=== PATIENT | male | born 1940 | race Caucasian/White ===

== ENCOUNTER 2020-04-28 10:07 | Outpatient (CLI) | payer MEDICARE, SELFPAY ==
[2020-04-28 10:49] LABS: Hematocrit 31.4 % (42.0-52.0); Hemoglobin 9.9 g/dL (14.0-18.0); Mean Corpuscular HGB Conc 31.5 g/dl (32-36); Mean Corpuscular Hemoglobin 27.3 pg (26-34); Mean Corpuscular Volume 86.7 fl (80-100); Mean Platelet Volume 11.3 fl (7.4-10.4); Platelet Count Result 168 k/mm3 (150-375); Red Blood Count 3.62 M/mm3 (4.6-6.20); Red Cell Distribution Width 16.2 % (11.5-14.5); White Blood Count 6.7 K/mm3 (4.5-10.0)
[2020-04-28 10:54] LABS: Creatinine Urine 97.1 mg/dL; Total Protein Urine Random 99 mg/dL
[2020-04-28 11:01] LABS: Albumin Level 4.4 g/dL (3.5-5.1); Blood Urea Nitrogen 49 mg/dL (9-20); Calcium 9.3 mg/dL (8.4-10.2); Carbon Dioxide 24 mmol/L (22-30); Chloride 107 mmol/L (98-107); Cholesterol 145 mg/dL (0-200); Estimated Glomerular Filt Rate 34; Glucose 122 mg/dL (75-110); HDL Direct 43 mg/dL; Phosphorus 4.1 mg/dL (2.5-4.5); Potassium 4.6 mmol/L (3.4-5.0); Sodium 138 mmol/L (137-145); Triglycerides 94 mg/dL (<150)
[2020-04-28 11:12] LABS: LDL Cholesterol Direct 76 mg/dL; Parathyroid Intact 69.6 pg/mL (7.5-53.5)
[2020-04-28 11:19] LABS: Alanine Aminotransferase < 4 U/L (4-50)
[2020-04-28 11:44] LABS: Vitamin D 25 Hydroxy 58.4 ng/mL
== END 2020-04-28 10:08 | disposition home or self-care (01) ==
LOC: ANHLAB 10:13
PROVIDERS: PCP Family Medicine; Visit Provider Internal Medicine Nephrology
DX: N18.3 Chronic kidney disease, stage 3 (moderate) (principal); E78.49 Other hyperlipidemia
CPT/HCPCS: 36415; 80061; 80069; 82306; 82570; 83970; 84156; 84460; 85027

== ENCOUNTER 2020-08-06 15:30 | Outpatient (CLI) | payer MEDICARE, SELFPAY ==
[2020-08-06 16:08] LABS: Basophils Percent Auto 0.5 % (0.2-1.2); Eosinophils Absolute Auto 0.1 K/mm3 (0-0.3); Eosinophils Percent Auto 2.1 % (0-4.4); Hematocrit 30.6 % (42.0-52.0); Hemoglobin 9.5 g/dL (14.0-18.0); Immature Granulocyte Absolute 0.02 K/mm3 (0.00-0.031); Immature Granulocyte Percent A 0.3 % (0-0.5); Lymphocytes Absolute Auto 0.78 K/mm3 (0.9-3.2); Lymphocytes Percent Auto 12.4 % (18.3-44.2); Mean Corpuscular Hemoglobin 28.3 pg (26-34); Mean Corpuscular Volume 91.1 fl (80-100); Mean Platelet Volume 11.4 fl (7.4-10.4); Monocytes Absolute Auto 0.6 K/mm3 (0.1-0.6); Monocytes Percent Auto 9.5 % (2.6-8.5); Neutrophils Absolute Auto 4.7 K/mm3 (1.3-6.7); Neutrophils Percent Auto 75.2 % (45.5-73.1); Platelet Count Result 174 k/mm3 (150-375); Red Blood Count 3.36 M/mm3 (4.6-6.20); Red Cell Distribution Width 14.4 % (11.5-14.5); White Blood Count 6.3 K/mm3 (4.5-10.0)
[2020-08-06 16:44] LABS: Albumin Level 4.1 g/dL (3.5-5.1); Alkaline Phosphatase 64 U/L (38-126); Anion Gap 11 mmol/L (8-16); Aspartate Amino Transferase 13 U/L (17-59); Bilirubin,Total 0.4 mg/dL (0.2-1.3); Blood Urea Nitrogen 40 mg/dL (9-20); Calcium 9.5 mg/dL (8.4-10.2); Carbon Dioxide 27 mmol/L (22-30); Chloride 104 mmol/L (98-107); Cholesterol 135 mg/dL (0-200); Estimated Glomerular Filt Rate 32; Glucose 125 mg/dL (75-110); HDL Direct 45 mg/dL; Potassium 4.4 mmol/L (3.4-5.0); Sodium 142 mmol/L (137-145); Triglycerides 139 mg/dL (<150)
[2020-08-06 16:55] LABS: LDL Cholesterol Direct 70 mg/dL
[2020-08-06 16:55] LABS: Creatinine Urine 161.4 mg/dL
[2020-08-06 17:13] LABS: Thyroid Stimulating Hormone 0.654 uIU/mL (0.465-4.680)
[2020-08-06 17:31] LABS: MALB Creatinine Ratio 621.7 mg/g (0-30); Microalbumin Urine Random 1003.4 mg/L (0-16.7)
[2020-08-06 17:32] LABS: Alanine Aminotransferase < 6 U/L (4-50)
[2020-08-06 17:43] LABS: Thyroid Stimulating Hormone Reflex 0.674 uIU/mL (0.465-4.68)
== END 2020-08-06 15:31 | disposition home or self-care (01) ==
LOC: ANHLAB 15:34
PROVIDERS: PCP Family Medicine; Visit Provider Family Medicine
DX: I10 Essential (primary) hypertension (principal); E11.9 Type 2 diabetes mellitus without complications; N40.1 Benign prostatic hyperplasia with lower urinary tract symptoms; R33.8 Other retention of urine; Z12.5 Encounter for screening for malignant neoplasm of prostate; E78.5 Hyperlipidemia, unspecified; E53.8 Deficiency of other specified B group vitamins
CPT/HCPCS: 36415; 80053; 80061; 82043; 82607; 83036; 84153; 84443; 85025; G0103

== ENCOUNTER 2020-11-02 14:01 | Outpatient (CLI) | payer MEDICARE, SELFPAY ==
[2020-11-02 14:48] LABS: Creatinine Urine 134.7 mg/dL; Total Protein Urine Random 122 mg/dL; Ur Ttl Prot Creatinine Ratio 0.91 mg/mg (0-0.20)
[2020-11-02 14:53] LABS: Anion Gap 8 mmol/L (8-16); Blood Urea Nitrogen 43 mg/dL (9-20); Calcium 8.9 mg/dL (8.4-10.2); Carbon Dioxide 26 mmol/L (22-30); Chloride 105 mmol/L (98-107); Estimated Glomerular Filt Rate 34; Glucose 119 mg/dL (75-110); Phosphorus 3.7 mg/dL (2.5-4.5); Potassium 4.5 mmol/L (3.4-5.0); Sodium 139 mmol/L (137-145)
== END 2020-11-02 14:02 | disposition home or self-care (01) ==
PROVIDERS: PCP Family Medicine; Referring Provider Family Medicine; Visit Provider Internal Medicine Nephrology
DX: N18.30 Chronic kidney disease, stage 3 unspecified (principal)
CPT/HCPCS: 36415; 80069; 82570; 84156

== ENCOUNTER 2021-05-17 14:00 | Outpatient (CLI) | payer MEDICARE, SELFPAY ==
[2021-05-17 14:35] LABS: Hemoglobin 9.3 g/dL (14.0-18.0); Mean Corpuscular Hemoglobin 27.7 pg (26-34); Mean Corpuscular Volume 89.3 fl (80-100); Platelet Count Result 163 k/mm3 (150-375); Red Blood Count 3.36 M/mm3 (4.6-6.20); Red Cell Distribution Width 14.7 % (11.5-14.5); White Blood Count 6.1 K/mm3 (4.5-10.0)
[2021-05-17 15:39] LABS: Albumin Level 4.3 g/dL (3.5-5.1); Anion Gap 11 mmol/L (8-16); Blood Urea Nitrogen 46 mg/dL (9-20); Calcium 9.5 mg/dL (8.4-10.2); Carbon Dioxide 24 mmol/L (22-30); Chloride 108 mmol/L (98-107); Estimated Glomerular Filt Rate 29; Glucose 113 mg/dL (65-110); Phosphorus 4.1 mg/dL (2.5-4.5); Potassium 4.7 mmol/L (3.4-5.0); Sodium 143 mmol/L (137-145)
[2021-05-17 16:18] LABS: Creatinine Urine 171.9 mg/dL; Total Protein Urine Random 72 mg/dL; Ur Ttl Prot Creatinine Ratio 0.42 mg/mg (0-0.20)
[2021-05-17 16:32] LABS: Parathyroid Intact 81.6 pg/mL (7.5-53.5)
== END 2021-05-17 14:01 | disposition home or self-care (01) ==
PROVIDERS: PCP Family Medicine; Referring Provider Family Medicine; Visit Provider Internal Medicine Nephrology
DX: N18.32 Chronic kidney disease, stage 3b (principal)
CPT/HCPCS: 36415; 80069; 82570; 83970; 84156; 85027

== ENCOUNTER 2021-08-11 10:37 | Outpatient (CLI) | payer MEDICARE, SELFPAY ==
[2021-08-11 11:11] LABS: Basophils Percent Auto 0.5 % (0.2-1.2); Eosinophils Absolute Auto 0.2 K/mm3 (0-0.3); Hematocrit 28.4 % (42.0-52.0); Hemoglobin 8.8 g/dL (14.0-18.0); Immature Granulocyte Absolute 0.01 K/mm3 (0.00-0.031); Immature Granulocyte Percent A 0.2 % (0-0.5); Lymphocytes Absolute Auto 0.74 K/mm3 (0.9-3.2); Mean Corpuscular Hemoglobin 27.9 pg (26-34); Mean Corpuscular Volume 90.2 fl (80-100); Mean Platelet Volume 11.2 fl (7.4-10.4); Monocytes Absolute Auto 0.7 K/mm3 (0.1-0.6); Monocytes Percent Auto 11.6 % (2.6-8.5); Neutrophils Absolute Auto 4.1 K/mm3 (1.3-6.7); Neutrophils Percent Auto 71.7 % (45.5-73.1); Platelet Count Result 148 k/mm3 (150-375); Red Blood Count 3.15 M/mm3 (4.6-6.20); Red Cell Distribution Width 15.2 % (11.5-14.5); White Blood Count 5.7 K/mm3 (4.5-10.0)
[2021-08-11 11:33] LABS: Albumin Level 4.4 g/dL (3.5-5.1); Alkaline Phosphatase 63 U/L (38-126); Anion Gap 11 mmol/L (8-16); Aspartate Amino Transferase 12 U/L (17-59); Bilirubin,Total 0.5 mg/dL (0.2-1.3); Blood Urea Nitrogen 42 mg/dL (9-20); Carbon Dioxide 24 mmol/L (22-30); Chloride 106 mmol/L (98-107); Cholesterol 122 mg/dL (0-200); Estimated Glomerular Filt Rate 30; Glucose 100 mg/dL (65-110); HDL Direct 44 mg/dL; Potassium 4.5 mmol/L (3.4-5.0); Sodium 141 mmol/L (137-145); Triglycerides 74 mg/dL (<150)
[2021-08-11 11:44] LABS: LDL Cholesterol Direct 63 mg/dL
[2021-08-11 12:03] LABS: Prostate Specific Antigen 1.1 ng/mL (< OR = 4.0)
[2021-08-11 12:24] LABS: Creatinine Urine 112.9 mg/dL
[2021-08-11 12:27] LABS: Vitamin B12 > 1000.0 pg/mL (239-931)
[2021-08-11 12:52] LABS: MALB Creatinine Ratio 306.1 mg/g (0-30); Microalbumin Urine Random 345.6 mg/L (0-16.7)
[2021-08-11 13:10] LABS: Alanine Aminotransferase < 6 U/L (4-50)
[2021-08-11 14:49] LABS: Hemoglobin A1C 6.1 % (<5.7)
== END 2021-08-11 10:38 | disposition home or self-care (01) ==
LOC: ANHLAB 10:40
PROVIDERS: PCP Family Medicine; Visit Provider Family Medicine
DX: E78.5 Hyperlipidemia, unspecified (principal); I10 Essential (primary) hypertension; E11.9 Type 2 diabetes mellitus without complications; E55.9 Vitamin D deficiency, unspecified; Z12.5 Encounter for screening for malignant neoplasm of prostate; E53.8 Deficiency of other specified B group vitamins
CPT/HCPCS: 36415; 80053; 80061; 82043; 82306; 82607; 83036; 84153; 84443; 85025; G0103

== ENCOUNTER 2021-11-03 13:42 | Outpatient (CLI) | payer MEDICARE, SELFPAY ==
[2021-11-03 14:51] LABS: Albumin Level 4.4 g/dL (3.5-5.1); Anion Gap 13 mmol/L (8-16); Blood Urea Nitrogen 47 mg/dL (9-20); Calcium 9.7 mg/dL (8.4-10.2); Carbon Dioxide 24 mmol/L (22-30); Chloride 108 mmol/L (98-107); Estimated Glomerular Filt Rate 29; Glucose 137 mg/dL (65-110); Potassium 4.3 mmol/L (3.4-5.0); Sodium 145 mmol/L (137-145)
[2021-11-03 15:13] LABS: Creatinine Urine 122.8 mg/dL; Total Protein Urine Random 89 mg/dL; Ur Ttl Prot Creatinine Ratio 0.72 mg/mg (0-0.20)
== END 2021-11-03 13:43 | disposition home or self-care (01) ==
LOC: ANHLAB 13:45
PROVIDERS: PCP Family Medicine; Visit Provider Internal Medicine Nephrology
DX: N18.32 Chronic kidney disease, stage 3b (principal)
CPT/HCPCS: 36415; 80069; 82570; 84156

== ENCOUNTER 2022-04-25 12:22 | Outpatient (CLI) | payer MEDICARE, SELFPAY ==
[2022-04-25 14:12] LABS: Hematocrit 27.6 % (42.0-52.0); Hemoglobin 8.3 g/dL (14.0-18.0); Mean Corpuscular HGB Conc 30.1 g/dl (32-36); Mean Corpuscular Hemoglobin 25.4 pg (26-34); Mean Corpuscular Volume 84.4 fl (80-100); Platelet Count Result 164 k/mm3 (150-375); Red Blood Count 3.27 M/mm3 (4.6-6.20); Red Cell Distribution Width 17.8 % (11.5-14.5); White Blood Count 5.6 K/mm3 (4.5-10.0)
[2022-04-25 14:19] LABS: Albumin Level 4.2 g/dL (3.5-5.1); Anion Gap 7 mmol/L (8-16); Blood Urea Nitrogen 48 mg/dL (9-20); Calcium 9.1 mg/dL (8.4-10.2); Carbon Dioxide 26 mmol/L (22-30); Chloride 107 mmol/L (98-107); Estimated Glomerular Filt Rate 29; Glucose 123 mg/dL (65-110); Phosphorus 3.8 mg/dL (2.5-4.5); Potassium 4.3 mmol/L (3.4-5.0); Sodium 140 mmol/L (137-145)
[2022-04-25 14:25] LABS: Creatinine Urine 98.6 mg/dL; Total Protein Urine Random 89 mg/dL
[2022-04-25 14:30] LABS: Parathyroid Intact 53.9 pg/mL (7.5-53.5)
== END 2022-04-25 12:23 | disposition home or self-care (01) ==
PROVIDERS: PCP Family Medicine; Visit Provider Internal Medicine Nephrology
DX: N18.4 Chronic kidney disease, stage 4 (severe) (principal)
CPT/HCPCS: 36415; 80069; 82570; 83970; 84156; 85027

== ENCOUNTER 2022-05-05 11:58 | Outpatient (CLI) | payer MEDICARE, SELFPAY ==
[2022-05-05 12:56] LABS: Appearance Urine Cloudy (Clear); Bilirubin Urine Negative (Negative); Blood Urine Trace-lysed (Negative); Color Urine Yellow (Yellow); Glucose Urine UA Negative (Negative); Ketones Urine Negative (Negative); Leukocyte Esterase Ur 2+ LEU/UL (NEGATIVE); Nitrate Urine Negative (Negative); Protein Urine 3+ mg/dL (Negative); Specific Grav Ur 1.025 (1.001-1.035); Urobilinogen Urine 0.2 mg/dL (<2.0)
[2022-05-05 13:14] LABS: Bacteria Urine Trace /hpf; RBC Urine 21-50 /hpf (0-2); WBC Clumps Urine Present /HPF; WBC Urine >75 /hpf (0-3)
[2022-05-05 13:29] LABS: Add Urine Microscopic? YES
== END 2022-05-05 11:59 | disposition home or self-care (01) ==
LOC: ANHLAB 11:59
PROVIDERS: PCP Family Medicine; Visit Provider Internal Medicine Nephrology
DX: N39.0 Urinary tract infection, site not specified (principal)
CPT/HCPCS: 81001; 87077; 87086; 87186

== ENCOUNTER 2022-09-08 11:15 | Outpatient (CLI) | payer MEDICARE, SELFPAY ==
[2022-09-08 19:26] LABS: Basophils Percent Auto 0.6 % (0.2-1.2); Eosinophils Absolute Auto 0.3 K/mm3 (0-0.3); Eosinophils Percent Auto 4.6 % (0-4.4); Hematocrit 31.1 % (42.0-52.0); Hemoglobin 9.6 g/dL (14.0-18.0); Immature Granulocyte Absolute 0.02 K/mm3 (0.00-0.031); Immature Granulocyte Percent A 0.3 % (0-0.5); Lymphocytes Absolute Auto 0.79 K/mm3 (0.9-3.2); Lymphocytes Percent Auto 12.2 % (18.3-44.2); Mean Corpuscular HGB Conc 30.9 g/dl (32-36); Mean Corpuscular Hemoglobin 26.7 pg (26-34); Mean Corpuscular Volume 86.6 fl (80-100); Mean Platelet Volume 12.2 fl (7.4-10.4); Monocytes Absolute Auto 0.7 K/mm3 (0.1-0.6); Monocytes Percent Auto 10.3 % (2.6-8.5); Neutrophils Absolute Auto 4.7 K/mm3 (1.3-6.7); Platelet Count Result 163 k/mm3 (150-375); Red Blood Count 3.59 M/mm3 (4.6-6.20); Red Cell Distribution Width 16.4 % (11.5-14.5); White Blood Count 6.5 K/mm3 (4.5-10.0)
[2022-09-08 19:32] LABS: Creatinine Urine 103.6 mg/dL; Total Protein Urine Random 116 mg/dL; Ur Ttl Prot Creatinine Ratio 1.12 mg/mg (0-0.20)
[2022-09-08 19:42] LABS: Alanine Aminotransferase 8 U/L (6-50); Albumin Level 4.3 g/dL (3.5-5.1); Alkaline Phosphatase 84 U/L (38-126); Anion Gap 12 mmol/L (8-16); Aspartate Amino Transferase 14 U/L (17-59); Bilirubin,Total 0.6 mg/dL (0.2-1.3); Blood Urea Nitrogen 47 mg/dL (9-20); Calcium 8.9 mg/dL (8.4-10.2); Carbon Dioxide 22 mmol/L (22-30); Chloride 104 mmol/L (98-107); Cholesterol 147 mg/dL (0-200); Estimated Glomerular Filt Rate 26; Glucose 101 mg/dL (65-110); HDL Direct 46 mg/dL; Potassium 4.3 mmol/L (3.4-5.0); Sodium 138 mmol/L (137-145); Triglycerides 91 mg/dL (<150)
[2022-09-08 19:53] LABS: LDL Cholesterol Direct 71 mg/dL
[2022-09-08 19:53] LABS: Albumin Level 4.3 g/dL (3.5-5.1); Anion Gap 16 mmol/L (8-16); Blood Urea Nitrogen 47 mg/dL (9-20); Carbon Dioxide 21 mmol/L (22-30); Chloride 102 mmol/L (98-107); Estimated Glomerular Filt Rate 26; Glucose 104 mg/dL (65-110); Phosphorus 3.6 mg/dL (2.5-4.5); Potassium 4.1 mmol/L (3.4-5.0); Sodium 139 mmol/L (137-145)
[2022-09-08 19:57] LABS: Hemoglobin A1C 6.3 % (<5.7)
[2022-09-08 20:01] LABS: Parathyroid Intact 55.2 pg/mL (7.5-53.5)
[2022-09-08 20:05] LABS: Vitamin D 25 Hydroxy 70.5 ng/mL
[2022-09-08 20:13] LABS: Prostate Specific Antigen 1.2 ng/mL (< OR = 4.0)
[2022-09-08 20:19] LABS: Thyroid Stimulating Hormone Reflex 0.566 uIU/mL (0.465-4.68)
[2022-09-08 20:33] LABS: Hepatitis C Virus Antibody Negative (Negative)
[2022-09-08 20:34] LABS: Vitamin B12 > 1000.0 pg/mL (239-931)
[2022-09-08 21:06] LABS: MALB Creatinine Ratio 684.6 mg/g (0-30); Microalbumin Urine Random 698.3 mg/L (0-16.7)
== END 2022-09-08 11:16 | disposition home or self-care (01) ==
LOC: ANHGOSHLAB 11:19
PROVIDERS: PCP Family Medicine; Visit Provider Internal Medicine Nephrology
DX: E11.9 Type 2 diabetes mellitus without complications (principal); Z12.5 Encounter for screening for malignant neoplasm of prostate; G20 Parkinson's disease; E53.8 Deficiency of other specified B group vitamins; E55.9 Vitamin D deficiency, unspecified; E78.5 Hyperlipidemia, unspecified; I12.9 Hypertensive chronic kidney disease with stage 1 through stage 4 chronic kidney disease, or unspecified chronic kidney disease; N18.4 Chronic kidney disease, stage 4 (severe)
CPT/HCPCS: 36415; 80053; 80061; 80069; 82043; 82306; 82570; 82607; 83036; 83970; 84153; 84156; 84443; 85025; 86803; G0103

== ENCOUNTER 2023-01-20 14:30 | Outpatient (RCR) | payer MEDICARE, SELFPAY ==
--- NOTE | 2022-11-21 14:33 | PTOPEVAL1 ---
Assessment and note entered by Sagar Magaña, PT, DPT Evaluation Information Assessment Status Evaluation Diagnosis Parkinson's Disease, repeated falls Onset 3 years Subjective Information Pt reports he lives with his lives with his in a fully accessible home. He reports his last fall was 8 months ago. He states he would like to improve his balance. He states he has been walking with a walker since his last fall. Reported Pain Level Pain Score 0: Self Report Assessment PT Clinical Summary Chris presents to therapy today for his initial evaluation with a diagnosis of Parkinson's and repeated falls. Today he demonstrates a decreased gait speed with a shorten step and shuffling pattern. He demonstrates good LE strength, grossly 4/5 throughout. He has fair balance, scoring a 17 /28 on the Tinetti placing him at an increased risk for falls. He also requires increased time to complete the TUG and 5xSTS, and has a decreased distance on the 2 min walk test, all placing him at an increase risk for falls. Skilled physical therapy services are indicated to address the deficits noted above, to improve balance and mobility, to minimize fall risk, and to promote safety with functional mobility. Plan of Care Interventions Manual Therapy,Neuro Re-education,Patient/ Caregiver Educati PT Services Indicated Yes Treatment Frequency and 2x/wk for 4 wks Duration These treatments will address the objective and functional deficits as defined above. The patient will be advanced safely and appropriately in order for the patient to progress towards his/her prior level of function. Additional exercises will be introduced and as well as a comprehensive home exercise program upon discharge, if needed, ?to ensure carryover of functional gains achieved in the clinic. This treatment plan has been reviewed and agreement upon by the patient.
--- NOTE | 2022-12-09 13:28 | PCPTNOTE ---
Patient called & cancelled scheduled appointment this date due to being sick.
--- NOTE | 2022-12-21 14:53 | PTOPPROG ---
Assessment and note entered by Sagar Magaña, PT, DPT Evaluation Information Assessment Status Progress Diagnosis Parkinson's Disease, repeated falls Onset 3 years Subjective Information Pt states he has improved a little bit with therapy, he states his balance, mobility, and bed mobility has improved since starting therapy. Pt reports good compliance with his HEP, performing them 1-2 times a day. Assessment PT Clinical Summary Chris presents to therapy today for his progress report following 5 visits of skilled therapy to treat the deficits associated with PD and his increased frequency of falls. He reports no falls in the last month. He made mild improvements in his 2 min walk test and TUG score but did not improve his Tinetti nor his 5xSTS time. Reinforcement on the importance of increasing daily mobility was given. Continuation of skilled therapy services are indicated to address deficits noted above, to improve safety and functional mobility. Plan of Care Interventions Manual Therapy,Neuro Re-education,Patient/ Caregiver Educati PT Services Indicated Yes Treatment Frequency and 2x/wk for 4 wks Duration These treatments will address the objective and functional deficits as defined above. The patient will be advanced safely and appropriately in order for the patient to progress towards his/her prior level of function. Additional exercises will be introduced and as well as a comprehensive home exercise program upon discharge, if needed, ?to ensure carryover of functional gains achieved in the clinic. This treatment plan has been reviewed and agreement upon by the patient.
--- NOTE | 2023-01-20 15:21 | PTOPDC ---
Assessment and note entered by Sagar Magaña, PT, DPT Evaluation Information Assessment Status Discharge Diagnosis Parkinson's Disease, repeated falls Onset 3 years Subjective Information Pt states he feels more confident when walking around his home. He declines any recent falls. Pt report performing his HEP about 2 times a week outside of therapy. Reported Pain Level Pain Score 0: Self Report Assessment PT Clinical Summary Chris presents to therapy today for his progress report following 14 visits of skilled physical therapy to treat his BLE weakness, decreased balance, and generalized weakness. Today he demonstrates a worsening score/time during the 2min walk test and Tinetti balance assessment. He demonstrates minor improvement in his 5xSTS from his later re-evaluation but this is still the same as his initial evaluation. However, his TUG time has consistently decreased from 38s, to 33s, to 32s. He will be discharged at this time d/t poor therapy progress and poor compliance with his home program. Plan of Care Interventions Manual Therapy,Neuro Re-education,Patient/ Caregiver Educati PT Services Indicated No Treatment Frequency and to be discharged Duration
== END 2023-01-20 15:30 | disposition home or self-care (01) ==
LOC: ANHGOSHPT 14:30
PROVIDERS: PCP Family Medicine; Visit Provider Family Medicine
DX: G20 Parkinson's disease (principal); R29.6 Repeated falls
CPT/HCPCS: 97110; 97112; 97161; 97530

== ENCOUNTER 2023-01-25 14:41 | Outpatient (CLI) | payer MEDICARE, SELFPAY ==
[2023-01-25 18:44] LABS: Hematocrit 28.2 % (42.0-52.0); Hemoglobin 8.5 g/dL (14.0-18.0); Mean Corpuscular HGB Conc 30.1 g/dl (32-36); Mean Corpuscular Hemoglobin 27.3 pg (26-34); Mean Corpuscular Volume 90.7 fl (80-100); Mean Platelet Volume 12.1 fl (7.4-10.4); Platelet Count Result 178 k/mm3 (150-375); Red Blood Count 3.11 M/mm3 (4.6-6.20); Red Cell Distribution Width 15.6 % (11.5-14.5); White Blood Count 8.2 K/mm3 (4.5-10.0)
[2023-01-25 19:27] LABS: Creatinine Urine 169.5 mg/dL; Total Protein Urine Random 157 mg/dL; Ur Ttl Prot Creatinine Ratio 0.93 mg/mg (0-0.20)
[2023-01-25 20:03] LABS: Albumin Level 4.1 g/dL (3.5-5.1); Anion Gap 8 mmol/L (8-16); Blood Urea Nitrogen 43 mg/dL (9-20); Carbon Dioxide 28 mmol/L (22-30); Chloride 108 mmol/L (98-107); Estimated Glomerular Filt Rate 30; Glucose 128 mg/dL (65-110); Phosphorus 3.9 mg/dL (2.5-4.5); Potassium 4.1 mmol/L (3.4-5.0); Sodium 144 mmol/L (137-145)
[2023-01-25 20:15] LABS: Parathyroid Intact 89.1 pg/mL (7.5-53.5)
== END 2023-01-25 14:42 | disposition home or self-care (01) ==
LOC: ANHGOSHLAB 14:42
PROVIDERS: PCP Family Medicine; Visit Provider Internal Medicine Nephrology
DX: N18.4 Chronic kidney disease, stage 4 (severe) (principal)
CPT/HCPCS: 36415; 80069; 82570; 83970; 84156; 85027

== ENCOUNTER 2023-02-24 12:20 | Emergency (ER) | payer MEDICARE, SELFPAY ==
--- NOTE | ~2023-02-24 | XR_ITS ---
Right Knee Technique: AP, lateral, and sunrise views were obtained. Clinical History: Pain Findings: No fracture or dislocation is seen. Osseous alignment is anatomic. There is mild to moderat e tricompartmental degenerative spurring. Chondrocalcinosis of the menisci noted. Possible small join t effusion is seen. Impression: [id number] tricompartmental osteoarthritis. Suspected small joint effusion. Reviewed, dictated and finalized at location M. Impression: [id number] tricompartmental osteoarthritis. Suspected small joint effusion.
[2023-02-24 12:35] VITALS: BP 159/55; PULSE 59; RESP 18; TEMP 36.4; O2SAT 99
[2023-02-24 13:57] LABS: Glucose Point of Care 122 mg/dl (65-105)
--- NOTE | 2023-02-24 14:45 | PC.NURSE ---
Family verbalized frustration at this time about now being seen by EDP at this time. This nurse explained triage at this time. This nurse explained that pt can get xray results from medical records for another PCP. Per son request pt PIV removed and states that they will take pt home.
--- NOTE | 2023-02-24 14:48 | PC.NURSE ---
Pt assisted by tech and family member to POV at this time.
== END 2023-02-24 14:48 | disposition left against medical advice (07) ==
PROVIDERS: Emergency Provider Emergency Medicine; PCP Family Medicine
DX: M25.561 Pain in right knee (principal)
CPT/HCPCS: 73564; 82948; 99199

== ENCOUNTER 2023-03-07 14:20 | Outpatient (CLI) | payer MEDICARE, SELFPAY ==
[2023-03-07 19:25] LABS: Basophils Absolute Auto 0.1 K/mm3 (0.0-0.1); Basophils Percent Auto 0.4 % (0.2-1.2); Eosinophils Absolute Auto 0.1 K/mm3 (0-0.3); Eosinophils Percent Auto 0.8 % (0-4.4); Hemoglobin 9.8 g/dL (14.0-18.0); Immature Granulocyte Absolute 0.05 K/mm3 (0.00-0.031); Immature Granulocyte Percent A 0.4 % (0-0.5); Lymphocytes Absolute Auto 0.62 K/mm3 (0.9-3.2); Lymphocytes Percent Auto 5.4 % (18.3-44.2); Mean Corpuscular HGB Conc 30.6 g/dl (32-36); Mean Corpuscular Hemoglobin 26.6 pg (26-34); Mean Corpuscular Volume 86.7 fl (80-100); Mean Platelet Volume 12.8 fl (7.4-10.4); Monocytes Absolute Auto 0.9 K/mm3 (0.1-0.6); Neutrophils Absolute Auto 9.8 K/mm3 (1.3-6.7); Platelet Count Result 183 k/mm3 (150-375); Red Blood Count 3.69 M/mm3 (4.6-6.20); Red Cell Distribution Width 15.4 % (11.5-14.5); White Blood Count 11.6 K/mm3 (4.5-10.0)
[2023-03-07 20:03] LABS: Alanine Aminotransferase 17 U/L (6-50); Albumin Level 4.2 g/dL (3.5-5.1); Alkaline Phosphatase 86 U/L (38-126); Anion Gap 11 mmol/L (8-16); Aspartate Amino Transferase 29 U/L (17-59); Bilirubin,Total 0.9 mg/dL (0.2-1.3); Blood Urea Nitrogen 40 mg/dL (9-20); Calcium 8.9 mg/dL (8.4-10.2); Carbon Dioxide 26 mmol/L (22-30); Chloride 100 mmol/L (98-107); Estimated Glomerular Filt Rate 27; Glucose 151 mg/dL (65-110); Potassium 3.5 mmol/L (3.4-5.0); Sodium 137 mmol/L (137-145)
== END 2023-03-07 14:21 | disposition home or self-care (01) ==
LOC: ANHGOSHLAB 14:22
PROVIDERS: PCP Family Medicine; Visit Provider Nurse Practitioner Family
DX: D64.9 Anemia, unspecified (principal); I10 Essential (primary) hypertension; E11.9 Type 2 diabetes mellitus without complications
CPT/HCPCS: 36415; 80053; 82728; 83036; 85025

== ENCOUNTER 2023-03-10 16:16 | Inpatient (IN) | payer MEDICARE, SELFPAY ==
[2023-03-10] VITALS (24 sets, daily range): BP systolic 122–172; BP diastolic 62–98; PULSE 61–99; RESP 17–24; TEMP 36.3–36.4; O2SAT 94–99
--- NOTE | ~2023-03-10 | XR_ITS ---
EXAMINATION: XR chest 1V portable DATE: 03/10/2023 17:00 INDICATION: Weakness. TECHNIQUE: A single frontal view of the chest was obtained on 2 radiographs. COMPARISON: Chest single view 09/11/2019 FINDINGS: There is no pneumonia, pleural effusion, or pneumothorax. Cardiomegaly is noted. IMPRESSION: 1. Cardiomegaly. Reviewed, dictated and finalized at location E. IMPRESSION: 1. Cardiomegaly.
--- NOTE | 2023-03-10 16:26 | ECG_ITS ---
Measurements Intervals [place] Rate: 70 P: SD: 0 QRS: 33 QRSD: 122 T: -6 QT: 374 QTc: 405 Interpretive Statements ATRIAL FIBRILLATION INTRAVENTRICULAR CONDUCTION DELAY ST-T WAVE ABNORMALITY IN LATERAL LEADS- CONSIDER ISCHEMIA BASELINE ARTIFACT- I, II, III, AVR, AVL, AVF ABNORMAL ECG COMPARED TO ECG 09/12/2019 18:30:51 ATRIAL FIBRILLATION NOW PRESENT ST-T WAVE ABNORMALITY NOW PRESENT Electronically Signed On 03-10-2023 20:16:24 CDT by Jose Ivey D.O.
[2023-03-10 16:53] LABS: Basophils Percent Auto 0.2 % (0.2-1.2); Hematocrit 28.4 % (42.0-52.0); Immature Granulocyte Percent A 0.6 % (0-0.5); Lymphocytes Absolute Auto 0.27 K/mm3 (0.9-3.2); Lymphocytes Percent Auto 1.6 % (18.3-44.2); Mean Corpuscular HGB Conc 31.7 g/dl (32-36); Mean Corpuscular Hemoglobin 27.3 pg (26-34); Mean Corpuscular Volume 86.1 fl (80-100); Mean Platelet Volume 12.4 fl (7.4-10.4); Monocytes Absolute Auto 1.2 K/mm3 (0.1-0.6); Monocytes Percent Auto 6.9 % (2.6-8.5); Neutrophils Absolute Auto 15.1 K/mm3 (1.3-6.7); Neutrophils Percent Auto 90.7 % (45.5-73.1); Platelet Count Result 141 k/mm3 (150-375); Red Cell Distribution Width 16.1 % (11.5-14.5); White Blood Count 16.6 K/mm3 (4.5-10.0)
[2023-03-10 17:03] LABS: Alanine Aminotransferase 13 U/L (6-50); Albumin Level 3.9 g/dL (3.5-5.1); Alkaline Phosphatase 86 U/L (38-126); Anion Gap 10 mmol/L (8-16); Aspartate Amino Transferase 12 U/L (17-59); Bilirubin,Total 1.1 mg/dL (0.2-1.3); Blood Urea Nitrogen 43 mg/dL (9-20); Calcium 8.3 mg/dL (8.4-10.2); Carbon Dioxide 26 mmol/L (22-30); Chloride 97 mmol/L (98-107); Estimated Glomerular Filt Rate 27; Glucose 163 mg/dL (65-110); Magnesium 1.3 mg/dL (1.6-2.3); Potassium 3.5 mmol/L (3.4-5.0); Sodium 133 mmol/L (137-145)
[2023-03-10 17:27] LABS: Influenza A QL RT-PCR Negative (Negative); Influenza B QL RT-PCR Negative (Negative); RSV RNA, RT-PCR Negative (Negative); SARS-CoV-2 RNA PCR Negative (Negative)
[2023-03-10] MEDS: MAGNESIUM SULF 2 GM/WATER 50ML 2 GM/50 ML BAG IVPB (17:41)
[2023-03-10 17:53] LABS: Thyroid Stimulating Hormone Reflex 0.061 uIU/mL (0.465-4.68)
[2023-03-10 18:28] LABS: Free T4 Free Thyroxine Reflex 2.03 ng/dL (0.78-2.19)
[2023-03-10] MEDS: SODIUM CHLORIDE 0.9% IV 1,000 ML 500 ML IV CONT (18:44)
[2023-03-10 18:48] LABS: Appearance Urine Clear (Clear); Bacteria Urine None Seen /hpf; Bilirubin Urine Negative (Negative); Blood Urine 2+ (Negative); Color Urine Dark Yellow (Yellow); Glucose Urine UA Negative (Negative); Ketones Urine Trace mg/dL (Negative); Leukocyte Esterase Ur 2+ LEU/UL (Negative); Need Manual Microscopic Reviewed; Nitrate Urine Negative (Negative); Protein Urine 3+ mg/dL (Negative); RBC Urine 0-2 /hpf (0-2); Squamous Epithelial Cell Urine None seen /hpf (Few); WBC Urine 21-50 /hpf
[2023-03-10 18:51] LABS: Add Urine Microscopic? YES
--- NOTE | 2023-03-10 19:07 | ED.GENADULT ---
HPI - General Adult General Chief complaint: Weakness Stated complaint: weakness Time Seen by Provider: 03/10/23 16:23 History of Present Illness HPI narrative: 82-year-old male with history of Parkinson's disease presented to the emergency department for evaluation of generalized weakness that is worsened over the course of the last week. Patient states he has had decreased appetite but denies any nausea vomiting. Patient denies any abdominal pain. Patient denies any significant pain with urination. Patient denies any change in bowel habits. Family states that the patient has had strawberries and jelly over the last 2 days and has only had a small amount of water to drink Related Data Home Medications Medication Instructions Recorded Confirmed acetaminophen 325 mg tablet (Mapap 650 mg PO TID PRN pain 11/14/19 03/07/23 (acetaminophen)) aspirin 81 mg tablet,delayed 81 mg PO DAILY 03/08/21 03/07/23 release finasteride 5 mg tablet 5 mg PO DAILY 03/08/21 03/07/23 melatonin 5 mg tablet 5 mg PO HS 08/09/21 02/02/23 cholecalciferol (vitamin D3) 25 25 mcg PO DAILY 09/06/22 03/07/23 mcg (1,000 unit) capsule lactobacillus combination no.4 3 3,000 mmu cells PO DAILY 09/06/22 02/02/23 billion cell capsule (Probiotic) loperamide 2 mg tablet 1 mg PO .QOD PRN 09/06/22 02/02/23 vitamin B complex (B 1 tablet PO DAILY 09/06/22 02/02/23 Complex-Vitamin B12 tablet) Allergies Allergy/AdvReac Type Severity Reaction Status Date / Time No Known Allergies Allergy Verified 03/07/23 13:16 Review of Systems Review of Systems: All systems reviewed & are unremarkable except as noted in HPI and below PMFSH Past Medical History Medical History Anemia Bilateral cataracts BPH (benign prostatic hyperplasia) Chronic indwelling Todd catheter CKD (chronic kidney disease) stage 3, GFR 30-59 ml/min Dementia Diabetes mellitus On oral medications. Hemoglobin A1c 6.06 September 2019 Generalized weakness Hematuria History of deep venous thrombosis (DVT) of distal vein of right lower extremity History of TIAs Hypertension Osteoarthritis Parkinson disease Right ankle sprain (~11/14/19) Syncope due to orthostatic hypotension TIA (transient ischemic attack) Urinary retention due to benign prostatic hyperplasia Surgical History Surgical History History of bilateral cataract extraction 2009 History of colonoscopy with polypectomy February [address] Cox. Three polyps the mid ascending colon, 4 polyps in the rectum Internal hemorrhoids, diverticulosis History of left knee replacement September [address] Ashutosh Peters History of tonsillectomy Family History Family History Father Cerebrovascular accident Sibling Cerebrovascular accident Mother Heart attack Social History Social History Social History: The patient lives at home with his . Patient is a former smoker quit smoking in 1986. Primary care physician: Dr. Ajit Tirado Smoking packs per day: 1.5 Smoking cigarettes per day: 30.0 Years smoked: 20 Smoking pack-years: 30.00 Smoking status: Former smoker Tobacco type: cigarettes Second hand tobacco smoke exposure: No Smoking end date: 10/30/86 Alcohol intake: former Substance use: never Substance use type: does not use Lack of Transportation: No Lack of Food: Never True Current Housing: I Have Housing Concerned About Future Housing: No Difficulty Paying Gas/Electric Bills: No Difficulty Paying for Meds: No Currently Unemployed: No Education: Bachelor's Degree Living arrangements: with family Additional living arrangements comments: Occupation/Education: retired Gender identity (if verbalized by the patient): Male Sexual Orien
--- NOTE | 2023-03-10 19:30 | PM.IMHP ---
H&P: HPI History of Present Illness Date/Time: 03/10/23 19:30 Chief Complaint: weakness Narrative: this is an 82 year old male patient who has a history of Parkinson's disease. The patient has been becoming more weak over the last week. Patient denies any urinary symptoms. The patient has been having more difficulty ambulating. The patient does see Dr. Garcia and also sees a another neurology elsewhere. The patient has been having a poor oral intake and appears to be dehydrated. His white count is 16.6. His H&H is 9.0 And 28.4. patient's sodium is 133. His creatinine is 2.3 which is his baseline. GFR is 27 which again is his baseline. His blood sugars 163. his magnesium was 1.3. His urine is positive for UTI. His influenza A/B RSV and COVID are All negative. The patient was given magnesium, IV fluids and Rocephin in the emergency room. The patient is being admitted to observation status on the date of service 03/10/2023. Review of Systems Review of Systems: All systems reviewed & are unremarkable except as noted in HPI and below Constitutional: Constitutional: Reports as per HPI and Reports no additional constitutional complaints Eyes: Eyes: Reports as per HPI and Reports no additional eye complaints ENT: Reports system reviewed and no additional complaints, except as documented and Reports Normal hearing present Cardiovascular: Cardiovascular: Reports no additional cardiovascular complaints Respiratory: Respiratory: Reports no additional respiratory complaints and Reports no additional respiratory complaints Gastrointestinal: Gastrointestinal: Reports as per HPI and Reports no additional gastrointestinal complaints Musculoskeletal: Musculoskeletal: Reports no additional musculoskeletal complaints Integumentary/Breasts: Skin/Breast: Reports system reviewed and no additional complaints, except as docu and Reports as per HPI Neurologic: Reports system reviewed and no additional complaints, except as documented, Reports as per HPI and Reports Normal hearing present Psychiatric: Psychiatric: Reports no additional psychiatric complaints and Reports as per HPI Endocrine: Endocrine: Reports no additional endocrine complaints Hematologic/Lymphatic: Hematologic/Lymphatic: Reports no additional hematologic/lymphatic complaints Allergic/Immunologic: Allergic/Immunologic: Reports no additional allergic/immunologic complaints [facility] Past Medical History Medical History Anemia Bilateral cataracts BPH (benign prostatic hyperplasia) Chronic indwelling Todd catheter CKD (chronic kidney disease) stage 3, GFR 30-59 ml/min Dementia Diabetes mellitus On oral medications. Hemoglobin A1c 6.06 September 2019 Generalized weakness Hematuria History of deep venous thrombosis (DVT) of distal vein of right lower extremity History of TIAs Hypertension Osteoarthritis Parkinson disease Right ankle sprain (~09/12/19) Syncope due to orthostatic hypotension TIA (transient ischemic attack) Urinary retention due to benign prostatic hyperplasia Surgical History Surgical History (Updated 03/10/23 @ 19:35 by Jocelyn Finch NP) History of bilateral cataract extraction 2009 History of colonoscopy with polypectomy February [address] Cox. Three polyps the mid ascending colon, 4 polyps in the rectum Internal hemorrhoids, diverticulosis History of left knee replacement September [address] Ashutosh Peters History of tonsillectomy S/P IVC filter Family History Family History Father Cerebrovascular accident Sibling Cerebrovascular accident Mother Heart attack Social History Social History (Updated 03/10/23 @ 23:31 by Jocelyn Finch NP) Social History: The patient lives with his Grecia. they have one son Kashmir. 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
--- NOTE | 2023-03-10 20:40 | PC.NURSE ---
This patient, Chris Carrera, was admitted to [facility] Room 307-01. Patient/family oriented to hospital policies and general routines including ID bracelet, bed and alarms, visiting hours, pain management, procedures, bathroom and other care routines, personal items, smoking policy, room service/diet, and visiting hours. Information on how to activate the Rapid Response Team has been discussed. Patient/Family are encouraged to report perceived risks to care and to ask questions if they do not understand what they are told or what they should do.
[2023-03-11] VITALS (9 sets, daily range): BP systolic 107–138; BP diastolic 48–53; PULSE 51–81; RESP 14–20; TEMP 36.1–37.3; O2SAT 97–100
[2023-03-11] MEDS: TAMSULOSIN HCL 0.4 MG CAPSULE PO ×2 (00:30→20:29)
[2023-03-11] MEDS: MELATONIN 5 MG TABLET PO ×2 (00:30→20:29)
[2023-03-11] MEDS: CARBIDOPA/LEVODOPA 25/100 MG CR TABLET 2 TABLET BY MOUTH ×2 (00:31→21:16)
[2023-03-11] MEDS: CARBIDOPA/LEVODOPA 25/100 MG TABLET 3 TABLET BY MOUTH ×3 (06:30→18:31)
[2023-03-11 07:26] LABS: Basophils Percent Auto 0.2 % (0.2-1.2); Eosinophils Absolute Auto 0.1 K/mm3 (0-0.3); Eosinophils Percent Auto 0.3 % (0-4.4); Hematocrit 27.2 % (42.0-52.0); Hemoglobin 8.5 g/dL (14.0-18.0); Immature Granulocyte Absolute 0.26 K/mm3 (0.00-0.031); Immature Granulocyte Percent A 1.3 % (0-0.5); Lymphocytes Absolute Auto 0.34 K/mm3 (0.9-3.2); Lymphocytes Percent Auto 1.7 % (18.3-44.2); Mean Corpuscular HGB Conc 31.3 g/dl (32-36); Mean Corpuscular Hemoglobin 27.2 pg (26-34); Mean Corpuscular Volume 86.9 fl (80-100); Mean Platelet Volume 12.7 fl (7.4-10.4); Monocytes Absolute Auto 1.4 K/mm3 (0.1-0.6); Monocytes Percent Auto 7.1 % (2.6-8.5); Neutrophils Absolute Auto 18.2 K/mm3 (1.3-6.7); Neutrophils Percent Auto 89.4 % (45.5-73.1); Platelet Count Result 141 k/mm3 (150-375); Red Blood Count 3.13 M/mm3 (4.6-6.20); Red Cell Distribution Width 16.4 % (11.5-14.5); White Blood Count 20.3 K/mm3 (4.5-10.0)
[2023-03-11 07:28] LABS: Alanine Aminotransferase 9 U/L (6-50); Albumin Level 3.4 g/dL (3.5-5.1); Alkaline Phosphatase 79 U/L (38-126); Anion Gap 6 mmol/L (8-16); Aspartate Amino Transferase 11 U/L (17-59); Blood Urea Nitrogen 42 mg/dL (9-20); Calcium 8.1 mg/dL (8.4-10.2); Carbon Dioxide 28 mmol/L (22-30); Chloride 101 mmol/L (98-107); Estimated Glomerular Filt Rate 29; Glucose 158 mg/dL (65-110); Magnesium 1.7 mg/dL (1.6-2.3); Potassium 3.4 mmol/L (3.4-5.0); Sodium 135 mmol/L (137-145)
[2023-03-11 07:58] LABS: Glucose Point of Care 162 mg/dl (65-105)
[2023-03-11] MEDS: DONEPEZIL HCL 5 MG TABLET PO (08:57)
[2023-03-11] MEDS: CLOPIDOGREL BISULFATE 75 MG TABLET PO (08:57)
[2023-03-11] MEDS: ENOXAPARIN 30 MG/0.3 ML SYRINGE SUB-Q (08:57)
[2023-03-11] MEDS: amLODIPine BESYLATE 5 MG TABLET PO (08:57)
[2023-03-11] MEDS: FINASTERIDE 5 MG TABLET PO (08:57)
[2023-03-11] MEDS: CHOLECALCIFEROL 1,000 UNITS TABLET 1000 UNITS PO (08:58)
[2023-03-11] MEDS: PANTOPRAZOLE 40 MG TABLET PO (08:58)
[2023-03-11] MEDS: ASPIRIN 81 MG ENTERIC TABLET PO (08:58)
[2023-03-11] MEDS: ACIDOPHILUS/BULGARICUS CHEWABLE TABLET 1 TABLET BY MOUTH (08:58)
[2023-03-11] MEDS: VITAMIN B COMPLEX CAPSULE 1 CAP PO (08:58)
--- NOTE | 2023-03-11 09:34 | PM.IMPN ---
Progress Note: A&P Assessment and Plan (1) UTI (urinary tract infection): Code(s): N39.0 - Urinary tract infection, site not specified Status: Acute (2) Low magnesium level: Code(s): R79.0 - Abnormal level of blood mineral Status: Acute (3) Parkinson disease: Code(s): G20 - Parkinson's disease Status: Chronic Plan # urinary tract infection? -urine cultures pending. UA 2+ leuk esterase, 21-50 WBC, no bacteria seen however -antibiotic: Rocephin -leukocytosis from 16.6 to 20.3 # hypomagnesemia -magnesium 1.4, replete as needed # Parkinson's disorder -consult neurologist -PT OT consult for weakness -continue carbidopa levodopa, Dr. Garcia consulted # chronic conditions -Parkinson's dementia: Aricept -permanent atrial fibrillation: No anticoagulation, dual anti-platelet therapy, rate stable 68 -anemia of CKD: Hemoglobin 9.0 -CKD stage IV: Creatinine baseline 2.3-2.2 -BPH: Proscar, Flomax -type 2 diabetes: Hemoglobin A1c 6.0, Accu-Cheks a.c. HS, hypoglycemia protocol, sliding scale insulin -essential hypertension: Continue lisinopril and amlodipine, holding hydrochlorothiazide -dual anti-platelet therapy -vitamin-D to supplement Diet: Heart healthy DVT prophylaxis: Lovenox GI prophylaxis: Protonix Code status: Full code Disposition: Likely home in 2-3 days Subjective Date/time seen: 03/11/23 09:34 Interval history: Patient seen and examined, her heart rate stable at 68. Family is bedside. Patient apparently is very slow to move in the morning usually more active after 11:00 a.m.. He denies fever, chills, nausea vomiting, diarrhea. He is currently being treated for UTI WBC count up to 20,000 and urine WBC elevated 21-50 as well as positive leuk esterase, continue Rocephin. Hemoglobin A1c 6.0, creatinine baseline 2.2. Unclear his weakness is Parkinson's related, neurology consulted. Review of Systems Review of Systems: 10 point ROS complete, negative other than what is specified in HPI. Exam Narrative: - GENERAL: Pleasant frail elderly male No acute distress. - EYES: EOMI. Anicteric. - HENT: Moist mucous membranes. - LUNGS: Clear to auscultation bilaterally, no wheezing, rhonchi, or rales. - CARDIOVASCULAR: Regular rate and rhythm. No murmur. No JVD. - ABDOMEN: Soft, non-tender and non-distended. - EXTREMITIES: No edema. Peripheral pulses 2+. Non-tender. - NEUROLOGIC: No focal neurological deficits. CN II-XII grossly intact. - PSYCHIATRIC: Awake, Alert. Flat affect, normal mood - SKIN: No rashes or lesions. Warm. - LYMPH: No cervical lymphadenopathy. Objective Data Vital Signs Vital Signs: Vital Signs - 24 hr 03/10/23 16:20 03/10/23 16:28 03/10/23 16:30 Temperature 36.4 C Pulse Rate 74 61 65 Respiratory Rate 17 Blood Pressure 154/76 H Pulse Oximetry 99 Oxygen Delivery Room Air 03/10/23 16:31 03/10/23 16:45 03/10/23 17:00 Temperature Pulse Rate 74 62 64 Respiratory Rate Blood Pressure 171/98 H Pulse Oximetry Oxygen Delivery 03/10/23 17:01 03/10/23 17:15 03/10/23 17:30 Temperature Pulse Rate 76 72 99 Respiratory Rate Blood Pressure 172/64 H Pulse Oximetry Oxygen Delivery 03/10/23 17:33 03/10/23 17:45 03/10/23 18:00 Temperature Pulse Rate 77 77 69 Respiratory Rate Blood Pressure 155/83 H Pulse Oximetry Oxygen Delivery 03/10/23 18:01 03/10/23 18:15 03/10/23 18:30 Temperature Pulse Rate 66 78 62 Respiratory Rate Blood Pressure 148/78 H Pulse Oximetry Oxygen Delivery 03/10/23 18:31 03/10/23 18:45 03/10/23 19:00 Temperature Pulse Rate 74 73 77 Respiratory Rate Blood Pressure 160/70 H Pulse Oximetry Oxygen Delivery 03/10/23 19:02 03/10/23 19:15 03/10/23 19:30 Temperature Pulse Rate 66 69 81 Respiratory Rate Blood Pressure 144/77 H Pulse Oximetry Oxygen Delivery 03/10/23 19:31 03/10/23 20:01 02/27
[2023-03-11] MEDS: lisinopriL 10 MG TABLET PO (12:20)
[2023-03-11 12:26] LABS: Glucose Point of Care 196 mg/dl (65-105)
[2023-03-11 17:31] LABS: Glucose Point of Care 194 mg/dl (65-105)
[2023-03-11 20:49] LABS: Glucose Point of Care 197 mg/dl (65-105)
[2023-03-12] VITALS (9 sets, daily range): BP systolic 141–168; BP diastolic 63–67; PULSE 53–84; RESP 14–16; TEMP 36.3–36.5; O2SAT 97–99; BMI 29.4
[2023-03-12] MEDS: CARBIDOPA/LEVODOPA 25/100 MG TABLET 3 TABLET BY MOUTH ×3 (06:21→18:06)
[2023-03-12 06:30] LABS: Glucose Point of Care 127 mg/dl (65-105)
[2023-03-12 06:55] LABS: Basophils Percent Auto 0.2 % (0.2-1.2); Eosinophils Absolute Auto 0.1 K/mm3 (0-0.3); Eosinophils Percent Auto 0.7 % (0-4.4); Hematocrit 29.4 % (42.0-52.0); Immature Granulocyte Absolute 0.08 K/mm3 (0.00-0.031); Immature Granulocyte Percent A 0.5 % (0-0.5); Lymphocytes Absolute Auto 0.56 K/mm3 (0.9-3.2); Lymphocytes Percent Auto 3.4 % (18.3-44.2); Mean Corpuscular HGB Conc 30.6 g/dl (32-36); Mean Corpuscular Hemoglobin 26.4 pg (26-34); Mean Corpuscular Volume 86.2 fl (80-100); Monocytes Absolute Auto 0.9 K/mm3 (0.1-0.6); Monocytes Percent Auto 5.4 % (2.6-8.5); Neutrophils Percent Auto 89.8 % (45.5-73.1); Platelet Count Result 164 k/mm3 (150-375); Red Blood Count 3.41 M/mm3 (4.6-6.20); Red Cell Distribution Width 16.4 % (11.5-14.5); White Blood Count 16.6 K/mm3 (4.5-10.0)
[2023-03-12 07:08] LABS: Anion Gap 9 mmol/L (8-16); Blood Urea Nitrogen 53 mg/dL (9-20); Calcium 8.3 mg/dL (8.4-10.2); Carbon Dioxide 27 mmol/L (22-30); Chloride 97 mmol/L (98-107); Estimated Glomerular Filt Rate 27; Glucose 132 mg/dL (65-110); Potassium 3.4 mmol/L (3.4-5.0); Sodium 133 mmol/L (137-145)
[2023-03-12 07:46] LABS: Burr Cells 1+ (NORMAL); Platelet Estimate Adequate (Adequate); Poikilocytosis 1+ (NORMAL); Schistocytes None Seen (NORMAL)
[2023-03-12 08:20] LABS: Glucose Point of Care 135 mg/dl (65-105)
[2023-03-12] MEDS: VITAMIN B COMPLEX CAPSULE 1 CAP PO (09:23)
[2023-03-12] MEDS: ACIDOPHILUS/BULGARICUS CHEWABLE TABLET 1 TABLET BY MOUTH (09:23)
[2023-03-12] MEDS: ENOXAPARIN 30 MG/0.3 ML SYRINGE SUB-Q (09:23)
[2023-03-12] MEDS: FINASTERIDE 5 MG TABLET PO (09:23)
[2023-03-12] MEDS: CHOLECALCIFEROL 1,000 UNITS TABLET 1000 UNITS PO (09:23)
[2023-03-12] MEDS: DONEPEZIL HCL 5 MG TABLET PO (09:23)
[2023-03-12] MEDS: CLOPIDOGREL BISULFATE 75 MG TABLET PO (09:23)
[2023-03-12] MEDS: ASPIRIN 81 MG ENTERIC TABLET PO (09:23)
[2023-03-12] MEDS: PANTOPRAZOLE 40 MG TABLET PO (09:24)
[2023-03-12] MEDS: lisinopriL 10 MG TABLET PO (09:30)
[2023-03-12] MEDS: amLODIPine BESYLATE 5 MG TABLET PO (09:30)
--- NOTE | 2023-03-12 10:27 | WPDNEURCNPN ---
Assessment and Plan Assessment and plan (1) Generalized weakness: Code(s): R53.1 - Weakness Status: Acute (2) UTI (urinary tract infection): Code(s): N39.0 - Urinary tract infection, site not specified Status: Acute (3) Low magnesium level: Code(s): R79.0 - Abnormal level of blood mineral Status: Acute (4) Parkinson disease: Code(s): G20 - Parkinson's disease Status: Chronic (5) Dementia: Qualifiers: Dementia type: Parkinson's disease Code(s): F03.90 - Unspecified dementia, unspecified severity, without behavioral disturbance, psychotic disturbance, mood disturbance, and anxiety Status: Acute Plan Chris Carrera is a 82 year old male with a history of atrial fibrillation, dementia, DM, TIA, Parkinson's disease presenting due to concerns for worsening generalized weakness. Suspect likely secondary to UTI. Would not expect Parkinson's to cause acute deterioration in strength without any other inciting factor. Discussed with patient and his family. Patient has follow-up with me in about a month. Consult date: 03/12/23 Reason for consult: Generalized weakness HPI: Chris Carrera is a 82 year old male with a history of atrial fibrillation, dementia, DM, TIA, Parkinson's disease presenting due to concerns for worsening generalized weakness. Patient follows with Dr. Lomas for his Parkinson's as well as Dr. Washington at [facility]. He takes Sinemet 3 tablets of 25-100mg TID and 50-200mg ER at bedtime. He is also on Donepazil 5mg qhs. Patient presented after becoming more weak over the past week as well as having more difficulty with walking. He has also had poor oral intake and appeared dehydrated when he presented to [place]. His labs were significant for hypomagnesium (1.3) and UA was concerning for UTIA. He wad started on IV fluids and Rocephin and subsequently admitted. He has also been given magnesium. Urine culture grew pseudomonas. Patient has a history of atrial fibrillation but does not take any anticoagulation. He also has a prior history of DVTs. Patient had been doing physical therapy a few months ago but then stopped due to lack of motivation. is interested in him getting back in with PT. Review of Systems Constitutional: Constitutional: Reports weakness Eyes: Eyes: Reports no additional eye complaints ENT: Reports system reviewed and no additional complaints, except as documented Cardiovascular: Cardiovascular: Reports no additional cardiovascular complaints Respiratory: Respiratory: Reports no additional respiratory complaints Gastrointestinal: Gastrointestinal: Reports no additional gastrointestinal complaints Genitourinary: Genitourinary: Reports no additional male genitourinary complaints Musculoskeletal: Musculoskeletal: Reports arthralgias Integumentary/Breasts: Skin/Breast: Reports system reviewed and no additional complaints, except as docu Neurologic: Reports as per HPI Psychiatric: Psychiatric: Reports as per HPI [facility] Past Medical History Medical History Anemia Bilateral cataracts BPH (benign prostatic hyperplasia) Chronic indwelling Todd catheter CKD (chronic kidney disease) stage 3, GFR 30-59 ml/min Dementia Diabetes mellitus On oral medications. Hemoglobin A1c 6.06 September 2019 Generalized weakness Hematuria History of deep venous thrombosis (DVT) of distal vein of right lower extremity History of TIAs Hypertension Osteoarthritis Parkinson disease Right ankle sprain (~09/12/19) Syncope due to orthostatic hypotension TIA (transient ischemic attack) Urinary retention due to benign prostatic hyperplasia Surgical History Surgical History History of bilateral cataract extraction 2009 History of colonoscopy with polypectomy February [address] Cox. Three polyps the mid ascending colon, 4 poly
--- NOTE | 2023-03-12 11:42 | PM.IMPN ---
Progress Note: A&P Assessment and Plan (1) UTI (urinary tract infection): Code(s): N39.0 - Urinary tract infection, site not specified Status: Acute (2) Low magnesium level: Code(s): R79.0 - Abnormal level of blood mineral Status: Acute (3) Parkinson disease: Code(s): G20 - Parkinson's disease Status: Chronic Plan # Pseudomonas urinary tract infection - urine culture positive for Pseudomonas -antibiotic: changing from Rocephin to ceftazidime for Pseudomonas coverage -leukocytosis from 16.6 to 20.3 to 16.6 # hypomagnesemia -magnesium 1.7, repleted as needed # Parkinson's disorder -consult neurologist: recs for no changes to home meds, will need outpatient f/u in 1 month -PT OT consult for weakness -continue carbidopa levodopa # chronic conditions -Parkinson's dementia: Aricept -permanent atrial fibrillation:? No anticoagulation, dual anti-platelet therapy, rate stable 68 -anemia of CKD: Hemoglobin 9.0 -CKD stage IV:? Creatinine baseline 2.3, may continue home bicarb -BPH:? Proscar, Flomax -type 2 diabetes: Hemoglobin A1c 6.0, Accu-Cheks a.c. HS, hypoglycemia protocol, sliding scale insulin -essential hypertension: Continue lisinopril and amlodipine, holding hydrochlorothiazide -dual anti-platelet therapy -vitamin-D to supplement - allergies: May continue home Flonase Diet:? Heart healthy DVT prophylaxis:? Lovenox GI prophylaxis: Protonix Code status:? Full code Disposition:? Likely home in 2-3 more days Subjective Date/time seen: 03/12/23 11:42 Interval history: Patient seen examined. He feels clinically better today. Urine cultures positive for Pseudomonas, will change Rocephin to ceftazidime. Neurology believes weakness secondary to UTI as opposed to Parkinson's, outpatient follow-up with Neurology in 1 month recommended. no changes made to Parkinson's regimen. patient work with PT OT. family requesting to resume patient's home Flonase and bicarb supplement, will continue. Family opted bedside. Patient denies fever, chills, nausea vomiting and diarrhea. Review of Systems Review of Systems: 10 point ROS complete, negative other than what is specified in HPI. Exam Narrative: - GENERAL:? Pleasant frail elderly male in no acute distress. - EYES: EOMI. Anicteric. - HENT: Moist mucous membranes. Edentulous - LUNGS: Clear to auscultation bilaterally, no wheezing - CARDIOVASCULAR: Regular rate and rhythm. No murmur. - ABDOMEN: Soft, non-tender and non-distended. - EXTREMITIES: No edema. Peripheral pulses 2+. - NEUROLOGIC: No focal neurological deficits. CN II-XII grossly intact. - PSYCHIATRIC: Awake, Alert.? Flat affect, normal mood - SKIN: No rashes or lesions. Warm. - LYMPH: No cervical lymphadenopathy. Objective Data Vital Signs Vital Signs: Vital Signs - 24 hr 03/11/23 12:00 03/11/23 14:00 03/11/23 16:00 Temperature 36.1 C L Pulse Rate 65 64 51 L Respiratory Rate 16 Blood Pressure 130/48 L Pulse Oximetry 98 Oxygen Delivery 03/11/23 21:35 03/11/23 20:00 03/11/23 20:00 Temperature 37.3 C Pulse Rate 81 61 Respiratory Rate 14 Blood Pressure 107/50 L Pulse Oximetry 100 Oxygen Delivery Room Air 03/12/23 00:00 03/12/23 04:00 03/12/23 06:00 Temperature 36.3 C L Pulse Rate 53 L 54 L 58 L Respiratory Rate 14 Blood Pressure 168/63 H Pulse Oximetry 97 Oxygen Delivery 03/12/23 08:02 Temperature Pulse Rate 60 Respiratory Rate Blood Pressure Pulse Oximetry Oxygen Delivery Intake/Output Intake/Output: Intake & Output 03/09/23 03/10/23 03/11/23 03/12/23 23:59 23:59 23:59 23:59 Intake Total 1100 1340 340 Output Total 400 200 Balance 1100 940 140 Meds/Results Medications: Active Medications Generic Name Dose Route Start Last Admin Trade Name Freq PRN Reason Stop Dose Admin Acetaminophen 650 mg 03/10/23 23:16 Acetaminophen 325 Mg Tablet PO Q6H PRN Thang
[2023-03-12 11:56] LABS: Glucose Point of Care 212 mg/dl (65-105)
[2023-03-12] MEDS: SODIUM BICARBONATE TAB 650 MG TABLET PO ×2 (13:26→18:06)
[2023-03-12] MEDS: FLUTICASONE PROPIONATE 0.05% NA SPR 16 GM BTL (*BKC) 2 SPRAY NASAL (13:26)
[2023-03-12] MEDS: INSULIN ASPART (*BKC) 100 UNITS/ML SUB-Q (13:26)
[2023-03-12] MEDS: cefTAZidime 1 GM/NS 50 ML 1 GM/50 ML BAG IVPB (13:27)
[2023-03-12 17:13] LABS: Glucose Point of Care 144 mg/dl (65-105)
[2023-03-12 20:14] LABS: Glucose Point of Care 170 mg/dl (65-105)
[2023-03-12] MEDS: TAMSULOSIN HCL 0.4 MG CAPSULE PO (20:42)
[2023-03-12] MEDS: MELATONIN 5 MG TABLET PO (20:42)
[2023-03-12] MEDS: CARBIDOPA/LEVODOPA 25/100 MG CR TABLET 2 TABLET BY MOUTH (20:42)
[2023-03-13] VITALS: PULSE 83
--- NOTE | 2023-03-13 02:12 | PC.NURSE ---
At 0000 pt woke up more confused than his baseline. Pt pulled on tele leads along with hospital gown. Pt states he was at home and asked who were the medical staff. Pt states he is confused. Pt was re-oriented by RN and settled pt in bed with bed alarms on. Continued close monitoring.
[2023-03-13 04:00] VITALS: PULSE 72
[2023-03-13] MEDS: CARBIDOPA/LEVODOPA 25/100 MG TABLET 3 TABLET BY MOUTH ×3 (05:50→17:06)
[2023-03-13 05:54] VITALS: BP 155/44; PULSE 62; RESP 16; TEMP 36.6; O2SAT 97
[2023-03-13 06:42] LABS: Anion Gap 9 mmol/L (8-16); Blood Urea Nitrogen 51 mg/dL (9-20); Calcium 8.1 mg/dL (8.4-10.2); Carbon Dioxide 29 mmol/L (22-30); Chloride 95 mmol/L (98-107); Estimated CRCL calculation 21 ml/min; Estimated Glomerular Filt Rate 26; Glucose 147 mg/dL (65-110); Magnesium 1.7 mg/dL (1.6-2.3); Potassium 3.1 mmol/L (3.4-5.0); Sodium 133 mmol/L (137-145)
[2023-03-13 06:43] LABS: Basophils Percent Auto 0.2 % (0.2-1.2); Eosinophils Absolute Auto 0.2 K/mm3 (0-0.3); Eosinophils Percent Auto 1.5 % (0-4.4); Hematocrit 28.1 % (42.0-52.0); Hemoglobin 8.6 g/dL (14.0-18.0); Immature Granulocyte Absolute 0.06 K/mm3 (0.00-0.031); Immature Granulocyte Percent A 0.5 % (0-0.5); Lymphocytes Absolute Auto 0.49 K/mm3 (0.9-3.2); Lymphocytes Percent Auto 3.8 % (18.3-44.2); Mean Corpuscular HGB Conc 30.6 g/dl (32-36); Mean Corpuscular Hemoglobin 26.1 pg (26-34); Mean Corpuscular Volume 85.4 fl (80-100); Mean Platelet Volume 12.9 fl (7.4-10.4); Monocytes Absolute Auto 0.8 K/mm3 (0.1-0.6); Monocytes Percent Auto 6.1 % (2.6-8.5); Neutrophils Absolute Auto 11.4 K/mm3 (1.3-6.7); Neutrophils Percent Auto 87.9 % (45.5-73.1); Platelet Count Result 170 k/mm3 (150-375); Red Blood Count 3.29 M/mm3 (4.6-6.20); Red Cell Distribution Width 15.9 % (11.5-14.5); White Blood Count 12.9 K/mm3 (4.5-10.0)
[2023-03-13] MEDS: SODIUM BICARBONATE TAB 650 MG TABLET PO ×2 (09:48→17:06)
[2023-03-13] MEDS: POTASSIUM CHLORIDE 20 MEQ PACKET (FOR LIQUID) 40 MEQ PO (09:48)
[2023-03-13] MEDS: ACIDOPHILUS/BULGARICUS CHEWABLE TABLET 1 TABLET BY MOUTH (09:49)
[2023-03-13] MEDS: VITAMIN B COMPLEX CAPSULE 1 CAP PO (09:49)
[2023-03-13] MEDS: ENOXAPARIN 30 MG/0.3 ML SYRINGE SUB-Q (09:49)
[2023-03-13] MEDS: ASPIRIN 81 MG ENTERIC TABLET PO (09:49)
[2023-03-13] MEDS: FLUTICASONE PROPIONATE 0.05% NA SPR 16 GM BTL (*BKC) 2 SPRAY NASAL (09:49)
[2023-03-13] MEDS: CLOPIDOGREL BISULFATE 75 MG TABLET PO (09:49)
[2023-03-13] MEDS: PANTOPRAZOLE 40 MG TABLET PO (09:49)
[2023-03-13] MEDS: FINASTERIDE 5 MG TABLET PO (09:50)
[2023-03-13] MEDS: amLODIPine BESYLATE 5 MG TABLET PO (09:50)
[2023-03-13] MEDS: lisinopriL 10 MG TABLET PO (09:50)
[2023-03-13] MEDS: DONEPEZIL HCL 5 MG TABLET PO (09:50)
[2023-03-13] MEDS: CHOLECALCIFEROL 1,000 UNITS TABLET 1000 UNITS PO (09:50)
--- NOTE | 2023-03-13 10:31 | PM.IMPN ---
Progress Note: A&P Assessment and Plan (1) Pseudomonas urinary tract infection: Code(s): N39.0 - Urinary tract infection, site not specified; B96.5 - Pseudomonas (aeruginosa) (mallei) (pseudomallei) as the cause of diseases classified elsewhere Status: Acute (2) Hypokalemia: Code(s): E87.6 - Hypokalemia Status: Acute Plan #? Pseudomonas urinary tract infection - urine culture positive for Pseudomonas -antibiotic:??ceftazidime for Pseudomonas coverage, likely transition to p.o. antibiotic and discharge tomorrow -leukocytosis down to 12,900 # electrolyte imbalance -magnesium 1.7, repleted as needed -hypokalemia potassium 3.1 giving 40 mEq x2 # Parkinson's disorder -consult neurologist: recs for no changes to home meds, will need outpatient f/u in 1 month -PT OT consult for weakness, patient likely benefit from home health -continue carbidopa levodopa # chronic conditions -Parkinson's dementia: Aricept, sundowning -permanent atrial fibrillation:? No anticoagulation, dual anti-platelet therapy, rate stable 68 -anemia of CKD: Hemoglobin 9.0 -CKD stage IV:? Creatinine baseline 2.4,? may continue home bicarb -BPH:? Proscar, Flomax -type 2 diabetes: Hemoglobin A1c 6.0, Accu-Cheks a.c. HS, hypoglycemia protocol, sliding scale insulin -essential hypertension: Continue lisinopril and amlodipine, holding hydrochlorothiazide -dual anti-platelet therapy -vitamin-D to supplement - allergies:? May continue home Flonase Diet:? Heart healthy DVT prophylaxis:??Lovenox GI prophylaxis:?Protonix Code status:??Full code Disposition:? Home with home health tomorrow (with concern of sundowning he will do better at home as opposed to long-term facility) Subjective Date/time seen: 03/13/23 10:31 Interval history: Patient seen examined. He is doing well, may had some sundowning last night. Patient's leukocytosis down to 12,900, anticipate discharge tomorrow with p.o. antibiotics. Potassium at 3.1 giving 40 mEq x2 to replete potassium. Patient to continue work with PT and OT, he will do better with home health considering his Parkinson's dementia. Family updated at bedside. Review of Systems Review of Systems: 10 point ROS complete, negative other than what is specified in HPI. Exam Narrative: - GENERAL:? Pleasant frail elderly male in no acute distress. - EYES: EOMI. Anicteric. - HENT: Moist mucous membranes.? Edentulous - LUNGS: Clear to auscultation bilaterally, no wheezing - CARDIOVASCULAR: Regular rate and rhythm. No murmur. - ABDOMEN: Soft, non-tender and non-distended. - EXTREMITIES: No edema. Peripheral pulses 2+. - NEUROLOGIC: No focal neurological deficits. CN II-XII grossly intact. - PSYCHIATRIC: Awake, Alert.? Flat affect, normal mood - SKIN: No rashes or lesions. Warm. - LYMPH: No cervical lymphadenopathy. Objective Data Vital Signs Vital Signs: Vital Signs - 24 hr 03/12/23 13:38 03/12/23 13:58 03/12/23 12:00 Temperature 36.4 C Pulse Rate 84 72 Respiratory Rate 16 Blood Pressure 141/67 H Pulse Oximetry 98 Oxygen Delivery Room Air 03/12/23 16:00 03/12/23 21:15 03/12/23 20:00 Temperature 36.5 C Pulse Rate 71 66 71 Respiratory Rate 16 Blood Pressure 154/63 H Pulse Oximetry 99 Oxygen Delivery 03/12/23 20:00 03/13/23 00:00 03/13/23 04:00 Temperature Pulse Rate 83 72 Respiratory Rate Blood Pressure Pulse Oximetry Oxygen Delivery Room Air 03/13/23 05:54 Temperature 36.6 C Pulse Rate 62 Respiratory Rate 16 Blood Pressure 155/44 H Pulse Oximetry 97 Oxygen Delivery Intake/Output Intake/Output: Intake & Output 03/10/23 03/11/23 03/12/23 03/13/23 23:59 23:59 23:59 23:59 Intake Total 1100 1340 870 630 Output Total 400 200 Balance 1100 940 975 630 Meds/Results Medications: Active Medications Generic Name Dose Route Start Last Admin Trade Name Freq PRN Reason Stop Dose Admin Acetaminophen 650 mg
[2023-03-13 11:08] VITALS: BMI 29.4
[2023-03-13] MEDS: cefTAZidime 1 GM/NS 50 ML 1 GM/50 ML BAG IVPB (12:19)
[2023-03-13 15:06] VITALS: BP 143/56; PULSE 56; RESP 18; TEMP 36.5; O2SAT 100
[2023-03-13] MEDS: CARBIDOPA/LEVODOPA 25/100 MG CR TABLET 2 TABLET BY MOUTH (20:50)
[2023-03-13] MEDS: TAMSULOSIN HCL 0.4 MG CAPSULE PO (20:51)
[2023-03-13] MEDS: MELATONIN 5 MG TABLET PO (20:51)
[2023-03-13 21:29] VITALS: BP 157/65; PULSE 63; RESP 16; TEMP 36.3; O2SAT 100
[2023-03-14] MEDS: CARBIDOPA/LEVODOPA 25/100 MG TABLET 3 TABLET BY MOUTH ×3 (05:50→17:38)
[2023-03-14 05:57] VITALS: BP 150/95; PULSE 96; RESP 18; TEMP 36.6; O2SAT 98
[2023-03-14 06:20] LABS: Hematocrit 28.5 % (42.0-52.0); Hemoglobin 8.9 g/dL (14.0-18.0); Mean Corpuscular HGB Conc 31.2 g/dl (32-36); Mean Corpuscular Hemoglobin 26.8 pg (26-34); Mean Corpuscular Volume 85.8 fl (80-100); Platelet Count Result 175 k/mm3 (150-375); Red Blood Count 3.32 M/mm3 (4.6-6.20); White Blood Count 9.3 K/mm3 (4.5-10.0)
[2023-03-14 06:39] LABS: Anion Gap 10 mmol/L (8-16); Blood Urea Nitrogen 54 mg/dL (9-20); Calcium 8.4 mg/dL (8.4-10.2); Carbon Dioxide 28 mmol/L (22-30); Chloride 97 mmol/L (98-107); Estimated CRCL calculation 23 ml/min; Estimated Glomerular Filt Rate 29; Glucose 165 mg/dL (65-110); Magnesium 1.6 mg/dL (1.6-2.3); Potassium 3.7 mmol/L (3.4-5.0); Sodium 135 mmol/L (137-145)
[2023-03-14] MEDS: SODIUM BICARBONATE TAB 650 MG TABLET PO ×2 (08:34→17:38)
[2023-03-14] MEDS: amLODIPine BESYLATE 5 MG TABLET PO (08:35)
[2023-03-14] MEDS: ACIDOPHILUS/BULGARICUS CHEWABLE TABLET 1 TABLET BY MOUTH (08:35)
[2023-03-14] MEDS: PANTOPRAZOLE 40 MG TABLET PO (08:36)
[2023-03-14] MEDS: DONEPEZIL HCL 5 MG TABLET PO (08:36)
[2023-03-14] MEDS: CHOLECALCIFEROL 1,000 UNITS TABLET 1000 UNITS PO (08:36)
[2023-03-14] MEDS: ASPIRIN 81 MG ENTERIC TABLET PO (08:36)
[2023-03-14] MEDS: ENOXAPARIN 30 MG/0.3 ML SYRINGE SUB-Q (08:37)
[2023-03-14] MEDS: CLOPIDOGREL BISULFATE 75 MG TABLET PO (08:37)
[2023-03-14] MEDS: FINASTERIDE 5 MG TABLET PO (08:37)
[2023-03-14] MEDS: lisinopriL 10 MG TABLET PO (08:38)
[2023-03-14] MEDS: VITAMIN B COMPLEX CAPSULE 1 CAP PO (08:38)
[2023-03-14] MEDS: FLUTICASONE PROPIONATE 0.05% NA SPR 16 GM BTL (*BKC) 2 SPRAY NASAL (08:39)
--- NOTE | 2023-03-14 13:32 | PM.IMPN ---
Progress Note: A&P Assessment and Plan (1) Pseudomonas urinary tract infection: Code(s): N39.0 - Urinary tract infection, site not specified; B96.5 - Pseudomonas (aeruginosa) (mallei) (pseudomallei) as the cause of diseases classified elsewhere Status: Acute (2) Parkinson disease: Code(s): G20 - Parkinson's disease Status: Chronic Plan ?82 year? old male patient who has a history of Parkinson's disease presented with weakness, dehydration, found to have pseudomonas UTI, along with electrolyte derangement.? . #? Pseudomonas urinary tract infection - urine culture positive for Pseudomonas -antibiotic:??received ceftazidime for Pseudomonas coverage, Will switch to PO ciprofloxacin Leucocytosis has resolved # electrolyte imbalance -magnesium 1.6, repleted today -hypokalemia better # Parkinson's disorder -consulted neurologist: recs for no changes to home meds, will need outpatient f/u in 1 month -PT OT consult for weakness, patient likely benefit from home health -continue carbidopa levodopa dementia: Aricept, + #permanent atrial fibrillation:? No anticoagulation, dual anti-platelet therapy, rate stable 68 #anemia of CKD: Stable #CKD stage IV:? Creatinine baseline 2.2,? may continue home bicarb #BPH:? Proscar, Flomax #type 2 diabetes: Hemoglobin A1c 6.0, Accu-Cheks a.c. HS, hypoglycemia protocol, sliding scale insulin #essential hypertension: Continue lisinopril and amlodipine, holding hydrochlorothiazide #DVT prophylaxis:??Lovenox #Code status:??Full code #Disposition:? await placement to [facility] Time Spent With Patient Time with patient: 15 - 25 minutes Subjective Date/time seen: 03/14/23 13:32 Interval history: no acute events overnight Review of Systems Review of Systems: All systems reviewed & are unremarkable except as noted in HPI and below Exam Narrative: - GENERAL:? Pleasant frail elderly male in no acute distress. - EYES: EOMI. Anicteric. - HENT: Moist mucous membranes.? Edentulous - LUNGS: Clear to auscultation bilaterally, no wheezing - CARDIOVASCULAR: Regular rate and rhythm. No murmur. - ABDOMEN: Soft, non-tender and non-distended. - EXTREMITIES: No edema. Peripheral pulses 2+. - NEUROLOGIC: No focal neurological deficits. CN II-XII grossly intact. - PSYCHIATRIC: Awake, Alert.? Flat affect, normal mood - SKIN: No rashes or lesions. Warm. - LYMPH: No cervical lymphadenopathy. Objective Data Vital Signs Vital Signs: Vital Signs - 24 hr 03/13/23 15:06 03/13/23 21:29 03/13/23 20:00 Temperature 97.7 F 97.4 F L Pulse Rate 56 L 63 Respiratory Rate 18 16 Blood Pressure 143/56 H 157/65 H Pulse Oximetry 100 100 Oxygen Delivery Room Air 03/14/23 05:57 Temperature 97.8 F Pulse Rate 96 Respiratory Rate 18 Blood Pressure 150/95 H Pulse Oximetry 98 Oxygen Delivery Intake/Output Intake/Output: Intake & Output 03/11/23 03/12/23 03/13/23 03/14/23 23:59 23:59 23:59 23:59 Intake Total 1818 700 7303 290 Output Total 400 200 Balance 407 498 6688 290 Meds/Results Medications: Active Medications Generic Name Dose Route Start Last Admin Trade Name Matteoq PRN Reason Stop Dose Admin Acetaminophen 650 mg 03/10/23 23:16 Acetaminophen 325 Mg Tablet PO Q6H PRN Pain Rated 1-3 Amlodipine Besylate 5 mg 03/11/23 09:00 03/14/23 08:35 Amlodipine Besylate 5 Mg Tablet PO 5 mg DAILY KEITH Administration Aspirin 81 mg 03/11/23 09:00 03/14/23 08:36 Aspirin 81 Mg Enteric Tablet PO 81 mg DAILY KEITH Administration Carbidopa/Levodopa 3 tablet 03/11/23 07:00 03/14/23 12:05 Carbidopa/Levodopa 25/100 Mg Tablet BY MOUTH 3 tablet 0700,1300,1800 KEITH Administration Carbidopa/Levodopa 2 tablet 03/10/23 23:30 03/13/23 20:50 Carbidopa/Levodopa 25/100 Mg Cr Tablet BY MOUTH 2 tablet HS KEITH Administration Ciprofloxacin 500 mg 03/14/23 12:40 Ciprofloxacin 500 M
[2023-03-14 14:00] VITALS: BP 140/61; PULSE 71; RESP 20; TEMP 35.8; O2SAT 100
[2023-03-14] MEDS: CIPROFLOXACIN 500 MG TAB PO ×2 (15:59→20:09)
[2023-03-14] MEDS: ACETAMINOPHEN 325 MG TABLET 650 MG PO (18:13)
[2023-03-14] MEDS: MAGNESIUM OXIDE 400 MG TABLET PO (18:13)
[2023-03-14 20:00] VITALS: O2SAT 97
[2023-03-14] MEDS: CARBIDOPA/LEVODOPA 25/100 MG CR TABLET 2 TABLET BY MOUTH (20:09)
[2023-03-14] MEDS: MELATONIN 5 MG TABLET PO (20:09)
[2023-03-14] MEDS: TAMSULOSIN HCL 0.4 MG CAPSULE PO (20:09)
[2023-03-14 21:34] VITALS: BP 129/61; PULSE 97; RESP 16; TEMP 36.2; O2SAT 97
[2023-03-15 05:59] VITALS: BP 155/53; PULSE 67; RESP 14; TEMP 36.3; O2SAT 99
[2023-03-15] MEDS: CARBIDOPA/LEVODOPA 25/100 MG TABLET 3 TABLET BY MOUTH ×3 (06:13→17:17)
[2023-03-15 06:46] LABS: Anion Gap 5 mmol/L (8-16); Blood Urea Nitrogen 55 mg/dL (9-20); Carbon Dioxide 30 mmol/L (22-30); Chloride 98 mmol/L (98-107); Estimated CRCL calculation 22 ml/min; Estimated Glomerular Filt Rate 27; Glucose 138 mg/dL (65-110); Sodium 133 mmol/L (137-145)
[2023-03-15 08:30] VITALS: O2SAT 95
[2023-03-15] MEDS: VITAMIN B COMPLEX CAPSULE 1 CAP PO (08:55)
[2023-03-15] MEDS: CIPROFLOXACIN 500 MG TAB PO ×2 (08:55→21:02)
[2023-03-15] MEDS: ENOXAPARIN 30 MG/0.3 ML SYRINGE SUB-Q (08:55)
[2023-03-15] MEDS: FLUTICASONE PROPIONATE 0.05% NA SPR 16 GM BTL (*BKC) 2 SPRAY NASAL (08:55)
[2023-03-15] MEDS: CLOPIDOGREL BISULFATE 75 MG TABLET PO (08:56)
[2023-03-15] MEDS: FINASTERIDE 5 MG TABLET PO (08:56)
[2023-03-15] MEDS: SODIUM BICARBONATE TAB 650 MG TABLET PO ×2 (08:56→17:17)
[2023-03-15] MEDS: lisinopriL 10 MG TABLET PO (08:56)
[2023-03-15] MEDS: CHOLECALCIFEROL 1,000 UNITS TABLET 1000 UNITS PO (08:56)
[2023-03-15] MEDS: amLODIPine BESYLATE 5 MG TABLET PO (08:56)
[2023-03-15] MEDS: DONEPEZIL HCL 5 MG TABLET PO (08:56)
[2023-03-15] MEDS: ASPIRIN 81 MG ENTERIC TABLET PO (08:56)
[2023-03-15] MEDS: PANTOPRAZOLE 40 MG TABLET PO (08:56)
[2023-03-15] MEDS: ACIDOPHILUS/BULGARICUS CHEWABLE TABLET 1 TABLET BY MOUTH (08:57)
--- NOTE | 2023-03-15 10:37 | WPDNEUROPN ---
Subjective Date/time seen: 03/15/23 10:37 Interval history: 82 years old right-handed male comes to the hospital with complaints of generalized weakness in addition to the history of underlying diabetes mellitus, Parkinson disease, atrial fibrillation, and ongoing dementia. Recent course has been complicated by the UTI making him more weak for which he needs the physical therapy occupation therapy on a longer time basis on a daily basis. On examination today he is awake alert followed the instructions very well his speech was not dysphasic not dysarthric and not dysphonic. He was aware of right and left. And followed the instructions very well extraocular movements were full with no evidence of restriction of the vertical gaze and also with no evidence of spontaneous or nystagmus of gaze limitation. Motor examination revealed him to have no drift of the upper extremities against gravity with eyes closed but he had difficulties in walking for more than 5 steps for which obviously he needs the physical therapy. At present his WBC is 9.3 hemoglobin only 8 problem going MCV 85.8 platelet count of 175, INR is 1.4, potassium is 4.0 BUN obviously 55 with creatinine of 2.30 glucose is 138 and sodium is borderline at 133 at present serology is negative for influenza a B RSV and covid, x-ray chest shows only cardiomegaly knee x-rays only mild to moderate tricompartmental osteoarthritis. Discussed with the family. Will benefit from the rehab Objective Data Vital Signs Vital Signs: Vital Signs - 24 hr 03/14/23 14:00 03/14/23 20:00 03/14/23 21:34 Temperature 35.8 C L 36.2 C L Pulse Rate 71 97 Respiratory Rate 20 16 Blood Pressure 140/61 129/61 Pulse Oximetry 100 97 97 Oxygen Delivery Room Air 03/15/23 05:59 03/15/23 08:30 Temperature 36.3 C L Pulse Rate 67 Respiratory Rate 14 Blood Pressure 155/53 H Pulse Oximetry 99 95 Oxygen Delivery Room Air Intake/Output Intake/Output: Intake & Output 03/12/23 03/13/23 03/14/23 03/15/23 23:59 23:59 23:59 23:59 Intake Total 870 1440 610 410 Output Total 200 Balance 670 1440 610 410 Meds/Results Medications: Active Medications Generic Name Dose Route Start Last Admin Trade Name Freq PRN Reason Stop Dose Admin Acetaminophen 650 mg 03/10/23 23:16 03/14/23 18:13 Acetaminophen 325 Mg Tablet PO 650 mg Q6H PRN Administration Pain Rated 1-3 Amlodipine Besylate 5 mg 03/11/23 09:00 03/15/23 08:56 Amlodipine Besylate 5 Mg Tablet PO 5 mg DAILY KEITH Administration Aspirin 81 mg 03/11/23 09:00 03/15/23 08:56 Aspirin 81 Mg Enteric Tablet PO 81 mg DAILY KEITH Administration Carbidopa/Levodopa 3 tablet 03/11/23 07:00 03/15/23 06:13 Carbidopa/Levodopa 25/100 Mg Tablet BY MOUTH 3 tablet 0700,1300,1800 KEITH Administration Carbidopa/Levodopa 2 tablet 03/10/23 23:30 03/14/23 20:09 Carbidopa/Levodopa 25/100 Mg Cr Tablet BY MOUTH 2 tablet HS KEITH Administration Ciprofloxacin 500 mg 03/14/23 12:40 03/15/23 08:55 Ciprofloxacin 500 Mg Tab PO 500 mg Q12HR KEITH Administration Clopidogrel Bisulfate 75 mg 03/11/23 09:00 03/15/23 08:56 Clopidogrel Bisulfate 75 Mg Tablet PO 75 mg DAILY KEITH Administration Dextrose 12.5 gm 03/10/23 23:28 Dextrose 50% 25 Gm/50 Ml Syringe IV PUSH PRN PRN Hypoglycemia Protocol Donepezil HCl 5 mg 03/11/23 09:00 03/15/23 08:56 Donepezil Hcl 5 Mg Tablet PO 5 mg DAILY KEITH Administration Enoxaparin Sodium 30 mg 03/11/23 09:00 03/15/23 08:55 Enoxaparin 30 Mg/0.3 Ml Syringe SUB-Q 30 mg DAILY KEITH Administration Finasteride 5 mg 03/11/23 09:00 03/15/23 08:56 Finasteride 5 Mg Tablet PO 5 mg DAILY KEITH Administration Fluticasone Propionate 2 spray 03/12/23 11:40 03/15/23 08:55 Fluticasone Propionate 0.05% Na Spr 16 Gm Btl (*Bkc) NASAL 2 spray QAM KEITH Administration Glucagon 1 mg 03/10/23 23:28 Glucagon For Inj 1 Mg Vial
[2023-03-15 14:00] VITALS: BP 95/56; PULSE 63; RESP 16; TEMP 36.6; O2SAT 99
[2023-03-15 15:53] LABS: Basophils Percent Auto 0.5 % (0.2-1.2); Eosinophils Absolute Auto 0.2 K/mm3 (0-0.3); Eosinophils Percent Auto 2.7 % (0-4.4); Hematocrit 28.7 % (42.0-52.0); Hemoglobin 8.8 g/dL (14.0-18.0); Immature Granulocyte Absolute 0.03 K/mm3 (0.00-0.031); Immature Granulocyte Percent A 0.3 % (0-0.5); Lymphocytes Absolute Auto 0.53 K/mm3 (0.9-3.2); Mean Corpuscular HGB Conc 30.7 g/dl (32-36); Mean Corpuscular Hemoglobin 26.8 pg (26-34); Mean Corpuscular Volume 87.5 fl (80-100); Mean Platelet Volume 12.2 fl (7.4-10.4); Monocytes Absolute Auto 0.9 K/mm3 (0.1-0.6); Monocytes Percent Auto 9.7 % (2.6-8.5); Neutrophils Absolute Auto 7.1 K/mm3 (1.3-6.7); Neutrophils Percent Auto 80.8 % (45.5-73.1); Platelet Count Result 184 k/mm3 (150-375); Red Blood Count 3.28 M/mm3 (4.6-6.20); Red Cell Distribution Width 16.4 % (11.5-14.5); White Blood Count 8.8 K/mm3 (4.5-10.0)
--- NOTE | 2023-03-15 15:56 | PM.IMPN ---
Progress Note: A&P Assessment and Plan (1) Pseudomonas urinary tract infection: Code(s): N39.0 - Urinary tract infection, site not specified; B96.5 - Pseudomonas (aeruginosa) (mallei) (pseudomallei) as the cause of diseases classified elsewhere Status: Acute (2) Parkinson disease: Code(s): G20 - Parkinson's disease Status: Chronic Plan 82 year? old male patient who has a history of Parkinson's disease presented with weakness, dehydration, found to have pseudomonas UTI, along with electrolyte derangement.? #? Pseudomonas urinary tract infection - urine culture positive for Pseudomonas -antibiotic:??received ceftazidime for Pseudomonas coverage, Will switch to PO ciprofloxacin, last day abx 03/16 Leucocytosis has resolved # electrolyte imbalance -magnesium 1.6, repleted today -hypokalemia better # Parkinson's disorder -consulted neurologist: recs for no changes to home meds, will need outpatient f/u in 1 month -PT OT consult for weakness, patient likely benefit from home health -continue carbidopa levodopa dementia: Aricept, + #permanent atrial fibrillation:? No anticoagulation, dual anti-platelet therapy, rate stable 68 #anemia of CKD: Stable #CKD stage IV:? Creatinine baseline 2.2,?may continue home bicarb #BPH:? Proscar, Flomax #type 2 diabetes: Hemoglobin A1c 6.0, Accu-Cheks a.c. HS, hypoglycemia protocol, sliding scale insulin #essential hypertension: Continue lisinopril and amlodipine, holding hydrochlorothiazide #DVT prophylaxis:??Lovenox #Code status:??Full code #Disposition:? denied rehab stay, appealing SNF, will likely end up going home with [facility] at d/c Subjective Date/time seen: 03/15/23 15:56 Interval history: No overnight events noted. No chest pain or shortness of breath. No nausea, vomiting or diarrhea. No fevers or chills. Review of Systems Review of Systems: 12 point review of systems was assessed and was negative except as noted in the HPI Exam Narrative: General: No acute distress, alert and oriented per baseline HEENT: Atraumatic, normocephalic, mucous membranes moist CV: Regular rate and rhythm, S1, S2 Lungs: Clear to auscultation bilaterally, no rales or crackles noted, no wheezes, good air entry Abdomen: Soft, nontender, nondistended Extremities: Normal to inspection Skin: No rashes noted, no lesions or wounds seen Psych: Euthymic, normal affect Objective Data Vital Signs Vital Signs: Vital Signs - 24 hr 03/14/23 20:00 03/14/23 21:34 03/15/23 05:59 Temperature 97.1 F L 97.3 F L Pulse Rate 97 67 Respiratory Rate 16 14 Blood Pressure 129/61 155/53 H Pulse Oximetry 97 97 99 Oxygen Delivery Room Air 03/15/23 08:30 03/15/23 14:00 Temperature 97.8 F Pulse Rate 63 Respiratory Rate 16 Blood Pressure 95/56 L Pulse Oximetry 95 99 Oxygen Delivery Room Air Intake/Output Intake/Output: Intake & Output 03/12/23 03/13/23 03/14/23 03/15/23 23:59 23:59 23:59 23:59 Intake Total 870 1440 610 470 Output Total 200 Balance 670 1440 610 470 Meds/Results Medications: Active Medications Generic Name Dose Route Start Last Admin Trade Name Edie PRN Reason Stop Dose Admin Acetaminophen 650 mg 03/10/23 23:16 03/14/23 18:13 Acetaminophen 325 Mg Tablet PO 650 mg Q6H PRN Administration Pain Rated 1-3 Amlodipine Besylate 5 mg 03/11/23 09:00 03/15/23 08:56 Amlodipine Besylate 5 Mg Tablet PO 5 mg DAILY KEITH Administration Aspirin 81 mg 03/11/23 09:00 03/15/23 08:56 Aspirin 81 Mg Enteric Tablet PO 81 mg DAILY KEITH Administration Carbidopa/Levodopa 3 tablet 03/11/23 07:00 03/15/23 12:41 Carbidopa/Levodopa 25/100 Mg Tablet BY MOUTH 3 tablet 0700,1300,1800 KEITH Administration Carbidopa/Levodopa 2 tablet 03/10/23 23:30 03/14/23 20:09 Carbidopa/Levodopa 25/100 Mg Cr Tablet BY MOUTH 2 tablet HS KEITH Administration Ciprofloxacin 500 mg 03/14
[2023-03-15] MEDS: SIMETHICONE 125 MG CHEW TAB PO ×2 (17:17→21:02)
[2023-03-15 20:00] VITALS: PULSE 105; RESP 18; O2SAT 100
[2023-03-15 20:57] VITALS: BP 144/62; PULSE 105; RESP 18; TEMP 36.5; O2SAT 100
[2023-03-15] MEDS: CARBIDOPA/LEVODOPA 25/100 MG CR TABLET 2 TABLET BY MOUTH (21:02)
[2023-03-15] MEDS: MELATONIN 5 MG TABLET PO (21:02)
[2023-03-15] MEDS: TAMSULOSIN HCL 0.4 MG CAPSULE PO (21:02)
[2023-03-16 05:00] VITALS: BP 140/70; PULSE 94; RESP 18; TEMP 36.5; O2SAT 100
[2023-03-16] MEDS: CIPROFLOXACIN 500 MG TAB PO (09:15)
[2023-03-16] MEDS: DONEPEZIL HCL 5 MG TABLET PO (09:15)
[2023-03-16] MEDS: ACIDOPHILUS/BULGARICUS CHEWABLE TABLET 1 TABLET BY MOUTH (09:15)
[2023-03-16] MEDS: VITAMIN B COMPLEX CAPSULE 1 CAP PO (09:15)
[2023-03-16] MEDS: amLODIPine BESYLATE 5 MG TABLET PO (09:15)
[2023-03-16] MEDS: FINASTERIDE 5 MG TABLET PO (09:15)
[2023-03-16] MEDS: CLOPIDOGREL BISULFATE 75 MG TABLET PO (09:15)
[2023-03-16] MEDS: PANTOPRAZOLE 40 MG TABLET PO (09:15)
[2023-03-16] MEDS: ASPIRIN 81 MG ENTERIC TABLET PO (09:15)
[2023-03-16] MEDS: CHOLECALCIFEROL 1,000 UNITS TABLET 1000 UNITS PO (09:15)
[2023-03-16] MEDS: lisinopriL 10 MG TABLET PO (09:15)
[2023-03-16] MEDS: SIMETHICONE 125 MG CHEW TAB PO ×2 (09:15→13:29)
[2023-03-16] MEDS: SODIUM BICARBONATE TAB 650 MG TABLET PO (09:16)
[2023-03-16] MEDS: CARBIDOPA/LEVODOPA 25/100 MG TABLET 3 TABLET BY MOUTH ×2 (09:16→13:30)
[2023-03-16] MEDS: FLUTICASONE PROPIONATE 0.05% NA SPR 16 GM BTL (*BKC) 2 SPRAY NASAL (09:16)
[2023-03-16] MEDS: ENOXAPARIN 30 MG/0.3 ML SYRINGE SUB-Q (09:18)
--- NOTE | 2023-03-16 10:53 | PM.IMPN ---
Progress Note: A&P Assessment and Plan (1) Pseudomonas urinary tract infection: Code(s): N39.0 - Urinary tract infection, site not specified; B96.5 - Pseudomonas (aeruginosa) (mallei) (pseudomallei) as the cause of diseases classified elsewhere Status: Acute (2) Parkinson disease: Code(s): G20 - Parkinson's disease Status: Chronic Plan 82 year? old male patient who has a history of Parkinson's disease presented with weakness, dehydration, found to have pseudomonas UTI, along with electrolyte derangement.? Pseudomonas urinary tract infection -urine culture positive for Pseudomonas -antibiotic:??received ceftazidime for Pseudomonas coverage, Will switch to PO ciprofloxacin, last day abx 03/16 Leucocytosis has resolved electrolyte imbalance -magnesium 1.6, repleted today -hypokalemia better Parkinson's disorder -consulted neurologist: recs for no changes to home meds, will need outpatient f/u in 1 month -PT OT consult for weakness, patient likely benefit from home health -continue carbidopa levodopa dementia: Aricept, + #permanent atrial fibrillation:? No anticoagulation, dual anti-platelet therapy, rate stable 68 #anemia of CKD: Stable #CKD stage IV:? Creatinine baseline 2.2,?may continue home bicarb #BPH:? Proscar, Flomax #type 2 diabetes: Hemoglobin A1c 6.0, Accu-Cheks a.c. HS, hypoglycemia protocol, sliding scale insulin #essential hypertension: Continue lisinopril and amlodipine, holding hydrochlorothiazide #DVT prophylaxis:??Lovenox #Code status:??Full code #Disposition:? denied rehab stay, appealing SNF, will likely end up going home with [facility] at d/c Subjective Date/time seen: 03/16/23 10:53 Interval history: No overnight events noted. No chest pain or shortness of breath. No nausea, vomiting or diarrhea. No fevers or chills. Review of Systems Review of Systems: 12 point review of systems was assessed and was negative except as noted in the HPI Exam Narrative: General: No acute distress, alert and oriented per baseline HEENT: Atraumatic, normocephalic, mucous membranes moist CV: Regular rate and rhythm, S1, S2 Lungs: Clear to auscultation bilaterally, no rales or crackles noted, no wheezes, good air entry Abdomen: Soft, nontender, nondistended Extremities: Normal to inspection Skin: No rashes noted, no lesions or wounds seen Psych: Euthymic, normal affect Objective Data Vital Signs Vital Signs: Vital Signs - 24 hr 03/15/23 14:00 03/15/23 20:57 03/15/23 20:00 Temperature 97.8 F 97.7 F Pulse Rate 63 105 H 105 H Respiratory Rate 16 18 18 Blood Pressure 95/56 L 144/62 H Pulse Oximetry 99 100 100 Oxygen Delivery Room Air 03/16/23 05:00 03/16/23 08:00 Temperature 97.7 F Pulse Rate 94 Respiratory Rate 18 Blood Pressure 140/70 Pulse Oximetry 100 Oxygen Delivery Room Air Intake/Output Intake/Output: Intake & Output 03/13/23 03/14/23 03/15/23 03/16/23 23:59 23:59 23:59 23:59 Intake Total 1776 278 2839 100 Balance 3635 266 8019 100 Meds/Results Medications: Active Medications Generic Name Dose Route Start Last Admin Trade Name Edie PRN Reason Stop Dose Admin Acetaminophen 650 mg 03/10/23 23:16 03/14/23 18:13 Acetaminophen 325 Mg Tablet PO 650 mg Q6H PRN Administration Pain Rated 1-3 Amlodipine Besylate 5 mg 03/11/23 09:00 03/16/23 09:15 Amlodipine Besylate 5 Mg Tablet PO 5 mg DAILY KEITH Administration Aspirin 81 mg 03/11/23 09:00 03/16/23 09:15 Aspirin 81 Mg Enteric Tablet PO 81 mg DAILY KEITH Administration Carbidopa/Levodopa 3 tablet 03/11/23 07:00 03/16/23 09:16 Carbidopa/Levodopa 25/100 Mg Tablet BY MOUTH 3 tablet 0700,1300,1800 KEITH Administration Carbidopa/Levodopa 2 tablet 03/10/23 23:30 03/15/23 21:02 Carbidopa/Levodopa 25/100 Mg Cr Tablet BY MOUTH 2 tablet HS KEITH Administration Ciprofloxacin 500 mg 03/14/23 12:40 03/16/23
[2023-03-16 14:00] VITALS: BP 129/49; PULSE 74; RESP 20; TEMP 36.6; O2SAT 100
--- NOTE | 2023-03-16 14:53 | PC.NURSE ---
Call made to neurologist regarding patient discharge to home today. Message left.
--- NOTE | 2023-03-18 18:01 | PM.DS ---
DS: Admitting Diagnosis Discharge Date 03/16/23 Admitting Diagnosis weakness DS: Discharge Diagnosis Discharge Diagnosis (1) Pseudomonas urinary tract infection: Code(s): N39.0 - Urinary tract infection, site not specified; B96.5 - Pseudomonas (aeruginosa) (mallei) (pseudomallei) as the cause of diseases classified elsewhere Status: Acute (2) Parkinson disease: Code(s): G20 - Parkinson's disease Status: Chronic Plan #? Pseudomonas urinary tract infection - urine culture positive for Pseudomonas -antibiotic:??received ceftazidime for Pseudomonas coverage, Will switch to PO ciprofloxacin, last day abx 03/16 Leucocytosis has resolved # electrolyte imbalance -magnesium 1.6, repleted today -hypokalemia better # Parkinson's disorder -consulted neurologist: recs for no changes to home meds, will need outpatient f/u in 1 month -PT OT consult for weakness, patient likely benefit from home health -continue carbidopa levodopa dementia: Aricept, + #permanent atrial fibrillation:? No anticoagulation, dual anti-platelet therapy, rate stable 68 #anemia of CKD: Stable #CKD stage IV:? Creatinine baseline 2.2,?may continue home bicarb #BPH:? Proscar, Flomax #type 2 diabetes: Hemoglobin A1c 6.0, Accu-Cheks a.c. HS, hypoglycemia protocol, sliding scale insulin #essential hypertension: Continue lisinopril and amlodipine, holding hydrochlorothiazide #DVT prophylaxis:??Lovenox #Code status:??Full code #Disposition:? denied rehab stay, appealing SNF, will likely end up going home with [facility] at d/c DS: Summary Hospital Course Hospital Course: 82 year?old male patient who has a history of Parkinson's disease presented with weakness, dehydration, found to have pseudomonas UTI, along with electrolyte derangement, treated with cipro. Patient found to have afib, rate controlled, on dual anti-platelet therapy. Parkinson's disease got worse while he was here, he required PT/OT and quickly improved back to near baseline. See above and med rec for details. Time Spent with Patient Time attestation: Total time spent providing and/or coordinating discharge services: Exam Narrative: General:? No acute distress, alert and oriented per baseline HEENT:? Atraumatic, normocephalic, mucous membranes moist CV:? Regular rate and rhythm, S1, S2 Lungs:? Clear to auscultation bilaterally, no rales or crackles noted, no wheezes, good air entry Abdomen:? Soft, nontender, nondistended Extremities:? Normal to inspection Skin:? No rashes noted, no lesions or wounds seen Psych:? Euthymic, normal affect Discharge Plan Discharge Attending physician on discharge: Ernestine Rosales Consulting providers: Criselda Garcia; Jocelyn Finch; Jose Ivey; Shahana Fernando; Pineda Lomas; Mirza Lund V.; Catalina Simms Discharging Clinician: Ernestine Rosales Patient Disposition: Home Health Service Activity: as tolerated Diet: as tolerated Discharge Instructions: Per Care Coordination: [facility] will contact you prior to their first visit. [facility] will follow for RN and PT/OT eval and treat. [facility] can be contacted at [phone]. Patient Instructions: Antibiotic Form, Metoprolol (By mouth), Lisinopril (By mouth), Simethicone (By mouth), Pain Management in Older Adults (DC) Stand Alone Forms: General Discharge Information Follow-up/Referrals: Vesna Tirado MD [Primary Care Provider] - Criselda Garcia MD [Physician] - Discharge Medications: New simethicone [Gas-X Extra Strength] 125 mg Capsule 125 mg PO QID 30 Days Qty: 120 0RF lisinopril 10 mg Tablet 10 mg PO DAILY 30 Days Qty: 30 0RF Continued acetaminophen [Mapap (acetaminophen)] 325 mg tablet 650 mg PO PRN PRN (Reason: pain) esomeprazole magnesium [Nexium] 40 mg capsule,delayed release(DR/EC) 40 mg PO DAILY Qty: 1 0RF aspirin 81 mg tablet,delayed release (DR/
== END 2023-03-16 16:04 | disposition home health service (06) | DRG 690 ==
LOC: ANHED 19:04 → ANH3MEDSUR 20:04
PROVIDERS: Internal Medicine; Nurse Practitioner; Student in an Organized Health Care Education/Training Program; Admitting Provider Family Medicine; Emergency Provider Emergency Medicine; PCP Family Medicine; Visit Provider Student in an Organized Health Care Education/Training Program
DX: N39.0 Urinary tract infection, site not specified (principal); I48.21 Permanent atrial fibrillation; N18.4 Chronic kidney disease, stage 4 (severe); B96.5 Pseudomonas (aeruginosa) (mallei) (pseudomallei) as the cause of diseases classified elsewhere; G20 Parkinson's disease; F02.80 Dementia in other diseases classified elsewhere, unspecified severity, without behavioral disturbance, psychotic disturbance, mood disturbance, and anxiety; D63.1 Anemia in chronic kidney disease; E11.22 Type 2 diabetes mellitus with diabetic chronic kidney disease; I12.9 Hypertensive chronic kidney disease with stage 1 through stage 4 chronic kidney disease, or unspecified chronic kidney disease; Z20.822 Contact with and (suspected) exposure to COVID-19; E87.6 Hypokalemia; E86.0 Dehydration; M19.90 Unspecified osteoarthritis, unspecified site; E83.42 Hypomagnesemia; N40.1 Benign prostatic hyperplasia with lower urinary tract symptoms; R33.8 Other retention of urine; Z96.652 Presence of left artificial knee joint; Z79.82 Long term (current) use of aspirin; Z86.718 Personal history of other venous thrombosis and embolism; Z86.73 Personal history of transient ischemic attack (TIA), and cerebral infarction without residual deficits; Z98.42 Cataract extraction status, left eye; Z98.41 Cataract extraction status, right eye; Z87.891 Personal history of nicotine dependence
CPT/HCPCS: 36415; 71045; 80048; 80053; 81001; 82948; 83036; 83605; 83735; 84439; 84443; 84480; 85025; 85027; 87040; 87077; 87086; 87186; 87637; 93005; 96365; 96367; 96372; 97110; 97116; 97161; 97165; 97530; 97535; 99285; A9270; G0378; J0696; J0713; J1650; J1815; J3475; J7030

== ENCOUNTER 2023-03-22 11:22 | Outpatient (NON) | payer MEDICARE, SELFPAY | END 2023-03-22 11:23 | disposition home or self-care (01) | LOC: ANHGOSHLAB 11:23 | PROVIDERS: PCP Family Medicine; Visit Provider Family Medicine | DX: N39.0 Urinary tract infection, site not specified (principal); B96.5 Pseudomonas (aeruginosa) (mallei) (pseudomallei) as the cause of diseases classified elsewhere | CPT/HCPCS: 87086; 87147; 87181; 87186 ==

== ENCOUNTER 2023-05-03 14:29 | Outpatient (CLI) | payer MEDICARE, SELFPAY ==
[2023-05-03 20:20] LABS: Add Urine Microscopic? YES; Appearance Urine Turbid (Clear); Bacteria Urine 4+ /hpf; Bilirubin Urine Negative (Negative); Blood Urine 3+ (Negative); Color Urine Yellow (Yellow); Glucose Urine UA Negative (Negative); Ketones Urine Trace mg/dL (Negative); Leukocyte Esterase Ur 3+ LEU/UL (NEGATIVE); Need Manual Microscopic Reviewed; Nitrate Urine Positive (Negative); Protein Urine 3+ mg/dL (Negative); RBC Urine 51-100 /hpf (0-2); Specific Grav Ur 1.019 (1.001-1.035); Squamous Epithelial Cell Urine Occasional /hpf (Few); WBC Urine >100 /hpf (0-3); pH Urine 5.5 (5.0-9.0)
== END 2023-05-03 14:30 | disposition home or self-care (01) ==
LOC: ANHLAB 14:31
PROVIDERS: PCP Family Medicine; Visit Provider Student in an Organized Health Care Education/Training Program
DX: N39.0 Urinary tract infection, site not specified (principal); B96.5 Pseudomonas (aeruginosa) (mallei) (pseudomallei) as the cause of diseases classified elsewhere
CPT/HCPCS: 81001; 87077; 87086; 87186

== ENCOUNTER 2023-05-24 09:58 | Outpatient (CLI) | payer MEDICARE, SELFPAY ==
[2023-05-24 19:49] LABS: Creatinine Urine 175.8 mg/dL; Total Protein Urine Random 188 mg/dL; Ur Ttl Prot Creatinine Ratio 1.07 mg/mg (0-0.20)
== END 2023-05-24 09:59 | disposition home or self-care (01) ==
LOC: ANHGOSHLAB 10:00
PROVIDERS: PCP Family Medicine; Visit Provider Internal Medicine Nephrology
DX: N39.0 Urinary tract infection, site not specified (principal); N18.4 Chronic kidney disease, stage 4 (severe)
CPT/HCPCS: 82570; 84156; 87086; 87088

== ENCOUNTER 2023-06-03 12:36 | Outpatient (CLI) | payer MEDICARE, SELFPAY ==
[2023-06-03 13:02] LABS: Hematocrit 26.3 % (42.0-52.0); Hemoglobin 7.8 g/dL (14.0-18.0); Mean Corpuscular HGB Conc 29.7 g/dl (32-36); Mean Corpuscular Hemoglobin 25.6 pg (26-34); Mean Corpuscular Volume 86.2 fl (80-100); Mean Platelet Volume 11.4 fl (7.4-10.4); Platelet Count Result 207 k/mm3 (150-375); Red Blood Count 3.05 M/mm3 (4.6-6.20); White Blood Count 6.3 K/mm3 (4.5-10.0)
[2023-06-03 13:17] LABS: Albumin Level 3.8 g/dL (3.5-5.1); Anion Gap 6 mmol/L (8-16); Blood Urea Nitrogen 31 mg/dL (9-20); Carbon Dioxide 27 mmol/L (22-30); Chloride 102 mmol/L (98-107); Estimated Glomerular Filt Rate 30; Glucose 166 mg/dL (65-110); Phosphorus 4.5 mg/dL (2.5-4.5); Potassium 4.2 mmol/L (3.4-5.0); Sodium 135 mmol/L (137-145)
[2023-06-03 13:28] LABS: Parathyroid Intact 94.4 pg/mL (7.5-53.5)
== END 2023-06-03 12:37 | disposition home or self-care (01) ==
PROVIDERS: PCP Family Medicine; Visit Provider Internal Medicine Nephrology
DX: N18.4 Chronic kidney disease, stage 4 (severe) (principal)
CPT/HCPCS: 36415; 80069; 82306; 83970; 85027

== ENCOUNTER 2023-06-15 14:38 | Inpatient (IN) | payer MEDICARE, SELFPAY ==
[2023-06-15] VITALS (16 sets, daily range): BP systolic 100–154; BP diastolic 57–84; PULSE 54–80; RESP 15–30; TEMP 36.2–37.4; O2SAT 92–99; BMI 27.4
--- NOTE | ~2023-06-15 | CT_ITS ---
EXAMINATION: CT brain wo con DATE: 06/15/2023 16:13 INDICATION: confusion, speech difficulty . TECHNIQUE: Computed tomography (CT) of the head was performed without intravenous contrast. The mA wa s adjusted according to patient size. Iterative reconstruction technique was employed. The dose-lengt h product was 605.33 mGy-cm. COMPARISON: 09/11/2019. FINDINGS: No acute intracranial hemorrhage or extra-axial fluid collection. No hydrocephalus, mass, or herniation. No acute ischemic infarct. Unremarkable dural venous sinus attenuation. No acute osseous abnormality. The aerated spaces are clear. Moderate atrophy and chronic white matter change. Atherosclerotic intracranial calcification. Old janee ateral basal ganglia lacunar infarcts. Bilateral lens replacements. IMPRESSION: No acute intracranial process. Reviewed, dictated and finalized at location K.
--- NOTE | ~2023-06-15 | XR_ITS ---
EXAMINATION: XR chest 1V portable DATE: 06/15/2023 15:57 INDICATION: Wheezing TECHNIQUE: frontal view of the chest was obtained. COMPARISON: Chest radiograph dated 03/10/2023 FINDINGS: Cardiomegaly with pulmonary vascular congestion. And mild bronchial wall thickening versus peribronch ial cuffing in the bilateral perihilar and infrahilar regions. No pneumothorax. There are bridging os teophytes at multiple levels in the spine, consistent with diffuse idiopathic skeletal hyperostosis ( DISH). IMPRESSION: 1. Cardiomegaly with pulmonary vascular congestion and tiny right pleural effusion. 2. Mild bronchial wall thickening versus peribronchial cuffing the bilateral perihilar/infrahilar reg ions which could represent mild pulmonary edema, bronchitis or reactive airway disease/asthma. Reviewed, dictated and finalized at location A. IMPRESSION: 1. Cardiomegaly with pulmonary vascular congestion and tiny right pleural effus ion. 2. Mild bronchial wall thickening versus peribronchial cuffing the bilateral pe rihilar/infrahilar regions which could represent mild pulmonary edema, bronchit is or reactive airway disease/asthma.
--- NOTE | ~2023-06-15 | CT_ITS ---
EXAMINATION: CT abdomen pelvis wo con DATE: 06/15/2023 16:18 INDICATION: Hematuria and back pain TECHNIQUE: Computed tomography (CT) of the abdomen and pelvis was performed without intravenous contr ast. Automated exposure control and iterative reconstruction technique were employed. The dose-length product was 1012.10 mGy-cm. COMPARISON: 09/03/2019 FINDINGS: Small bilateral posterior layering pleural effusions, right greater than left. There is adjacent depe ndent compressive atelectasis in bilateral lower lobes. Cardiomegaly. Atherosclerotic coronary artery calcific location. Aortic valve calcific location. No pericardial effusion. A few scattered hepatic and splenic calcifications consistent with old granulomatous disease. Gallbladder, pancreas and bilat eral adrenal glands are normal. A prior 2 mm likely renal stone at the lower pole of the right kidney is no longer visualized. Several unchanged small calcifications at the bilateral renal paola which ap pears associated with renal vessels on the prior contrast enhanced study favoring atherosclerotic ellen cifications over nonobstructing nephrolithiasis. There is additional calcified atherosclerosis of the aorta and many of the other arteries. Infrarenal IVC filter. There is marked diverticulosis with lalita cending and sigmoid colon predominance. There is some wall thickening and stranding about the proxima l sigmoid colon suspicious for diverticulitis. Small bowel and appendix are normal. Prostatomegaly. T here is diffuse mild wall thickening of the partially decompressed bladder with a few bladder diverti cula along the wall thickening is likely related to chronic outlet obstruction. No abscess or free in traperitoneal gas or fluid. No pathologically enlarged abdominal or pelvic lymphadenopathy. Severe sotero mbar spondylosis. There are bridging osteophytes at multiple levels in the spine, consistent with dif fuse idiopathic skeletal hyperostosis (DISH). IMPRESSION: 1. Prominent diverticulosis with wall thickening and mild inflammatory stranding at the proximal sigm oid colon consistent with radiographically uncomplicated diverticulitis. 2. Bladder wall thickening and a few bladder diverticula likely related to chronic outlet obstruction from the enlarged prostate. Differential for the wall thickening would include cystitis either acute or chronic and would correlate with urinalysis. 3. Cardiomegaly. 4. Small bilateral pleural effusions, right greater than left. Reviewed, dictated and finalized at location A. IMPRESSION: 1. Prominent diverticulosis with wall thickening and mild inflammatory strandin g at the proximal sigmoid colon consistent with radiographically uncomplicated diverticulitis. 2. Bladder wall thickening and a few bladder diverticula likely related to chronic care nurse sobia outlet obstruction from the enlarged prostate. Differential for the wall th ickening would include cystitis either acute or chronic and would correlate wit h urinalysis. 3. Cardiomegaly. 4. Small bilateral pleural effusions, right greater than left.
[2023-06-15 14:45] LABS: Glucose Point of Care 142 mg/dl (65-105)
--- NOTE | 2023-06-15 14:46 | ECG_ITS ---
Measurements Intervals [place] Rate: 58 P: VA: 0 QRS: 40 QRSD: 101 T: 35 QT: 405 QTc: 401 Interpretive Statements ATRIAL FIBRILLATION WITH SLOW VENTRICULAR RESPONSE LEFT VENTRICULAR HYPERTROPHY NONSPECIFIC ST & T-WAVE ABNORMALITY ABNORMAL RHYTHM ECG COMPARED TO ECG 03/10/2023 16:30:59 NO SIGNIFICANT CHANGES Electronically Signed On 06-16-2023 7:37:14 CDT by Tomás Pham M.D.
[2023-06-15 15:08] LABS: Basophils Percent Auto 0.5 % (0.2-1.2); Eosinophils Percent Auto 0.5 % (0-4.4); Immature Granulocyte Absolute 0.03 K/mm3 (0.00-0.031); Immature Granulocyte Percent A 0.5 % (0-0.5); Lymphocytes Absolute Auto 0.31 K/mm3 (0.9-3.2); Lymphocytes Percent Auto 5.5 % (18.3-44.2); Mean Corpuscular HGB Conc 29.1 g/dl (32-36); Mean Corpuscular Hemoglobin 24.2 pg (26-34); Mean Platelet Volume 11.3 fl (7.4-10.4); Monocytes Absolute Auto 0.6 K/mm3 (0.1-0.6); Monocytes Percent Auto 10.6 % (2.6-8.5); Neutrophils Absolute Auto 4.6 K/mm3 (1.3-6.7); Neutrophils Percent Auto 82.4 % (45.5-73.1); Platelet Count Result 190 k/mm3 (150-375); Red Blood Count 2.77 M/mm3 (4.6-6.20); Red Cell Distribution Width 16.3 % (11.5-14.5); White Blood Count 5.6 K/mm3 (4.5-10.0)
[2023-06-15 15:16] LABS: Alanine Aminotransferase 10 U/L (6-50); Albumin Level 3.6 g/dL (3.5-5.1); Alkaline Phosphatase 64 U/L (38-126); Anion Gap 6 mmol/L (8-16); Aspartate Amino Transferase 21 U/L (17-59); Bilirubin,Total 0.5 mg/dL (0.2-1.3); Blood Urea Nitrogen 44 mg/dL (9-20); Calcium 8.7 mg/dL (8.4-10.2); Carbon Dioxide 27 mmol/L (22-30); Chloride 104 mmol/L (98-107); Estimated CRCL calculation 27 ml/min; Estimated Glomerular Filt Rate 36; Glucose 141 mg/dL (65-110); Potassium 4.6 mmol/L (3.4-5.0); Sodium 137 mmol/L (137-145)
[2023-06-15 15:21] LABS: Hemoglobin 6.7 g/dL (14.0-18.0)
[2023-06-15 15:22] LABS: Hypochromasia 1+ (NORMAL); Ovalocytes 1+ (NORMAL); Platelet Estimate Adequate (Adequate); Schistocytes None Seen (NORMAL)
--- NOTE | 2023-06-15 15:59 | ED.WEAKNESS ---
HPI - Weakness General Chief complaint: Weakness Stated complaint: WEAKNESS Time Seen by Provider: 06/15/23 15:19 Source: patient, family, RN notes reviewed and old records reviewed Mode of arrival: EMS Limitations: dementia History of Present Illness HPI Narrative: THis is an 83 year old male with history of Afib, parkinsons disease, chronic renal disease who presents from home for evaluation of weakness. They reports patient had right knee steroid injection due to chronic knee pain on Monday. Patient seemed to do well on Monday and Monday. He states starting yesterday he started becoming weak and having difficulty walking. His states patient had a bad night last night. She reports visual hallucinations. This morning he son reports they could not get patient to get out of bed. He was unable stand and they reports his speech seemed garbled. She reports patient has had cough today, and his son has had a recent cold so patient may have similar illness. Patient is able to state his name and that he is in hospital. He denies any complaints. They have not noticed any bleeding. Nursing reports blood after they straight cath patient and some blood in his depends. Related Data Home Medications Medication Instructions Recorded Confirmed acetaminophen 325 mg tablet (Mapap 650 mg PO PRN PRN pain 11/14/19 06/15/23 (acetaminophen)) aspirin 81 mg tablet,delayed 81 mg PO DAILY 03/08/21 06/15/23 release finasteride 5 mg tablet 5 mg PO DAILY 03/08/21 06/15/23 melatonin 5 mg tablet 5 mg PO HS 08/09/21 06/15/23 cholecalciferol (vitamin D3) 25 25 mcg PO DAILY 09/06/22 06/15/23 mcg (1,000 unit) capsule lactobacillus combination no.4 3 3,000 mmu cells PO DAILY 09/06/22 06/15/23 billion cell capsule (Probiotic) vitamin B complex (B 1 tablet PO DAILY 09/06/22 06/15/23 Complex-Vitamin B12 tablet) tamsulosin 0.4 mg capsule 0.4 mg PO HS 03/10/23 06/15/23 sodium bicarbonate 650 mg tablet 650 mg PO BIDWMEAL 03/12/23 06/15/23 apixaban 5 mg tablet (Eliquis) 5 mg PO BID 06/07/23 06/15/23 carbidopa 25 mg-levodopa 100 mg 3 tablet PO TID 06/15/23 06/15/23 tablet carbidopa ER 50 mg-levodopa 200 mg 1 tablet PO QHS 06/15/23 06/15/23 tablet,extended release Allergies Allergy/AdvReac Type Severity Reaction Status Date / Time No Known Allergies Allergy Verified 06/15/23 14:48 Review of Systems Review of Systems: ROS unobtainable: Yes unobtainable due to mental status PMFSH Past Medical History Medical History (Updated 06/15/23 @ 22:14 by Denisse Rodriguez PA-C) Anemia Benign prostatic hyperplasia Chronic kidney disease, stage 3 Dementia History of deep venous thrombosis (DVT) of distal vein of right lower extremity History of TIAs Hypertension Osteoarthritis Parkinson disease Paroxysmal atrial fibrillation Syncope due to orthostatic hypotension Transient ischemic attack Type 2 diabetes mellitus Urinary retention due to benign prostatic hyperplasia Surgical History Surgical History (Updated 06/15/23 @ 18:46 by Denisse Rodriguez PA-C) History of bilateral cataract extraction (2009) History of colonoscopy with polypectomy February [address] Cox. Three polyps the mid ascending colon, 4 polyps in the rectum Internal hemorrhoids, diverticulosis History of inferior vena caval filter placement History of left knee replacement (09/2013) History of tonsillectomy Family History Family History Father Cerebrovascular accident Sibling Cerebrovascular accident Mother Heart attack Social History Social History (Updated 06/15/23 @ 18:47 by Denisse Rodriguez PA-C) Social History: Surrogate medical decision maker: Grecia Carrera, spouse. Code status: Full code. Smoking packs per day: 1.5 Smoking cigarettes per day: 30.0 Years smoked: 20 Smoking pack-years: 30.00 Smoking status: Former smoker Second hand tobacco smoke exposure: No Additional
[2023-06-15 16:07] LABS: Magnesium 1.6 mg/dL (1.6-2.3)
[2023-06-15 16:08] LABS: Appearance Urine Cloudy (Clear); Bacteria Urine None Seen /hpf; Bilirubin Urine Negative (Negative); Blood Urine Negative (Negative); Color Urine Yellow (Yellow); Glucose Urine UA Negative (Negative); Ketones Urine Trace mg/dL (Negative); Leukocyte Esterase Ur 2+ LEU/UL (Negative); Need Manual Microscopic Reviewed; Nitrate Urine Positive (Negative); Protein Urine 3+ mg/dL (Negative); Squamous Epithelial Cell Urine None seen /hpf (Few); Urobilinogen Urine 0.2 mg/dL (<2.0); WBC Urine >100 /hpf; pH Urine 5.5 (5.0-9.0)
[2023-06-15 16:09] LABS: Add Urine Microscopic? YES
[2023-06-15 16:17] LABS: INR 1.3; Prothrombin Time 16.3 Seconds (11.1-14.7)
[2023-06-15 16:18] LABS: Partial Thromboplastin Time 36.6 SECONDS (22.3-36.8)
[2023-06-15 16:46] LABS: NT Pro B Type Natriuretic Pept > 30000 pg/mL (19.9-100)
[2023-06-15 16:51] LABS: Influenza A QL RT-PCR Negative (Negative); Influenza B QL RT-PCR Negative (Negative); RSV RNA, RT-PCR Negative (Negative); SARS-CoV-2 RNA PCR Positive (Negative)
[2023-06-15] MEDS: PIPERACILLN/TAZ 3.375GM/NS50ML 3.375 GM/50 ML BAG IVPB (17:07)
[2023-06-15 17:20] LABS: Iron 23 ug/dL (49-181)
[2023-06-15] MEDS: SODIUM CHLORIDE 0.9% IV 250 ML 30 ML IV CONT (17:25)
[2023-06-15 17:30] LABS: Percent Iron Saturation 7 % (20-50)
[2023-06-15] MEDS: TUBING, BLOOD PLUM PUMP TUBING 1 EACH XX (17:33)
[2023-06-15 17:44] LABS: Folic Acid 7.8 ng/mL (2.76->20); Vitamin B12 > 1000.0 pg/mL (239-931)
--- NOTE | 2023-06-15 18:39 | PM.IMHP ---
H&P: HPI History of Present Illness Date/Time: 06/15/23 18:15 Chief Complaint: Weakness and confusion. Narrative: This is an 83-year-old male with history of stroke, Parkinson, hypertension, paroxysmal atrial fibrillation on chronic anticoagulation, anemia, type 2 diabetes mellitus, chronic kidney disease, benign prostatic hyperplasia, and DVT who presented to the emergency department via EMS from home for evaluation of weakness. He is confused and unable to provide an accurate history and thus a majority the following is obtained via a review of his EMR as well as discussions with his . He has chronic knee pain and had a steroid injection done on Monday in seemed to be fine at that time. The following day he started to feel weak and he has gotten progressively more weak and is now to the point where he is having difficulties walking. notes that he has been confused as well which typically only occurs when he is ill. His appetite has been poor but he has not had nausea, vomiting, or diarrhea. There son had a recent cold and they are wondering if the patient may have picked up a virus from him. He has not complained of headache, body aches, sore throat, or cough however. In fact he has not had any complaints and he denies that he is in pain at the time my evaluation. On arrival to the ED he was afebrile with stable vital signs. Labs were significant for a WBC count of 5.6, hemoglobin 6.7, hematocrit 23%, BUN 44, creatinine 1.80, troponin 2.160, proBNP greater than 30,000. Urine was nitrate and leukocyte esterase positive with greater than 100 WBC though no bacteria were seen on microscopy. He tested positive for SARS-CoV-[address] did not show any acute intracranial process. Chest x-ray showed cardiomegaly with pulmonary vascular congestion tiny right pleural effusion as well as mild bronchial wall thickening which could represent edema, bronchitis, or reactive airway disease. CT of the abdomen and pelvis showed Findings and treatment plan were discussed with the patient. Questions were solicited and answered to satisfaction. consistent with radiographically uncomplicated diverticulitis and bladder wall thickening. He was started on Zosyn in the emergency department, blood transfusions have been ordered, and he is being admitted in this setting for further treatment. Review of Systems Review of Systems: Unable to be obtained accurately given the patient's confusion. His provides the following. He has not complained of headache, sinus congestion, sore throat, or body aches. He has not had a cough. Appetite has been poor. No vomiting or diarrhea. He has not complained of dysuria. He has not complained of abdominal pain or discomfort. He is typically quite sharp but he can get confused with infection. [facility] Past Medical History Medical History (Updated 06/15/23 @ 22:14 by Denisse Rodriguez PA-C) Anemia Benign prostatic hyperplasia Chronic kidney disease, stage 3 Dementia History of deep venous thrombosis (DVT) of distal vein of right lower extremity History of TIAs Hypertension Osteoarthritis Parkinson disease Paroxysmal atrial fibrillation Syncope due to orthostatic hypotension Transient ischemic attack Type 2 diabetes mellitus Urinary retention due to benign prostatic hyperplasia Surgical History Surgical History (Updated 06/15/23 @ 18:46 by Denisse Rodriguez PA-C) History of bilateral cataract extraction (2009) History of colonoscopy with polypectomy February [address] Cox. Three polyps the mid ascending colon, 4 polyps in the rectum Internal hemorrhoids, diverticulosis History of inferior vena caval filter placement History of left knee replacement (09/2013) History of tonsillectomy Family History Family History Father Cerebrovascular accident Sibling Cerebrovascular accident Mother Heart attack Social History Social History (Updated 0
--- NOTE | 2023-06-15 21:31 | ADMGEN ---
This patient, Chris Carrera, was admitted to IMU Room 207-01. Patient/family oriented to hospital policies and general routines including ID bracelet, bed and alarms, visiting hours, pain management, procedures, bathroom and other care routines, personal items, smoking policy, room service/diet, and visiting hours. Information on how to activate the Rapid Response Team has been discussed. Patient/Family are encouraged to report perceived risks to care and to ask questions if they do not understand what they are told or what they should do.
[2023-06-15 22:58] LABS: Hemoglobin A1C 5.8 % (<5.7)
[2023-06-15 23:06] LABS: Ammonia < 9 umol/L (9-30)
[2023-06-15] MEDS: PIPERACILLIN/TAZ 2.25G/NS 50ML 2.25 GM/50 ML BAG IVPB (23:39)
[2023-06-16] VITALS (12 sets, daily range): BP systolic 130–180; BP diastolic 62–85; PULSE 46–78; RESP 16–22; TEMP 36.1–37.1; O2SAT 98–100; BMI 27.4
[2023-06-16 00:15] LABS: Vitamin B12 > 1000.0 pg/mL (239-931)
[2023-06-16 05:56] LABS: Basophils Percent Auto 0.3 % (0.2-1.2); Eosinophils Percent Auto 0.2 % (0-4.4); Hemoglobin 9.1 g/dL (14.0-18.0); Immature Granulocyte Absolute 0.02 K/mm3 (0.00-0.031); Immature Granulocyte Percent A 0.3 % (0-0.5); Lymphocytes Absolute Auto 0.64 K/mm3 (0.9-3.2); Lymphocytes Percent Auto 10.3 % (18.3-44.2); Mean Corpuscular HGB Conc 30.3 g/dl (32-36); Mean Corpuscular Hemoglobin 25.6 pg (26-34); Mean Corpuscular Volume 84.3 fl (80-100); Mean Platelet Volume 11.5 fl (7.4-10.4); Monocytes Absolute Auto 0.8 K/mm3 (0.1-0.6); Monocytes Percent Auto 13.4 % (2.6-8.5); Neutrophils Absolute Auto 4.7 K/mm3 (1.3-6.7); Neutrophils Percent Auto 75.5 % (45.5-73.1); Platelet Count Result 194 k/mm3 (150-375); Red Blood Count 3.56 M/mm3 (4.6-6.20); Red Cell Distribution Width 15.9 % (11.5-14.5); White Blood Count 6.2 K/mm3 (4.5-10.0)
[2023-06-16 06:06] LABS: Alanine Aminotransferase 7 U/L (6-50); Albumin Level 2.9 g/dL (3.5-5.1); Alkaline Phosphatase 52 U/L (38-126); Anion Gap 4 mmol/L (8-16); Aspartate Amino Transferase 19 U/L (17-59); Bilirubin,Total 0.5 mg/dL (0.2-1.3); Blood Urea Nitrogen 43 mg/dL (9-20); Calcium 8.3 mg/dL (8.4-10.2); Carbon Dioxide 26 mmol/L (22-30); Chloride 104 mmol/L (98-107); Estimated CRCL calculation 24 ml/min; Estimated Glomerular Filt Rate 30; Glucose 122 mg/dL (65-110); Potassium 4.5 mmol/L (3.4-5.0); Sodium 134 mmol/L (137-145)
[2023-06-16 06:10] LABS: Magnesium 1.7 mg/dL (1.6-2.3)
[2023-06-16 06:39] LABS: Amphetamine Screen Urine Negative (Negative); Barbiturate Screen Urine Negative (Negative); Benzodiazepines Screen Urine Negative (Negative); Cannabinoid Screen Urine Negative (Negative); Cocaine Screen Urine Negative (Negative); Methadone Screen Urine Negative (Negative); Opiate Screen Urine Negative (Negative); Phencyclidine Screen Urine Negative (Negative)
[2023-06-16 06:43] LABS: Thyroid Stimulating Hormone Reflex 0.496 uIU/mL (0.465-4.68)
[2023-06-16] MEDS: PIPERACILLIN/TAZ 2.25G/NS 50ML 2.25 GM/50 ML BAG IVPB ×4 (07:00→23:04)
[2023-06-16] MEDS: hydrALAZINE HCL 20 MG/ML VIAL IV PUSH (09:41)
--- NOTE | 2023-06-16 12:11 | PM.IMPN ---
Progress Note: A&P Assessment and Plan (1) Encephalopathy: Code(s): G93.40 - Encephalopathy, unspecified Status: Acute Assessment and Plan: Likely from COVID. Brain CT did not show any acute findings. He has chronic and stable kidney disease and no acute electrolyte abnormalities. (2) COVID-19: Code(s): U07.1 - COVID-19 Status: Acute Assessment and Plan: The patient tested positive for COVID but he is asymptomatic thus no indication for remdesivir dexamethasone at this time. Continue isolation and supportive care. (3) Non-ST elevation DC (NSTEMI): Code(s): I21.4 - Non-ST elevation (NSTEMI) myocardial infarction Status: Acute Assessment and Plan: Initial troponin was 2.160. ProBNP is also markedly elevated. Likely type 2 DC related to COVID and worsening anemia. Echocardiogram ordered. Cardiology consulted. Continue beta-citlaly. Aspirin and apixaban on hold given anemia. (4) Acute on chronic anemia: Code(s): D64.9 - Anemia, unspecified Status: Acute Assessment and Plan: He has chronic anemia with a baseline hemoglobin which typically ranges between 8 and 9. Hemoglobin today is 6.7 he will be transfused. Check stool for occult blood. Continue to monitor closely. (5) Diverticulitis: Code(s): K57.92 - Diverticulitis of intestine, part unspecified, without perforation or abscess without bleeding Status: Acute Assessment and Plan: CT scan shows radiographically uncomplicated diverticulitis. Abdominal exam was benign at the time my evaluation. Continue Zosyn. Start on clear liquid diet (6) Pyuria: Code(s): R82.81 - Pyuria Status: Acute Assessment and Plan: Urine is abnormal though no bacteria were seen on microscopy. Urine cultures pending. (7) Paroxysmal atrial fibrillation: Code(s): I48.0 - Paroxysmal atrial fibrillation Status: Acute Assessment and Plan: Currently in atrial fibrillation, rate controlled on metoprolol. Apixaban on hold given profound anemia. (8) Chronic kidney disease, stage 3: Code(s): N18.30 - Chronic kidney disease, stage 3 unspecified Status: Acute Assessment and Plan: Creatinine is stable on review of previous labs and will be monitored. (9) Type 2 diabetes mellitus: Code(s): E11.9 - Type 2 diabetes mellitus without complications Status: Acute Assessment and Plan: Initiate sliding scale insulin, Accu-Cheks, and hypoglycemic protocol. Check hemoglobin A1c. (10) Parkinson disease: Code(s): G20 - Parkinson's disease Status: Chronic Assessment and Plan: Continue carbidopa-levodopa. Will need swallow study once his mentation improves. Initiate fall precautions. Subjective Date/time seen: 06/16/23 12:11 Interval history: No overnight issues. Patient confused Review of Systems Review of Systems: ROS unobtainable: Yes unobtainable due to mental status Exam Narrative: General: Moderately ill-appearing male HEENT: PERRL, EOMI. Sclera anicteric. Tacky mucous membranes. Neck: Supple. No JVD. Respiratory: Respirations are nonlabored and lungs are clear to auscultation. Cardiovascular: Irregularly irregular rate and rhythm. Soft murmur at the upper sternal border. Gastrointestinal: Abdomen is soft, nontender, and nondistended with positive bowel sounds. No guarding or rebound tenderness. Skin: Warm and dry. Generalized pallor Extremities: No cyanosis or clubbing. 1+ laureen ankle edema bilaterally. Radial and pedal pulses intact. Neurological: Alert to name only. Psychiatric: Confused. Objective Data Vital Signs Vital Signs: Vital Signs - 24 hr 06/15/23 14:39 06/15/23 17:26 06/15/23 15:57 Temperature 98.3 F 98.8 F Pulse Rate 63 80 67 Respiratory Rate 25 H 27 H 29 H Blood Pressure 142/71 H 100/57 L 154/63 H Pulse Oximetry 97 95 98 Oxygen Delivery Room Air 08
--- NOTE | 2023-06-16 12:27 | PM.CNCAR ---
Assessment and Plan Assessment and plan (1) A-fib: Qualifiers: Atrial fibrillation type: unspecified Qualified Code(s): I48.91 - Unspecified atrial fibrillation Code(s): I48.91 - Unspecified atrial fibrillation Status: Acute (2) Non-ST elevation [place] (NSTEMI): Code(s): I21.4 - Non-ST elevation (NSTEMI) myocardial infarction Status: Acute Plan This is an 83-year-old man with chronic atrial fibrillation no history of coronary artery disease who appears to have a type 2 myocardial infarction resulting from significant anemia. He was recently as an outpatient started on systemic anticoagulation with with apixaban. The drug has been appropriately stopped at this point. I his rate is well controlled with metoprolol and I would consider him not to be a candidate for anticoagulation going forward at least for the foreseeable future given this significant anemia. Regarding the type 2 infarction at this point I would simply continue with metoprolol since he is asymptomatic. I do not anticipate conducting an ischemia workup in this setting. Will follow with you while he is in the hospital. Tomás Pham MD [facility] History of Present Illness History of Present Illness Consult date/time: 06/16/23 12:27 Reason For Visit: Covid +, Anemia, NSTEMI Narrative: This is an 83-year-old man who has a history of atrial fibrillation and follows with my partner, Dr. Villagomez as of recent office consultation. He was admitted to this hospital yesterday with symptoms of severe generalized weakness for which she was brought to the emergency room. He does not have any other cardiac symptomatology such as chest pain shortness of breath orthopnea PND or edema. He is known to have atrial fibrillation of unknown chronicity was 1st identified in February of this year when he was hospitalized here at [facility]. Following that hospitalization he was referred to see my partner in consultation. During the initial hospitalization he was started on anti-platelet therapy for this. Subsequently he was transition to systemic anticoagulation. He on evaluation of this severe weakness in the emergency room was found to be significantly anemic when a hemoglobin of 6 g which is down from his baseline and of course systemic anticoagulation has been discontinued he was given a red cell transfusion and admitted to the hospital. His evaluation also showed him to be positive for coronavirus infection. Upon entering the room to see him he does not have any complaints at this time. He does not recall having any symptoms of chest pain pressure or heaviness. Troponin level on admission was 3.2 and has declined to 2.6. Electrocardiogram shows his chronic atrial fib with nonspecific ST and T-wave abnormalities and is unchanged from electrocardiogram in February. Review of Systems Constitutional: Constitutional: Reports fatigue and Reports lethargy Eyes: Eyes: Reports no additional eye complaints ENT: Reports system reviewed and no additional complaints, except as documented Cardiovascular: Cardiovascular: Reports no additional cardiovascular complaints Respiratory: Respiratory: Reports cough Gastrointestinal: Gastrointestinal: Reports no additional gastrointestinal complaints Musculoskeletal: Musculoskeletal: Reports no additional musculoskeletal complaints Integumentary/Breasts: Skin/Breast: Reports system reviewed and no additional complaints, except as docu Neurologic: Reports system reviewed and no additional complaints, except as documented Endocrine: Endocrine: Reports no additional endocrine complaints Hematologic/Lymphatic: Hematologic/Lymphatic: Reports no additional hematologic/lymphatic complaints Allergic/Immunologic: Allergic/Immunologic: Reports no additional allergic/immunologic complaints [facility] Past Medical History Medical History (Updated 06/15/23 @ 22:14 by Denisse Rodriguez PA-C) Anemia Benign prostatic hyperplasia Chronic
[2023-06-16 12:53] LABS: Glucose Point of Care 145 mg/dl (65-105)
[2023-06-16 17:17] LABS: Glucose Point of Care 149 mg/dl (65-105)
[2023-06-16 20:42] LABS: Glucose Point of Care 137 mg/dl (65-105)
--- NOTE | 2023-06-16 22:22 | ECHO_ITS ---
Patient Info Name: Chris Carrera Age: 83 years : 1940 Gender: Male Ht: 68 in Wt: 180 lbs BSA: 2.00 m2 HR: 66 bpm BP: 136 / 62 mmHg Heart Rhythm: Atrial Fibrillation Technical Quality: Fair Exam Date: 06/16/2023 11:06 AM Exam Location: [facility] Card Pulmonary Patient Status: Inpatient Admit Date: 06/15/2023 Staff Ordering Physician: Denisse Rodriguez PA-C Mail Messenger Contractor: Luba Doan RDCS Attending Provider: Tu Ray MD Referring Physician: Jennifer TOWNSEND; Exam Type: CA echo doppler color flow Study Info Indications - nstemi, afib Complete two-dimensional, color flow and Doppler transthoracic echocardiogram is performed. Summary 1. Complete two-dimensional, color flow and Doppler transthoracic echocardiogram is performed. 2. Concentric left ventricular hypertrophy with good systolic function. 3. Abnormal septal motion consistent with bundle branch block. 4. Severe atrial dilation. 5. Atrial fibrillation. 6. Mild mitral regurgitation. Left Ventricle Left ventricular chamber dimension is normal. Left ventricular systolic function is normal, estimated at 50-55%. There is moderate concentric increased left ventricular wall thickness. Left ventricular septal wall motion is abnormal with septal motion related to bundle branch block. The left ventricular diastolic function is indeterminate. Right Ventricle Right ventricular chamber dimension is normal. Left Atria Left atrial chamber dimension is severely enlarged. Right Atria Right atrial chamber dimension is moderately enlarged. Aortic Valve The aortic valve is trileaflet. There is mild aortic valve sclerosis. Pulmonic Valve The pulmonic valve is not well visualized. Mitral Valve The mitral valve has normal leaflets. There is mild mitral valve regurgitation. Tricuspid Valve The tricuspid valve leaflets are normal. There is mild tricuspid valve regurgitation. Pericardium/Pleural The pericardium appears normal. Aorta The aortic root size at the sinus of Valsalva is normal. Left Ventricular Outflow Tract Name Value Normal LVOT 2D LVOT Diameter 2.1 cm LVOT Doppler LVOT Peak Gradient 5 mmHg LVOT Mean Gradient 3 mmHg LVOT VTI 24 cm LVOT VTI/AV VTI Ratio 0.6 LVOT Stroke Volume 81 ml LVOT CO 3.6 l/min LVOT CI 1.8 l/min/m2 Pulmonic Valve Name Value Normal RVOT Doppler RVOT Peak Gradient 4 mmHg PV Doppler PV Peak Gradient 5 mmHg Mitral Valve Name Value Normal
[2023-06-17] VITALS (14 sets, daily range): BP systolic 144–189; BP diastolic 51–93; PULSE 51–72; RESP 18–22; TEMP 36–36.6; O2SAT 97–100
[2023-06-17] MEDS: PIPERACILLIN/TAZ 2.25G/NS 50ML 2.25 GM/50 ML BAG IVPB ×3 (05:36→20:14)
[2023-06-17] MEDS: hydrALAZINE HCL 20 MG/ML VIAL IV PUSH (11:22)
[2023-06-17 11:26] LABS: Glucose Point of Care 118 mg/dl (65-105)
[2023-06-17 11:32] LABS: Glucose Point of Care 169 mg/dl (65-105)
--- NOTE | 2023-06-17 12:30 | PM.IMPN ---
Progress Note: A&P Assessment and Plan (1) Encephalopathy: Code(s): G93.40 - Encephalopathy, unspecified Status: Acute Assessment and Plan: Likely from COVID. Brain CT did not show any acute findings. He has chronic and stable kidney disease and no acute electrolyte abnormalities. (2) COVID-19: Code(s): U07.1 - COVID-19 Status: Acute Assessment and Plan: The patient tested positive for COVID but he is asymptomatic thus no indication for remdesivir dexamethasone at this time. Continue isolation and supportive care. (3) Non-ST elevation [place] (NSTEMI): Code(s): I21.4 - Non-ST elevation (NSTEMI) myocardial infarction Status: Acute Assessment and Plan: Likely type 2 MS related to COVID and worsening anemia. Echocardiogram ordered. Cardiology consulted. Appreciate their input. No plans for any intervention at this time. Continue beta-citlaly. Aspirin and apixaban on hold given anemia. (4) Acute on chronic anemia: Code(s): D64.9 - Anemia, unspecified Status: Acute Assessment and Plan: He has chronic anemia with a baseline hemoglobin which typically ranges between 8 and 9. Hemoglobin improved from 6.7-9 after transfusion. Continue to monitor closely. (5) Diverticulitis: Code(s): K57.92 - Diverticulitis of intestine, part unspecified, without perforation or abscess without bleeding Status: Acute Assessment and Plan: CT scan shows radiographically uncomplicated diverticulitis. Abdominal exam was benign at the time my evaluation. Continue Zosyn. Start on clear liquid diet. Advance diet as tolerated (6) Pyuria: Code(s): R82.81 - Pyuria Status: Acute Assessment and Plan: Urine is abnormal though no bacteria were seen on microscopy. Urine cultures pending. (7) Paroxysmal atrial fibrillation: Code(s): I48.0 - Paroxysmal atrial fibrillation Status: Acute Assessment and Plan: Currently in atrial fibrillation, rate controlled on metoprolol. Apixaban on hold given profound anemia. (8) Chronic kidney disease, stage 3: Code(s): N18.30 - Chronic kidney disease, stage 3 unspecified Status: Acute Assessment and Plan: Creatinine is stable on review of previous labs and will be monitored. (9) Type 2 diabetes mellitus: Code(s): E11.9 - Type 2 diabetes mellitus without complications Status: Acute Assessment and Plan: Initiate sliding scale insulin, Accu-Cheks, and hypoglycemic protocol. Check hemoglobin A1c. (10) Parkinson disease: Code(s): G20 - Parkinson's disease Status: Chronic Assessment and Plan: Continue carbidopa-levodopa. Will need swallow study once his mentation improves. Initiate fall precautions. (11) Hypertension: Qualifiers: Hypertension type: essential hypertension Qualified Code(s): I10 - Essential (primary) hypertension Code(s): I10 - Essential (primary) hypertension Status: Chronic Assessment and Plan: Blood pressure elevated. IV hydralazine p.r.n. Subjective Date/time seen: 06/17/23 12:30 Interval history: Appears stable. Patient states he has lot of cough Review of Systems Review of Systems: ROS unobtainable: Yes unobtainable due to mental status Exam Narrative: General: Moderately ill-appearing male HEENT: PERRL, EOMI. Sclera anicteric. Tacky mucous membranes. Neck: Supple. No JVD. Respiratory: Respirations are nonlabored and lungs are clear to auscultation. Cardiovascular: Irregularly irregular rate and rhythm. Soft murmur at the upper sternal border. Gastrointestinal: Abdomen is soft, nontender, and nondistended with positive bowel sounds. No guarding or rebound tenderness. Skin: Warm and dry. Generalized pallor Extremities: No cyanosis or clubbing. 1+ laureen ankle edema bilaterally. Radial and pedal pulses intact. Neurological: Alert to name only.
[2023-06-17 16:49] LABS: Glucose Point of Care 120 mg/dl (65-105)
[2023-06-17 21:07] LABS: Glucose Point of Care 157 mg/dl (65-105)
[2023-06-18] VITALS (17 sets, daily range): BP systolic 122–176; BP diastolic 59–76; PULSE 43–92; RESP 18–22; TEMP 36.1–36.6; O2SAT 97–100
[2023-06-18] MEDS: PIPERACILLIN/TAZ 2.25G/NS 50ML 2.25 GM/50 ML BAG IVPB ×2 (01:07→05:58)
[2023-06-18] MEDS: hydrALAZINE HCL 20 MG/ML VIAL IV PUSH ×2 (01:18→08:43)
[2023-06-18 08:24] LABS: Glucose Point of Care 117 mg/dl (65-105)
[2023-06-18 10:20] LABS: Anion Gap 6 mmol/L (8-16); Blood Urea Nitrogen 36 mg/dL (9-20); Calcium 8.5 mg/dL (8.4-10.2); Carbon Dioxide 25 mmol/L (22-30); Chloride 102 mmol/L (98-107); Estimated CRCL calculation 24 ml/min; Estimated Glomerular Filt Rate 30; Glucose 177 mg/dL (65-110); Potassium 4.1 mmol/L (3.4-5.0); Sodium 133 mmol/L (137-145)
--- NOTE | 2023-06-18 10:40 | PM.IMPN ---
Progress Note: A&P Assessment and Plan (1) Encephalopathy: Code(s): G93.40 - Encephalopathy, unspecified Status: Acute Assessment and Plan: Improving. likely from COVID. Brain CT did not show any acute findings. He has chronic and stable kidney disease and no acute electrolyte abnormalities. (2) Hypertension: Qualifiers: Hypertension type: essential hypertension Qualified Code(s): I10 - Essential (primary) hypertension Code(s): I10 - Essential (primary) hypertension Status: Chronic Assessment and Plan: Blood pressure elevated. Will put him on scheduled hydralazine and discontinue IV p.r.n. hydralazine (3) COVID-19: Code(s): U07.1 - COVID-19 Status: Acute Assessment and Plan: The patient tested positive for COVID but he is asymptomatic thus no indication for remdesivir dexamethasone at this time. Continue isolation and supportive care. (4) Non-ST elevation [place] (NSTEMI): Code(s): I21.4 - Non-ST elevation (NSTEMI) myocardial infarction Status: Acute Assessment and Plan: Likely type 2 [place] related to COVID and worsening anemia. Echocardiogram ordered. Cardiology consulted. Appreciate their input. No plans for any intervention at this time. Continue beta-citlaly. Aspirin and apixaban on hold given anemia. (5) Acute on chronic anemia: Code(s): D64.9 - Anemia, unspecified Status: Acute Assessment and Plan: He has chronic anemia with a baseline hemoglobin which typically ranges between 8 and 9. Hemoglobin improved from 6.7-9 after transfusion. Continue to monitor closely. (6) Diverticulitis: Code(s): K57.92 - Diverticulitis of intestine, part unspecified, without perforation or abscess without bleeding Status: Acute Assessment and Plan: CT scan shows radiographically uncomplicated diverticulitis. Abdominal exam was benign at the time my evaluation. Stop IV Zosyn. Start on p.o. Augmentin. Tolerating heart healthy diet (7) Pyuria: Code(s): R82.81 - Pyuria Status: Acute Assessment and Plan: Urine is abnormal though no bacteria were seen on microscopy. Urine cultures pending. (8) Paroxysmal atrial fibrillation: Code(s): I48.0 - Paroxysmal atrial fibrillation Status: Acute Assessment and Plan: Currently in atrial fibrillation, rate controlled on metoprolol. Apixaban on hold given profound anemia. (9) Chronic kidney disease, stage 3: Code(s): N18.30 - Chronic kidney disease, stage 3 unspecified Status: Acute Assessment and Plan: Creatinine is stable on review of previous labs and will be monitored. (10) Type 2 diabetes mellitus: Code(s): E11.9 - Type 2 diabetes mellitus without complications Status: Acute Assessment and Plan: Initiate sliding scale insulin, Accu-Cheks, and hypoglycemic protocol. Check hemoglobin A1c. (11) Parkinson disease: Code(s): G20 - Parkinson's disease Status: Chronic Assessment and Plan: Continue carbidopa-levodopa. Will need swallow study once his mentation improves. Initiate fall precautions. Subjective Date/time seen: 06/18/23 10:40 Interval history: Appears stable No new events per nursing staff Review of Systems Review of Systems: ROS unobtainable: Yes unobtainable due to mental status Exam Narrative: General: Moderately ill-appearing male HEENT: PERRL, EOMI. Sclera anicteric. Tacky mucous membranes. Neck: Supple. No JVD. Respiratory: Respirations are nonlabored and lungs are clear to auscultation. Cardiovascular: Irregularly irregular rate and rhythm. Soft murmur at the upper sternal border. Gastrointestinal: Abdomen is soft, nontender, and nondistended with positive bowel sounds. No guarding or rebound tenderness. Skin: Warm and dry. Generalized pallor Extremities: No cyanosis or clubbing. 1+ laureen ankle edema bilaterally. Radial
[2023-06-18 11:49] LABS: Glucose Point of Care 190 mg/dl (65-105)
[2023-06-18] MEDS: AMOXICILLIN/CLAVULANATE K 875-125 MG TAB 1 TABLET PO ×2 (12:12→20:35)
[2023-06-18] MEDS: CARBIDOPA/LEVODOPA 25/100 MG TABLET 3 TABLET PO ×2 (12:12→17:46)
[2023-06-18] MEDS: hydrALAZINE HCL 50 MG TABLET PO ×3 (12:12→20:34)
[2023-06-18] MEDS: SIMETHICONE 125 MG CHEW TAB PO ×3 (12:12→20:35)
[2023-06-18 16:57] LABS: Glucose Point of Care 167 mg/dl (65-105)
[2023-06-18 20:23] LABS: Glucose Point of Care 185 mg/dl (65-105)
[2023-06-18] MEDS: CARBIDOPA/LEVODOPA 25/100 MG CR TABLET 2 TABLET PO (20:34)
[2023-06-18] MEDS: MELATONIN 5 MG TABLET PO (20:34)
[2023-06-18] MEDS: DONEPEZIL HCL 10 MG TABLET PO (20:34)
[2023-06-18] MEDS: TAMSULOSIN HCL 0.4 MG CAPSULE PO (20:34)
[2023-06-18] MEDS: APIXABAN 5 MG TABLET PO (20:34)
[2023-06-19] VITALS (12 sets, daily range): BP systolic 118–168; BP diastolic 56–84; PULSE 47–76; RESP 14–20; TEMP 35.9–36.6; O2SAT 97–100
[2023-06-19 07:11] LABS: Hematocrit 31.1 % (42.0-52.0); Hemoglobin 9.5 g/dL (14.0-18.0); Mean Corpuscular HGB Conc 30.5 g/dl (32-36); Mean Corpuscular Hemoglobin 25.8 pg (26-34); Mean Corpuscular Volume 84.5 fl (80-100); Mean Platelet Volume 11.2 fl (7.4-10.4); Platelet Count Result 162 k/mm3 (150-375); Red Blood Count 3.68 M/mm3 (4.6-6.20); Red Cell Distribution Width 16.8 % (11.5-14.5); White Blood Count 4.9 K/mm3 (4.5-10.0)
[2023-06-19 07:22] LABS: Anion Gap 4 mmol/L (8-16); Blood Urea Nitrogen 36 mg/dL (9-20); Calcium 7.9 mg/dL (8.4-10.2); Carbon Dioxide 24 mmol/L (22-30); Chloride 104 mmol/L (98-107); Estimated CRCL calculation 26 ml/min; Estimated Glomerular Filt Rate 34; Glucose 114 mg/dL (65-110); Potassium 4.1 mmol/L (3.4-5.0); Sodium 132 mmol/L (137-145)
[2023-06-19] MEDS: CARBIDOPA/LEVODOPA 25/100 MG TABLET 3 TABLET PO ×3 (09:05→17:16)
[2023-06-19] MEDS: CHOLECALCIFEROL 1,000 UNITS TABLET 1000 UNITS PO (09:05)
[2023-06-19] MEDS: lisinopriL 10 MG TABLET PO (09:06)
[2023-06-19] MEDS: APIXABAN 5 MG TABLET PO ×2 (09:06→21:50)
[2023-06-19] MEDS: SIMETHICONE 125 MG CHEW TAB PO ×4 (09:06→21:06)
[2023-06-19] MEDS: ASPIRIN 81 MG ENTERIC TABLET PO (09:06)
[2023-06-19] MEDS: AMOXICILLIN/CLAVULANATE K 875-125 MG TAB 1 TABLET PO (09:06)
[2023-06-19] MEDS: hydrALAZINE HCL 50 MG TABLET PO ×4 (09:06→21:06)
[2023-06-19] MEDS: VITAMIN B COMPLEX CAPSULE 1 CAP PO (09:06)
[2023-06-19] MEDS: FINASTERIDE 5 MG TABLET PO (09:06)
[2023-06-19] MEDS: PANTOPRAZOLE 40 MG TABLET PO (09:06)
--- NOTE | 2023-06-19 11:19 | PM.DS ---
DS: Admitting Diagnosis Discharge Date 06/19/2023 Admitting Diagnosis Altered mental status COVID positive DS: Discharge Diagnosis Discharge Diagnosis (1) COVID-19: Code(s): U07.1 - COVID-19 Status: Acute (2) Encephalopathy: Code(s): G93.40 - Encephalopathy, unspecified Status: Acute (3) Paroxysmal atrial fibrillation: Code(s): I48.0 - Paroxysmal atrial fibrillation Status: Acute (4) Type 2 diabetes mellitus: Code(s): E11.9 - Type 2 diabetes mellitus without complications Status: Acute DS: Summary Hospital Course Hospital Course: This is an 83-year-old male with history of stroke, Parkinson, hypertension, paroxysmal atrial fibrillation on chronic anticoagulation, anemia, type 2 diabetes mellitus, chronic kidney disease, benign prostatic hyperplasia, and DVT who presented to the emergency department via EMS from home for evaluation of weakness. On arrival to the ED he was afebrile with stable vital signs. Labs were significant for a WBC count of 5.6, hemoglobin 6.7, hematocrit 23%, BUN 44, creatinine 1.80, troponin 2.160, proBNP greater than 30,000. Urine was nitrate and leukocyte esterase positive with greater than 100 WBC though no bacteria were seen on microscopy. He tested positive for SARS-CoV-[address] did not show any acute intracranial process. Chest x-ray showed cardiomegaly with pulmonary vascular congestion tiny right pleural effusion as well as mild bronchial wall thickening which could represent edema, bronchitis, or reactive airway disease. CT of the abdomen and pelvis showed radiographically uncomplicated diverticulitis and bladder wall thickening. He was started on Zosyn in the emergency department, blood transfusions have been ordered. Hemoglobin has remained stable. Chronic kidney disease is back to baseline. Because of him not requiring any oxygen he was not started on any treatment for his COVID. His antibiotic was changed from IV Zosyn to oral Augmentin and his finished a 5 day course. Patient was started on a diet and he tolerated it very well. At this time is stable clinically and [facility] Time Spent with Patient Time attestation: Total time spent providing and/or coordinating discharge services: DS: Data Data Completed and Pending Labs on day of discharge: Labs from last 24 hours 06/19/23 06/18/23 06/18/23 07:06 20:16 16:48 WBC 4.9 RBC 3.68 L Hgb 9.5 L Hct 31.1 L MCV 84.5 MCH 25.8 L MCHC 30.5 L RDW 16.8 H Plt Count 162 MPV 11.2 H Sodium 132 L Potassium 4.1 Chloride 104 Carbon Dioxide 24 Anion Gap 4 L BUN 36 H Creatinine 1.90 H Estim Creat Clear Calc 26 Estimated GFR 34 L Glucose 114 H POC Capillary Glucose 185 H 167 H Calcium 7.9 L 06/18/23 11:38 WBC RBC Hgb Hct MCV MCH MCHC RDW Plt Count MPV Sodium Potassium Chloride Carbon Dioxide Anion Gap BUN Creatinine Estim Creat Clear Calc Estimated GFR Glucose POC Capillary Glucose 190 H Calcium Discharge Plan Discharge Consulting providers: [facility] Discharging Clinician: Tu Ray Anticipated Discharge Date/Time: 06/19/23 11:15 Patient Disposition: SNF Activity: no preference Diet: heart healthy Stand Alone Forms: General Discharge Information Follow-up/Referrals: Vesna Tirado MD [Primary Care Provider] - Discharge Medications: New hydralazine 50 mg Tablet 50 mg PO QID Qty: 60 0RF Continued acetaminophen [Mapap (acetaminophen)] 325 mg tablet 650 mg PO PRN PRN (Reason: pain) donepezil [Aricept] 10 mg tablet 10 mg PO QHS Qty: 30 5RF esomeprazole magnesium [Nexium] 40 mg capsule,delayed release(DR/EC) 40 mg PO DAILY Qty: 1 0RF lisinopril 10 mg tablet 10 mg PO DAILY Qty: 90 1RF finasteride 5 mg tablet 5 mg PO DAILY Probiotic 3 billion cell capsul
--- NOTE | 2023-06-19 11:52 | PCNFU ---
Nutrition Follow-Up Complete: Inadequate oral intake related to food choices, clear liquid status as evidenced by family report, diet order Goal:Diet advancement per MD Adequate PO intake once diet is advanced Pt is meeting goal. Continue with same goal Pt current nutrition is Heart healthy, Ensure compact BID. Nutrition recommendation: continue with current plan of care. Last recorded weight is 85 kg. Bowel Motility: +BM 06/18 Labs Reviewed: Hgb:9.5, HCT:31.1, NA:132, BUN:36, Cr:1.9, Glu:114 Meds Noted: eliquis, novolog, zofran, protonix Skin: no skin issues noted Additional Notes: pt diet advanced to heart healthy, ensure compact BID in place. Intake 50% average for meals. Continue to encourage po intake. Monitor plan of care, intakes, weights, labs Follow up in 5 days
--- NOTE | 2023-06-19 16:12 | PC.NURSE ---
This patient, Chris Carrera, was transferred to [[id number]] on 06/19/23 at 1612. Personal belongings sent with patient. Report given to [ MARGARET Thomson @1600]. Appropriate documentation sent with patient.
[2023-06-19 17:13] LABS: Glucose Point of Care 151 mg/dl (65-105)
[2023-06-19] MEDS: levoFLOXacin 500 MG TABLET PO (21:05)
[2023-06-19] MEDS: CARBIDOPA/LEVODOPA 25/100 MG CR TABLET 2 TABLET PO (21:06)
[2023-06-19] MEDS: MELATONIN 5 MG TABLET PO (21:06)
[2023-06-19] MEDS: TAMSULOSIN HCL 0.4 MG CAPSULE PO (21:50)
[2023-06-19] MEDS: DONEPEZIL HCL 10 MG TABLET PO (21:50)
[2023-06-20 06:00] VITALS: BP 152/62; PULSE 53; RESP 16; TEMP 36.4; O2SAT 100
[2023-06-20 08:00] VITALS: PULSE 53; RESP 16; O2SAT 100
[2023-06-20] MEDS: VITAMIN B COMPLEX CAPSULE 1 CAP PO (11:19)
[2023-06-20] MEDS: CARBIDOPA/LEVODOPA 25/100 MG TABLET 3 TABLET PO ×3 (11:19→16:07)
[2023-06-20] MEDS: hydrALAZINE HCL 50 MG TABLET PO ×4 (11:19→21:26)
[2023-06-20] MEDS: PANTOPRAZOLE 40 MG TABLET PO (11:19)
[2023-06-20] MEDS: SIMETHICONE 125 MG CHEW TAB PO ×4 (11:20→21:26)
[2023-06-20] MEDS: lisinopriL 10 MG TABLET PO (11:20)
[2023-06-20] MEDS: ASPIRIN 81 MG ENTERIC TABLET PO (11:20)
[2023-06-20] MEDS: CHOLECALCIFEROL 1,000 UNITS TABLET 1000 UNITS PO (11:20)
[2023-06-20] MEDS: FINASTERIDE 5 MG TABLET PO (11:20)
[2023-06-20] MEDS: APIXABAN 5 MG TABLET PO ×2 (11:20→21:26)
--- NOTE | 2023-06-20 11:24 | PM.IMPN ---
Progress Note: A&P Assessment and Plan (1) Encephalopathy: Code(s): G93.40 - Encephalopathy, unspecified Status: Acute Assessment and Plan: Improving. likely from COVID. Brain CT did not show any acute findings. He has chronic and stable kidney disease and no acute electrolyte abnormalities. (2) Hypertension: Qualifiers: Hypertension type: essential hypertension Qualified Code(s): I10 - Essential (primary) hypertension Code(s): I10 - Essential (primary) hypertension Status: Chronic Assessment and Plan: on scheduled hydralazine (3) COVID-19: Code(s): U07.1 - COVID-19 Status: Acute Assessment and Plan: The patient tested positive for COVID but he is asymptomatic thus no indication for remdesivir dexamethasone at this time. Continue isolation and supportive care. (4) Non-ST elevation [place] (NSTEMI): Code(s): I21.4 - Non-ST elevation (NSTEMI) myocardial infarction Status: Acute Assessment and Plan: Likely type 2 [place] related to COVID and worsening anemia. Echocardiogram ordered. Cardiology consulted. Appreciate their input. No plans for any intervention at this time. Continue beta-citlaly. Aspirin and apixaban on hold given anemia. (5) Acute on chronic anemia: Code(s): D64.9 - Anemia, unspecified Status: Acute Assessment and Plan: He has chronic anemia with a baseline hemoglobin which typically ranges between 8 and 9. Hemoglobin improved from 6.7-9 after transfusion. Continue to monitor closely. (6) Diverticulitis: Code(s): K57.92 - Diverticulitis of intestine, part unspecified, without perforation or abscess without bleeding Status: Acute Assessment and Plan: CT scan shows radiographically uncomplicated diverticulitis. Abdominal exam was benign at the time my evaluation. Stop IV Zosyn. Start on p.o. Levaquin. Tolerating heart healthy diet (7) Pyuria: Code(s): R82.81 - Pyuria Status: Acute Assessment and Plan: Urine culture growing Pseudomonas. Received IV Zosyn initially. Will put on p.o. Levaquin (8) Paroxysmal atrial fibrillation: Code(s): I48.0 - Paroxysmal atrial fibrillation Status: Acute Assessment and Plan: Currently in atrial fibrillation, rate controlled on metoprolol. Apixaban on hold given profound anemia. (9) Chronic kidney disease, stage 3: Code(s): N18.30 - Chronic kidney disease, stage 3 unspecified Status: Acute Assessment and Plan: Creatinine is stable on review of previous labs and will be monitored. (10) Type 2 diabetes mellitus: Code(s): E11.9 - Type 2 diabetes mellitus without complications Status: Acute Assessment and Plan: Initiate sliding scale insulin, Accu-Cheks, and hypoglycemic protocol. Check hemoglobin A1c. (11) Parkinson disease: Code(s): G20 - Parkinson's disease Status: Chronic Assessment and Plan: Continue carbidopa-levodopa. Plan Pending placement Subjective Date/time seen: 06/20/23 11:24 Interval history: No new changes overnight Review of Systems Review of Systems: ROS unobtainable: Yes unobtainable due to mental status Exam Narrative: General: Moderately ill-appearing male HEENT: PERRL, EOMI. Sclera anicteric. Tacky mucous membranes. Neck: Supple. No JVD. Respiratory: Respirations are nonlabored and lungs are clear to auscultation. Cardiovascular: Irregularly irregular rate and rhythm. Soft murmur at the upper sternal border. Gastrointestinal: Abdomen is soft, nontender, and nondistended with positive bowel sounds. No guarding or rebound tenderness. Skin: Warm and dry. Generalized pallor Extremities: No cyanosis or clubbing. 1+ laureen ankle edema bilaterally. Radial and pedal pulses intact. Neurological: Alert to name only. Psychiatric: Confused. Objective Data Vital Signs Vital Signs: Vital Sig
[2023-06-20] MEDS: levoFLOXacin 500 MG TABLET PO (12:34)
[2023-06-20 14:20] LABS: Glucose Point of Care 116 mg/dl (65-105)
[2023-06-20 14:41] VITALS: BP 134/59; PULSE 50; RESP 18; TEMP 36.4; O2SAT 97
[2023-06-20] MEDS: DONEPEZIL HCL 10 MG TABLET PO (21:26)
[2023-06-20] MEDS: TAMSULOSIN HCL 0.4 MG CAPSULE PO (21:26)
[2023-06-20] MEDS: MELATONIN 5 MG TABLET PO (21:26)
[2023-06-20] MEDS: CARBIDOPA/LEVODOPA 25/100 MG CR TABLET 2 TABLET PO (21:26)
[2023-06-20 22:00] VITALS: BP 159/60; PULSE 78; RESP 14; TEMP 36.4; O2SAT 98
[2023-06-21 06:00] VITALS: BP 164/60; PULSE 63; RESP 16; TEMP 36.1; O2SAT 99
[2023-06-21] MEDS: FINASTERIDE 5 MG TABLET PO (09:58)
[2023-06-21] MEDS: CHOLECALCIFEROL 1,000 UNITS TABLET 1000 UNITS PO (09:58)
[2023-06-21] MEDS: PANTOPRAZOLE 40 MG TABLET PO (09:59)
[2023-06-21] MEDS: ASPIRIN 81 MG ENTERIC TABLET PO (09:59)
[2023-06-21] MEDS: CARBIDOPA/LEVODOPA 25/100 MG TABLET 3 TABLET PO ×2 (09:59→12:37)
[2023-06-21] MEDS: VITAMIN B COMPLEX CAPSULE 1 CAP PO (09:59)
[2023-06-21] MEDS: lisinopriL 10 MG TABLET PO (09:59)
[2023-06-21] MEDS: SIMETHICONE 125 MG CHEW TAB PO ×2 (09:59→12:36)
[2023-06-21] MEDS: hydrALAZINE HCL 50 MG TABLET PO ×2 (09:59→12:37)
[2023-06-21] MEDS: APIXABAN 5 MG TABLET PO (09:59)
--- NOTE | 2023-06-21 10:29 | PM.DS ---
DS: Admitting Diagnosis Discharge Date 06/21/23 Admitting Diagnosis Altered mental status COVID positive DS: Discharge Diagnosis Discharge Diagnosis (1) Encephalopathy: Code(s): G93.40 - Encephalopathy, unspecified Status: Acute Assessment and Plan: Improving. likely from COVID. Brain CT did not show any acute findings. He has chronic and stable kidney disease and no acute electrolyte abnormalities. (2) Hypertension: Qualifiers: Hypertension type: essential hypertension Qualified Code(s): I10 - Essential (primary) hypertension Code(s): I10 - Essential (primary) hypertension Status: Chronic Assessment and Plan: on scheduled hydralazine (3) COVID-19: Code(s): U07.1 - COVID-19 Status: Acute Assessment and Plan: The patient tested positive for COVID but he is asymptomatic thus no indication for remdesivir dexamethasone at this time. Continue isolation and supportive care. (4) Non-ST elevation RI (NSTEMI): Code(s): I21.4 - Non-ST elevation (NSTEMI) myocardial infarction Status: Acute Assessment and Plan: Likely type 2 RI related to COVID and worsening anemia. Echocardiogram ordered. Cardiology consulted. Appreciate their input. No plans for any intervention at this time. Continue beta-citlaly. Aspirin and apixaban on hold given anemia. (5) Acute on chronic anemia: Code(s): D64.9 - Anemia, unspecified Status: Acute Assessment and Plan: He has chronic anemia with a baseline hemoglobin which typically ranges between 8 and 9. Hemoglobin improved from 6.7-9 after transfusion. Continue to monitor closely. (6) Diverticulitis: Code(s): K57.92 - Diverticulitis of intestine, part unspecified, without perforation or abscess without bleeding Status: Acute Assessment and Plan: CT scan shows radiographically uncomplicated diverticulitis. Abdominal exam was benign at the time my evaluation. Stop IV Zosyn. Start on p.o. Levaquin. Tolerating heart healthy diet (7) Pyuria: Code(s): R82.81 - Pyuria Status: Acute Assessment and Plan: Urine culture growing Pseudomonas. Received IV Zosyn initially. Will put on p.o. Levaquin (8) Paroxysmal atrial fibrillation: Code(s): I48.0 - Paroxysmal atrial fibrillation Status: Acute Assessment and Plan: Currently in atrial fibrillation, rate controlled on metoprolol. Apixaban on hold given profound anemia. (9) Chronic kidney disease, stage 3: Code(s): N18.30 - Chronic kidney disease, stage 3 unspecified Status: Acute Assessment and Plan: Creatinine is stable on review of previous labs and will be monitored. (10) Type 2 diabetes mellitus: Code(s): E11.9 - Type 2 diabetes mellitus without complications Status: Acute Assessment and Plan: Initiate sliding scale insulin, Accu-Cheks, and hypoglycemic protocol. Check hemoglobin A1c. (11) Parkinson disease: Code(s): G20 - Parkinson's disease Status: Chronic Assessment and Plan: Continue carbidopa-levodopa. Plan Pending placement DS: Summary Hospital Course Hospital Course: 83-year-old male with history of stroke, Parkinson, hypertension, paroxysmal atrial fibrillation on chronic anticoagulation, anemia, type 2 diabetes mellitus, chronic kidney disease, benign prostatic hyperplasia, and DVT who presented to the emergency department via EMS from home for evaluation of weakness. On arrival to the ED he was afebrile with stable vital signs. Labs were significant for a WBC count of 5.6, hemoglobin 6.7, hematocrit 23%, BUN 44, creatinine 1.80, troponin 2.160, proBNP greater than 30,000. Urine was nitrate and leukocyte esterase positive with greater than 100 WBC though no bacteria were seen on microscopy. He tested positive for SARS-CoV-[address] did not show any acute intracranial process. Chest x-ra
[2023-06-21] MEDS: levoFLOXacin 500 MG TABLET PO (12:39)
--- NOTE | 2023-06-21 12:45 | PC.NURSE ---
Addendum entered by Rosalina Lundy RN 06/21/23 17:12: Pt transferred via EMS to [facility]. notified. Original Note: Pt is covid+. Pt denies any pain at this time and expresses no needs. Pt A&O2 at beginning of shift. Pt becoming more alert throughout the day. Pt discharging today to [facility]. Pt up in chair for lunch. Pt has male purewick and is tolerating well. Report will be called and pt will be placed on transport list.
[2023-06-21 14:00] VITALS: BP 105/46; PULSE 65; RESP 14; TEMP 36.7; O2SAT 97
[2023-06-21 14:11] VITALS: O2SAT 97
== END 2023-06-21 16:55 | DRG 177 ==
LOC: ANHED 18:54 → ANHIMU 20:22 → ANH3MEDSUR 06-19 16:16
PROVIDERS: Emergency Medicine; Hospitalist; Internal Medicine; Physician Assistant; Admitting Provider Internal Medicine; Emergency Provider General Practice; PCP Family Medicine; Visit Provider Student in an Organized Health Care Education/Training Program
DX: U07.1 COVID-19 (principal); I21.A1 Myocardial infarction type 2; K57.92 Diverticulitis of intestine, part unspecified, without perforation or abscess without bleeding; N39.0 Urinary tract infection, site not specified; B96.5 Pseudomonas (aeruginosa) (mallei) (pseudomallei) as the cause of diseases classified elsewhere; D63.1 Anemia in chronic kidney disease; E11.22 Type 2 diabetes mellitus with diabetic chronic kidney disease; F03.90 Unspecified dementia, unspecified severity, without behavioral disturbance, psychotic disturbance, mood disturbance, and anxiety; G20 Parkinson's disease; G89.29 Other chronic pain; I48.0 Paroxysmal atrial fibrillation; I12.9 Hypertensive chronic kidney disease with stage 1 through stage 4 chronic kidney disease, or unspecified chronic kidney disease; M19.90 Unspecified osteoarthritis, unspecified site; M25.561 Pain in right knee; N18.30 Chronic kidney disease, stage 3 unspecified; N40.0 Benign prostatic hyperplasia without lower urinary tract symptoms; Z86.73 Personal history of transient ischemic attack (TIA), and cerebral infarction without residual deficits; Z79.01 Long term (current) use of anticoagulants; Z98.42 Cataract extraction status, left eye; Z86.718 Personal history of other venous thrombosis and embolism; Z98.41 Cataract extraction status, right eye; Z96.652 Presence of left artificial knee joint; Z95.828 Presence of other vascular implants and grafts; Z87.891 Personal history of nicotine dependence; Z79.82 Long term (current) use of aspirin; Z79.84 Long term (current) use of oral hypoglycemic drugs
CPT/HCPCS: 36415; 36430; 70450; 71045; 74176; 80048; 80053; 80307; 81001; 82140; 82607; 82746; 82948; 83036; 83540; 83550; 83735; 83880; 84443; 84484; 85025; 85027; 85610; 85730; 86850; 86900; 86901; 86923; 87077; 87086; 87186; 87637; 93005; 93306; 96365; 97110; 97116; 97161; 97165; 97530; 97535; 99291; A9270; J0360; J2543; J7050; P9016

== ENCOUNTER 2023-07-12 15:46 | Outpatient (CLI) | payer MEDICARE, SELFPAY ==
[2023-07-12 18:49] LABS: Basophils Percent Auto 0.7 % (0.2-1.2); Eosinophils Absolute Auto 0.2 K/mm3 (0-0.3); Eosinophils Percent Auto 2.9 % (0-4.4); Hemoglobin 7.8 g/dL (14.0-18.0); Immature Granulocyte Absolute 0.01 K/mm3 (0.00-0.031); Immature Granulocyte Percent A 0.2 % (0-0.5); Lymphocytes Absolute Auto 0.53 K/mm3 (0.9-3.2); Lymphocytes Percent Auto 8.9 % (18.3-44.2); Mean Corpuscular HGB Conc 31.2 g/dl (32-36); Mean Corpuscular Volume 86.5 fl (80-100); Mean Platelet Volume 11.2 fl (7.4-10.4); Monocytes Absolute Auto 0.7 K/mm3 (0.1-0.6); Monocytes Percent Auto 11.9 % (2.6-8.5); Neutrophils Absolute Auto 4.5 K/mm3 (1.3-6.7); Neutrophils Percent Auto 75.4 % (45.5-73.1); Platelet Count Result 204 k/mm3 (150-375); Red Blood Count 2.89 M/mm3 (4.6-6.20); Red Cell Distribution Width 21.2 % (11.5-14.5)
[2023-07-12 19:16] LABS: Alanine Aminotransferase 8 U/L (6-50); Albumin Level 3.2 g/dL (3.5-5.1); Alkaline Phosphatase 60 U/L (38-126); Anion Gap 7 mmol/L (8-16); Aspartate Amino Transferase 21 U/L (17-59); Bilirubin,Total 0.5 mg/dL (0.2-1.3); Blood Urea Nitrogen 49 mg/dL (9-20); Calcium 8.5 mg/dL (8.4-10.2); Carbon Dioxide 29 mmol/L (22-30); Chloride 103 mmol/L (98-107); Estimated Glomerular Filt Rate 39; Glucose 168 mg/dL (65-110); Potassium 4.2 mmol/L (3.4-5.0); Sodium 139 mmol/L (137-145)
== END 2023-07-12 15:47 | disposition home or self-care (01) ==
LOC: ANHGOSHLAB 15:48
PROVIDERS: PCP Family Medicine; Visit Provider Family Medicine
DX: D64.9 Anemia, unspecified (principal); E11.9 Type 2 diabetes mellitus without complications
CPT/HCPCS: 36415; 80053; 85025

== ENCOUNTER 2023-07-31 15:39 | Outpatient (CLI) | payer MEDICARE, SELFPAY ==
[2023-07-31 16:01] LABS: Basophils Absolute Auto 0.1 K/mm3 (0.0-0.1); Basophils Percent Auto 0.6 % (0.2-1.2); Eosinophils Absolute Auto 0.3 K/mm3 (0-0.3); Eosinophils Percent Auto 3.8 % (0-4.4); Hematocrit 26.8 % (42.0-52.0); Hemoglobin 8.2 g/dL (14.0-18.0); Immature Granulocyte Absolute 0.02 K/mm3 (0.00-0.031); Immature Granulocyte Percent A 0.3 % (0-0.5); Lymphocytes Absolute Auto 0.75 K/mm3 (0.9-3.2); Lymphocytes Percent Auto 9.6 % (18.3-44.2); Mean Corpuscular HGB Conc 30.6 g/dl (32-36); Mean Corpuscular Hemoglobin 25.6 pg (26-34); Mean Corpuscular Volume 83.8 fl (80-100); Mean Platelet Volume 10.7 fl (7.4-10.4); Monocytes Absolute Auto 0.7 K/mm3 (0.1-0.6); Monocytes Percent Auto 8.7 % (2.6-8.5); Neutrophils Absolute Auto 6.1 K/mm3 (1.3-6.7); Platelet Count Result 251 k/mm3 (150-375); Red Cell Distribution Width 21.3 % (11.5-14.5); White Blood Count 7.9 K/mm3 (4.5-10.0)
[2023-07-31 16:07] LABS: Anisocytosis 1+ (NORMAL); Hypochromasia 1+ (NORMAL); Microcytosis 1+ (NORMAL); Platelet Estimate Adequate (Adequate); Schistocytes None Seen (NORMAL)
[2023-07-31 16:08] LABS: Ovalocytes 1+ (NORMAL); Poikilocytosis 1+ (NORMAL)
[2023-07-31 16:40] LABS: Iron 35 ug/dL (49-181)
[2023-07-31 16:45] LABS: Alanine Aminotransferase 10 U/L (6-50); Albumin Level 3.5 g/dL (3.5-5.1); Alkaline Phosphatase 56 U/L (38-126); Anion Gap 8 mmol/L (8-16); Aspartate Amino Transferase 16 U/L (17-59); Bilirubin,Total 0.6 mg/dL (0.2-1.3); Blood Urea Nitrogen 35 mg/dL (9-20); Calcium 8.8 mg/dL (8.4-10.2); Carbon Dioxide 27 mmol/L (22-30); Chloride 104 mmol/L (98-107); Estimated Glomerular Filt Rate 30; Glucose 104 mg/dL (65-110); Potassium 4.2 mmol/L (3.4-5.0); Sodium 139 mmol/L (137-145)
[2023-07-31 16:54] LABS: Percent Iron Saturation 16 % (20-50)
[2023-07-31 17:15] LABS: Thyroid Stimulating Hormone 0.788 uIU/mL (0.465-4.680)
[2023-07-31 17:53] LABS: Vitamin B12 > 1000.0 pg/mL (239-931)
[2023-08-02 16:30] LABS: Alpha 1 Globulin 0.5 g/dL (0.2-0.3); Beta 1 Globulin 0.5 g/dL (0.4-0.6); Gamma Globulin 1.4 g/dL (0.8-1.7); Protein, Total 6.7 g/dL (6.1-8.1)
[2023-08-03 06:34] LABS: Methylmalonic Acid 342 nmol/L (87-318)
[2023-08-04 14:34] LABS: Erythropoietin (EPO) 19.9 mIU/mL (2.6-18.5)
[2023-08-08 18:43] LABS: Soluble Transferrin Receptor 1.67 mg/L (0.76-1.76)
== END 2023-07-31 15:40 | disposition home or self-care (01) ==
LOC: ANHLAB 15:42
PROVIDERS: PCP Family Medicine; Visit Provider Internal Medicine Hematology & Oncology
DX: D64.9 Anemia, unspecified (principal)
CPT/HCPCS: 36415; 80053; 82607; 82668; 82728; 82746; 83540; 83550; 83921; 84155; 84165; 84238; 84443; 85025

== ENCOUNTER 2023-08-10 14:31 | Outpatient (NON) | payer MEDICARE, SELFPAY ==
[2023-08-10 15:36] LABS: Add Urine Microscopic? YES; Appearance Urine Turbid (Clear); Bacteria Urine Rare /hpf; Bilirubin Urine Negative (Negative); Blood Urine Negative (Negative); Color Urine Yellow (Yellow); Glucose Urine UA Negative (Negative); Ketones Urine Negative (Negative); Leukocyte Esterase Ur 3+ LEU/UL (Negative); Need Manual Microscopic Reviewed; Nitrate Urine Negative (Negative); Protein Urine 1+ mg/dL (Negative); Specific Grav Ur 1.013 (1.001-1.035); Squamous Epithelial Cell Urine None seen /hpf (Few); Urobilinogen Urine 0.2 mg/dL (<2.0); WBC Urine >100 /hpf; pH Urine 7.5 (5.0-9.0)
== END 2023-08-10 14:32 | disposition home or self-care (01) ==
PROVIDERS: PCP Family Medicine; Visit Provider Family Medicine
DX: G93.40 Encephalopathy, unspecified (principal); I12.9 Hypertensive chronic kidney disease with stage 1 through stage 4 chronic kidney disease, or unspecified chronic kidney disease; N18.9 Chronic kidney disease, unspecified; U07.1 COVID-19
CPT/HCPCS: 81001; 87077; 87086; 87186

== ENCOUNTER 2023-09-25 12:31 | Outpatient (CLI) | payer MEDICARE, SELFPAY ==
[2023-09-25 17:32] LABS: Cholesterol 152 mg/dL (0-200); HDL Direct 52 mg/dL; Triglycerides 72 mg/dL (<150)
[2023-09-25 17:43] LABS: LDL Cholesterol Direct 73 mg/dL
[2023-09-25 20:41] LABS: Hemoglobin A1C 5.2 % (<5.7)
== END 2023-09-25 12:32 | disposition home or self-care (01) ==
LOC: ANHLAB 12:33
PROVIDERS: PCP Family Medicine; Visit Provider Family Medicine
DX: E11.9 Type 2 diabetes mellitus without complications (principal); E78.5 Hyperlipidemia, unspecified
CPT/HCPCS: 36415; 80061; 83036

== ENCOUNTER 2023-10-27 13:49 | Outpatient (CLI) | payer MEDICARE, SELFPAY ==
[2023-10-27 18:48] LABS: Hematocrit 31.2 % (42.0-52.0); Hemoglobin 9.4 g/dL (14.0-18.0); Mean Corpuscular HGB Conc 30.1 g/dl (32-36); Mean Corpuscular Hemoglobin 28.9 pg (26-34); Mean Platelet Volume 11.5 fl (7.4-10.4); Platelet Count Result 150 k/mm3 (150-375); Red Blood Count 3.25 M/mm3 (4.6-6.20); Red Cell Distribution Width 16.9 % (11.5-14.5); White Blood Count 5.4 K/mm3 (4.5-10.0)
[2023-10-27 18:56] LABS: Creatinine Urine 66.1 mg/dL; Total Protein Urine Random 78 mg/dL; Ur Ttl Prot Creatinine Ratio 1.18 mg/mg (0-0.20)
[2023-10-27 18:58] LABS: Anion Gap 10 mmol/L (8-16); Blood Urea Nitrogen 58 mg/dL (9-20); Calcium 9.3 mg/dL (8.4-10.2); Carbon Dioxide 27 mmol/L (22-30); Chloride 103 mmol/L (98-107); Estimated Glomerular Filt Rate 25; Glucose 137 mg/dL (65-110); Phosphorus 4.5 mg/dL (2.5-4.5); Potassium 4.4 mmol/L (3.4-5.0); Sodium 140 mmol/L (137-145)
[2023-10-27 19:05] LABS: Parathyroid Intact 67.9 pg/mL (7.5-53.5)
== END 2023-10-27 13:50 | disposition home or self-care (01) ==
LOC: ANHGOSHLAB 13:51
PROVIDERS: PCP Family Medicine; Visit Provider Internal Medicine Nephrology
DX: N39.0 Urinary tract infection, site not specified (principal); D64.9 Anemia, unspecified; N18.4 Chronic kidney disease, stage 4 (severe)
CPT/HCPCS: 36415; 80069; 82570; 83970; 84156; 85027; 87077; 87086; 87186

== ENCOUNTER 2023-12-04 15:10 | Observation (INO) | payer MEDICARE, SELFPAY ==
--- NOTE | ~2023-12-04 | XR_ITS ---
EXAMINATION: XR chest 1V portable DATE: 12/04/2023 15:51 INDICATION: Atrial fibrillation. Myocardial infarction. TECHNIQUE: frontal view of the chest was obtained. COMPARISON: Chest radiograph dated 06/15/2023 FINDINGS: Again seen is cardiomegaly with pulmonary vascular congestion. There is a mild bilateral perihilar an d basilar predominant increased interstitial pattern consistent with mild pulmonary edema. Blunting a t the right costophrenic angle and left cardiophrenic angle consistent with small bilateral pleural e ffusions. No pneumothorax. IMPRESSION: 1. Likely congestive heart failure with cardiomegaly, pulmonary vascular congestion and mild pulmonar y edema. 2. Small bilateral pleural effusions. Reviewed, dictated and finalized at location A. ERICANIZATION TEACHER IMPRESSION: 1. Likely congestive heart failure with cardiomegaly, pulmonary vascular conges tion and mild pulmonary edema. 2. Small bilateral pleural effusions.
[2023-12-04 15:12] VITALS: BP 126/49; PULSE 42; RESP 18; TEMP 36.4; O2SAT 99
--- NOTE | 2023-12-04 15:23 | ECG_ITS ---
Measurements Intervals [place] Rate: 52 P: OR: 0 QRS: 105 QRSD: 116 T: 42 QT: 444 QTc: 417 Interpretive Statements ATRIAL FIBRILLATION WITH SLOW VENTRICULAR RESPONSE MARKED RIGHT AXIS DEVIATION [QRS AXIS > 100] NONSPECIFIC ST AND T ABNORMALITY ABNORMAL ECG COMPARED TO ECG 06/15/2023 14:54:15 NO SIGNIFICANT DIFFERENCE Electronically Signed On 12-04-2023 17:05:49 PROCESS IMPROVEMENT ENGINEER by Tomás Pham M.D.
[2023-12-04 15:41] LABS: Basophils Absolute Auto 0.1 K/mm3 (0.0-0.1); Basophils Percent Auto 0.9 % (0.2-1.2); Eosinophils Absolute Auto 0.7 K/mm3 (0-0.3); Eosinophils Percent Auto 9.7 % (0-4.4); Hematocrit 27.6 % (42.0-52.0); Hemoglobin 8.3 g/dL (14.0-18.0); Immature Granulocyte Absolute 0.02 K/mm3 (0.00-0.031); Immature Granulocyte Percent A 0.3 % (0-0.5); Lymphocytes Absolute Auto 0.56 K/mm3 (0.9-3.2); Lymphocytes Percent Auto 8.4 % (18.3-44.2); Mean Corpuscular HGB Conc 30.1 g/dl (32-36); Mean Corpuscular Hemoglobin 28.9 pg (26-34); Mean Corpuscular Volume 96.2 fl (80-100); Mean Platelet Volume 11.7 fl (7.4-10.4); Monocytes Absolute Auto 0.8 K/mm3 (0.1-0.6); Monocytes Percent Auto 11.3 % (2.6-8.5); Neutrophils Absolute Auto 4.7 K/mm3 (1.3-6.7); Neutrophils Percent Auto 69.4 % (45.5-73.1); Platelet Count Result 159 k/mm3 (150-375); Red Blood Count 2.87 M/mm3 (4.6-6.20); Red Cell Distribution Width 17.8 % (11.5-14.5); White Blood Count 6.7 K/mm3 (4.5-10.0)
[2023-12-04 15:56] LABS: Albumin Level 3.6 g/dL (3.5-5.1); Alkaline Phosphatase 54 U/L (38-126); Anion Gap 8 mmol/L (8-16); Aspartate Amino Transferase 16 U/L (17-59); Bilirubin,Total 0.7 mg/dL (0.2-1.3); Blood Urea Nitrogen 67 mg/dL (9-20); Calcium 8.5 mg/dL (8.4-10.2); Carbon Dioxide 22 mmol/L (22-30); Chloride 108 mmol/L (98-107); Estimated Glomerular Filt Rate 24; Glucose 128 mg/dL (65-110); Potassium 4.6 mmol/L (3.4-5.0); Sodium 138 mmol/L (137-145)
[2023-12-04 16:09] LABS: Alanine Aminotransferase 6 U/L (6-50)
--- NOTE | 2023-12-04 17:44 | ED.ARRPALP ---
HPI - Arrhythmia/Palpitations General Chief Complaint: Arrhythmia/Palpitations <Dorothea Sunshine PA-C - Last Filed: 12/05/23 01:04> Stated Complaint: irregular HR <Dorothea Sunshine PA-C - Last Filed: 12/05/23 01:04> Time Seen by Provider: 12/04/23 17:00 <Dorothea Sunshine PA-C - Last Filed: 12/05/23 01:04> History of Present Illness HPI narrative: 83-year-old male with history of Parkinson's disease, hypertension, diabetes, CKD stage 3, anemia, atrial fibrillation reports for evaluation for bradycardia with his and son at bedside. Patient goes to an infusion center every 2 weeks for Procrit injections. States today they were checking his vitals and noted that his heart was ?all over the place?, advised the patient come to the ER. The patient is currently A&O x2 which is his baseline per family. He denies dizziness or lightheadedness, chest pain or shortness of breath, fever, cough or congestion. His family states that he has been acting normal, no recent falls or syncope. He does have lower extremity edema which is unchanged from his baseline. They have noted some increased wheezing. No history of COPD but does have history of CHF and takes 20 mg of Lasix daily. His thermometer maker is Dr. Chang. Family states that patient's heart rate usually runs 40s-50. Denies syncope or falls. Pt is being treated with low dose keflex for chronic UTI. Multiple cultures growing pseudomonas. He endorses new dysuria recently. <Dorothea Sunshine PA-C - Last Filed: 12/05/23 01:04> Related Data Home Medications: Home Medications Medication Instructions Recorded Confirmed acetaminophen 325 mg tablet (Mapap 650 mg PO PRN PRN Pain (Scale 11/14/19 12/04/23 (acetaminophen)) Score 1-3) finasteride 5 mg tablet 5 mg PO DAILY 03/08/21 12/04/23 sodium bicarbonate 650 mg tablet 650 mg PO BIDWMEAL 03/12/23 12/04/23 carbidopa ER 50 mg-levodopa 200 mg 1 tablet PO QHS 06/15/23 12/04/23 tablet,extended release donepezil 10 mg tablet (Aricept) 5 mg PO QHS 07/12/23 12/04/23 vitamin B complex (B 1 tablet PO DAILY 07/12/23 12/04/23 Complex-Vitamin B12 tablet) aspirin 81 mg tablet,delayed 81 mg PO DAILY 09/13/23 12/04/23 release (Adult Low Dose Aspirin) carbidopa 25 mg-levodopa 100 mg 3 tablet PO TID 09/13/23 12/04/23 tablet cephalexin 250 mg capsule 250 mg PO DAILY 09/13/23 12/04/23 cholecalciferol (vitamin D3) 25 25 mcg PO DAILY 09/13/23 12/04/23 mcg (1,000 unit) capsule ferrous sulfate 324 mg (65 mg 324 mg PO BID 09/13/23 12/04/23 iron) tablet,delayed release fluticasone propionate 50 1 spray intranasal BID PRN Allergy 09/13/23 12/04/23 mcg/actuation nasal Symptoms spray,suspension (Flonase Allergy Relief) lactobacillus combination no.9 4 4,000 mmu cells PO DAILY 09/13/23 12/04/23 billion cell capsule (Adult 50 Plus Probiotic) melatonin 5 mg capsule 5 mg PO QHS 09/13/23 12/04/23 apixaban 2.5 mg tablet (Eliquis) 2.5 mg PO BID 12/04/23 12/04/23 <Dorothea Sunshine PA-C - Last Filed: 12/05/23 01:04> Allergies/Adverse Reactions: Allergies Allergy/AdvReac Type Severity Reaction Status Date / Time No Known Allergies Allergy Verified 11/21/23 09:51 <Dorothea Sunshine PA-C - Last Filed: 12/05/23 01:04> Review of Systems Review of Systems: CONSTITUTIONAL: Denies fever, chills, or sweats. EYES: Denies visual changes, redness, or discharge. ENT: Denies rhinorrhea, congestion, sore throat, or otalgia. CARDIOVASCULAR: See HPI RESPIRATORY: Denies cough or dyspnea. GASTROINTESTINAL: Denies abdominal pain, nausea, vomiting, or diarrhea. GENITOURINARY: Denies dysuria or hematuria. SKIN: Denies rash or itching. MUSCULOSKELETAL: Denies back pain, joint pain, or myalgia. NEUROLOGIC: Denies headache, numbness, or weakness. PSYCHIATRIC: Denies anxiety or depression. <Dorothea Sunshine PA-C - Last Filed: 12/05/23 01:04> [facility] Past Medical History Medical History: Medical History (
[2023-12-04 18:22] LABS: Magnesium 2.5 mg/dL (1.6-2.3)
[2023-12-04] MEDS: FUROSEMIDE INJ 40 MG/4 ML VIAL 20 MG IV PUSH (18:26)
[2023-12-04 18:51] LABS: Thyroid Stimulating Hormone Reflex 0.699 uIU/mL (0.465-4.68)
[2023-12-04 19:08] LABS: Appearance Urine Cloudy (Clear); Bacteria Urine Rare /hpf; Bilirubin Urine Negative (Negative); Blood Urine Negative (Negative); Color Urine Yellow (Yellow); Glucose Urine UA Negative (Negative); Ketones Urine Negative (Negative); Leukocyte Esterase Ur 3+ LEU/UL (Negative); Nitrate Urine Positive (Negative); Protein Urine 1+ mg/dL (Negative); RBC Urine 0-2 /hpf (0-2); Specific Grav Ur 1.014 (1.001-1.035); Squamous Epithelial Cell Urine None seen /hpf (Few); Urobilinogen Urine 0.2 mg/dL (<2.0); WBC Urine >100 /hpf
[2023-12-04 19:11] LABS: Add Urine Microscopic? YES
[2023-12-04 19:48] VITALS: BP 150/56; PULSE 48; RESP 20; O2SAT 98
[2023-12-04] MEDS: cefTAZidime 1 GM/NS 50 ML 1 GM/50 ML BAG IVPB (21:10)
[2023-12-04 22:10] VITALS: BP 152/73; PULSE 57; RESP 15; O2SAT 97
[2023-12-04 22:29] VITALS: BP 134/59; PULSE 50; RESP 24; TEMP 36.2; O2SAT 98; BMI 30.8
--- NOTE | 2023-12-04 22:42 | ADMGEN ---
This patient, Chris Carrera, was admitted to Medical Room 251-01. Patient/family oriented to hospital policies and general routines including ID bracelet, bed and alarms, visiting hours, pain management, procedures, bathroom and other care routines, personal items, smoking policy, room service/diet, and visiting hours. Information on how to activate the Rapid Response Team has been discussed. Patient/Family are encouraged to report perceived risks to care and to ask questions if they do not understand what they are told or what they should do.
[2023-12-05] VITALS: PULSE 44
--- NOTE | 2023-12-05 00:20 | PM.IMHP ---
H&P: HPI History of Present Illness Date/Time: 12/05/23 00:51 Chief Complaint: Bradycardia, dysuria Narrative: 83-year-old male with a past medical history of orthostatic hypotension, chronic kidney disease stage IV, Parkinson's, dementia, BPH, and multiple urine cultures demonstrating Pseudomonas aeruginosa resistant to oral antibiotics who presented to the ER from the infusion center after his Procrit injection for bradycardia. The patient does have history of atrial fibrillation with episodes of slowed ventricular response. In the ER the patient's heart rate would occasionally dropped down into the upper 30s but for the most part was between the 50s and 80s which is the patient's baseline. He denies any near syncopal episodes or syncope. He did report ER provider that he has been having some dysuria. He has not been having any fevers or chills. [facility] Past Medical History Medical History (Updated 12/05/23 @ 00:37 by Ana Chambers DO) Anemia Benign prostatic hyperplasia COVID-19 (~05/2023) Dementia Diastolic dysfunction Diverticulitis (~05/2023) Heart attack History of deep venous thrombosis (DVT) of distal vein of right lower extremity History of TIAs Hypertension Osteoarthritis Parkinson disease Paroxysmal atrial fibrillation (~05/2023) Pseudomonas urinary tract infection (~02/2023) Secondary hyperparathyroidism, not elsewhere classified Syncope due to orthostatic hypotension Transient ischemic attack Type 2 diabetes mellitus 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 Cox. Three polyps the mid ascending colon, 4 polyps in the rectum Internal hemorrhoids, diverticulosis History of inferior vena caval filter placement History of left knee replacement (09/2013) History of tonsillectomy Family History Family History Father Cerebrovascular accident Sibling Cerebrovascular accident Mother Heart attack Social History Social History Social History: Surrogate medical decision maker: Grecia Carrera, spouse. Code status: Full code. Smoking packs per day: 1.5 Smoking cigarettes per day: 30.0 Years smoked: 20 Smoking pack-years: 30.00 Smoking status: Former smoker Second hand tobacco smoke exposure: No Smoking end date: 08/18/87 Additional smoking assessment comments: Quit 1986. Alcohol intake: never Substance use: never Substance use type: does not use Do You Feel Safe in your Home?: No Lack of Transportation: No Lack of Food: Never True Current Housing: I Have Housing Concerned About Future Housing: No Difficulty Paying Gas/Electric Bills: No Difficulty Paying for Meds: No Currently Unemployed: No Education: Bachelor's Degree Difficulty w/ Childcare or Family Care: Decline to Answer Living arrangements: with family Additional living arrangements comments: Lives with spouse, Grecia, in [place]. They have 1 son. 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 Spiritual care concerns: No Agree to blood products: Yes Meds Home Medications and Allergies Home Medications Medication Instructions Recorded Confirmed Type acetaminophen 325 mg tablet (Mapap 650 mg PO PRN PRN Pain (Scale 11/14/19 12/04/23 History (acetaminophen)) Score 1-3) finasteride 5 mg tablet 5 mg PO DAILY 03/08/21 12/04/23 History sodium bicarbonate 650 mg tablet 650 mg PO BIDWMEAL 03/12/23 12/04/23 History carbidopa ER 50 mg-levodopa 200 mg 1 tablet PO QHS 06/15/23 12/04/23 History tablet,extended release donepezil 10 mg tablet (Aricept) 5 mg PO QHS 07/12/23 12/04/23 History vitamin B complex (B 1 tablet PO DA
[2023-12-05 03:56] LABS: Anion Gap 7 mmol/L (8-16); Blood Urea Nitrogen 65 mg/dL (9-20); Calcium 8.7 mg/dL (8.4-10.2); Carbon Dioxide 25 mmol/L (22-30); Chloride 109 mmol/L (98-107); Estimated CRCL calculation 21 ml/min; Estimated Glomerular Filt Rate 22; Glucose 99 mg/dL (65-110); Hematocrit 26.4 % (42.0-52.0); Hemoglobin 7.8 g/dL (14.0-18.0); Mean Corpuscular HGB Conc 29.5 g/dl (32-36); Mean Corpuscular Hemoglobin 28.4 pg (26-34); Mean Platelet Volume 11.3 fl (7.4-10.4); Platelet Count Result 134 k/mm3 (150-375); Potassium 4.7 mmol/L (3.4-5.0); Red Blood Count 2.75 M/mm3 (4.6-6.20); Red Cell Distribution Width 17.4 % (11.5-14.5); Sodium 141 mmol/L (137-145)
[2023-12-05 04:00] VITALS: PULSE 48
[2023-12-05 05:17] VITALS: BP 132/67; PULSE 63; RESP 18; TEMP 36.8; O2SAT 99
--- NOTE | 2023-12-05 05:32 | PM.SD2 ---
Same Day Admit/Disch: HPI History of Present Illness Chief complaint: UTI,Bradycardia Narrative: Chris Carrera is a 83 year old male with a past medical history of chronic bacteriuria on suppressive therapy with Keflex, dementia, Parkinson's disease, essential hypertension, and chronic atrial fibrillation with slow ventricular response who presented to the ER after he had noted bradycardia during his Procrit infusion. However the patient is asymptomatic during the bradycardia. He has had a history of this bradycardia for many years. His heart rate is usually in the 40s to 50s. In the ER he would briefly dropped down to the 30s with ranged between 33 and 38. The patient's case was discussed with the suction plate carrier cleaner who felt the patient could be discharged home with close follow-up since patient was asymptomatic. The family wanted to proceed with this. However the ER provider did not feel comfortable sending the patient home since the patient had reported some dysuria. The however at the time my evaluation the patient denies any dysuria. He has not been having any fevers or chills. His white count is normal. His creatinine is near his baseline with only a slight increase in his BUN. His x-ray did show some possible CHF for pulmonary vascular congestion with mild pulmonary edema. However the patient is not having significant tachycardia or tachypnea. She he denies any shortness of breath. The family is eager to take the patient home because he does not do well when he was admitted to the hospital. He tends to decline in his Parkinson's symptoms seem to get worseI agree that the patient urinary symptoms are probably at his baseline in this is his usual bacteriuria/chronic urinary tract infection. I doubt that there is an acute component. But family is reliable and knows to watch for fevers increased confusion syncope, lightheadedness or other concerning symptoms. At this time the patient's condition is stable and at his baseline. Will discontinue the ceftazidime that was prescribed in the ER. Patient will need follow-up with Urology and Cardiology within the next 7-10 days. Repeat urine cultures are pending. Patient will be discharged on his home Keflex. At the time of my evaluation the patient was alert orient to person, affected was in the hospital, month, but confused as to the year but was able to correct himself, he could not name the president. 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yroidism, not elsewhere classified Syncope due to orthostatic hypotension Transient ischemic attack Type 2 diabetes mellitus 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 Cox. Three polyps the mid ascending colon, 4 polyps in the rectum Internal hemorrhoids, diverticulosis History of inferior vena caval filter placement History of left knee replacement (09/2013) History of tonsillectomy Family History Family History Father Cerebrovascular accident Sibling Cerebrovascular accident Mother Heart attack Social History Social History (Updated 12/05/23 @ 05:40 by Ana Chambers DO) Social History: Surrogate medical decision maker: Grecia Carrera, spouse. Code status: Full code. Smoking packs per day: 1.5
[2023-12-05 08:00] VITALS: PULSE 48; PULSE 63; RESP 18; O2SAT 99
[2023-12-05] MEDS: FINASTERIDE 5 MG TABLET PO (08:00)
[2023-12-05] MEDS: CEPHALEXIN 250 MG CAPSULE PO (08:00)
[2023-12-05] MEDS: VITAMIN B COMPLEX CAPSULE 1 CAP PO (08:00)
[2023-12-05] MEDS: APIXABAN 2.5 MG TABLET PO (08:01)
[2023-12-05] MEDS: ASPIRIN 81 MG ENTERIC TABLET PO (08:01)
[2023-12-05] MEDS: CARBIDOPA/LEVODOPA 25/100 MG TABLET 3 TABLET PO (08:01)
[2023-12-05] MEDS: ACIDOPHILUS/BULGARICUS CHEWABLE TABLET 2 TABLET BY MOUTH (08:01)
[2023-12-05] MEDS: CHOLECALCIFEROL 1,000 UNITS TABLET 1000 UNITS PO (08:01)
[2023-12-05] MEDS: amLODIPine BESYLATE 5 MG TABLET PO (08:02)
[2023-12-05] MEDS: SODIUM BICARBONATE TAB 650 MG TABLET PO (08:02)
[2023-12-05] MEDS: hydrALAZINE HCL 50 MG TABLET PO (08:09)
[2023-12-05] MEDS: lisinopriL 20 MG TABLET PO (08:10)
[2023-12-05] MEDS: FERROUS SULFATE 325 MG TABLET DR BY MOUTH (09:05)
== END 2023-12-05 09:15 | disposition home or self-care (01) ==
LOC: ANHED 20:48 → ANH2MED 22:12
PROVIDERS: Emergency Medicine; Admitting Provider Internal Medicine; Emergency Provider Physician Assistant; PCP Family Medicine; Visit Provider Internal Medicine
DX: R00.1 Bradycardia, unspecified (principal); N39.0 Urinary tract infection, site not specified; B96.5 Pseudomonas (aeruginosa) (mallei) (pseudomallei) as the cause of diseases classified elsewhere; G20.A1 Parkinson's disease without dyskinesia, without mention of fluctuations; F02.80 Dementia in other diseases classified elsewhere, unspecified severity, without behavioral disturbance, psychotic disturbance, mood disturbance, and anxiety; E11.9 Type 2 diabetes mellitus without complications; I13.0 Hypertensive heart and chronic kidney disease with heart failure and stage 1 through stage 4 chronic kidney disease, or unspecified chronic kidney disease; N18.30 Chronic kidney disease, stage 3 unspecified; D63.1 Anemia in chronic kidney disease; I48.91 Unspecified atrial fibrillation; I25.2 Old myocardial infarction; N40.1 Benign prostatic hyperplasia with lower urinary tract symptoms; R33.8 Other retention of urine; J90 Pleural effusion, not elsewhere classified; M19.90 Unspecified osteoarthritis, unspecified site; N25.81 Secondary hyperparathyroidism of renal origin; Z86.16 Personal history of COVID-19; Z87.891 Personal history of nicotine dependence; Z86.718 Personal history of other venous thrombosis and embolism; Z86.73 Personal history of transient ischemic attack (TIA), and cerebral infarction without residual deficits; Z79.82 Long term (current) use of aspirin; Z79.01 Long term (current) use of anticoagulants; Z79.899 Other long term (current) drug therapy
CPT/HCPCS: 36415; 71045; 80048; 80053; 81001; 83735; 84443; 85025; 85027; 87086; 93005; 96365; 96375; 99285; A9270; G0378; J0713; J1940

== ENCOUNTER 2024-02-26 13:45 | Outpatient (CLI) | payer MEDICARE, SELFPAY ==
[2024-02-26 15:45] LABS: Parathyroid Intact 107.8 pg/mL (7.5-53.5)
[2024-02-26 16:02] LABS: Anion Gap 13 mmol/L (4-12); Blood Urea Nitrogen 58 mg/dL (9-20); Calcium 9.1 mg/dL (8.4-10.2); Carbon Dioxide 23 mmol/L (22-30); Chloride 106 mmol/L (98-107); Estimated Glomerular Filt Rate 23; Glucose 170 mg/dL (65-110); Phosphorus 5.2 mg/dL (2.5-4.5); Potassium 4.8 mmol/L (3.4-5.0); Sodium 142 mmol/L (137-145)
[2024-02-26 16:35] LABS: Albumin Level 4.2 g/dL (3.5-5.1)
== END 2024-02-26 13:46 | disposition home or self-care (01) ==
LOC: ANHLAB 13:47
PROVIDERS: Internal Medicine Nephrology; PCP Family Medicine; Visit Provider Internal Medicine Hematology & Oncology
DX: G20.A1 Parkinson's disease without dyskinesia, without mention of fluctuations (principal); N18.30 Chronic kidney disease, stage 3 unspecified; E21.1 Secondary hyperparathyroidism, not elsewhere classified
CPT/HCPCS: 36415; 80069; 83970

== ENCOUNTER 2024-02-27 08:55 | Outpatient (NON) | payer MEDICARE, SELFPAY ==
[2024-02-27 09:21] LABS: Creatinine Urine 91.1 mg/dL; Total Protein Urine Random 62 mg/dL; Ur Ttl Prot Creatinine Ratio 0.68 mg/mg (0-0.20)
== END 2024-02-27 08:56 | disposition home or self-care (01) ==
LOC: ANHLAB 08:56
PROVIDERS: PCP Family Medicine; Visit Provider Internal Medicine Nephrology
DX: N18.30 Chronic kidney disease, stage 3 unspecified (principal); E21.1 Secondary hyperparathyroidism, not elsewhere classified
CPT/HCPCS: 82570; 84156

== ENCOUNTER 2024-03-26 12:52 | Outpatient (CLI) | payer MEDICARE, SELFPAY ==
[2024-03-26 16:48] LABS: Vitamin D 25 Hydroxy 63.5 ng/mL
[2024-03-26 17:22] LABS: Iron 48 ug/dL (49-181)
[2024-03-26 17:28] LABS: Albumin Level 4.1 g/dL (3.5-5.1); Alkaline Phosphatase 68 U/L (38-126); Anion Gap 11 mmol/L (4-12); Aspartate Amino Transferase 14 U/L (17-59); Bilirubin,Total 0.8 mg/dL (0.2-1.3); Blood Urea Nitrogen 70 mg/dL (9-20); Calcium 8.8 mg/dL (8.4-10.2); Carbon Dioxide 22 mmol/L (22-30); Chloride 108 mmol/L (98-107); Cholesterol 121 mg/dL (0-200); Estimated Glomerular Filt Rate 20; Glucose 98 mg/dL (65-110); HDL Direct 47 mg/dL; Potassium 4.8 mmol/L (3.4-5.0); Sodium 141 mmol/L (137-145); Triglycerides 84 mg/dL (<150)
[2024-03-26 17:35] LABS: Percent Iron Saturation 15 % (20-50)
[2024-03-26 17:39] LABS: LDL Cholesterol Direct 58 mg/dL
[2024-03-26 17:47] LABS: Hemoglobin A1C 5.2 % (<5.7)
[2024-03-26 18:20] LABS: Vitamin B12 > 1000.0 pg/mL (239-931)
[2024-03-26 19:15] LABS: Alanine Aminotransferase < 6 U/L (6-50)
== END 2024-03-26 12:53 | disposition home or self-care (01) ==
LOC: ANHLAB 12:54
PROVIDERS: Nurse Practitioner; PCP Family Medicine; Visit Provider Internal Medicine Hematology & Oncology
DX: E78.5 Hyperlipidemia, unspecified (principal); N18.4 Chronic kidney disease, stage 4 (severe); E11.9 Type 2 diabetes mellitus without complications; E53.8 Deficiency of other specified B group vitamins; D64.9 Anemia, unspecified; E55.9 Vitamin D deficiency, unspecified
CPT/HCPCS: 36415; 80053; 80061; 82306; 82607; 83036; 83540; 83550

== ENCOUNTER 2024-04-23 15:19 | Emergency (ER) | payer MEDICARE, SELFPAY ==
[2024-04-23] VITALS (24 sets, daily range): BP systolic 120–154; BP diastolic 49–73; PULSE 46–69; RESP 15–28; TEMP 36.5–36.8; O2SAT 93–98
--- NOTE | ~2024-04-23 | CT_ITS ---
CT brain wo con Ordering provider: Elizabeth Singh MD History: 84 years Male with . mental status . Comparison: June 15, 2023 Technique: CT of the head without contrast. Radiation reduction technique utilized. The dose-length product was 605.33 mGy-cm. FINDINGS: BRAIN PARENCHYMA AND CSF SPACES: Mild leukoaraiosis and diffuse cortical atrophy. Mild atheromatous d isease. No midline shift, mass effect or hemorrhage. The brain parenchyma and CSF spaces are otherwi se normal. VISUALIZED PARANASAL SINUSES: Well aerated. MASTOIDS: Well aerated. BONES: The bones appear intact. SOFT TISSUES: Visualized nasopharynx is normal. Superficial soft tissues are normal. IMPRESSION: No acute intracranial findings. Reviewed, dictated and finalized at location A.
--- NOTE | 2024-04-23 15:56 | ECG_ITS ---
Test Date: 2024-04-23 16:09:52 Measurements Intervals [place] Rate: 44 P: 0 DE: 0 QRS: 75 QRSD: 113 T: 13 QT: 453 QTc: 391 Interpretive Statements ATRIAL FIBRILLATION WITH SLOW VENTRICULAR RESPONSE MODERATE INTRAVENTRICULAR CONDUCTION DELAY [105+ ms QRS DURATION, 80+ ms Q/S IN V1/V2, NO Q AND 60+ ms R IN I/aVL/V5/V6] No previous ECG available for comparison Electronically Signed On 04-24-2024 11:46:59 CDT by Paola Reyes M.D.
[2024-04-23 16:16] LABS: Basophils Percent Auto 0.7 % (0.2-1.2); Eosinophils Absolute Auto 0.7 K/mm3 (0-0.3); Hematocrit 24.2 % (42.0-52.0); Immature Granulocyte Absolute 0.03 K/mm3 (0.00-0.031); Immature Granulocyte Percent A 0.6 % (0-0.5); Lymphocytes Absolute Auto 0.37 K/mm3 (0.9-3.2); Lymphocytes Percent Auto 6.9 % (18.3-44.2); Mean Corpuscular HGB Conc 28.9 g/dl (32-36); Mean Corpuscular Hemoglobin 28.2 pg (26-34); Mean Corpuscular Volume 97.6 fl (80-100); Mean Platelet Volume 11.5 fl (7.4-10.4); Monocytes Absolute Auto 0.5 K/mm3 (0.1-0.6); Monocytes Percent Auto 9.1 % (2.6-8.5); Neutrophils Absolute Auto 3.8 K/mm3 (1.3-6.7); Neutrophils Percent Auto 69.7 % (45.5-73.1); Platelet Count Result 126 k/mm3 (150-375); Red Blood Count 2.48 M/mm3 (4.6-6.20); Red Cell Distribution Width 17.9 % (11.5-14.5); White Blood Count 5.4 K/mm3 (4.5-10.0)
[2024-04-23 16:26] LABS: Alkaline Phosphatase 62 U/L (38-126); Anion Gap 10 mmol/L (4-12); Aspartate Amino Transferase 13 U/L (17-59); Bilirubin,Total 0.7 mg/dL (0.2-1.3); Blood Urea Nitrogen 77 mg/dL (9-20); Calcium 8.6 mg/dL (8.4-10.2); Carbon Dioxide 25 mmol/L (22-30); Chloride 108 mmol/L (98-107); Estimated CRCL calculation 16 ml/min; Estimated Glomerular Filt Rate 19; Glucose 154 mg/dL (65-110); INR 1.5; Potassium 4.7 mmol/L (3.4-5.0); Prothrombin Time 18.9 Seconds (11.1-14.7); Sodium 143 mmol/L (137-145)
[2024-04-23 16:27] LABS: Partial Thromboplastin Time 36.1 Seconds (22.3-36.8)
[2024-04-23 16:30] LABS: Anisocytosis 1+; Hypochromasia 1+; Ovalocytes 1+; Platelet Estimate Slightly Decreased (Adequate); Schistocytes None Seen
[2024-04-23 16:38] LABS: Appearance Urine Turbid (Clear); Bacteria Urine 1+ /hpf; Bilirubin Urine Negative (Negative); Blood Urine 3+ (Negative); Glucose Urine UA Negative (Negative); Ketones Urine Negative (Negative); Leukocyte Esterase Ur 3+ LEU/UL (Negative); Need Manual Microscopic Reviewed; Nitrate Urine Negative (Negative); Protein Urine 2+ mg/dL (Negative); RBC Urine >100 /hpf (0-2); Specific Grav Ur 1.014 (1.001-1.035); Squamous Epithelial Cell Urine None Seen /hpf (Few); Urobilinogen Urine 0.2 mg/dL (<2.0); WBC Urine >100 /hpf (0-3)
[2024-04-23 16:43] LABS: Color Urine Dark Yellow (Yellow)
[2024-04-23 16:44] LABS: Add Urine Microscopic? YES
--- NOTE | 2024-04-23 16:51 | ED.AMS ---
HPI - Altered Mental Status General Chief Complaint: Altered Mental Status Stated Complaint: AMS Time Seen by Provider: 04/23/24 16:04 History of Present Illness HPI narrative: Patient is an 84 year old male with history of Parkinson's, afib, chronic anemia, HTN, chronic UTI, CKD here with an episode of unresponsiveness. Patient's helps with history. She notes that he was up moving around house today with help of his walker. He then sat down to go through some magazines and seemed to fall asleep instantaneously. She notes she could not arouse him so she called EMS. She believes he was breathing throughout this episode. She called EMS, when they arrived he reportedly was back awake and vomited profusely. She notes he seems more like his normal self now. He does remember passing out. He denied chest pain or shortness of breath. Currently complaining of feeling diffusely tired, otherwise no complaints. Related Data Allergies Allergy/AdvReac Type Severity Reaction Status Date / Time No Known Allergies Allergy Verified 04/23/24 18:39 Review of Systems Review of Systems: ROS unobtainable: Yes unobtainable due to medical condition Exam Narrative: GENERAL: Cachectic, chronically ill-appearing HEAD: Normocephalic, atraumatic. EYES: PERRLA and EOMI. ENT: Nares clear. Mucous membranes moist. NECK: Supple. CHEST: Clear to auscultation. No respiratory distress. On 2 L nasal cannula HEART: Bradycardic Normal peripheral pulses. ABDOMEN: Soft, nontender, nondistended. EXTREMITIES: Normal range of motion. No edema. SKIN: Warm, dry, no rash. NEURO: No focal deficits. Alert and oriented x2. Course Course Emergency Course: No prior visits in our system however after discussion with he has been here many times in the past and had labs drawn in our system yesterday. It appears he was registered incorrectly. most recent PCP note from 03/13/2024 reviewed. He has a history of hypertension, AFib, anemia for which she follows with Dr. Magana. Family also notes history of chronic UTI, on keflex daily. Note from Dr. Tillman reviewed from last month. Lab work yesterday reviewed. CBC showed WBC of 6.2, hgb 7.5, plt 135. CMP from last month showed BUN of 70, Creatinine of 3.0. Lab work and imaging performed today reviewed. Hemoglobin is 7.0. Creatinine 3.1. Magnesium 2.5. Troponin negative. UA positive for UTI. CT brain negative. HR around 40-50 while here in the ER, family notes this is normal for him. Repeat troponin negative. COVID, Influenza, RSV negative. Off of oxygen patient saturating around 90%. Extensive discussions with family regarding his presentation today, his results. I did advise that hospitalization would be warranted given his episode of unresponsiveness and his hypoxia when he arrived to the hospital. I did recommend starting him on antibiotics for his possible UTI. They declined this. They have multiple family members that can help take care of him and would prefer to have him discharged home and they plan to call the urologist tomorrow to discuss further treatment. They will additionally call his primary care doctor for follow up. They note that it is not in his wishes and goals of care to be hospitalized at this time. The patient and/or present family expressed understanding of the diagnosis and plan. The nurse was instructed to provide written instructions and appropriate follow-up information. The patient understands their need and responsibility to obtain additional follow-up as instructed. The risks of medications administered and prescribed were discussed with the patient and family present. Vital Signs Vital signs: Vital Signs Temperature 97.7 F 04/23/24 15:40 Pulse Rate 64 04/23/24 15:40 Respiratory Rate 19 04/23/24 15:40 Blood Pressure 120/49 L 04/23/24 15:40 Pulse Oximetry 95 04/23/24 15:40 Oxygen Delivery Nasal Cannula 04/23/24 15:40 Oxygen Flow Rate 2 04/23/24 15:40
[2024-04-23] MEDS: LACTATED RINGERS 1,000 ML 999 ML IV CONT (16:54)
[2024-04-23 17:40] LABS: Magnesium 2.5 mg/dL (1.6-2.3)
[2024-04-23 17:53] LABS: Troponin I 0.018 ng/mL (0.000-0.034)
[2024-04-23 18:09] LABS: Alanine Aminotransferase < 6 U/L (6-50)
--- NOTE | 2024-04-23 19:44 | ECG_ITS ---
Test Date: 2024-04-23 19:41:14 Measurements Intervals [place] Rate: 51 P: 0 HI: 0 QRS: 91 QRSD: 106 T: 51 QT: 429 QTc: 395 Interpretive Statements ATRIAL FIBRILLATION WITH SLOW VENTRICULAR RESPONSE BORDERLINE RIGHT AXIS DEVIATION [QRS AXIS > 90] MODERATE INTRAVENTRICULAR CONDUCTION DELAY [105+ ms QRS DURATION, 80+ ms Q/S IN V1/V2, NO Q AND 60+ ms R IN I/aVL/V5/V6] INTERPRETATION BASED ON A DEFAULT AGE OF 40 YEARS Compared to ECG 04/23/2024 16:09:52 NO SIGNIFICANT CHANGES Electronically Signed On 04-24-2024 13:09:41 CDT by Paola Reyes M.D.
--- NOTE | 2024-04-23 20:13 | PC.NURSE ---
This RN went to the patients room to start IV antibiotics and the patients and family asked that we wait to start the iv antibiotics until his urologist can be consulted.
[2024-04-23 20:18] LABS: Influenza A QL RT-PCR Negative (Negative); Influenza B QL RT-PCR Negative (Negative); RSV RNA, RT-PCR Negative (Negative); SARS-CoV-2 RNA PCR Negative (Negative)
== END 2024-04-23 21:01 | disposition home or self-care (01) ==
PROVIDERS: Emergency Medicine; Emergency Provider Student in an Organized Health Care Education/Training Program; PCP Family Medicine
DX: R40.4 Transient alteration of awareness (principal); N39.0 Urinary tract infection, site not specified; I48.91 Unspecified atrial fibrillation; G20.A1 Parkinson's disease without dyskinesia, without mention of fluctuations; I12.9 Hypertensive chronic kidney disease with stage 1 through stage 4 chronic kidney disease, or unspecified chronic kidney disease; N18.9 Chronic kidney disease, unspecified; Z20.822 Contact with and (suspected) exposure to COVID-19
CPT/HCPCS: 36415; 70450; 80053; 81001; 83735; 84484; 85025; 85610; 85730; 87040; 87077; 87086; 87088; 87186; 87637; 93005; 96360; 99284; J7120

== ENCOUNTER 2024-04-26 14:15 | Inpatient (IN) | payer MEDICARE, SELFPAY ==
[2024-04-26] VITALS (23 sets, daily range): BP systolic 102–139; BP diastolic 46–96; PULSE 56–94; RESP 14–21; TEMP 36.4–36.6; O2SAT 88–99; BMI 29.5
--- NOTE | ~2024-04-26 | XR_ITS ---
EXAMINATION: XR chest 1V portable DATE: 04/26/2024 14:54 INDICATION: Cough. Wet and wheezing lung sounds. TECHNIQUE: AP view of the chest was obtained. COMPARISON: Chest radiograph dated 12/04/2023 FINDINGS: Thyromegaly with pulmonary vascular congestion. There are subtle airspace and mild interstitial opaci ties in bilateral lower lung zones likely related to mild pulmonary edema. There are also small bilat eral pleural effusions. IMPRESSION: 1. Likely congestive heart failure with cardiomegaly, pulmonary vascular congestion and mild pulmonar y edema. Differential includes less likely pneumonia. 2. Small bilateral pleural effusions. Reviewed, dictated and finalized at location B. IMPRESSION: 1. Likely congestive heart failure with cardiomegaly, pulmonary vascular conges tion and mild pulmonary edema. Differential includes less likely pneumonia. 2. Small bilateral pleural effusions.
--- NOTE | ~2024-04-26 | XR_ITS ---
EXAMINATION: XR chest 1V portable DATE: 04/28/2024 10:11 INDICATION: Pneumonia and congestive heart failure. TECHNIQUE: frontal view of the chest was obtained. COMPARISON: Chest radiograph dated FINDINGS: Diffuse airspace opacities throughout both lungs with significant interval progression in the right m id to upper lung and in the left lower lung zone. Small bilateral pleural effusions. No pneumothorax. Cardiomegaly. Moderate thoracic spondylosis. IMPRESSION: 1. Diffuse bilateral lung disease with significant progression in the right mid to upper and left low er lung zones consistent with worsening pneumonia and/or pulmonary edema. 2. Small bilateral pleural effusions. 2. Cardiomegaly. Reviewed, dictated and finalized at location A. IMPRESSION: 1. Diffuse bilateral lung disease with significant progression in the right mid to upper and left lower lung zones consistent with worsening pneumonia and/or pulmonary edema. 2. Small bilateral pleural effusions. 2. Cardiomegaly.
--- NOTE | ~2024-04-26 | CT_ITS ---
EXAMINATION: CT brain wo con DATE: 04/27/2024 17:42 INDICATION: Altered mental status. TECHNIQUE: Computed tomography (CT) of the head was performed without intravenous contrast. The mA wa s adjusted according to patient size. Iterative reconstruction technique was employed. The dose-lengt h product was 605.33 mGy-cm. COMPARISON: Head CT 04/23/2024 FINDINGS: There are scattered areas of low attenuation in the cerebral white matter. 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 There is no intracranial hemorrhage, acute infarction, or abnor mal intracranial mass lesion. The ventricles are normal in size. There are likely changes of ocular l ens replacement surgeries. There is a small left mastoid effusion. The paranasal sinuses are clear. IMPRESSION: 1. 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 2. Stable extensive nonspecific cerebral white matter disease, which likely represents chronic small vessel ischemic disease. Reviewed, dictated and finalized at location E. IMPRESSION: 1. 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 2. Stable extensive nonspecific cerebral white matter disease, which likely rep resents chronic small vessel ischemic disease.
--- NOTE | ~2024-04-26 | US_ITS ---
EXAMINATION: US renal BI DATE: 04/28/2024 10:05 INDICATION: Acute on chronic kidney disease TECHNIQUE: Multiple ultrasound grayscale images of the kidneys were obtained. COMPARISON: None. FINDINGS: The right kidney measures 12.0 x 4.7 x 5.7 cm. The left kidney measures 11.6 x 4.9 x 3.7 cm. The kidn eys demonstrate normal echogenicity. There is no hydronephrosis in either kidney. No stones identifi ed. There is mild diffuse bladder wall thickening an incompletely distended bladder. Enlarged prostat e which impresses upon the base of bladder and measures at least 5.6 x 4.8 x 4.3 cm. Small amount of ascites along the caudal margin of the liver and spleen as well as in the anterior pelvis. IMPRESSION: 1. Normal kidneys without hydronephrosis. 2. Diffuse mild bladder wall thickening which could be due to partially decompressed state and/or chr onic outlet obstruction from the enlarged prostate. 3. Small amount of ascites. Reviewed, dictated and finalized at location A. IMPRESSION: 1. Normal kidneys without hydronephrosis. 2. Diffuse mild bladder wall thickening which could be due to partially decompr essed state and/or chronic outlet obstruction from the enlarged prostate. 3. Small amount of ascites.
--- NOTE | ~2024-04-26 | XR_ITS ---
Portable chest x-ray Comparison: 04/28/2024 Clinical History: Shortness of breath Findings: Small right pleural effusion present. Possible minimal left pleural effusion. There is haz y central and bibasilar pulmonary disease. Cardiomediastinal silhouette is stable. Bones and soft ti ssues are unremarkable. Impression: [id number] pulmonary edema pattern, similar to minimally improved from prior exam. Small bilateral pleural effusions. Reviewed, dictated and finalized at location M. Impression: [id number] pulmonary edema pattern, similar to minimally improved from pr ior exam. Small bilateral pleural effusions.
--- NOTE | ~2024-04-26 | XR_ITS ---
EXAMINATION: XR barium swallow modified DATE: 04/29/2024 09:28 INDICATION: Aspiration pneumonia. TECHNIQUE: The patient was given barium-containing material of multiple consistencies to swallow by t beryl speech pathologist while I performed fluoroscopy. Fluoroscopy exposure time was 0.9 minutes. The n umber of fluoroscopy images saved to the PACS was 1. Dose-area product was 0.6 Gy-cm^2. FINDINGS: The oral stage, pharyngeal stage, and cervical/esophageal stage of the swallow are normal. IMPRESSION: 1. Normal modified barium swallow. 2. Please refer to the speech therapy report for recommendations. Reviewed, dictated and finalized at location A.
--- NOTE | 2024-04-26 14:29 | ECG_ITS ---
Test Date: 2024-04-26 14:41:11 Measurements Intervals [place] Rate: 64 P: 0 AL: 0 QRS: 73 QRSD: 108 T: 31 QT: 392 QTc: 407 Interpretive Statements ATRIAL FIBRILLATION MODERATE INTRAVENTRICULAR CONDUCTION DELAY [105+ ms QRS DURATION, 80+ ms Q/S IN V1/V2, NO Q AND 60+ ms R IN I/aVL/V5/V6] NONSPECIFIC ST AND T-WAVE ABNORMALITY ABNORMAL ECG No previous ECG available for comparison Electronically Signed On 04-26-2024 16:00:16 CDT by Tomás Pham M.D.
[2024-04-26 15:13] LABS: Basophils Percent Auto 0.5 % (0.2-1.2); Eosinophils Absolute Auto 0.2 K/mm3 (0-0.3); Eosinophils Percent Auto 3.2 % (0-4.4); Hematocrit 22.8 % (42.0-52.0); Immature Granulocyte Absolute 0.03 K/mm3 (0.00-0.031); Immature Granulocyte Percent A 0.4 % (0-0.5); Lymphocytes Absolute Auto 0.26 K/mm3 (0.9-3.2); Lymphocytes Percent Auto 3.4 % (18.3-44.2); Mean Corpuscular HGB Conc 28.5 g/dl (32-36); Mean Corpuscular Hemoglobin 27.9 pg (26-34); Mean Corpuscular Volume 97.9 fl (80-100); Mean Platelet Volume 11.5 fl (7.4-10.4); Monocytes Absolute Auto 0.6 K/mm3 (0.1-0.6); Monocytes Percent Auto 7.6 % (2.6-8.5); Neutrophils Absolute Auto 6.4 K/mm3 (1.3-6.7); Neutrophils Percent Auto 84.9 % (45.5-73.1); Nucleated Red Blood Cells Perc 0.3 % (0.0-0.2); Platelet Count Result 135 k/mm3 (150-375); Red Blood Count 2.33 M/mm3 (4.6-6.20); Red Cell Distribution Width 17.9 % (11.5-14.5); White Blood Count 7.5 K/mm3 (4.5-10.0)
[2024-04-26 15:19] LABS: Hemoglobin 6.5 g/dL (14.0-18.0)
[2024-04-26 15:22] LABS: Alkaline Phosphatase 65 U/L (38-126); Anion Gap 14 mmol/L (4-12); Aspartate Amino Transferase 13 U/L (17-59); Bilirubin,Total 0.8 mg/dL (0.2-1.3); Blood Urea Nitrogen 87 mg/dL (9-20); Calcium 8.7 mg/dL (8.4-10.2); Carbon Dioxide 21 mmol/L (22-30); Chloride 108 mmol/L (98-107); Estimated CRCL calculation 13 ml/min; Estimated Glomerular Filt Rate 15; Glucose 118 mg/dL (65-110); Potassium 5.1 mmol/L (3.4-5.0); Sodium 143 mmol/L (137-145)
[2024-04-26 15:31] LABS: Platelet Estimate Adequate (Adequate)
[2024-04-26 15:32] LABS: Acanthocytes 1+; Anisocytosis 1+; Hypochromasia 2+; Schistocytes Rare
[2024-04-26 15:52] LABS: Alanine Aminotransferase < 6 U/L (6-50)
--- NOTE | 2024-04-26 16:16 | PC.NURSE ---
[facility] and [facility] and family states Its about time someone comes in here . Family informed that different staff has been in to see the patient prior to her arrival. She states yeah, I have seen the aid . When I explained to family what lab I was about to draw they state well cant you just look at it from the other day? I tried to inform them that it would need to be a new draw due to him being here for a new visit. They continued to question as to why we have to re-do labs that were just performed on Monday. Patient's family informed that this RN will wait to obtain blood until provider speaks with patient and can answer all questions.
--- NOTE | 2024-04-26 16:51 | ED.DIZZY ---
HPI - Dizziness General Chief Complaint: Syncope Stated Complaint: periods of unresponsiveness Time Seen by Provider: 04/26/24 16:29 History of Present Illness HPI Narrative: Patient is an 84-year-old male who presents to the emergency department this afternoon due to a possible syncopal episode. Family members state period of unresponsiveness lasting approximately 1 when it. Patient does have a history of Parkinson's disease along with production anemia. Patient is currently alert and oriented to person and place which is his baseline. patient was administered a DuoNeb breathing treatment by EMS prior to arrival due to wheezing/crackles. Related Data Home Medications Medication Instructions Recorded Confirmed acetaminophen 325 mg tablet (Mapap 650 mg PO PRN PRN Pain (Scale 11/14/19 04/08/24 (acetaminophen)) Score 1-3) finasteride 5 mg tablet 5 mg PO DAILY 03/08/21 04/08/24 sodium bicarbonate 650 mg tablet 650 mg PO BIDWMEAL 03/12/23 04/08/24 vitamin B complex (B 1 tablet PO DAILY 07/12/23 04/08/24 Complex-Vitamin B12 tablet) aspirin 81 mg tablet,delayed 81 mg PO DAILY 09/13/23 04/08/24 release (Adult Low Dose Aspirin) cephalexin 250 mg capsule 250 mg PO DAILY 09/13/23 04/08/24 cholecalciferol (vitamin D3) 25 25 mcg PO DAILY 09/13/23 04/08/24 mcg (1,000 unit) capsule ferrous sulfate 324 mg (65 mg 324 mg PO BID 09/13/23 04/08/24 iron) tablet,delayed release fluticasone propionate 50 1 spray intranasal BID PRN Allergy 09/13/23 04/08/24 mcg/actuation nasal Symptoms spray,suspension (Flonase Allergy Relief) lactobacillus combination no.9 4 4,000 mmu cells PO DAILY 09/13/23 04/08/24 billion cell capsule (Adult 50 Plus Probiotic) melatonin 5 mg capsule 5 mg PO QHS 09/13/23 04/08/24 apixaban 2.5 mg tablet (Eliquis) 2.5 mg PO BID 12/04/23 04/08/24 Allergies Allergy/AdvReac Type Severity Reaction Status Date / Time No Known Allergies Allergy Verified 04/25/24 12:51 Review of Systems Review of Systems: All systems are reviewed and are negative unless stated otherwise in the HPI. 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 Cox. Three polyps the mid ascending colon, 4 polyps in the rectum Internal hemorrhoids, diverticulosis History of inferior vena caval filter placement History of left knee replacement (09/2013) History of tonsillectomy Family History Family History Father Cerebrovascular accident Sibling Cerebrovascular accident Mother Heart attack Social History Social History Social History: Surrogate medical decision maker: Grecia Carrera, spouse. Code status: Full code. Smoking packs per day: 1.5 Smoking cigarettes per day: 30.0 Years smoked: 20 Smoking pack-years: 30.00 Smoking status: Former smoker Second hand tobacco smoke exposure: No Smoking end date: 08/18/87 Additional smoking assessment comments: Quit 1986. Alcohol intake: never Substance use: never Substance use type: does no
[2024-04-26] MEDS: IPRATROPIUM 0.5 MG/ALBUTEROL SULFATE 2.5 MG AMPUL.NEB 3 ML INHALATION (17:19)
[2024-04-26 18:26] LABS: NT Pro B Type Natriuretic Pept 22200 pg/mL (19.9-100)
[2024-04-26] MEDS: SODIUM CHLORIDE 0.9% IV 250 ML 30 ML IV CONT (18:30)
[2024-04-26] MEDS: TUBING, BLOOD PLUM PUMP TUBING 1 EACH XX (18:30)
--- NOTE | 2024-04-26 18:30 | PC.NURSE ---
blood cultures just obtained
--- NOTE | 2024-04-26 19:15 | ADMGEN ---
This patient, Chris Carrera, was admitted to IMU Room 211-01. Patient/family oriented to hospital policies and general routines including ID bracelet, bed and alarms, visiting hours, pain management, procedures, bathroom and other care routines, personal items, smoking policy, room service/diet, and visiting hours. Information on how to activate the Rapid Response Team has been discussed. Patient/Family are encouraged to report perceived risks to care and to ask questions if they do not understand what they are told or what they should do.
--- NOTE | 2024-04-26 20:10 | PM.IMHP ---
H&P: HPI History of Present Illness Date/Time: 04/26/24 20:10 Chief Complaint: altered mental status Narrative: This is an 84-year-old male with past medical history significant for Parkinson's disease, diastolic heart failure, ejection fraction 50-55%, hypertension, atrial fibrillation, rate controlled anticoagulated, dementia, chronic kidney disease, benign prostatic hyperplasia. Patient was brought to the emergency room for evaluation after having episode of unresponsiveness according to medical records from the emergency room on patient was able to wake up of again on his on. Patient has no recollection of events he states that he is at [facility] and he is here for surgery preliminary workup was significant for chest x-ray shows pulmonary vascular congestion [place] pulmonary edema with small pleural effusions. Chemistry panel was significant for BUN 87 creatinine 3.9 Patient has been admitted for further evaluation management and treatment EXAMINATION: XR chest 1V portable DATE: 04/26/2024 14:54 INDICATION: Cough. Wet and wheezing lung sounds. TECHNIQUE: AP view of the chest was obtained. COMPARISON: Chest radiograph dated 12/04/2023 FINDINGS: Thyromegaly with pulmonary vascular congestion. There are subtle airspace and mild interstitial opacities in bilateral lower lung zones likely related to mild pulmonary edema. There are also small bilateral pleural effusions. IMPRESSION: 1. Likely congestive heart failure with cardiomegaly, pulmonary vascular congestion and mild pulmonary edema. Differential includes less likely pneumonia. 2. Small bilateral pleural effusions. 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yroidism, not elsewhere classified Syncope due to orthostatic hypotension Transient ischemic attack Type 2 diabetes mellitus 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 Cox. Three polyps the mid ascending colon, 4 polyps in the rectum Internal hemorrhoids, diverticulosis History of inferior vena caval filter placement History of left knee replacement (09/2013) History of tonsillectomy Family History Family History Father Cerebrovascular accident Sibling Cerebrovascular accident Mother Heart attack Social History Social History Social History: Surrogate medical decision maker: Grecia Debi, spouse. Code status: Full code. Smoking packs per day: 1.5 Smoking cigarettes per day: 30.0 Years smoked: 20 Smoking pack-years: 30.00 Smoking status: Former smoker Second hand tobacco smoke exposure: No Smoking end date: 08/18/87 Additional smoking assessment comments: Quit 1986. Alcohol intake: never Substance use: never Substance use type: does not use Do You Feel Safe in your Home?: No Lack of Transportation: No Lack of Food: Never True Current Housing: I Have Housing Concerned About Future Housing: No Difficulty Paying Gas/Electric Bills: No Difficulty Paying for Meds: No Currently Unemployed: No Education: Bachelor's Degree [employer]
[2024-04-26] MEDS: levoFLOXacin 750 MG/D5W 150 ML 750 MG/150 ML BAG 100 MG IVPB (21:08)
[2024-04-27] VITALS (22 sets, daily range): BP systolic 112–149; BP diastolic 48–83; PULSE 49–68; RESP 16–24; TEMP 35.9–36.8; O2SAT 90–100
--- NOTE | 2024-04-27 | ECHO_ITS ---
Patient Info Name: Chris Carrera Age: 84 years : 1940 Gender: Male Ht: 69 in Wt: 199 lbs BSA: 2.12 m2 HR: 57 bpm BP: 119 / 50 mmHg Technical Quality: Good Exam Date: 04/27/2024 8:48 AM Exam Location: Echo Lab Patient Status: Inpatient Admit Date: 04/26/2024 Staff Ordering Physician: Shahnaz Stone MD It Applications Developer: Andrew Gutierres RDCS Attending Provider: Adela Spicer MD Referring Physician: Chase CRESPO; Exam Type: CA echo doppler color flow Study Info Indications - SOB Complete two-dimensional, color flow and Doppler transthoracic echocardiogram is performed. Summary 1. Complete two-dimensional, color flow and Doppler transthoracic echocardiogram is performed. 2. There is moderate to severe tricuspid valve regurgitation. 3. Moderate pulmonary hypertension, estimated pulmonary arterial systolic pressure is 55 mmHg. 4. There is mild to moderate mitral valve regurgitation. 5. Left atrial chamber dimension is severely enlarged. 6. Left ventricular chamber dimension is normal. 7. Left ventricular systolic function is normal, estimated at 60-65%. 8. atrial fibrillation. Left Ventricle Left ventricular chamber dimension is normal. Left ventricular systolic function is normal, estimated at 60-65%. There is no increased left ventricular wall thickness. Left ventricular septal wall motion is normal. Right Ventricle Right ventricular chamber dimension is normal. Right ventricular systolic function is normal. Left Atria Left atrial chamber dimension is severely enlarged. Right Atria Right atrial chamber dimension is normal. Aortic Valve The aortic valve is trileaflet. There is no aortic valve sclerosis. There is no aortic valve stenosis. There is no aortic valve regurgitation. Pulmonic Valve The pulmonic valve is not well visualized. Mitral Valve The mitral valve has normal leaflets. There is no mitral valve stenosis. There is mild to moderate mitral valve regurgitation. Tricuspid Valve There is no significant tricuspid valve stenosis. There is moderate to severe tricuspid valve regurgitation. Moderate pulmonary hypertension, estimated pulmonary arterial systolic pressure is 55 mmHg. Pericardium/Pleural The pericardium appears normal. There is no pericardial effusion. Inferior Vena Cava Normal inferior vena cava with <50% collapse upon inspiration consistent with elevated right atrial pressure, 15 mmHg. Aorta The aortic root size at the sinus of Valsalva is normal. The prox ascending aorta size is normal. Left Ventricular Outflow Tract Name Value Normal LVOT 2D LVOT Diameter 2.2 cm LVOT Doppler LVOT Peak Gradient 7 mmHg LVOT Mean Gradient 3 mmHg LVOT VTI 29 cm LVOT VTI/AV VTI Ratio 0.5 LVOT Stroke Volume 105 ml LVOT CO 8.2 l/min LVOT CI 3.9 l/min/m2 Pulmonic Valve Name Value Normal
[2024-04-27] MEDS: MELATONIN 5 MG TABLET 10 MG PO (01:30)
[2024-04-27] MEDS: DONEPEZIL HCL 5 MG TABLET PO ×2 (01:30→22:40)
[2024-04-27] MEDS: CARBIDOPA/LEVODOPA 25/100 MG CR TABLET 1 TABLET PO ×2 (01:30→22:40)
[2024-04-27] MEDS: TAMSULOSIN HCL 0.4 MG CAPSULE PO ×2 (01:31→22:40)
--- NOTE | 2024-04-27 03:29 | PC.NURSE ---
ER , Dr. Lopez notified blood bank that only 1 unit of PRBC's are to be transfused. did not update order in [facility].
[2024-04-27 04:38] LABS: Basophils Percent Auto 0.6 % (0.2-1.2); Eosinophils Absolute Auto 0.2 K/mm3 (0-0.3); Eosinophils Percent Auto 3.6 % (0-4.4); Hematocrit 23.9 % (42.0-52.0); Immature Granulocyte Absolute 0.02 K/mm3 (0.00-0.031); Immature Granulocyte Percent A 0.3 % (0-0.5); Lymphocytes Absolute Auto 0.31 K/mm3 (0.9-3.2); Lymphocytes Percent Auto 4.7 % (18.3-44.2); Mean Corpuscular HGB Conc 28.9 g/dl (32-36); Mean Corpuscular Volume 97.2 fl (80-100); Mean Platelet Volume 11.5 fl (7.4-10.4); Monocytes Absolute Auto 0.6 K/mm3 (0.1-0.6); Monocytes Percent Auto 9.3 % (2.6-8.5); Neutrophils Absolute Auto 5.4 K/mm3 (1.3-6.7); Neutrophils Percent Auto 81.5 % (45.5-73.1); Nucleated Red Blood Cells Perc 0.3 % (0.0-0.2); Platelet Count Result 144 k/mm3 (150-375); Red Blood Count 2.46 M/mm3 (4.6-6.20); Red Cell Distribution Width 17.2 % (11.5-14.5); White Blood Count 6.7 K/mm3 (4.5-10.0)
[2024-04-27 04:51] LABS: Albumin Level 3.8 g/dL (3.5-5.1); Alkaline Phosphatase 58 U/L (38-126); Anion Gap 9 mmol/L (4-12); Aspartate Amino Transferase 14 U/L (17-59); Bilirubin,Total 0.8 mg/dL (0.2-1.3); Blood Urea Nitrogen 88 mg/dL (9-20); Calcium 8.7 mg/dL (8.4-10.2); Carbon Dioxide 23 mmol/L (22-30); Chloride 110 mmol/L (98-107); Estimated CRCL calculation 13 ml/min; Estimated Glomerular Filt Rate 14; Glucose 81 mg/dL (65-110); Potassium 5.1 mmol/L (3.4-5.0); Sodium 142 mmol/L (137-145)
[2024-04-27 04:56] LABS: Alanine Aminotransferase < 6 U/L (6-50)
[2024-04-27 05:04] LABS: Hemoglobin 6.9 g/dL (14.0-18.0)
[2024-04-27 05:06] LABS: Anisocytosis 1+; Hypochromasia 1+; Platelet Estimate Adequate (Adequate); Schistocytes None Seen
[2024-04-27] MEDS: SODIUM BICARBONATE TAB 650 MG TABLET PO ×2 (09:26→18:48)
[2024-04-27] MEDS: CARBIDOPA/LEVODOPA 25/100 MG TABLET 3 TABLET PO ×3 (09:26→18:49)
[2024-04-27] MEDS: FINASTERIDE 5 MG TABLET PO (09:26)
[2024-04-27] MEDS: amLODIPine BESYLATE 5 MG TABLET PO (09:26)
[2024-04-27] MEDS: ASPIRIN 81 MG ENTERIC TABLET PO (09:26)
[2024-04-27] MEDS: FERROUS SULFATE 325 MG TABLET DR BY MOUTH ×2 (09:26→18:48)
--- NOTE | 2024-04-27 09:51 | PCPTNOTE ---
Checked with nursing, pt hemoglobin is low and will be recieving another unit of packed red blood cells. Will check back after transfusion is completed.
--- NOTE | 2024-04-27 10:45 | P.CONNP_ITS ---
Assessment and Plan Assessment and plan (1) TACHO (acute kidney injury): Code(s): N17.9 - Acute kidney failure, unspecified Status: Acute Assessment and Plan: * suspect multifactorial etiology: * infection (pneumonia + UTI) * anemia * CHF/volume overload * need for diuretics * element of CKD progression (?) * check urine studies and CPK * check renal ultrasound * may need to consider further diuresis -- follow volume status * follow trend of repeat labs and UOP (2) Chronic kidney disease, stage 4 (severe): Code(s): N18.4 - Chronic kidney disease, stage 4 (severe) Status: Chronic Assessment and Plan: * baseline creatinine seems to run ~ 2.1 - 2.7mg/dl in the last year * however, has fluctuated to extremes from review of records * secondary to diabetes, hypertension, and age complicated by recurrent UTIs (3) Altered mental status: Code(s): R41.82 - Altered mental status, unspecified Status: Acute Assessment and Plan: * alert and oriented x 2 at baseline * suspect acute issues/illnesses contributing to change in mentation * already complicated by Parkinson's disease and underlying dementia * head CT negative * continue supportive therapy (4) Acute hypoxemic respiratory failure: Code(s): J96.01 - Acute respiratory failure with hypoxia Status: Acute Assessment and Plan: * presumably due to CHF exacerbation, volume overload, and pneumonia * s/p IV lasix x 1 since admission -- may need further diuresis * follow volume status closely * on antibiotics for pneumonia * wean supplemental oxygen as tolerated (no on home oxygen at baseline) * follow respiratory status (5) Acute on chronic diastolic heart failure: Code(s): I50.33 - Acute on chronic diastolic (congestive) heart failure Status: Acute Assessment and Plan: * admission CXR with cardiomegaly, pulmonary vascular congestion and mild pulmonary edema and small bilateral pleural effusions * elevated BNP on admission as well * recent Echo results noted: * preserved EF - 60 - 65% * moderate to severe tricuspid valve regurgitation * moderate pulmonary hypertension, estimated pulmonary arterial systolic pressure is 55 mmHg. * mild to moderate mitral valve regurgitation * despite #1, may need further diuresis (6) Pneumonia: Code(s): J18.9 - Pneumonia, unspecified organism Status: Acute Assessment and Plan: * possibility based on admission CXR * given admission history, concern is possible aspiration pneumonia * on antibiotics * follow culture data * speech evaluation (7) UTI (urinary tract infection): Code(s): N39.0 - Urinary tract infection, site not specified Status: Chronic Assessment and Plan: * apparently a chronic/recurrent issues * follows with Urology * admission UA suggestive * however, urine culture on 04/23 with Pseudomonas -- unclear of this was ever treated * follow culture data * on antibiotics (8) Anemia: Qualifiers: Anemia type: unspecified type Qualified Code(s): D64.9 - Anemia, unspecified Code(s): D64.9 - Anemia, unspecified Status: Chronic Assessment and Plan: * chronic issues * partly related to underlying CKD * may be exacerbated by current illness/infection * known issue with iron deficiency - remains on oral iron * on outpatient DC -- possible resistance due to inflammation (?) * PRBC transfusion per protocol * follow trend of H/H
--- NOTE | 2024-04-27 10:45 | PM.CNNEP ---
Assessment and Plan Assessment and plan (1) TACHO (acute kidney injury): Code(s): N17.9 - Acute kidney failure, unspecified Status: Acute Assessment and Plan: suspect multifactorial etiology: infection (pneumonia + UTI) anemia CHF/volume overload need for diuretics element of CKD progression (?) check urine studies and CPK check renal ultrasound may need to consider further diuresis -- follow volume status follow trend of repeat labs and UOP (2) Chronic kidney disease, stage 4 (severe): Code(s): N18.4 - Chronic kidney disease, stage 4 (severe) Status: Chronic Assessment and Plan: baseline creatinine seems to run ~ 2.1 - 2.7mg/dl in the last year however, has fluctuated to extremes from review of records secondary to diabetes, hypertension, and age complicated by recurrent UTIs (3) Altered mental status: Code(s): R41.82 - Altered mental status, unspecified Status: Acute Assessment and Plan: alert and oriented x 2 at baseline suspect acute issues/illnesses contributing to change in mentation already complicated by Parkinson's disease and underlying dementia head CT negative continue supportive therapy (4) Acute hypoxemic respiratory failure: Code(s): J96.01 - Acute respiratory failure with hypoxia Status: Acute Assessment and Plan: presumably due to CHF exacerbation, volume overload, and pneumonia s/p IV lasix x 1 since admission -- may need further diuresis follow volume status closely on antibiotics for pneumonia wean supplemental oxygen as tolerated (no on home oxygen at baseline) follow respiratory status (5) Acute on chronic diastolic heart failure: Code(s): I50.33 - Acute on chronic diastolic (congestive) heart failure Status: Acute Assessment and Plan: admission CXR with cardiomegaly, pulmonary vascular congestion and mild pulmonary edema and small bilateral pleural effusions elevated BNP on admission as well recent Echo results noted: preserved EF - 60 - 65% moderate to severe tricuspid valve regurgitation moderate pulmonary hypertension, estimated pulmonary arterial systolic pressure is 55 mmHg. mild to moderate mitral valve regurgitation despite #1, may need further diuresis (6) Pneumonia: Code(s): J18.9 - Pneumonia, unspecified organism Status: Acute Assessment and Plan: possibility based on admission CXR given admission history, concern is possible aspiration pneumonia on antibiotics follow culture data speech evaluation (7) UTI (urinary tract infection): Code(s): N39.0 - Urinary tract infection, site not specified Status: Chronic Assessment and Plan: apparently a chronic/recurrent issues follows with Urology admission UA suggestive however, urine culture on 04/23 with Pseudomonas -- unclear of this was ever treated follow culture data on antibiotics (8) Anemia: Qualifiers: Anemia type: unspecified type Qualified Code(s): D64.9 - Anemia, unspecified Code(s): D64.9 - Anemia, unspecified Status: Chronic Assessment and Plan: chronic issues partly related to underlying CKD may be exacerbated by current illness/infection known issue with iron deficiency - remains on oral iron on outpatient DC -- possible resistance due to inflammation (?) PRBC transfusion per protocol follow trend of H/H (9) Hypertension: Qualifiers: Hypertension type: essential hypertension Qualified Code(s): I10 - Essential (primary) hypertension Code(s): I10 - Essential (primary) hypertension Status: Chronic Assessment and Plan: reasonable control follow trend of hemodynamics (10) Diabetes mellitus: Qualifiers: Diabetes mellitus complication status: without complication Diabetes mellitus mcc insulin use: without mcc use Diabetes gretta
[2024-04-27] MEDS: FUROSEMIDE INJ 40 MG/4 ML VIAL IV PUSH (11:52)
[2024-04-27] MEDS: TUBING, BLOOD PLUM PUMP TUBING 1 EACH XX (11:54)
[2024-04-27] MEDS: SODIUM CHLORIDE 0.9% IV 100 ML 30 ML (11:54)
[2024-04-27 12:27] LABS: Appearance Urine Cloudy (Clear); Bacteria Urine None Seen /hpf; Bilirubin Urine Negative (Negative); Blood Urine 1+ (Negative); Color Urine Yellow (Yellow); Glucose Urine UA Negative (Negative); Ketones Urine Negative (Negative); Leukocyte Esterase Ur 3+ LEU/UL (Negative); Need Manual Microscopic Reviewed; Nitrate Urine Positive (Negative); Protein Urine 1+ mg/dL (Negative); Specific Grav Ur 1.014 (1.001-1.035); Squamous Epithelial Cell Urine Occasional /hpf (Few); Urobilinogen Urine 0.2 mg/dL (<2.0); WBC Urine 51-100 /hpf (0-3)
[2024-04-27 12:30] LABS: Add Urine Microscopic? YES
[2024-04-27 12:50] LABS: Eosinophil Urine None Seen % (None Seen)
[2024-04-27 12:51] LABS: Urine Eos QC 2nd Tech Confirmed
[2024-04-27 12:52] LABS: Creatinine Urine 89.7 mg/dL; Total Protein Urine Random 32 mg/dL; Urea Random Urine 488 MG/DL
[2024-04-27 12:54] LABS: Sodium Urine Random 50 meq/L
[2024-04-27 15:03] LABS: Hematocrit 26.6 % (42.0-52.0); Hemoglobin 7.9 g/dL (14.0-18.0); Mean Corpuscular HGB Conc 29.7 g/dl (32-36); Mean Corpuscular Hemoglobin 28.4 pg (26-34); Mean Corpuscular Volume 95.7 fl (80-100); Mean Platelet Volume 11.9 fl (7.4-10.4); Platelet Count Result 145 k/mm3 (150-375); Red Blood Count 2.78 M/mm3 (4.6-6.20); Red Cell Distribution Width 17.3 % (11.5-14.5); White Blood Count 7.8 K/mm3 (4.5-10.0)
--- NOTE | 2024-04-27 17:45 | PM.IMPN ---
Progress Note: A&P Assessment and Plan (1) UTI (urinary tract infection): Code(s): N39.0 - Urinary tract infection, site not specified Status: Acute (2) Congestive heart failure: Code(s): I50.9 - Heart failure, unspecified Status: Acute (3) Acute hypoxic respiratory failure: Code(s): J96.01 - Acute respiratory failure with hypoxia Status: Acute (4) Parkinson disease: Qualifiers: Dyskinesia presence: without dyskinesia Fluctuating manifestations: without fluctuating manifestations Qualified Code(s): G20.A1 - Parkinson's disease without dyskinesia, without mention of fluctuations Code(s): G20 - Parkinson's disease Status: Chronic (5) Hypertension: Qualifiers: Hypertension type: essential hypertension Qualified Code(s): I10 - Essential (primary) hypertension Code(s): I10 - Essential (primary) hypertension Status: Chronic (6) BPH (benign prostatic hyperplasia): Qualifiers: Lower urinary tract symptom detail: urinary retention Lower urinary tract symptom presence: symptoms present Qualified Code(s): N40.1 - Benign prostatic hyperplasia with lower urinary tract symptoms; R33.8 - Other retention of urine Code(s): N40.0 - Benign prostatic hyperplasia without lower urinary tract symptoms Status: Acute (7) A-fib: Qualifiers: Atrial fibrillation type: unspecified Qualified Code(s): I48.91 - Unspecified atrial fibrillation Code(s): I48.91 - Unspecified atrial fibrillation Status: Acute (8) Acute on chronic anemia: Code(s): D64.9 - Anemia, unspecified Status: Resolved (9) TACHO (acute kidney injury): Code(s): N17.9 - Acute kidney failure, unspecified Status: Acute Plan 84y.o. male w/ PMH dementia, parkinson's (follows with Dr. 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 Garland), NIDDM, secondary hyperparaythyroidism, hx of COVID in 2022. In the past 2 weeks he had episodes of grunting and clutching his right arm, leaning to the right. Visited [facility] on 04/[address] head was without acute abnormality. 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 Family reports he had nausea and vomiting and possibly choking, as well as diarrhea with dark stool the past 3 days TABLE COVER FOLDER, but not since admission yet. Found to have multiple issues and admitted on o04/26/24 #lethargy, altered mental status #hx of parkinson's and dementia -status:acute on chronic -pt has history of lethargy, dementia, dependent on at home. has multiple acute illness which can exacerbate his underlying neurocognitive decline -repeat CT head, consult neurology (follows with Dr. Garcia for parkinson's) -reported to vomit and choke at home, speech eval -cont TABLE COVER FOLDER sinemet -pt has multiple complicating co morbidities. discusses with Grecia and son at bedside in a compassionate matter that pt is high risk for deterioration, guarded prognosis. they understood, full code currently. more discussions as his hospital course progresses #acute hypoxic respiratory failure #acute on chronic diastolic heart failure #aspiration pneumonia -status: not on o2 at home, has HFpEF on lasix, presented requiring 2L NC, BNP 22,000. CXR with interstitial edema, choked at home -received lasix x1 on 04/27. will not diurese further -holding TABLE COVER FOLDER hydralazine and amlodipine and lasix. titrate medications to GDMT if BP allows -treat for aspiration pneumonia. ceftriaxone started on admission 04/27, start flagyl 04/27 -blood cx 04/27: NGTD #abnormal UA #history of recurrent UTIs due to floroquinolone pseudomonas -UA on admission with WBC, bacteria, leuk esterase -started on ceftriaxone 04/27 -urine cx 04/27: pending #acute on chronic normocytic anemia/SAMMY -status:normally trends very low. on iron TABLE COVER FOLDER -cont PT
[2024-04-27] MEDS: metroNIDAZOLE 500 MG/ISO 100ML 500 MG/100 ML BAG 100 MG IVPB (18:48)
[2024-04-27 21:39] LABS: Glucose Point of Care 77 mg/dl (65-105)
[2024-04-28] VITALS (19 sets, daily range): BP systolic 122–148; BP diastolic 43–88; PULSE 49–75; RESP 18; TEMP 36.3–37.2; O2SAT 90–98
[2024-04-28] MEDS: metroNIDAZOLE 500 MG/ISO 100ML 500 MG/100 ML BAG 100 MG IVPB ×3 (03:04→17:02)
[2024-04-28 04:58] LABS: Albumin Level 3.5 g/dL (3.5-5.1); Alkaline Phosphatase 60 U/L (38-126); Anion Gap 8 mmol/L (4-12); Aspartate Amino Transferase 13 U/L (17-59); Bilirubin,Total 0.7 mg/dL (0.2-1.3); Blood Urea Nitrogen 90 mg/dL (9-20); Calcium 8.3 mg/dL (8.4-10.2); Carbon Dioxide 25 mmol/L (22-30); Chloride 111 mmol/L (98-107); Estimated CRCL calculation 12 ml/min; Estimated Glomerular Filt Rate 13; Glucose 79 mg/dL (65-110); Magnesium 2.4 mg/dL (1.6-2.3); Phosphorus 5.2 mg/dL (2.5-4.5); Sodium 144 mmol/L (137-145)
[2024-04-28 05:17] LABS: Alanine Aminotransferase < 6 U/L (6-50)
[2024-04-28 08:58] LABS: Glucose Point of Care 83 mg/dl (65-105)
[2024-04-28] MEDS: FERROUS SULFATE 325 MG TABLET DR BY MOUTH ×2 (09:30→16:58)
[2024-04-28] MEDS: ASPIRIN 81 MG ENTERIC TABLET PO (09:30)
[2024-04-28] MEDS: FINASTERIDE 5 MG TABLET PO (09:30)
[2024-04-28] MEDS: CARBIDOPA/LEVODOPA 25/100 MG TABLET 3 TABLET PO ×3 (09:31→16:57)
[2024-04-28] MEDS: SODIUM BICARBONATE TAB 650 MG TABLET PO ×2 (09:31→16:58)
[2024-04-28 10:22] LABS: Creatine Kinase 36 U/L (55-170)
--- NOTE | 2024-04-28 10:59 | WPDNEURCNPN ---
Assessment and Plan Assessment and plan (1) Parkinson disease: Qualifiers: Dyskinesia presence: without dyskinesia Fluctuating manifestations: without fluctuating manifestations Qualified Code(s): G20.A1 - Parkinson's disease without dyskinesia, without mention of fluctuations Code(s): G20 - Parkinson's disease Status: Chronic Plan Ongoing history of Parkinson's disease for which he has been followed by the tertiary care centers in the past but most recently has been followed by Dr. Garcia his course is complicated by the intermittent hallucination and bad dreams. Long discussion was made with her that as long as the dreams are not interfering with day-to-day care we should leave him on the same medication she would like to be followed by the physician locally then she can be followed by Dr lincoln And Dr Garcia at present no changes in medications were made. Consult date: 04/28/24 HPI: Chris Carrera is a 84 year old maleHas been admitted to the hospital through the emergency room for the possible syncopal episode. As per the family members unresponsiveness was very short lasting patient does have ongoing history of Parkinson's disease has been taking multiple medications as outlined which particularly include aspirin 81mg daily, apixaban 2.5mg b.i.d., he is not allergic to any medications, does have ongoing history of multiple medical problems particularly including Parkinson's disease, paroxysmal atrial fibrillation, TIA, and type 2 diabetes mellitus. He has history of smoking 2 packs per day 1.5 years smoked 20 and smoking pack years of 30 but at present former smoker does not drink alcohol his vital signs in the ER were normal , since admission he has been documented to have anemia, abnormal UA, negative serology for the viral infection, abnormal CT scan with old infarct in right caudate nucleus. 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yroidism, not elsewhere classified Syncope due to orthostatic hypotension Transient ischemic attack Type 2 diabetes mellitus 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 Cox. Three polyps the mid ascending colon, 4 polyps in the rectum Internal hemorrhoids, diverticulosis History of inferior vena caval filter placement History of left knee replacement (09/2013) History of tonsillectomy Family History Family History Father Cerebrovascular accident Sibling Cerebrovascular accident Mother Heart attack Social History Social History Social History: Surrogate medical decision maker: Grecia Carrera, spouse. Code status: Full code. Smoking packs per day: 2 Smoking cigarettes per day: 40.0 Years smoked: 36 Smoking pack-years: 72.00 Smoking status: Former smoker Tobacco type: cigarettes Second hand tobacco smoke exposure: No Smoking end date: 08/18/87 Additional smoking assessment comments: Quit 1986. Alcohol intake: never Substance use: never Substance use type: does not use Do You Feel Safe in your Home?: Yes Lack of Transport
--- NOTE | 2024-04-28 12:42 | PCSTNOTE ---
Patient seen for bedside swallow evaluation this date with his and family present. Family indicated patient was coughing often yesterday and is doing better with being more alert today. Pt has no upper teeth but manages a normal diet and has not had problems with swallowing until recently. Pt coughing with upper respiratory congestion noted prior to any oral intake. He had bites of jello and ate a piece of pineapple without coughing and apparently normal swallows. Drinks of water from a straw were managed although a delayed throat clear was noted and coughing was present at times during oral intake (before, during and after). A modified barium swallow study is being recommended to further evaluate swallow function and safety of oral intake. Please note silent aspiration cannot be ruled out at bedside.
--- NOTE | 2024-04-28 12:58 | PM.IMPN ---
Progress Note: A&P Assessment and Plan (1) UTI (urinary tract infection): Code(s): N39.0 - Urinary tract infection, site not specified Status: Chronic (2) Congestive heart failure: Code(s): I50.9 - Heart failure, unspecified Status: Acute (3) Acute hypoxic respiratory failure: Code(s): J96.01 - Acute respiratory failure with hypoxia Status: Acute (4) Parkinson disease: Qualifiers: Dyskinesia presence: without dyskinesia Fluctuating manifestations: without fluctuating manifestations Qualified Code(s): G20.A1 - Parkinson's disease without dyskinesia, without mention of fluctuations Code(s): G20 - Parkinson's disease Status: Chronic (5) Hypertension: Qualifiers: Hypertension type: essential hypertension Qualified Code(s): I10 - Essential (primary) hypertension Code(s): I10 - Essential (primary) hypertension Status: Chronic (6) BPH (benign prostatic hyperplasia): Qualifiers: Lower urinary tract symptom detail: urinary retention Lower urinary tract symptom presence: symptoms present Qualified Code(s): N40.1 - Benign prostatic hyperplasia with lower urinary tract symptoms; R33.8 - Other retention of urine Code(s): N40.0 - Benign prostatic hyperplasia without lower urinary tract symptoms Status: Acute (7) A-fib: Qualifiers: Atrial fibrillation type: unspecified Qualified Code(s): I48.91 - Unspecified atrial fibrillation Code(s): I48.91 - Unspecified atrial fibrillation Status: Acute (8) Acute on chronic anemia: Code(s): D64.9 - Anemia, unspecified Status: Resolved (9) TACHO (acute kidney injury): Code(s): N17.9 - Acute kidney failure, unspecified Status: Acute Plan 84y.o. male w/ PMH dementia, parkinson's (follows with Dr. Garcia), HTN, history of CVA without residual deficit, diastolic heart failure EF 50-55%, a fib on AC, CKD stage 4 (follows with Dr. 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 Garland), NIDDM, secondary hyperparaythyroidism, hx of COVID in 2022. In the past 2 weeks he had episodes of grunting and clutching his right arm, leaning to the right. Visited [facility] on 04/[address] head was without acute abnormality. 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 Family reports he had nausea and vomiting and possibly choking, as well as diarrhea with dark stool the past 3 days MORTGAGE MANAGER, but not since admission yet. Found to have multiple issues and admitted on o04/26/24 #lethargy, altered mental status #hx of parkinson's and dementia -status:acute on chronic, acute component resolved -pt has history of lethargy, dementia, dependent on at home. has multiple acute illness which can exacerbate his underlying neurocognitive decline. Resolved on 04/28/2024. Neurology consultation completed by Dr. Lomas (follows with Dr. Garcia outpatient) -reported to vomit and choke at home, speech eval completed on 04/28/2024 demonstrating coughing, NPO midnight with modified barium swallow in the morning on 04/29/2024 -cont MORTGAGE MANAGER sinemet -pt has multiple complicating co morbidities. discusses with Grecia and son at bedside in a compassionate matter that pt is high risk for deterioration, guarded prognosis. they understood, full code currently. more discussions can be held as his hospital course progresses #acute hypoxic respiratory failure #acute on chronic diastolic heart failure #aspiration pneumonia -status: not on o2 at home, has HFpEF on lasix, presented requiring 2L NC, BNP 22,000. CXR with interstitial edema, choked at home -received lasix x1 on 04/27. will not diurese further currently. -resolved on 04/28/2024. On room air and patient breathing well. -holding MORTGAGE MANAGER hydralazine and amlodipine and lasix. titrate medications to GDMT if BP allows -surface echo on 04/27/2024 demonstrating moderate t
--- NOTE | 2024-04-28 13:01 | P.PNNP_ITS ---
Progress Note: A&P Assessment and Plan (1) TACHO (acute kidney injury): Code(s): N17.9 - Acute kidney failure, unspecified Status: Acute Assessment and Plan: * suspect multifactorial etiology: * infection (pneumonia + UTI) * anemia * CHF/volume overload * need for diuretics * element of CKD progression (?) * evaluation to date: * urine electrolytes (By FeUrea) are prerenal * urine eosinophils negative * renal ultrasound without obstruction * UA suggestive of infection * CPK low * follow volume status closely * follow trend of repeat labs and UOP (2) Chronic kidney disease, stage 4 (severe): Code(s): N18.4 - Chronic kidney disease, stage 4 (severe) Status: Chronic Assessment and Plan: * baseline creatinine seems to run ~ 2.1 - 2.7mg/dl in the last year * however, has fluctuated to extremes from review of records * secondary to diabetes, hypertension, and age complicated by recurrent UTIs (3) Altered mental status: Code(s): R41.82 - Altered mental status, unspecified Status: Acute Assessment and Plan: * resolved * alert and oriented x 2 at baseline * suspect acute issues/illnesses contributing to change in mentation * already complicated by Parkinson's disease and underlying dementia * head CT negative * continue supportive therapy (4) Acute hypoxemic respiratory failure: Code(s): J96.01 - Acute respiratory failure with hypoxia Status: Acute Assessment and Plan: * improvement noted * presumably due to CHF exacerbation, volume overload, and pneumonia * s/p IV lasix x 1 since admission -- may need further diuresis * follow volume status closely * on antibiotics for pneumonia * weaned supplemental oxygen today * follow respiratory status (5) Acute on chronic diastolic heart failure: Code(s): I50.33 - Acute on chronic diastolic (congestive) heart failure Status: Acute Assessment and Plan: * clinical improvement noted * admission CXR with cardiomegaly, pulmonary vascular congestion and mild pu lmonary edema and small bilateral pleural effusions * elevated BNP on admission as well * recent Echo results noted: * preserved EF - 60 - 65% * moderate to severe tricuspid valve regurgitation * moderate pulmonary hypertension, estimated pulmonary arterial systolic pressure is 55 mmHg. * mild to moderate mitral valve regurgitation * despite #1, may need further diuresis later (6) Pneumonia: Code(s): J18.9 - Pneumonia, unspecified organism Status: Acute Assessment and Plan: * possibility based on admission CXR * given admission history, concern is possible aspiration pneumonia * on antibiotics * follow culture data * modified barium swallow tomorrow (7) UTI (urinary tract infection): Code(s): N39.0 - Urinary tract infection, site not specified Status: Chronic Assessment and Plan: * apparently a chronic/recurrent issue * follows with Urology * admission UA suggestive * however, urine culture on 04/23 with Pseudomonas -- unclear of this was ever treated * follow culture data * on antibiotics (8) Anemia: Qualifiers: Anemia type: unspecified type Qualified Code(s): D64.9 - Anemia, unspecified Code(s): D64.9 - Anemia, unspecified Status: Chronic Assessment and Plan: * chronic issue * partly related to underlying CKD * may be exacerbated by current illness/infection * known issue with iron d
--- NOTE | 2024-04-28 13:01 | PM.PNNEP ---
Progress Note: A&P Assessment and Plan (1) TACHO (acute kidney injury): Code(s): N17.9 - Acute kidney failure, unspecified Status: Acute Assessment and Plan: suspect multifactorial etiology: infection (pneumonia + UTI) anemia CHF/volume overload need for diuretics element of CKD progression (?) evaluation to date: urine electrolytes (By FeUrea) are prerenal urine eosinophils negative renal ultrasound without obstruction UA suggestive of infection CPK low follow volume status closely follow trend of repeat labs and UOP (2) Chronic kidney disease, stage 4 (severe): Code(s): N18.4 - Chronic kidney disease, stage 4 (severe) Status: Chronic Assessment and Plan: baseline creatinine seems to run ~ 2.1 - 2.7mg/dl in the last year however, has fluctuated to extremes from review of records secondary to diabetes, hypertension, and age complicated by recurrent UTIs (3) Altered mental status: Code(s): R41.82 - Altered mental status, unspecified Status: Acute Assessment and Plan: resolved alert and oriented x 2 at baseline suspect acute issues/illnesses contributing to change in mentation already complicated by Parkinson's disease and underlying dementia head CT negative continue supportive therapy (4) Acute hypoxemic respiratory failure: Code(s): J96.01 - Acute respiratory failure with hypoxia Status: Acute Assessment and Plan: improvement noted presumably due to CHF exacerbation, volume overload, and pneumonia s/p IV lasix x 1 since admission -- may need further diuresis follow volume status closely on antibiotics for pneumonia weaned supplemental oxygen today follow respiratory status (5) Acute on chronic diastolic heart failure: Code(s): I50.33 - Acute on chronic diastolic (congestive) heart failure Status: Acute Assessment and Plan: clinical improvement noted admission CXR with cardiomegaly, pulmonary vascular congestion and mild pulmonary edema and small bilateral pleural effusions elevated BNP on admission as well recent Echo results noted: preserved EF - 60 - 65% moderate to severe tricuspid valve regurgitation moderate pulmonary hypertension, estimated pulmonary arterial systolic pressure is 55 mmHg. mild to moderate mitral valve regurgitation despite #1, may need further diuresis later (6) Pneumonia: Code(s): J18.9 - Pneumonia, unspecified organism Status: Acute Assessment and Plan: possibility based on admission CXR given admission history, concern is possible aspiration pneumonia on antibiotics follow culture data modified barium swallow tomorrow (7) UTI (urinary tract infection): Code(s): N39.0 - Urinary tract infection, site not specified Status: Chronic Assessment and Plan: apparently a chronic/recurrent issue follows with Urology admission UA suggestive however, urine culture on 04/23 with Pseudomonas -- unclear of this was ever treated follow culture data on antibiotics (8) Anemia: Qualifiers: Anemia type: unspecified type Qualified Code(s): D64.9 - Anemia, unspecified Code(s): D64.9 - Anemia, unspecified Status: Chronic Assessment and Plan: chronic issue partly related to underlying CKD may be exacerbated by current illness/infection known issue with iron deficiency - remains on oral iron on outpatient DC -- possible resistance due to inflammation (?) PRBC transfusion per protocol follow trend of H/H (9) Hypertension: Qualifiers: Hypertension type: essential hypertension Qualified Code(s): I10 - Essential (primary) hypertension Code(s): I10 - Essential (primary) hypertension Status: Chronic Assessment and Plan: reasonable control follow trend of hemodynamics (10) Diabetes mellitus: Qualifiers: Diab
[2024-04-28 13:21] LABS: Hematocrit 27.2 % (42.0-52.0); Hemoglobin 7.9 g/dL (14.0-18.0)
[2024-04-28 15:20] LABS: Glucose Point of Care 125 mg/dl (65-105)
[2024-04-28 16:43] LABS: Glucose Point of Care 109 mg/dl (65-105)
[2024-04-28] MEDS: MELATONIN 5 MG TABLET 10 MG PO (20:49)
[2024-04-28] MEDS: DONEPEZIL HCL 5 MG TABLET PO (20:49)
[2024-04-28] MEDS: TAMSULOSIN HCL 0.4 MG CAPSULE PO (20:49)
[2024-04-28] MEDS: CARBIDOPA/LEVODOPA 25/100 MG CR TABLET 1 TABLET PO (20:50)
[2024-04-28 20:54] LABS: Glucose Point of Care 97 mg/dl (65-105)
[2024-04-29] VITALS (15 sets, daily range): BP systolic 136–142; BP diastolic 41–56; PULSE 45–69; RESP 18–22; TEMP 36.2–36.9; O2SAT 90–96
[2024-04-29] MEDS: metroNIDAZOLE 500 MG/ISO 100ML 500 MG/100 ML BAG 100 MG IVPB ×3 (01:08→17:27)
[2024-04-29 06:34] LABS: Basophils Percent Auto 0.5 % (0.2-1.2); Eosinophils Absolute Auto 0.6 K/mm3 (0-0.3); Eosinophils Percent Auto 7.4 % (0-4.4); Hematocrit 28.6 % (42.0-52.0); Hemoglobin 8.3 g/dL (14.0-18.0); Immature Granulocyte Absolute 0.03 K/mm3 (0.00-0.031); Immature Granulocyte Percent A 0.4 % (0-0.5); Lymphocytes Absolute Auto 0.44 K/mm3 (0.9-3.2); Lymphocytes Percent Auto 5.8 % (18.3-44.2); Mean Corpuscular Hemoglobin 27.9 pg (26-34); Mean Platelet Volume 11.6 fl (7.4-10.4); Monocytes Absolute Auto 0.7 K/mm3 (0.1-0.6); Monocytes Percent Auto 9.5 % (2.6-8.5); Neutrophils Absolute Auto 5.8 K/mm3 (1.3-6.7); Neutrophils Percent Auto 76.4 % (45.5-73.1); Platelet Count Result 165 k/mm3 (150-375); Red Blood Count 2.98 M/mm3 (4.6-6.20); Red Cell Distribution Width 17.6 % (11.5-14.5); White Blood Count 7.6 K/mm3 (4.5-10.0)
[2024-04-29 06:45] LABS: Albumin Level 3.5 g/dL (3.5-5.1); Alkaline Phosphatase 60 U/L (38-126); Anion Gap 10 mmol/L (4-12); Aspartate Amino Transferase 13 U/L (17-59); Bilirubin,Total 0.6 mg/dL (0.2-1.3); Blood Urea Nitrogen 85 mg/dL (9-20); Calcium 8.5 mg/dL (8.4-10.2); Carbon Dioxide 23 mmol/L (22-30); Chloride 111 mmol/L (98-107); Estimated CRCL calculation 14 ml/min; Estimated Glomerular Filt Rate 14; Glucose 78 mg/dL (65-110); Magnesium 2.3 mg/dL (1.6-2.3); Potassium 4.6 mmol/L (3.4-5.0); Sodium 144 mmol/L (137-145)
[2024-04-29 07:20] LABS: Hypochromasia 1+; Platelet Estimate Adequate (Adequate)
[2024-04-29 07:21] LABS: Anisocytosis 1+; Poikilocytosis 1+; Schistocytes None Seen
[2024-04-29 08:27] LABS: Alanine Aminotransferase < 6 U/L (6-50)
[2024-04-29 08:48] LABS: Glucose Point of Care 95 mg/dl (65-105)
[2024-04-29] MEDS: ASPIRIN 81 MG ENTERIC TABLET PO (09:48)
[2024-04-29] MEDS: CARBIDOPA/LEVODOPA 25/100 MG TABLET 3 TABLET PO ×3 (09:48→17:28)
[2024-04-29] MEDS: FINASTERIDE 5 MG TABLET PO (09:48)
[2024-04-29] MEDS: FERROUS SULFATE 325 MG TABLET DR BY MOUTH ×2 (09:48→17:28)
[2024-04-29] MEDS: ATORVASTATIN 40 MG TABLET PO (09:48)
[2024-04-29] MEDS: EPOETIN ALFA-EPBX 10,000 UNITS/ML VIAL 10000 UNITS SUB-Q (09:48)
[2024-04-29] MEDS: SODIUM BICARBONATE TAB 650 MG TABLET PO (09:48)
--- NOTE | 2024-04-29 09:54 | PCSTNOTE ---
Please refer to the Modified Barium Swallow Evaluation in the EMR.
[2024-04-29] MEDS: TOLNAFTATE 1% POWDER 45 GM BTL 1 APPLIC TOPICAL ×2 (12:19→21:06)
[2024-04-29 12:38] LABS: Glucose Point of Care 91 mg/dl (65-105)
[2024-04-29 16:28] LABS: Glucose Point of Care 132 mg/dl (65-105)
--- NOTE | 2024-04-29 17:07 | WPDNEUROPN ---
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 insulin use: without termite treater use Diabetes mellitus complication status: without complication Qualified Code(s): E11.9 - Type 2 diabetes mellitus without complications Code(s): E11.9 - Type 2 diabetes mellitus without complications Status: Chronic (3) Chronic kidney disease, stage 4 (severe): Code(s): N18.4 - Chronic kidney disease, stage 4 (severe) Status: Chronic (4) A-fib: Qualifiers: Atrial fibrillation type: unspecified Qualified Code(s): I48.91 - Unspecified atrial fibrillation Code(s): I48.91 - Unspecified atrial fibrillation Status: Acute (5) Recurrent UTI: Code(s): N39.0 - Urinary tract infection, site not specified Status: Acute (6) Decreased mobility: Code(s): R26.89 - Other abnormalities of gait and mobility Status: Acute Plan I tried to answer the questions the family had regarding the future care of Parkinson disease. The try some medications given the age in stages concurrent medical conditions is limited. He has occasional nightmares and advised to take the Aricept in the morning. Night dose of Sinemet 25/100 given controlled release formulation is less likely with a cause. I shall be glad to follow him in my office upon discharge. For she has numerous other medical problems for which he is getting attention from various specialists. Subjective Date/time seen: 04/29/24 17:07 Interval history: The patient has been diagnosed to have Parkinson disease for over 15 years. He was initially under care of Dr. Rogers at [facility]. Subsequently he has been followed by Dr. Bullock at the local hospital and he has done fair. He has numerous other medical problems including anemia,, chronic kidney disease with acute exacerbation, diabetes mellitus, mild cognitive impairment currently on Aricept, congestive cardiac failure and pneumonia and urinary tract infection. 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 Patient's and son were present the time of evaluation. Patient is fairly handicap in terms of mobility. He has been on Sinemet 25/100, 3 tablets 3 times a day and Sinemet 50/200, 1 tablet at bedtime. Family is question that he has any room for further changes in the medications or room for improvement. He required fair amount of help with activities of daily living. He can feed himself but requires assistance with transfers and ambulation. He does a walker. Review of Systems Review of Systems: All systems reviewed & are unremarkable except as noted in HPI and below Exam Narrative: Alert and oriented and cooperative. No aphasia or dysarthria. Speech is somewhat monotonous. No drooling of saliva noted. Moderate cogwheeling no dyskinesia. Moving both upper and lower limbs. No other additional findings were noted. Objective Data Vital Signs Vital Signs: Vital Signs - 24 hr 04/28/24 18:00 04/28/24 20:57 04/28/24 20:00 Temperature 37.1 C Pulse Rate 58 L 55 L Respiratory Rate 18 Blood Pressure 132/44 L Pulse Oximetry 95 Oxygen Delivery Room Air 04/28/24 20:00 04/28/24 22:00 04/28/24 23:49 Temperature 37.1 C Pulse Rate 55 L 60 49 L Respiratory Rate 18 Blood Pressure 128/52 L Pulse Oximetry 95 Oxygen Delivery 04/29/24 00:00 04/29/24 00:00 04/29/24 02:00 Temperature Pulse Rate 62 62 Respiratory Rate Blood Pressure Pulse Oximetry Oxygen Delivery Room
--- NOTE | 2024-04-29 18:18 | PM.IMPN ---
Progress Note: A&P Assessment and Plan (1) UTI (urinary tract infection): Code(s): N39.0 - Urinary tract infection, site not specified Status: Chronic (2) Congestive heart failure: Code(s): I50.9 - Heart failure, unspecified Status: Acute (3) Acute hypoxic respiratory failure: Code(s): J96.01 - Acute respiratory failure with hypoxia Status: Acute (4) Parkinson disease: Qualifiers: Dyskinesia presence: without dyskinesia Fluctuating manifestations: without fluctuating manifestations Qualified Code(s): G20.A1 - Parkinson's disease without dyskinesia, without mention of fluctuations Code(s): G20 - Parkinson's disease Status: Chronic (5) Hypertension: Qualifiers: Hypertension type: essential hypertension Qualified Code(s): I10 - Essential (primary) hypertension Code(s): I10 - Essential (primary) hypertension Status: Chronic (6) BPH (benign prostatic hyperplasia): Qualifiers: Lower urinary tract symptom detail: urinary retention Lower urinary tract symptom presence: symptoms present Qualified Code(s): N40.1 - Benign prostatic hyperplasia with lower urinary tract symptoms; R33.8 - Other retention of urine Code(s): N40.0 - Benign prostatic hyperplasia without lower urinary tract symptoms Status: Acute (7) A-fib: Qualifiers: Atrial fibrillation type: unspecified Qualified Code(s): I48.91 - Unspecified atrial fibrillation Code(s): I48.91 - Unspecified atrial fibrillation Status: Acute (8) Acute on chronic anemia: Code(s): D64.9 - Anemia, unspecified Status: Resolved (9) TACHO (acute kidney injury): Code(s): N17.9 - Acute kidney failure, unspecified Status: Acute Plan 84y.o. male w/ PMH dementia, parkinson's (follows with Dr. Garcia), HTN, history of CVA without residual deficit, diastolic heart failure EF 50-55%, a fib on AC, CKD stage 4 (follows with Dr. 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 Garland), NIDDM, secondary hyperparaythyroidism, hx of COVID in 2022. In the past 2 weeks he had episodes of grunting and clutching his right arm, leaning to the right. Visited [facility] on 04/[address] head was without acute abnormality. 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 Family reports he had nausea and vomiting and possibly choking, as well as diarrhea with dark stool the past 3 days DISPATCHER TOW TR[employer], but not since admission yet. Found to have multiple issues and admitted on o04/26/24 #lethargy, altered mental status #hx of parkinson's and dementia -status:acute on chronic, acute component resolved -pt has history of lethargy, dementia, dependent on at home. has multiple acute illness which can exacerbate his underlying neurocognitive decline. Resolved on 04/28/2024. Neurology consultation completed by Dr. Lomas (follows with Dr. 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 discusses with Grecia and son at bedside in a compassionate matter that pt is high risk for deterioration, guarded prognosis. they understood, full code currently. more discussions can be held as his hospital course progresses #acute hypoxic respiratory failure #acute on chronic diastolic heart failure #aspiration pneumonia -status: not on o2 at home, has HFpEF on lasix, presented requiring 2L NC, BNP 22,000. CXR with interstitial edema, choked at home -received lasix x1 on 04/27. will not diurese further currently. -resolved on 04/28/2024. On room air and patient breathing well. 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 titrate medications to GDMT if BP allows -surface echo on 04/27/2024 demonstrating moderate t
[2024-04-29 19:58] LABS: Glucose Point of Care 186 mg/dl (65-105)
[2024-04-29] MEDS: TAMSULOSIN HCL 0.4 MG CAPSULE PO (21:06)
[2024-04-29] MEDS: CARBIDOPA/LEVODOPA 25/100 MG CR TABLET 1 TABLET PO (21:06)
[2024-04-29] MEDS: DONEPEZIL HCL 5 MG TABLET PO (21:06)
[2024-04-29] MEDS: MELATONIN 5 MG TABLET 10 MG PO (21:06)
[2024-04-30] VITALS (11 sets, daily range): BP systolic 130–155; BP diastolic 56–65; PULSE 52–74; RESP 16–20; TEMP 36.2–36.5; O2SAT 93–96
[2024-04-30] MEDS: metroNIDAZOLE 500 MG/ISO 100ML 500 MG/100 ML BAG 100 MG IVPB ×2 (01:05→08:35)
[2024-04-30 04:25] LABS: Basophils Percent Auto 0.5 % (0.2-1.2); Eosinophils Absolute Auto 0.7 K/mm3 (0-0.3); Eosinophils Percent Auto 9.7 % (0-4.4); Hemoglobin 8.4 g/dL (14.0-18.0); Immature Granulocyte Absolute 0.02 K/mm3 (0.00-0.031); Immature Granulocyte Percent A 0.3 % (0-0.5); Lymphocytes Absolute Auto 0.41 K/mm3 (0.9-3.2); Lymphocytes Percent Auto 5.4 % (18.3-44.2); Mean Corpuscular Hemoglobin 27.9 pg (26-34); Mean Corpuscular Volume 96.3 fl (80-100); Mean Platelet Volume 11.1 fl (7.4-10.4); Monocytes Absolute Auto 0.8 K/mm3 (0.1-0.6); Monocytes Percent Auto 10.3 % (2.6-8.5); Neutrophils Absolute Auto 5.6 K/mm3 (1.3-6.7); Neutrophils Percent Auto 73.8 % (45.5-73.1); Platelet Count Result 157 k/mm3 (150-375); Red Blood Count 3.01 M/mm3 (4.6-6.20); Red Cell Distribution Width 17.9 % (11.5-14.5); White Blood Count 7.6 K/mm3 (4.5-10.0)
[2024-04-30 04:42] LABS: Albumin Level 3.2 g/dL (3.5-5.1); Alkaline Phosphatase 58 U/L (38-126); Anion Gap 7 mmol/L (4-12); Aspartate Amino Transferase 13 U/L (17-59); Bilirubin,Total 0.6 mg/dL (0.2-1.3); Blood Urea Nitrogen 87 mg/dL (9-20); Calcium 8.4 mg/dL (8.4-10.2); Carbon Dioxide 23 mmol/L (22-30); Chloride 112 mmol/L (98-107); Estimated CRCL calculation 15 ml/min; Estimated Glomerular Filt Rate 15; Glucose 107 mg/dL (65-110); Potassium 4.4 mmol/L (3.4-5.0); Sodium 142 mmol/L (137-145)
[2024-04-30 05:17] LABS: Alanine Aminotransferase < 6 U/L (6-50)
[2024-04-30 05:36] LABS: Platelet Estimate Adequate (Adequate)
[2024-04-30 05:37] LABS: Anisocytosis 1+; Hypochromasia 1+; Schistocytes None Seen
[2024-04-30] MEDS: CARBIDOPA/LEVODOPA 25/100 MG TABLET 3 TABLET PO ×3 (08:34→18:21)
[2024-04-30] MEDS: FINASTERIDE 5 MG TABLET PO (08:34)
[2024-04-30] MEDS: FERROUS SULFATE 325 MG TABLET DR BY MOUTH ×2 (08:34→18:21)
[2024-04-30] MEDS: ASPIRIN 81 MG ENTERIC TABLET PO (08:34)
[2024-04-30] MEDS: ATORVASTATIN 40 MG TABLET PO (08:34)
[2024-04-30] MEDS: TOLNAFTATE 1% POWDER 45 GM BTL 1 APPLIC TOPICAL ×2 (08:35→21:26)
--- NOTE | 2024-04-30 10:21 | P.PNNP_ITS ---
Progress Note: A&P Assessment and Plan (1) TACHO (acute kidney injury): Code(s): N17.9 - Acute kidney failure, unspecified Status: Acute Assessment and Plan: * slow improvement noted * suspect multifactorial etiology: * infection (pneumonia + UTI) * anemia * CHF/volume overload * need for diuretics * element of CKD progression (?) * evaluation to date: * urine electrolytes (By FeUrea) are prerenal * urine eosinophils negative * renal ultrasound without obstruction * UA suggestive of infection * CPK low * follow volume status closely * follow trend of repeat labs and UOP (2) Chronic kidney disease, stage 4 (severe): Code(s): N18.4 - Chronic kidney disease, stage 4 (severe) Status: Chronic Assessment and Plan: * baseline creatinine seems to run ~ 2.1 - 2.7mg/dl in the last year * however, has fluctuated to extremes from review of records * secondary to diabetes, hypertension, and age complicated by recurrent UTIs (3) Altered mental status: Code(s): R41.82 - Altered mental status, unspecified Status: Acute Assessment and Plan: * resolved * alert and oriented x 2 at baseline * suspect acute issues/illnesses contributing to change in mentation * already complicated by Parkinson's disease and underlying dementia * head CT negative * continue supportive therapy (4) Acute hypoxemic respiratory failure: Code(s): J96.01 - Acute respiratory failure with hypoxia Status: Acute Assessment and Plan: * improvement noted * presumably due to CHF exacerbation, volume overload, and pneumonia * s/p IV lasix x 1 since admission -- may need further diuresis * follow volume status closely * on antibiotics for pneumonia * weaned supplemental oxygen today * follow respiratory status (5) Acute on chronic diastolic heart failure: Code(s): I50.33 - Acute on chronic diastolic (congestive) heart failure Status: Acute Assessment and Plan: * clinical improvement noted * admission CXR with cardiomegaly, pulmonary vascular congestion and mild pulmonary edema and small bilateral pleural effusions * elevated BNP on admission as well * recent Echo results noted: * preserved EF - 60 - 65% * moderate to severe tricuspid valve regurgitation * moderate pulmonary hypertension, estimated pulmonary arterial systolic pressure is 55 mmHg. * mild to moderate mitral valve regurgitation * despite #1, may need further diuresis later (6) Pneumonia: Code(s): J18.9 - Pneumonia, unspecified organism Status: Acute Assessment and Plan: * possibility based on admission CXR * given admission history, concern is possible aspiration pneumonia * on antibiotics * follow culture data (7) UTI (urinary tract infection): Code(s): N39.0 - Urinary tract infection, site not specified Status: Chronic Assessment and Plan: * apparently a chronic/recurrent issue * follows with Urology * admission UA suggestive * however, urine culture on 04/23 with Pseudomonas -- unclear of this was ever treated * follow culture data - Pseudomonas discovered again * on antibiotics (8) Anemia: Qualifiers: Anemia type: unspecified type Qualified Code(s): D64.9 - Anemia, unspecified Code(s): D64.9 - Anemia, unspecified Status: Chronic Assessment and Plan: * chronic issue * partly related to underlying CKD * may be exacerbated by current illness/infection * kn
--- NOTE | 2024-04-30 10:21 | PM.PNNEP ---
Progress Note: A&P Assessment and Plan (1) TACHO (acute kidney injury): Code(s): N17.9 - Acute kidney failure, unspecified Status: Acute Assessment and Plan: slow improvement noted suspect multifactorial etiology: infection (pneumonia + UTI) anemia CHF/volume overload need for diuretics element of CKD progression (?) evaluation to date: urine electrolytes (By FeUrea) are prerenal urine eosinophils negative renal ultrasound without obstruction UA suggestive of infection CPK low follow volume status closely follow trend of repeat labs and UOP (2) Chronic kidney disease, stage 4 (severe): Code(s): N18.4 - Chronic kidney disease, stage 4 (severe) Status: Chronic Assessment and Plan: baseline creatinine seems to run ~ 2.1 - 2.7mg/dl in the last year however, has fluctuated to extremes from review of records secondary to diabetes, hypertension, and age complicated by recurrent UTIs (3) Altered mental status: Code(s): R41.82 - Altered mental status, unspecified Status: Acute Assessment and Plan: resolved alert and oriented x 2 at baseline suspect acute issues/illnesses contributing to change in mentation already complicated by Parkinson's disease and underlying dementia head CT negative continue supportive therapy (4) Acute hypoxemic respiratory failure: Code(s): J96.01 - Acute respiratory failure with hypoxia Status: Acute Assessment and Plan: improvement noted presumably due to CHF exacerbation, volume overload, and pneumonia s/p IV lasix x 1 since admission -- may need further diuresis follow volume status closely on antibiotics for pneumonia weaned supplemental oxygen today follow respiratory status (5) Acute on chronic diastolic heart failure: Code(s): I50.33 - Acute on chronic diastolic (congestive) heart failure Status: Acute Assessment and Plan: clinical improvement noted admission CXR with cardiomegaly, pulmonary vascular congestion and mild pulmonary edema and small bilateral pleural effusions elevated BNP on admission as well recent Echo results noted: preserved EF - 60 - 65% moderate to severe tricuspid valve regurgitation moderate pulmonary hypertension, estimated pulmonary arterial systolic pressure is 55 mmHg. mild to moderate mitral valve regurgitation despite #1, may need further diuresis later (6) Pneumonia: Code(s): J18.9 - Pneumonia, unspecified organism Status: Acute Assessment and Plan: possibility based on admission CXR given admission history, concern is possible aspiration pneumonia on antibiotics follow culture data (7) UTI (urinary tract infection): Code(s): N39.0 - Urinary tract infection, site not specified Status: Chronic Assessment and Plan: apparently a chronic/recurrent issue follows with Urology admission UA suggestive however, urine culture on 04/23 with Pseudomonas -- unclear of this was ever treated follow culture data - Pseudomonas discovered again on antibiotics (8) Anemia: Qualifiers: Anemia type: unspecified type Qualified Code(s): D64.9 - Anemia, unspecified Code(s): D64.9 - Anemia, unspecified Status: Chronic Assessment and Plan: chronic issue partly related to underlying CKD may be exacerbated by current illness/infection known issue with iron deficiency - remains on oral iron on outpatient DC -- possible resistance due to inflammation (?) getting Epogen while hospitalized PRBC transfusion per protocol follow trend of H/H (9) Hypertension: Qualifiers: Hypertension type: essential hypertension Qualified Code(s): I10 - Essential (primary) hypertension Code(s): I10 - Essential (primary) hypertension Status: Chronic Assessment and Plan: reasonable control follow trend of hemodynamics
[2024-04-30] MEDS: levoFLOXacin 750 MG TABLET PO (13:13)
--- NOTE | 2024-04-30 18:51 | PC.NURSE ---
This patient, Chris Carrera, was transferred to [facility] on 04/30/24 at 1835. Personal belongings sent with patient. Report given to Stacey. Appropriate documentation sent with patient.
--- NOTE | 2024-04-30 18:53 | PM.IMPN ---
Progress Note: A&P Assessment and Plan (1) UTI (urinary tract infection): Code(s): N39.0 - Urinary tract infection, site not specified Status: Chronic (2) Congestive heart failure: Code(s): I50.9 - Heart failure, unspecified Status: Acute (3) Acute hypoxic respiratory failure: Code(s): J96.01 - Acute respiratory failure with hypoxia Status: Acute (4) Parkinson disease: Qualifiers: Dyskinesia presence: without dyskinesia Fluctuating manifestations: without fluctuating manifestations Qualified Code(s): G20.A1 - Parkinson's disease without dyskinesia, without mention of fluctuations Code(s): G20 - Parkinson's disease Status: Chronic (5) Hypertension: Qualifiers: Hypertension type: essential hypertension Qualified Code(s): I10 - Essential (primary) hypertension Code(s): I10 - Essential (primary) hypertension Status: Chronic (6) BPH (benign prostatic hyperplasia): Qualifiers: Lower urinary tract symptom detail: urinary retention Lower urinary tract symptom presence: symptoms present Qualified Code(s): N40.1 - Benign prostatic hyperplasia with lower urinary tract symptoms; R33.8 - Other retention of urine Code(s): N40.0 - Benign prostatic hyperplasia without lower urinary tract symptoms Status: Acute (7) A-fib: Qualifiers: Atrial fibrillation type: unspecified Qualified Code(s): I48.91 - Unspecified atrial fibrillation Code(s): I48.91 - Unspecified atrial fibrillation Status: Acute (8) Acute on chronic anemia: Code(s): D64.9 - Anemia, unspecified Status: Resolved (9) TACHO (acute kidney injury): Code(s): N17.9 - Acute kidney failure, unspecified Status: Acute Plan 84y.o. male w/ PMH dementia, parkinson's (follows with Dr. Garcia), HTN, history of CVA without residual deficit, diastolic heart failure EF 50-55%, a fib on AC, CKD stage 4 (follows with Dr. 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 Garland), NIDDM, secondary hyperparaythyroidism, hx of COVID in 2022. In the past 2 weeks he had episodes of grunting and clutching his right arm, leaning to the right. Visited [facility] on 04/[address] head was without acute abnormality. 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 Family reports he had nausea and vomiting and possibly choking, as well as diarrhea with dark stool the past 3 days FIRE OFFICIAL, but not since admission yet. Found to have multiple issues and admitted on 04/26/24 Acute encephalopathy, Lethargy, altered mental status Parkinson's and dementia -status:acute on chronic, acute component resolved -pt has history of lethargy, dementia, dependent on at home. has multiple acute illness which can exacerbate his underlying neurocognitive decline. Resolved on 04/28/2024. Neurology consultation completed by Dr. Lomas (follows with Dr. Garcia outpatient) -reported to vomit and choke at home, speech eval completed on 04/28/2024 demonstrating coughing, NPO midnight with modified barium swallow in the morning on 04/29/2024 -cont FIRE OFFICIAL sinemet -pt has multiple complicating co morbidities. discusses with Grecia and son at bedside in a compassionate matter that pt is high risk for deterioration, guarded prognosis. they understood, full code currently. more discussions can be held as his hospital course progresses Acute hypoxic respiratory failure Acute on chronic diastolic heart failure Aspiration pneumonia -status: not on o2 at home, has HFpEF on lasix, presented requiring 2L NC, BNP 22,000. CXR with interstitial edema, choked at home -received lasix x1 on 04/27. will not diurese further currently. -resolved on 04/28/2024. On room air and patient breathing well. -holding FIRE OFFICIAL hydralazine and amlodipine and lasix. titrate medications to GDMT if BP allows -surface echo on 04/27/2024 demonstrating
[2024-04-30] MEDS: CARBIDOPA/LEVODOPA 25/100 MG CR TABLET 1 TABLET PO (21:25)
[2024-04-30] MEDS: TAMSULOSIN HCL 0.4 MG CAPSULE PO (21:26)
[2024-04-30] MEDS: MELATONIN 5 MG TABLET 10 MG PO (21:26)
[2024-04-30] MEDS: DONEPEZIL HCL 5 MG TABLET PO (21:26)
[2024-05-01 06:12] VITALS: BP 161/74; PULSE 63; RESP 18; TEMP 36.6; O2SAT 96
[2024-05-01 06:28] LABS: Basophils Percent Auto 0.4 % (0.2-1.2); Eosinophils Absolute Auto 1.1 K/mm3 (0-0.3); Eosinophils Percent Auto 12.8 % (0-4.4); Hematocrit 30.8 % (42.0-52.0); Hemoglobin 9.3 g/dL (14.0-18.0); Immature Granulocyte Absolute 0.04 K/mm3 (0.00-0.031); Immature Granulocyte Percent A 0.5 % (0-0.5); Lymphocytes Percent Auto 4.8 % (18.3-44.2); Mean Corpuscular HGB Conc 30.2 g/dl (32-36); Mean Corpuscular Hemoglobin 28.5 pg (26-34); Mean Corpuscular Volume 94.5 fl (80-100); Mean Platelet Volume 11.2 fl (7.4-10.4); Monocytes Absolute Auto 0.8 K/mm3 (0.1-0.6); Monocytes Percent Auto 9.5 % (2.6-8.5); Platelet Count Result 147 k/mm3 (150-375); Red Blood Count 3.26 M/mm3 (4.6-6.20); Red Cell Distribution Width 17.6 % (11.5-14.5); White Blood Count 8.3 K/mm3 (4.5-10.0)
[2024-05-01 06:34] LABS: Albumin Level 3.7 g/dL (3.5-5.1); Alkaline Phosphatase 65 U/L (38-126); Anion Gap 9 mmol/L (4-12); Aspartate Amino Transferase 18 U/L (17-59); Bilirubin,Total 0.7 mg/dL (0.2-1.3); Blood Urea Nitrogen 77 mg/dL (9-20); Calcium 8.7 mg/dL (8.4-10.2); Carbon Dioxide 25 mmol/L (22-30); Chloride 111 mmol/L (98-107); Estimated CRCL calculation 14 ml/min; Estimated Glomerular Filt Rate 17; Glucose 105 mg/dL (65-110); Potassium 4.2 mmol/L (3.4-5.0); Sodium 145 mmol/L (137-145)
[2024-05-01 07:27] LABS: Alanine Aminotransferase < 6 U/L (6-50)
[2024-05-01] MEDS: ASPIRIN 81 MG ENTERIC TABLET PO (08:49)
[2024-05-01] MEDS: FINASTERIDE 5 MG TABLET PO (08:49)
[2024-05-01] MEDS: FERROUS SULFATE 325 MG TABLET DR BY MOUTH ×2 (08:49→16:59)
[2024-05-01] MEDS: ATORVASTATIN 40 MG TABLET PO (08:49)
[2024-05-01] MEDS: CARBIDOPA/LEVODOPA 25/100 MG TABLET 3 TABLET PO ×3 (08:49→16:59)
[2024-05-01] MEDS: TOLNAFTATE 1% POWDER 45 GM BTL 1 APPLIC TOPICAL ×2 (08:50→20:40)
[2024-05-01 10:00] VITALS: BP 147/60; PULSE 64; RESP 20; TEMP 36.4; O2SAT 95
[2024-05-01] MEDS: EPOETIN ALFA-EPBX 10,000 UNITS/ML VIAL 10000 UNITS SUB-Q (10:09)
--- NOTE | 2024-05-01 12:07 | PM.IMPN ---
Progress Note: A&P Assessment and Plan (1) UTI (urinary tract infection): Code(s): N39.0 - Urinary tract infection, site not specified Status: Chronic (2) Congestive heart failure: Code(s): I50.9 - Heart failure, unspecified Status: Acute (3) Acute hypoxic respiratory failure: Code(s): J96.01 - Acute respiratory failure with hypoxia Status: Acute (4) Parkinson disease: Qualifiers: Dyskinesia presence: without dyskinesia Fluctuating manifestations: without fluctuating manifestations Qualified Code(s): G20.A1 - Parkinson's disease without dyskinesia, without mention of fluctuations Code(s): G20 - Parkinson's disease Status: Chronic (5) Hypertension: Qualifiers: Hypertension type: essential hypertension Qualified Code(s): I10 - Essential (primary) hypertension Code(s): I10 - Essential (primary) hypertension Status: Chronic (6) BPH (benign prostatic hyperplasia): Qualifiers: Lower urinary tract symptom detail: urinary retention Lower urinary tract symptom presence: symptoms present Qualified Code(s): N40.1 - Benign prostatic hyperplasia with lower urinary tract symptoms; R33.8 - Other retention of urine Code(s): N40.0 - Benign prostatic hyperplasia without lower urinary tract symptoms Status: Acute (7) A-fib: Qualifiers: Atrial fibrillation type: unspecified Qualified Code(s): I48.91 - Unspecified atrial fibrillation Code(s): I48.91 - Unspecified atrial fibrillation Status: Acute (8) Acute on chronic anemia: Code(s): D64.9 - Anemia, unspecified Status: Resolved (9) TACHO (acute kidney injury): Code(s): N17.9 - Acute kidney failure, unspecified Status: Acute Plan Acute encephalopathy, Lethargy, altered mental status Parkinson's and dementia -status:acute on chronic, acute component resolved CT brain showing no acute intracranial abnormalities. Recent TSH and B12/foalte levels okay. -pt has history of lethargy, dementia, dependent on at home. has multiple acute illness which can exacerbate his underlying neurocognitive decline. Resolved on 04/28/2024. Neurology consultation completed by Dr. Lomas (follows with Dr. Garcia outpatient) -reported to vomit and choke at home, speech eval completed on 04/28/2024 demonstrating coughing, NPO midnight with modified barium swallow in the morning on 04/29/2024s howing patient can have a regular level 7 with thin liquid diet. -cont ROLFER sinemet -pt a full code currently Acute hypoxic respiratory failure Acute on chronic diastolic heart failure Aspiration pneumonia -status: not on O2 at home, has HFpEF on lasix, presented requiring 2L NC, BNP 22,000. CXR with interstitial edema, choked at home -received lasix x1 on 04/27. will not diurese further currently. -resolved on 04/28/2024. On room air and patient breathing well. -holding ROLFER hydralazine and amlodipine and lasix. titrate medications to GDMT if BP allows -surface echo on 04/27/2024 demonstrating moderate to severe tricuspid valve regurg, moderate pulmonary hypertension with a PA SP of 55 mmHg, [id number] mitral valve regurg, left atrial chamber severe enlargement, EF 60-65%, AFib. -treat for aspiration pneumonia. ceftriaxone started on admission 04/27, started flagyl 04/27; changed to Levaquin 04/30 -blood cx 04/26: NGTD Abnormal UA UTI with pseudomonas on 04/23 in ED. Family declined abx treatment at the time patient was in ED. -UA on admission with WBC, bacteria, leuk esterase -started on Levaquin in ED (04/26) but changed to ceftriaxone and Flagyl 04/27 -urine cx 04/27 also growing pseudomonas sensitive to Levaquin 04/30/24: Switch to Levofloxacin Acute on chronic normocytic anemia/SAMMY -HB 6.5 on admission, 1 unit --> 6.9, 1 unit --> 7.9 --> today up to 9.3 -status:normally trends very low. on iron ROLFER -cont ROLFER iron. check stool occult. -continue daily monitoring,
--- NOTE | 2024-05-01 13:23 | PM.PNNEP ---
Progress Note: A&P Assessment and Plan (1) TACHO (acute kidney injury): Code(s): N17.9 - Acute kidney failure, unspecified Status: Acute Assessment and Plan: slow improvement noted suspect multifactorial etiology: infection (pneumonia + UTI) anemia CHF/volume overload need for diuretics element of CKD progression (?) evaluation to date: urine electrolytes (By FeUrea) are prerenal urine eosinophils negative renal ultrasound without obstruction UA suggestive of infection CPK low follow volume status closely follow trend of repeat labs and UOP (2) Chronic kidney disease, stage 4 (severe): Code(s): N18.4 - Chronic kidney disease, stage 4 (severe) Status: Chronic Assessment and Plan: baseline creatinine seems to run ~ 2.1 - 2.7mg/dl in the last year however, has fluctuated to extremes from review of records secondary to diabetes, hypertension, and age complicated by recurrent UTIs (3) Altered mental status: Code(s): R41.82 - Altered mental status, unspecified Status: Acute Assessment and Plan: resolved alert and oriented x 2 at baseline suspect acute issues/illnesses contributing to change in mentation already complicated by Parkinson's disease and underlying dementia head CT negative continue supportive therapy (4) Acute hypoxemic respiratory failure: Code(s): J96.01 - Acute respiratory failure with hypoxia Status: Acute Assessment and Plan: improvement noted presumably due to CHF exacerbation, volume overload, and pneumonia s/p IV lasix x 1 since admission -- may need further diuresis down the road follow volume status closely on antibiotics for pneumonia weaned off supplemental oxygen follow respiratory status (5) Acute on chronic diastolic heart failure: Code(s): I50.33 - Acute on chronic diastolic (congestive) heart failure Status: Acute Assessment and Plan: clinical improvement noted admission CXR with cardiomegaly, pulmonary vascular congestion and mild pulmonary edema and small bilateral pleural effusions elevated BNP on admission as well recent Echo results noted: preserved EF - 60 - 65% moderate to severe tricuspid valve regurgitation moderate pulmonary hypertension, estimated pulmonary arterial systolic pressure is 55 mmHg. mild to moderate mitral valve regurgitation despite #1, may need further diuresis later (6) Pneumonia: Code(s): J18.9 - Pneumonia, unspecified organism Status: Acute Assessment and Plan: possibility based on admission CXR given admission history, concern is possible aspiration pneumonia on antibiotics follow culture data (7) UTI (urinary tract infection): Code(s): N39.0 - Urinary tract infection, site not specified Status: Chronic Assessment and Plan: apparently a chronic/recurrent issue follows with Urology admission UA suggestive - culture with Pseudomonas however, urine culture on 04/23 with Pseudomonas -- unclear of this was ever treated on antibiotics (8) Anemia: Qualifiers: Anemia type: unspecified type Qualified Code(s): D64.9 - Anemia, unspecified Code(s): D64.9 - Anemia, unspecified Status: Chronic Assessment and Plan: chronic issue partly related to underlying CKD may be exacerbated by current illness/infection known issue with iron deficiency - remains on oral iron on outpatient DC -- possible resistance due to inflammation (?) getting Epogen while hospitalized can resume outpatient Epogen/Procrit with discharge facility versus Dr. Magana PRBC transfusion per protocol follow trend of H/H (9) Hypertension: Qualifiers: Hypertension type: essential hypertension Qualified Code(s): I10 - Essential (primary) hypertension Code(s): I10 - Essential (primary) hypertension Status: Chronic Assessmen
--- NOTE | 2024-05-01 13:23 | P.PNNP_ITS ---
Progress Note: A&P Assessment and Plan (1) TACHO (acute kidney injury): Code(s): N17.9 - Acute kidney failure, unspecified Status: Acute Assessment and Plan: * slow improvement noted * suspect multifactorial etiology: * infection (pneumonia + UTI) * anemia * CHF/volume overload * need for diuretics * element of CKD progression (?) * evaluation to date: * urine electrolytes (By FeUrea) are prerenal * urine eosinophils negative * renal ultrasound without obstruction * UA suggestive of infection * CPK low * follow volume status closely * follow trend of repeat labs and UOP (2) Chronic kidney disease, stage 4 (severe): Code(s): N18.4 - Chronic kidney disease, stage 4 (severe) Status: Chronic Assessment and Plan: * baseline creatinine seems to run ~ 2.1 - 2.7mg/dl in the last year * however, has fluctuated to extremes from review of records * secondary to diabetes, hypertension, and age complicated by recurrent UTIs (3) Altered mental status: Code(s): R41.82 - Altered mental status, unspecified Status: Acute Assessment and Plan: * resolved * alert and oriented x 2 at baseline * suspect acute issues/illnesses contributing to change in mentation * already complicated by Parkinson's disease and underlying dementia * head CT negative * continue supportive therapy (4) Acute hypoxemic respiratory failure: Code(s): J96.01 - Acute respiratory failure with hypoxia Status: Acute Assessment and Plan: * improvement noted * presumably due to CHF exacerbation, volume overload, and pneumonia * s/p IV lasix x 1 since admission -- may need further diuresis down the road * follow volume status closely * on antibiotics for pneumonia * weaned off supplemental oxygen * follow respiratory status (5) Acute on chronic diastolic heart failure: Code(s): I50.33 - Acute on chronic diastolic (congestive) heart failure Status: Acute Assessment and Plan: * clinical improvement noted * admission CXR with cardiomegaly, pulmonary vascular congestion and mild pulmonary edema and small bilateral pleural effusions * elevated BNP on admission as well * recent Echo results noted: * preserved EF - 60 - 65% * moderate to severe tricuspid valve regurgitation * moderate pulmonary hypertension, estimated pulmonary arterial systolic pressure is 55 mmHg. * mild to moderate mitral valve regurgitation * despite #1, may need further diuresis later (6) Pneumonia: Code(s): J18.9 - Pneumonia, unspecified organism Status: Acute Assessment and Plan: * possibility based on admission CXR * given admission history, concern is possible aspiration pneumonia * on antibiotics * follow culture data (7) UTI (urinary tract infection): Code(s): N39.0 - Urinary tract infection, site not specified Status: Chronic Assessment and Plan: * apparently a chronic/recurrent issue * follows with Urology * admission UA suggestive - culture with Pseudomonas * however, urine culture on 04/23 with Pseudomonas -- unclear of this was ever treated * on antibiotics (8) Anemia: Qualifiers: Anemia type: unspecified type Qualified Code(s): D64.9 - Anemia, unspecified Code(s): D64.9 - Anemia, unspecified Status: Chronic Assessment and Plan: * chronic issue * partly related to underlying CKD * may be exacerbated by current illness/infection * known issue with iron
[2024-05-01 14:00] VITALS: BP 140/68; PULSE 63; RESP 16; TEMP 36.6; O2SAT 94
[2024-05-01 20:00] VITALS: BP 153/65; PULSE 80; RESP 20; TEMP 36.6; O2SAT 94
[2024-05-01] MEDS: ACETAMINOPHEN 325 MG TABLET 650 MG PO (20:39)
[2024-05-01] MEDS: TAMSULOSIN HCL 0.4 MG CAPSULE PO (20:39)
[2024-05-01] MEDS: CARBIDOPA/LEVODOPA 25/100 MG CR TABLET 1 TABLET PO (20:39)
[2024-05-01] MEDS: DONEPEZIL HCL 5 MG TABLET PO (20:39)
[2024-05-01] MEDS: MELATONIN 5 MG TABLET 10 MG PO (20:40)
[2024-05-01 20:55] LABS: IFOB Positive Control Positive; Immunochemical Fecal Occult Bl Positive (N)
[2024-05-01 21:57] VITALS: O2SAT 94
[2024-05-02 04:00] VITALS: BP 152/68; PULSE 67; RESP 18; TEMP 36.3; O2SAT 94
[2024-05-02 06:57] LABS: Basophils Percent Auto 0.5 % (0.2-1.2); Eosinophils Absolute Auto 1.1 K/mm3 (0-0.3); Eosinophils Percent Auto 12.5 % (0-4.4); Hematocrit 31.3 % (42.0-52.0); Hemoglobin 9.1 g/dL (14.0-18.0); Immature Granulocyte Absolute 0.03 K/mm3 (0.00-0.031); Immature Granulocyte Percent A 0.3 % (0-0.5); Lymphocytes Absolute Auto 0.48 K/mm3 (0.9-3.2); Lymphocytes Percent Auto 5.6 % (18.3-44.2); Mean Corpuscular HGB Conc 29.1 g/dl (32-36); Mean Corpuscular Hemoglobin 28.3 pg (26-34); Mean Corpuscular Volume 97.2 fl (80-100); Mean Platelet Volume 11.6 fl (7.4-10.4); Monocytes Absolute Auto 0.9 K/mm3 (0.1-0.6); Monocytes Percent Auto 10.9 % (2.6-8.5); Neutrophils Absolute Auto 6.1 K/mm3 (1.3-6.7); Neutrophils Percent Auto 70.2 % (45.5-73.1); Nucleated Red Blood Cells Perc 0.2 % (0.0-0.2); Platelet Count Result 160 k/mm3 (150-375); Red Blood Count 3.22 M/mm3 (4.6-6.20); White Blood Count 8.6 K/mm3 (4.5-10.0)
[2024-05-02 07:11] LABS: Albumin Level 3.7 g/dL (3.5-5.1); Alkaline Phosphatase 63 U/L (38-126); Anion Gap 6 mmol/L (4-12); Aspartate Amino Transferase 15 U/L (17-59); Bilirubin,Total 0.6 mg/dL (0.2-1.3); Blood Urea Nitrogen 71 mg/dL (9-20); Calcium 8.9 mg/dL (8.4-10.2); Carbon Dioxide 29 mmol/L (22-30); Chloride 111 mmol/L (98-107); Estimated CRCL calculation 14 ml/min; Estimated Glomerular Filt Rate 17; Glucose 105 mg/dL (65-110); Magnesium 2.1 mg/dL (1.6-2.3); Phosphorus 3.3 mg/dL (2.5-4.5); Potassium 4.2 mmol/L (3.4-5.0); Sodium 146 mmol/L (137-145)
[2024-05-02 07:17] LABS: Alanine Aminotransferase < 6 U/L (6-50)
[2024-05-02 07:35] LABS: Hypochromasia 1+; Platelet Estimate Adequate (Adequate)
[2024-05-02 07:36] LABS: Anisocytosis 1+; Schistocytes None Seen
[2024-05-02 08:00] VITALS: BP 146/62; PULSE 73; RESP 18; O2SAT 92
[2024-05-02] MEDS: CARBIDOPA/LEVODOPA 25/100 MG TABLET 3 TABLET PO ×2 (08:58→12:35)
[2024-05-02] MEDS: ASPIRIN 81 MG ENTERIC TABLET PO (08:59)
[2024-05-02] MEDS: ATORVASTATIN 40 MG TABLET PO (08:59)
[2024-05-02] MEDS: TOLNAFTATE 1% POWDER 45 GM BTL 1 APPLIC TOPICAL (08:59)
[2024-05-02] MEDS: FINASTERIDE 5 MG TABLET PO (08:59)
[2024-05-02] MEDS: FERROUS SULFATE 325 MG TABLET DR BY MOUTH (08:59)
--- NOTE | 2024-05-02 10:11 | PM.PNNEP ---
Progress Note: A&P Assessment and Plan (1) TACHO (acute kidney injury): Code(s): N17.9 - Acute kidney failure, unspecified Status: Acute Assessment and Plan: slow improvement noted - possible new baseline(?) suspect multifactorial etiology: infection (pneumonia + UTI) anemia CHF/volume overload need for diuretics element of CKD progression (?) evaluation to date: urine electrolytes (By FeUrea) are prerenal urine eosinophils negative renal ultrasound without obstruction UA suggestive of infection CPK low follow volume status closely follow trend of repeat labs and UOP (2) Chronic kidney disease, stage 4 (severe): Code(s): N18.4 - Chronic kidney disease, stage 4 (severe) Status: Chronic Assessment and Plan: baseline creatinine seems to run ~ 2.1 - 2.7mg/dl in the last year however, has fluctuated to extremes from review of records secondary to diabetes, hypertension, and age complicated by recurrent UTIs (3) Altered mental status: Code(s): R41.82 - Altered mental status, unspecified Status: Acute Assessment and Plan: resolved alert and oriented x 2 at baseline suspect acute issues/illnesses contributing to change in mentation already complicated by Parkinson's disease and underlying dementia head CT negative continue supportive therapy (4) Acute hypoxemic respiratory failure: Code(s): J96.01 - Acute respiratory failure with hypoxia Status: Acute Assessment and Plan: improvement noted presumably due to CHF exacerbation, volume overload, and pneumonia s/p IV lasix x 1 since admission -- may need further diuresis down the road follow volume status closely on antibiotics for pneumonia weaned off supplemental oxygen follow respiratory status (5) Acute on chronic diastolic heart failure: Code(s): I50.33 - Acute on chronic diastolic (congestive) heart failure Status: Acute Assessment and Plan: clinical improvement noted admission CXR with cardiomegaly, pulmonary vascular congestion and mild pulmonary edema and small bilateral pleural effusions elevated BNP on admission as well recent Echo results noted: preserved EF - 60 - 65% moderate to severe tricuspid valve regurgitation moderate pulmonary hypertension, estimated pulmonary arterial systolic pressure is 55 mmHg. mild to moderate mitral valve regurgitation despite #1, may need further diuresis later (6) Pneumonia: Code(s): J18.9 - Pneumonia, unspecified organism Status: Acute Assessment and Plan: possibility based on admission CXR given admission history, concern is possible aspiration pneumonia on antibiotics follow culture data (7) UTI (urinary tract infection): Code(s): N39.0 - Urinary tract infection, site not specified Status: Chronic Assessment and Plan: apparently a chronic/recurrent issue follows with Urology admission UA suggestive - culture with Pseudomonas however, urine culture on 04/23 (prior to admission) with Pseudomonas -- unclear of this was ever treated on antibiotics (8) Anemia: Qualifiers: Anemia type: unspecified type Qualified Code(s): D64.9 - Anemia, unspecified Code(s): D64.9 - Anemia, unspecified Status: Chronic Assessment and Plan: chronic issue partly related to underlying CKD may be exacerbated by current illness/infection known issue with iron deficiency - remains on oral iron on outpatient DC -- possible resistance due to inflammation (?) getting Epogen while hospitalized can resume outpatient Epogen/Procrit at discharge facility versus follow-up with Dr. Magana PRBC transfusion per protocol follow trend of H/H (9) Hypertension: Qualifiers: Hypertension type: essential hypertension Qualified Code(s): I10 - Essential (primary) hypertension Code(s): I10 - Essential (
--- NOTE | 2024-05-02 10:11 | P.PNNP_ITS ---
Progress Note: A&P Assessment and Plan (1) TACHO (acute kidney injury): Code(s): N17.9 - Acute kidney failure, unspecified Status: Acute Assessment and Plan: * slow improvement noted - possible new baseline(?) * suspect multifactorial etiology: * infection (pneumonia + UTI) * anemia * CHF/volume overload * need for diuretics * element of CKD progression (?) * evaluation to date: * urine electrolytes (By FeUrea) are prerenal * urine eosinophils negative * renal ultrasound without obstruction * UA suggestive of infection * CPK low * follow volume status closely * follow trend of repeat labs and UOP (2) Chronic kidney disease, stage 4 (severe): Code(s): N18.4 - Chronic kidney disease, stage 4 (severe) Status: Chronic Assessment and Plan: * baseline creatinine seems to run ~ 2.1 - 2.7mg/dl in the last year * however, has fluctuated to extremes from review of records * secondary to diabetes, hypertension, and age complicated by recurrent UTIs (3) Altered mental status: Code(s): R41.82 - Altered mental status, unspecified Status: Acute Assessment and Plan: * resolved * alert and oriented x 2 at baseline * suspect acute issues/illnesses contributing to change in mentation * already complicated by Parkinson's disease and underlying dementia * head CT negative * continue supportive therapy (4) Acute hypoxemic respiratory failure: Code(s): J96.01 - Acute respiratory failure with hypoxia Status: Acute Assessment and Plan: * improvement noted * presumably due to CHF exacerbation, volume overload, and pneumonia * s/p IV lasix x 1 since admission -- may need further diuresis down the road * follow volume status closely * on antibiotics for pneumonia * weaned off supplemental oxygen * follow respiratory status (5) Acute on chronic diastolic heart failure: Code(s): I50.33 - Acute on chronic diastolic (congestive) heart failure Status: Acute Assessment and Plan: * clinical improvement noted * admission CXR with cardiomegaly, pulmonary vascular congestion and mild pulmonary edema and small bilateral pleural effusions * elevated BNP on admission as well * recent Echo results noted: * preserved EF - 60 - 65% * moderate to severe tricuspid valve regurgitation * moderate pulmonary hypertension, estimated pulmonary arterial systolic pressure is 55 mmHg. * mild to moderate mitral valve regurgitation * despite #1, may need further diuresis later (6) Pneumonia: Code(s): J18.9 - Pneumonia, unspecified organism Status: Acute Assessment and Plan: * possibility based on admission CXR * given admission history, concern is possible aspiration pneumonia * on antibiotics * follow culture data (7) UTI (urinary tract infection): Code(s): N39.0 - Urinary tract infection, site not specified Status: Chronic Assessment and Plan: * apparently a chronic/recurrent issue * follows with Urology * admission UA suggestive - culture with Pseudomonas * however, urine culture on 04/23 (prior to admission) with Pseudomonas -- unclear of this was ever treated * on antibiotics (8) Anemia: Qualifiers: Anemia type: unspecified type Qualified Code(s): D64.9 - Anemia, unspecified Code(s): D64.9 - Anemia, unspecified Status: Chronic Assessment and Plan: * chronic issue * partly related to underlying CKD * may be exacerbated by current
[2024-05-02 12:00] VITALS: BP 150/65; PULSE 73; RESP 18; TEMP 36.3; O2SAT 95
--- NOTE | 2024-05-02 14:57 | PM.DS ---
DS: Admitting Diagnosis Discharge Date 05/02/24 Admitting Diagnosis Episode of unresponsiveness DS: Discharge Diagnosis Discharge Diagnosis (1) UTI (urinary tract infection): Code(s): N39.0 - Urinary tract infection, site not specified Status: Chronic (2) Congestive heart failure: Code(s): I50.9 - Heart failure, unspecified Status: Acute (3) Parkinson disease: Qualifiers: Dyskinesia presence: without dyskinesia Fluctuating manifestations: without fluctuating manifestations Qualified Code(s): G20.A1 - Parkinson's disease without dyskinesia, without mention of fluctuations Code(s): G20 - Parkinson's disease Status: Chronic (4) Hypertension: Qualifiers: Hypertension type: essential hypertension Qualified Code(s): I10 - Essential (primary) hypertension Code(s): I10 - Essential (primary) hypertension Status: Chronic (5) BPH (benign prostatic hyperplasia): Qualifiers: Lower urinary tract symptom detail: urinary retention Lower urinary tract symptom presence: symptoms present Qualified Code(s): N40.1 - Benign prostatic hyperplasia with lower urinary tract symptoms; R33.8 - Other retention of urine Code(s): N40.0 - Benign prostatic hyperplasia without lower urinary tract symptoms Status: Acute (6) A-fib: Qualifiers: Atrial fibrillation type: unspecified Qualified Code(s): I48.91 - Unspecified atrial fibrillation Code(s): I48.91 - Unspecified atrial fibrillation Status: Acute (7) Acute on chronic anemia: Code(s): D64.9 - Anemia, unspecified Status: Resolved (8) TACHO (acute kidney injury): Code(s): N17.9 - Acute kidney failure, unspecified Status: Acute DS: Summary Hospital Course Reason for hospitalization: 84yo male with Parkinson's disease, diastolic heart failure (EF50-55%), HTN, AFib, dementia, CKD and BPH here after having episode of unresponsiveness. Please see H&P for details. Hospital Course: Patient presented after an episode of being unresponsive. CT brain showing no acute intracranial abnormalities. Recent TSH and B12/folate levels okay. Pt has history of lethargy and dementia and is dependent on at home. He has multiple chronic illnessed which can exacerbate his underlying neurocognitive decline. No recurrence during his hospital course. Neurology consultation completed by Dr. Lomas. There was a report of vomiting and choking at home. Speech evaluation completed on 04/28/2024 which demonstrated coughing. MBS ordered showing patient can have a regular level 7 with thin liquid diet. Concern for aspiration pneumonia. Not on O2 at home but presented requiring 2L NC. BNP 22,000. CXR with interstitial edema but he did have a choking episode at home. He ws NOT in acute respiratory distress on admission. He received lasix x1 on 04/27 but then held due to worsening renal function. Hypoxia resolved. Blood pressure soft so we held home hydralazine, amlodipine and lasix. Surface echo on 04/27/2024 demonstrating moderate to severe tricuspid valve regurg, moderate pulmonary hypertension with a PASP of 55 mmHg, [id number] mitral valve regurg, left atrial chamber severe enlargement, EF 60-65%, AFib. He was treated for aspiration pneumonia. Blood cx 04/26 negative. Patieint with possibly UTI in the ED on 04/23/24 but family declined abx treatment at that time; UCx grew pseudomonas. UA on this admission with WBC, bacteria, leuk esterase. Started on Levaquin in ED (04/26) but changed to ceftriaxone and Flagyl 04/27. Urine cx 04/27 also growing pseudomonas sensitive to Levaquin (UTI present on admission). He was switched to Levofloxacin. Patient with acute on chronic normocytic anemia/SAMMY. Hgb 6.5 on admission and received a total of 2Units PRBC. Hgb up to the 9 range. Stool occult positive. Last colonoscopy was >5 years ago. His Eliquis was held on admission due to the anemia with no plans
[2024-05-02] MEDS: levoFLOXacin 500 MG TABLET PO (15:50)
[2024-05-02 16:00] VITALS: BP 150/65; PULSE 88; RESP 18; TEMP 36.3; O2SAT 92
== END 2024-05-02 16:40 | disposition swing bed (61) | DRG 177 ==
LOC: ANHED 17:26 → ANHIMU 18:04 → ANH3MEDSUR 04-30 18:36
PROVIDERS: Emergency Medicine; Internal Medicine; Internal Medicine Nephrology; Admitting Provider General Practice; Emergency Provider Emergency Medicine; PCP Family Medicine; Visit Provider Internal Medicine
DX: J69.0 Pneumonitis due to inhalation of food and vomit (principal); I50.33 Acute on chronic diastolic (congestive) heart failure; J96.22 Acute and chronic respiratory failure with hypercapnia; I13.0 Hypertensive heart and chronic kidney disease with heart failure and stage 1 through stage 4 chronic kidney disease, or unspecified chronic kidney disease; N17.9 Acute kidney failure, unspecified; N18.4 Chronic kidney disease, stage 4 (severe); N39.0 Urinary tract infection, site not specified; N25.81 Secondary hyperparathyroidism of renal origin; G93.40 Encephalopathy, unspecified; I48.0 Paroxysmal atrial fibrillation; D69.6 Thrombocytopenia, unspecified; D63.1 Anemia in chronic kidney disease; D50.9 Iron deficiency anemia, unspecified; E87.5 Hyperkalemia; E11.22 Type 2 diabetes mellitus with diabetic chronic kidney disease; I27.20 Pulmonary hypertension, unspecified; K57.30 Diverticulosis of large intestine without perforation or abscess without bleeding; K21.9 Gastro-esophageal reflux disease without esophagitis; N40.1 Benign prostatic hyperplasia with lower urinary tract symptoms; R33.8 Other retention of urine; M19.90 Unspecified osteoarthritis, unspecified site; G20.A1 Parkinson's disease without dyskinesia, without mention of fluctuations; F02.80 Dementia in other diseases classified elsewhere, unspecified severity, without behavioral disturbance, psychotic disturbance, mood disturbance, and anxiety; Z96.652 Presence of left artificial knee joint; I25.2 Old myocardial infarction; Z79.01 Long term (current) use of anticoagulants; Z79.82 Long term (current) use of aspirin; Z86.73 Personal history of transient ischemic attack (TIA), and cerebral infarction without residual deficits; Z86.010 Personal history of colon polyps; Z87.891 Personal history of nicotine dependence
CPT/HCPCS: 36415; 36430; 70450; 71045; 76775; 80053; 81001; 81050; 82274; 82550; 82570; 82948; 83735; 83880; 84100; 84156; 84300; 84484; 84540; 85014; 85018; 85025; 85027; 85610; 85730; 85999; 86850; 86900; 86901; 86923; 87040; 87077; 87086; 87088; 87186; 87637; 92610; 92611; 93005; 93306; 94640; 96360; 97110; 97161; 97165; 97530; 97535; 99284; 99285; A9270; J0696; J1836; J1940; J1956; J7050; J7120; P9016; Q5105

== ENCOUNTER 2024-05-02 17:23 | Inpatient (IN) | payer MEDICARE, SELFPAY ==
--- NOTE | ~2024-05-02 | XR_ITS ---
XR chest 1V portable Ordering provider: Pam Cook APRN History: 84 years Male with . SOB . Comparison: April 29, 2024 FINDINGS: MEDIASTINUM: The cardiac silhouette is moderately enlarged. Congestive paola. LUNGS: No pneumothorax. Opacification in the lung bases more on the right side suggestive of atelecta sis versus pneumonia with right pleural effusion. OTHER: No free air under the diaphragm. Degenerative changes of the spine. IMPRESSION: Bilateral basal pneumonia with right pleural effusion. Reviewed, dictated and finalized at location A.
--- OUTSIDE RECORDS SUMMARY | 2024-05-02 17:30 | XMS_ITS | Encounter Summary ---
Author Name Unknown Organization [facility] Address [address] [place] [address] Encounter Details Date Type Department Care Team Description ASSESSMENT No Information TREATMENT PLAN No Information
--- OUTSIDE RECORDS SUMMARY | 2024-05-02 17:31 | XMS_ITS | Encounter Summary ---
Author Name Unknown Organization [facility] Address [address] [place] [address] Encounter Details Date Type Department Care Team Description ASSESSMENT No Information TREATMENT PLAN No Information
--- OUTSIDE RECORDS SUMMARY | 2024-05-02 17:31 | XMS_ITS | Encounter Summary ---
Author Name Unknown Organization [facility] Address [address] [place] [address] Encounter Details Date Type Department Care Team Description ASSESSMENT No Information TREATMENT PLAN No Information
--- OUTSIDE RECORDS SUMMARY | 2024-05-02 17:31 | XMS_ITS | Encounter Summary ---
Author Name Unknown Organization [facility] Address [address] [place] [address] Encounter Details Date Type Department Care Team Description ASSESSMENT No Information TREATMENT PLAN No Information
--- OUTSIDE RECORDS SUMMARY | 2024-05-02 17:31 | XMS_ITS | Encounter Summary ---
Author Name Unknown Organization [facility] Address [address] [place] [address] Encounter Details Date Type Department Care Team Description ASSESSMENT No Information TREATMENT PLAN No Information
--- OUTSIDE RECORDS SUMMARY | 2024-05-02 17:31 | XMS_ITS | Encounter Summary ---
Author Name Unknown Organization [facility] Address [address] [place] [address] Encounter Details Date Type Department Care Team Description ASSESSMENT No Information TREATMENT PLAN No Information
--- OUTSIDE RECORDS SUMMARY | 2024-05-02 17:31 | XMS_ITS | Encounter Summary ---
Author Name Unknown Organization [facility] Address [address] [place] [address] Encounter Details Date Type Department Care Team Description ASSESSMENT No Information TREATMENT PLAN No Information
--- OUTSIDE RECORDS SUMMARY | 2024-05-02 17:31 | XMS_ITS | Encounter Summary ---
Author Name Unknown Organization [facility] Address [address] [place] [address] Encounter Details Date Type Department Care Team Description ASSESSMENT No Information TREATMENT PLAN No Information
--- OUTSIDE RECORDS SUMMARY | 2024-05-02 17:31 | XMS_ITS | Encounter Summary ---
Author Name Unknown Organization [facility] Address [address] [place] [address] Encounter Details Date Type Department Care Team Description ASSESSMENT No Information TREATMENT PLAN No Information
--- OUTSIDE RECORDS SUMMARY | 2024-05-02 17:31 | XMS_ITS | Encounter Summary ---
Author Name Unknown Organization [facility] Address [address] [place] [address] Encounter Details Date Type Department Care Team Description ASSESSMENT No Information TREATMENT PLAN No Information
[2024-05-02 18:00] VITALS: BP 150/78; PULSE 54; RESP 17; TEMP 36.2; O2SAT 93
--- NOTE | 2024-05-02 18:19 | ADMGEN ---
This patient, Chris Carrera, was admitted to 2nd Floor Room 207-1. Patient/family oriented to hospital policies and general routines including ID bracelet, bed and alarms, visiting hours, pain management, procedures, bathroom and other care routines, personal items, smoking policy, room service/diet, and visiting hours. Information on how to activate the Rapid Response Team has been discussed. Patient/Family are encouraged to report perceived risks to care and to ask questions if they do not understand what they are told or what they should do.
[2024-05-02] MEDS: CARBIDOPA/LEVODOPA 25/100 MG TABLET 3 TABLET PO (19:14)
[2024-05-02] MEDS: FERROUS SULFATE 325 MG TABLET DR PO (19:25)
[2024-05-02] MEDS: TAMSULOSIN HCL 0.4 MG CAPSULE PO (20:27)
[2024-05-02] MEDS: MELATONIN 5 MG TABLET 10 MG PO (20:28)
[2024-05-02] MEDS: DONEPEZIL HCL 5 MG TABLET PO (20:28)
--- NOTE | 2024-05-02 21:35 | PC.NURSE ---
Upon assessment of integumentary system this nurse noted severe gaulding to abdominal skin folds, groin, and buttocks. Maceration noted to bilateral buttocks. Barrier cream applied to all areas. It is also noted that patient is incontinent of bowel and bladder, and has diagnoses of CHF and kidney disease. Call placed to [facility] Ravindra to discuss treatment for gaulding and maceration and also possible order for catheter for accurate I&O and would healing. Treatment order given along with catheter order if patient and family is ok with treatment. Call placed to patient's Grecia and son to discuss the possibility of catheter placement. They said that patient has had a catheter before and it impeded his physical therapy. Family states they would like to discuss more with [facility] tomorrow and will make possible decision then.
[2024-05-02] MEDS: CARBIDOPA/LEVODOPA 25/100 MG CR TABLET 1 TABLET PO (23:30)
[2024-05-03] VITALS: BP 156/88; PULSE 55; RESP 16; TEMP 36.6; O2SAT 92
[2024-05-03 08:00] VITALS: BP 136/52; PULSE 63; RESP 18; TEMP 36.6; O2SAT 92
[2024-05-03] MEDS: ATORVASTATIN 40 MG TABLET PO (08:26)
[2024-05-03] MEDS: amLODIPine BESYLATE 5 MG TABLET PO (08:26)
[2024-05-03] MEDS: levoFLOXacin 500 MG TABLET PO (08:26)
[2024-05-03] MEDS: CHOLECALCIFEROL 1,000 UNITS TABLET 1000 UNITS PO (08:26)
[2024-05-03] MEDS: SODIUM BICARBONATE TAB 650 MG TABLET PO ×2 (08:26→17:52)
[2024-05-03] MEDS: FINASTERIDE 5 MG TABLET PO (08:26)
[2024-05-03] MEDS: CARBIDOPA/LEVODOPA 25/100 MG TABLET 3 TABLET PO ×3 (08:26→17:55)
[2024-05-03] MEDS: VITAMIN B COMPLEX CAPSULE 1 CAP PO (08:26)
[2024-05-03] MEDS: MICONAZOLE NITRATE 2% CREAM 30 GM TUBE 1 APPLIC TOPICAL ×2 (08:27→20:53)
--- NOTE | 2024-05-03 11:30 | PM.IMHP ---
H&P: HPI History of Present Illness Date/Time: 05/03/24 11:30 Chief Complaint: Weakness, Fall risk Narrative: Mr. Carrera has been discharged from [facility] to come to [facility] for the Rehab. Patient and family has decided not to do anything about the possbile GI bleed so we will monitor labs Q3-4 days and will administer blood if needed. He is being treated Pseudomonas UTI, there is not anticoagulation to be administered even though he has A-fib. Patient has Parkinson, Weakness, Dementia, MOBILE QA TESTER, CKD exacerbation at this time. We will continue to treat symptoms but pateitn will be a DNR and family will assist with patient on plan of care. Todd was placed when he has come here due to excoriation of the buttock and groin area is not able to heal due to patient is incontinent of URINE and bowel .. Per discharge of Dr. Chang Patient presented after an episode of being unresponsive. CT brain showing no acute intracranial abnormalities. Recent TSH and B12/folate levels okay. Pt has history of lethargy and dementia and is dependent on at home. He has multiple chronic illnessed which can exacerbate his underlying neurocognitive decline. No recurrence during his hospital course. Neurology consultation completed by Dr. Lomas. There was a report of vomiting and choking at home. Speech evaluation completed on 04/28/2024 which demonstrated coughing. MBS ordered showing patient can have a regular level 7 with thin liquid diet. Concern for aspiration pneumonia. Not on O2 at home but presented requiring 2L NC. BNP 22,000. CXR with interstitial edema but he did have a choking episode at home. He ws NOT in acute respiratory distress on admission. He received lasix x1 on 04/27 but then held due to worsening renal function. Hypoxia resolved. Blood pressure soft so we held home hydralazine, amlodipine and lasix. Surface echo on 04/27/2024 demonstrating moderate to severe tricuspid valve regurg, moderate pulmonary hypertension with a PASP of 55 mmHg, [id number] mitral valve regurg, left atrial chamber severe enlargement, EF 60-65%, AFib. He was treated for aspiration pneumonia. Blood cx 04/26 negative. Patieint with possibly UTI in the ED on 04/23/24 but family declined abx treatment at that time; UCx grew pseudomonas. UA on this admission with WBC, bacteria, leuk esterase. Started on Levaquin in ED (04/26) but changed to ceftriaxone and Flagyl 04/27. Urine cx 04/27 also growing pseudomonas sensitive to Levaquin (UTI present on admission). He was switched to Levofloxacin. Patient with acute on chronic normocytic anemia/SAMMY. Hgb 6.5 on admission and received a total of 2Units PRBC. Hgb up to the 9 range. Stool occult positive. Last colonoscopy was >5 years ago. His Eliquis was held on admission due to the anemia with no plans to resume this now. Patient has had a hx of anemia felt related to his CKD. Family wishes to talk with Dr Magana before having further GI evaluation. Iron studies from February were reviewed. Patient also had TACHO on CKD with baseline Cr 2-3. Cr 3.0 in February. Cr here was 3.9 and climbed to 4.3. before trending down to 3.5 where it stabilized. He received lasix 40mg IV x1 on 04/27 due to pulm edema and hypoxia but then held. Electrolytes are acceptable. He has no metabolic acidosis and he is making adequate urine output. Discussed with Nephrology who was agree able for discharge. He worked with therapy. He overall did well and was trasnfered to rehab facility. 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
[2024-05-03] MEDS: FERROUS SULFATE 325 MG TABLET DR PO ×2 (13:21→17:52)
[2024-05-03 16:00] VITALS: BP 142/65; PULSE 55; RESP 15; TEMP 36.3
[2024-05-03] MEDS: DONEPEZIL HCL 5 MG TABLET PO (20:51)
[2024-05-03] MEDS: TAMSULOSIN HCL 0.4 MG CAPSULE PO (20:51)
[2024-05-03] MEDS: MELATONIN 5 MG TABLET 10 MG PO (20:51)
[2024-05-03] MEDS: CARBIDOPA/LEVODOPA 25/100 MG CR TABLET 1 TABLET PO (22:07)
[2024-05-03 23:54] VITALS: BP 112/53; PULSE 60; RESP 16; TEMP 36.8; O2SAT 96
[2024-05-04 08:00] VITALS: BP 144/66; PULSE 66; RESP 18; TEMP 36.9; O2SAT 90
[2024-05-04] MEDS: MICONAZOLE NITRATE 2% CREAM 30 GM TUBE 1 APPLIC TOPICAL ×2 (08:18→21:57)
[2024-05-04] MEDS: CHOLECALCIFEROL 1,000 UNITS TABLET 1000 UNITS PO (08:18)
[2024-05-04] MEDS: ACIDOPHILUS/BULGARICUS CHEWABLE TABLET 1 TABLET PO (08:19)
[2024-05-04] MEDS: CARBIDOPA/LEVODOPA 25/100 MG TABLET 3 TABLET PO ×3 (08:19→17:30)
[2024-05-04] MEDS: SODIUM BICARBONATE TAB 650 MG TABLET PO ×2 (08:20→17:31)
[2024-05-04] MEDS: ACETAMINOPHEN 325 MG TABLET 650 MG PO (08:20)
[2024-05-04] MEDS: ATORVASTATIN 40 MG TABLET PO (08:21)
[2024-05-04] MEDS: FINASTERIDE 5 MG TABLET PO (08:21)
[2024-05-04] MEDS: amLODIPine BESYLATE 5 MG TABLET PO (08:21)
[2024-05-04] MEDS: ALBUTEROL SULFATE NEB 1.25 MG/3 ML INH INHALATION ×3 (09:53→17:33)
[2024-05-04] MEDS: FERROUS SULFATE 325 MG TABLET DR PO ×2 (11:12→18:57)
[2024-05-04 16:00] VITALS: BP 130/56; PULSE 58; RESP 18; TEMP 36.4; O2SAT 94
[2024-05-04] MEDS: TAMSULOSIN HCL 0.4 MG CAPSULE PO (21:57)
[2024-05-04] MEDS: DONEPEZIL HCL 5 MG TABLET PO (21:57)
[2024-05-04] MEDS: CARBIDOPA/LEVODOPA 25/100 MG CR TABLET 1 TABLET PO (21:57)
[2024-05-04] MEDS: MELATONIN 5 MG TABLET 10 MG PO (21:57)
[2024-05-05] VITALS (11 sets, daily range): BP systolic 122–134; BP diastolic 48–56; PULSE 48–69; RESP 16–20; TEMP 36.3–36.8; O2SAT 92–98
[2024-05-05] MEDS: ALBUTEROL SULFATE NEB 1.25 MG/3 ML INH INHALATION ×4 (00:23→17:44)
[2024-05-05] MEDS: CARBIDOPA/LEVODOPA 25/100 MG TABLET 3 TABLET PO ×3 (08:55→17:41)
[2024-05-05] MEDS: SODIUM BICARBONATE TAB 650 MG TABLET PO ×2 (08:56→17:42)
[2024-05-05] MEDS: ACIDOPHILUS/BULGARICUS CHEWABLE TABLET 1 TABLET PO (09:06)
[2024-05-05] MEDS: levoFLOXacin 500 MG TABLET PO (09:07)
[2024-05-05] MEDS: ACETAMINOPHEN 325 MG TABLET 650 MG PO (09:07)
[2024-05-05] MEDS: amLODIPine BESYLATE 5 MG TABLET PO (09:08)
[2024-05-05] MEDS: CHOLECALCIFEROL 1,000 UNITS TABLET 1000 UNITS PO (09:08)
[2024-05-05] MEDS: ATORVASTATIN 40 MG TABLET PO (09:08)
[2024-05-05] MEDS: FINASTERIDE 5 MG TABLET PO (09:08)
[2024-05-05] MEDS: VITAMIN B COMPLEX CAPSULE 1 CAP PO (09:08)
[2024-05-05] MEDS: MICONAZOLE NITRATE 2% CREAM 30 GM TUBE 1 APPLIC TOPICAL ×2 (09:09→21:47)
[2024-05-05] MEDS: FERROUS SULFATE 325 MG TABLET DR PO ×2 (11:06→18:32)
[2024-05-05] MEDS: TAMSULOSIN HCL 0.4 MG CAPSULE PO (21:46)
[2024-05-05] MEDS: DONEPEZIL HCL 5 MG TABLET PO (21:46)
[2024-05-05] MEDS: CARBIDOPA/LEVODOPA 25/100 MG CR TABLET 1 TABLET PO (21:46)
[2024-05-05] MEDS: MELATONIN 5 MG TABLET 10 MG PO (21:46)
[2024-05-06] VITALS (11 sets, daily range): BP systolic 127–136; BP diastolic 49–65; PULSE 48–72; RESP 16–18; TEMP 35.9–36.4; O2SAT 92–99
[2024-05-06] MEDS: ALBUTEROL SULFATE NEB 1.25 MG/3 ML INH INHALATION ×4 (00:12→18:07)
[2024-05-06] MEDS: FINASTERIDE 5 MG TABLET PO (09:17)
[2024-05-06] MEDS: amLODIPine BESYLATE 5 MG TABLET PO (09:17)
[2024-05-06] MEDS: CHOLECALCIFEROL 1,000 UNITS TABLET 1000 UNITS PO (09:17)
[2024-05-06] MEDS: SODIUM BICARBONATE TAB 650 MG TABLET PO ×2 (09:18→18:07)
[2024-05-06] MEDS: ACIDOPHILUS/BULGARICUS CHEWABLE TABLET 1 TABLET PO (09:18)
[2024-05-06] MEDS: ATORVASTATIN 40 MG TABLET PO (09:18)
[2024-05-06] MEDS: CARBIDOPA/LEVODOPA 25/100 MG TABLET 3 TABLET PO ×3 (09:19→18:07)
[2024-05-06] MEDS: MICONAZOLE NITRATE 2% CREAM 30 GM TUBE 1 APPLIC TOPICAL ×2 (09:22→20:32)
--- NOTE | 2024-05-06 09:36 | PM.EVENT ---
Event Note Event Note Event Note: Patient reported some shortness of breath today, 94% on RA with diminished lungs sounds. CMP and CBC ordered will send results to Dr. Tillman, I'm going to give a 1 x dose of PO lasix and add fluid restriction 1.5L. Patient wants to return home when stronger will likely need discussion prior to discharge on hospice/palliative services.
[2024-05-06 09:44] LABS: Hematocrit 27.6 % (37.0-46.0); Hemoglobin 8.2 g/dL (12.4-15.3); Mean Corpuscular HGB Conc 29.7 g/dL (32-36); Mean Corpuscular Hemoglobin 28.1 pg (27.0-31.0); Mean Corpuscular Volume 94.5 fL (78.0-102.0); Mean Platelet Volume 10.4 fl (8.7-11.0); Platelet Count Result 155 K/mm3 (150-420); Red Blood Count 2.92 M/mm3 (4.70-6.10); Red Cell Distribution Width 17.8 % (11.6-14.4)
[2024-05-06 09:59] LABS: Albumin Level 2.8 g/dL (3.4-5.0); Alkaline Phosphatase 52 U/L (46-116); Anion Gap 9 mmol/L (4-12); Aspartate Amino Transferase 13 U/L (15-37); Bilirubin,Total 0.5 mg/dL (0.00-1.00); Blood Urea Nitrogen 55 mg/dL (7-18); Calcium 8.2 mg/dL (8.5-10.1); Carbon Dioxide 26 mmol/L (21-32); Chloride 106 mmol/L (98-108); Estimated CRCL calculation 18 ml/min; Estimated Glomerular Filt Rate 19; Glucose 156 mg/dL (70-99); Osmolality Calculated 310 mOsm/kg (285-295); Potassium 4.4 mmol/L (3.5-5.1); Sodium 141 mmol/L (136-145); Total Protein 6.5 g/dL (6.4-8.2)
[2024-05-06 10:02] LABS: Alanine Aminotransferase < 6 U/L (16-63)
[2024-05-06] MEDS: FUROSEMIDE 40 MG TABLET PO (10:54)
[2024-05-06] MEDS: FERROUS SULFATE 325 MG TABLET DR PO ×2 (10:54→19:19)
[2024-05-06] MEDS: EPOETIN ALFA-EPBX 20,000 UNITS/ML VIAL 20000 UNITS SUB-Q (10:54)
[2024-05-06] MEDS: ACETAMINOPHEN 325 MG TABLET 650 MG PO (13:30)
[2024-05-06] MEDS: DONEPEZIL HCL 5 MG TABLET PO (20:31)
[2024-05-06] MEDS: TAMSULOSIN HCL 0.4 MG CAPSULE PO (20:31)
[2024-05-06] MEDS: MELATONIN 5 MG TABLET 10 MG PO (20:46)
[2024-05-06] MEDS: CARBIDOPA/LEVODOPA 25/100 MG CR TABLET 1 TABLET PO (22:49)
[2024-05-07] VITALS (14 sets, daily range): BP systolic 126–136; BP diastolic 58–64; PULSE 59–91; RESP 16–20; TEMP 36.2–36.5; O2SAT 92–100
[2024-05-07] MEDS: ALBUTEROL SULFATE NEB 1.25 MG/3 ML INH INHALATION ×5 (00:30→23:33)
[2024-05-07] MEDS: CHOLECALCIFEROL 1,000 UNITS TABLET 1000 UNITS PO (09:06)
[2024-05-07] MEDS: VITAMIN B COMPLEX CAPSULE 1 CAP PO (09:06)
[2024-05-07] MEDS: ATORVASTATIN 40 MG TABLET PO (09:06)
[2024-05-07] MEDS: levoFLOXacin 500 MG TABLET PO (09:06)
[2024-05-07] MEDS: SODIUM BICARBONATE TAB 650 MG TABLET PO ×2 (09:06→17:45)
[2024-05-07] MEDS: CARBIDOPA/LEVODOPA 25/100 MG TABLET 3 TABLET PO ×3 (09:06→17:45)
[2024-05-07] MEDS: ACIDOPHILUS/BULGARICUS CHEWABLE TABLET 1 TABLET PO (09:07)
[2024-05-07] MEDS: amLODIPine BESYLATE 5 MG TABLET PO (09:07)
[2024-05-07] MEDS: FINASTERIDE 5 MG TABLET PO (09:07)
[2024-05-07] MEDS: MICONAZOLE NITRATE 2% CREAM 30 GM TUBE 1 APPLIC TOPICAL ×2 (09:07→21:04)
[2024-05-07] MEDS: FERROUS SULFATE 325 MG TABLET DR PO ×2 (11:09→18:40)
[2024-05-07] MEDS: TAMSULOSIN HCL 0.4 MG CAPSULE PO (21:04)
[2024-05-07] MEDS: DONEPEZIL HCL 5 MG TABLET PO (21:04)
[2024-05-07] MEDS: MELATONIN 5 MG TABLET 10 MG PO (21:04)
[2024-05-07] MEDS: CARBIDOPA/LEVODOPA 25/100 MG CR TABLET 1 TABLET PO (22:50)
[2024-05-08] VITALS (9 sets, daily range): BP systolic 97–139; BP diastolic 43–60; PULSE 52–82; RESP 16–20; TEMP 36.2–36.5; O2SAT 90–99
[2024-05-08] MEDS: ALBUTEROL SULFATE NEB 1.25 MG/3 ML INH INHALATION ×3 (05:47→16:14)
--- NOTE | 2024-05-08 07:14 | PC.NURSE ---
This RN went to turn the pt after his breathing tx and noticed he seemed to be distressed. The pt's penis is increasingly more swollen and seemed to be guarding his abdominal area. This RN scanned the pt's abdomen and printed a strip w/790mL present which is placed in the pt's chart. This RN w/assist of Francesca Sheikh removed the previous catheter at 06:48 w/the tip still intact and 50 mL in the bag. Using sterile technique this RN placed a new catheter w/a return of mucoid, bloody clots and a scant amount of urine. Stephie Silveira RN then came and assisted w/attempting to flush the newly placed catheter w/no success of fluid. Stephie then scanned the pt to which the scanner showed 16 mL. Pam Estrada [employer] contacted via telephone about pt's condition and this RN communicated my concerns w/the pt's condition and symptoms. MORTGAGE PROFESSIONAL verbalized she understood what has been done for the pt so far then stated she is over at [facility] at this time, but will assess the pt first once she arrives to the facility. Pt is sitting upright in bed at this time w/the bed in lowest position, side railsx3, night light and bed alarm on, and the pt located near nurses station for pt safety.
[2024-05-08] MEDS: CHOLECALCIFEROL 1,000 UNITS TABLET 1000 UNITS PO (08:06)
[2024-05-08] MEDS: FINASTERIDE 5 MG TABLET PO (08:06)
[2024-05-08] MEDS: ATORVASTATIN 40 MG TABLET PO (08:07)
[2024-05-08] MEDS: SODIUM BICARBONATE TAB 650 MG TABLET PO ×2 (08:07→17:59)
[2024-05-08] MEDS: ACIDOPHILUS/BULGARICUS CHEWABLE TABLET 1 TABLET PO (08:07)
[2024-05-08] MEDS: CARBIDOPA/LEVODOPA 25/100 MG TABLET 3 TABLET PO ×3 (08:09→17:59)
[2024-05-08] MEDS: MICONAZOLE NITRATE 2% CREAM 30 GM TUBE 1 APPLIC TOPICAL ×2 (10:28→20:52)
[2024-05-08] MEDS: FERROUS SULFATE 325 MG TABLET DR PO ×2 (11:10→18:00)
[2024-05-08 11:20] LABS: Basophils Absolute Auto 0.04 K/mm3 (0.00-0.10); Basophils Percent Auto 0.6 % (0.0-1.0); Eosinophils Absolute Auto 0.68 K/mm3 (0.02-0.50); Eosinophils Percent Auto 9.8 % (1.0-6.0); Hematocrit 25.7 % (37.0-46.0); Hemoglobin 7.9 g/dL (12.4-15.3); Immature Granulocyte Absolute 0.03 K/mm3 (0.00-0.00); Immature Granulocyte Percent A 0.4 % (0.0-0.0); Lymphocytes Absolute Auto 0.36 K/mm3 (1.10-4.50); Lymphocytes Percent Auto 5.2 % (18.0-42.0); Mean Corpuscular HGB Conc 30.7 g/dL (32-36); Mean Corpuscular Hemoglobin 28.6 pg (27.0-31.0); Mean Corpuscular Volume 93.1 fL (78.0-102.0); Mean Platelet Volume 10.5 fl (8.7-11.0); Monocytes Absolute Auto 0.55 K/mm3 (0.10-0.90); Monocytes Percent Auto 7.9 % (2.0-11.0); Neutrophils Absolute Auto 5.27 K/mm3 (1.70-7.20); Neutrophils Percent Auto 76.1 % (50.0-70.0); Platelet Count Result 149 K/mm3 (150-420); Red Blood Count 2.76 M/mm3 (4.70-6.10); Red Cell Distribution Width 17.4 % (11.6-14.4); White Blood Count 6.9 K/mm3 (4.8-10.8)
[2024-05-08 11:34] LABS: Albumin Level 2.7 g/dL (3.4-5.0); Alkaline Phosphatase 53 U/L (46-116); Anion Gap 9 mmol/L (4-12); Aspartate Amino Transferase 12 U/L (15-37); Bilirubin,Total 0.4 mg/dL (0.00-1.00); Blood Urea Nitrogen 59 mg/dL (7-18); Calcium 8.3 mg/dL (8.5-10.1); Carbon Dioxide 27 mmol/L (21-32); Chloride 106 mmol/L (98-108); Estimated CRCL calculation 19 ml/min; Estimated Glomerular Filt Rate 20; Glucose 114 mg/dL (70-99); Osmolality Calculated 311 mOsm/kg (285-295); Potassium 4.3 mmol/L (3.5-5.1); Sodium 142 mmol/L (136-145); Total Protein 6.3 g/dL (6.4-8.2)
--- NOTE | 2024-05-08 11:47 | PM.IMPN ---
Progress Note: A&P Assessment and Plan (1) Physical deconditioning: Code(s): R53.81 - Other malaise Status: Acute Assessment and Plan: 05/08/24: PT and OT ordered Case management following (2) Acute on chronic diastolic heart failure: Code(s): I50.33 - Acute on chronic diastolic (congestive) heart failure Status: Acute Assessment and Plan: 05/08/24: CHF with preserved EF Was given a dose of Lasix yesterday and placed on 1.5 L fluid restriction last echo was reviewed and showed a normal LV systolic function with estimated EF of 60-65%, moderate pulmonary hypertension, [id number] mitral valve regurgitation and moderate to severe tricuspid valve regurgitation (3) UTI (urinary tract infection): Code(s): N39.0 - Urinary tract infection, site not specified Status: Chronic Assessment and Plan: 05/08/24: urine culture showing Pseudomonas aeruginosa continue Levaquin (4) TACHO (acute kidney injury): Code(s): N17.9 - Acute kidney failure, unspecified Status: Acute Assessment and Plan: 05/08/24: creatinine 3.04 baseline creatinine between 2 and 3 lisinopril on hold (5) Hypertension: Qualifiers: Hypertension type: essential hypertension Qualified Code(s): I10 - Essential (primary) hypertension Code(s): I10 - Essential (primary) hypertension Status: Chronic Assessment and Plan: 05/08/24: blood pressure ranging 97/43 to 136/59 continue amlodipine will hold lisinopril Time Spent With Patient Time with patient: 25 - 35 minutes Subjective Date/time seen: 05/08/24 11:47 Interval history: This is an 84-year-old male who presented to hospital for swing bed program. He was recently admitted at [facility] with GI bleeding and TACHO superimposed on chronic kidney disease. He was also evaluated for aspiration pneumonia and had a modified barium swallow study and patient was ordered a regular level 7 diet with thin liquid. He was not in any acute respiratory distress on admission however he did receive 1 dose of Lasix on 04/27 but the may held it due to worsening renal function. Nephrology was also on board. His hypoxia resolved and he was treated for aspiration pneumonia. He was also placed on Levaquin for UTI. Patient is alert to voice and oriented x3 however he is very sleepy during the time of my examination. Patient denies any fever, chills, nausea, vomiting, diarrhea, abdominal pain, chest pain, shortness a breath. Labs today show as hemoglobin 7.9, platelet count 149, creatinine 3.04 which is his baseline, EGFR 20. Nursing reported that he was complaining of abdominal pain earlier this morning and they did a bladder scan which showed greater than 700ml of urine. They changed out his Todd catheter however not much urine output was obtained. They went ahead and rescanned is bladder and it was showing only 20-30 ml in the bladder. During the time of my exam he did not have any abdominal pain to palpation and I also did a bladder scan which only showed 22 ml of urine in the bladder. There was urine noted in the Todd bag and it was clear and yellow. I did not see any sediment or clots in the catheter bag. He denies any other complaints today. Review of Systems Review of Systems: All systems reviewed & are unremarkable except as noted in HPI and below Constitutional: Constitutional: Reports as per HPI and Reports no additional constitutional complaints Eyes: Eyes: Reports as per HPI and Reports no additional eye complaints ENT: Reports system reviewed and no additional complaints, except as documented and Reports as per HPI Cardiovascular: Cardiovascular: Reports as per HPI and Reports no additional cardiovascular complaints Respiratory: Respiratory: Reports as per HPI and Reports no additional respiratory complaints Gastrointestinal: Gastrointestinal: Reports as per HPI and Reports no additi
[2024-05-08 12:02] LABS: Alanine Aminotransferase < 6 U/L (16-63)
[2024-05-08] MEDS: MELATONIN 5 MG TABLET 10 MG PO (20:50)
[2024-05-08] MEDS: TAMSULOSIN HCL 0.4 MG CAPSULE PO (20:51)
[2024-05-08] MEDS: DONEPEZIL HCL 5 MG TABLET PO (20:51)
[2024-05-08] MEDS: CARBIDOPA/LEVODOPA 25/100 MG CR TABLET 1 TABLET PO (22:22)
[2024-05-09] VITALS (11 sets, daily range): BP systolic 133–147; BP diastolic 48–56; PULSE 56–78; RESP 16–18; TEMP 36.3–36.7; O2SAT 92–99
[2024-05-09] MEDS: ALBUTEROL SULFATE NEB 1.25 MG/3 ML INH INHALATION ×4 (01:01→17:24)
[2024-05-09] MEDS: CARBIDOPA/LEVODOPA 25/100 MG TABLET 3 TABLET PO ×3 (08:00→17:17)
[2024-05-09] MEDS: SODIUM BICARBONATE TAB 650 MG TABLET PO ×2 (08:00→17:17)
[2024-05-09] MEDS: FINASTERIDE 5 MG TABLET PO (09:19)
[2024-05-09] MEDS: amLODIPine BESYLATE 5 MG TABLET PO (09:19)
[2024-05-09] MEDS: VITAMIN B COMPLEX CAPSULE 1 CAP PO (09:19)
[2024-05-09] MEDS: CHOLECALCIFEROL 1,000 UNITS TABLET 1000 UNITS PO (09:19)
[2024-05-09] MEDS: ATORVASTATIN 40 MG TABLET PO (09:19)
[2024-05-09] MEDS: levoFLOXacin 500 MG TABLET PO (09:19)
[2024-05-09] MEDS: ACIDOPHILUS/BULGARICUS CHEWABLE TABLET 1 TABLET PO (09:19)
[2024-05-09] MEDS: MICONAZOLE NITRATE 2% CREAM 30 GM TUBE 1 APPLIC TOPICAL ×2 (09:20→21:50)
[2024-05-09] MEDS: FERROUS SULFATE 325 MG TABLET DR PO ×2 (11:17→19:57)
[2024-05-09] MEDS: TAMSULOSIN HCL 0.4 MG CAPSULE PO (21:49)
[2024-05-09] MEDS: DONEPEZIL HCL 5 MG TABLET PO (21:49)
[2024-05-09] MEDS: MELATONIN 5 MG TABLET 10 MG PO (21:49)
[2024-05-09] MEDS: CARBIDOPA/LEVODOPA 25/100 MG CR TABLET 1 TABLET PO (22:20)
[2024-05-10] VITALS (11 sets, daily range): BP systolic 117–133; BP diastolic 48–64; PULSE 48–82; RESP 16–19; TEMP 36.4–36.6; O2SAT 90–100
[2024-05-10] MEDS: ALBUTEROL SULFATE NEB 1.25 MG/3 ML INH INHALATION ×4 (00:11→18:45)
[2024-05-10] MEDS: CHOLECALCIFEROL 1,000 UNITS TABLET 1000 UNITS PO (08:46)
[2024-05-10] MEDS: ATORVASTATIN 40 MG TABLET PO (08:46)
[2024-05-10] MEDS: FINASTERIDE 5 MG TABLET PO (08:46)
[2024-05-10] MEDS: CARBIDOPA/LEVODOPA 25/100 MG TABLET 3 TABLET PO ×3 (08:46→18:39)
[2024-05-10] MEDS: amLODIPine BESYLATE 5 MG TABLET PO (08:46)
[2024-05-10] MEDS: SODIUM BICARBONATE TAB 650 MG TABLET PO ×2 (08:46→18:39)
[2024-05-10] MEDS: ACIDOPHILUS/BULGARICUS CHEWABLE TABLET 1 TABLET PO (08:46)
[2024-05-10] MEDS: MICONAZOLE NITRATE 2% CREAM 30 GM TUBE 1 APPLIC TOPICAL ×2 (08:49→21:39)
[2024-05-10] MEDS: FERROUS SULFATE 325 MG TABLET DR PO ×2 (12:08→18:39)
[2024-05-10] MEDS: MELATONIN 5 MG TABLET 10 MG PO (21:38)
[2024-05-10] MEDS: DONEPEZIL HCL 5 MG TABLET PO (21:39)
[2024-05-10] MEDS: TAMSULOSIN HCL 0.4 MG CAPSULE PO (21:39)
[2024-05-10] MEDS: CARBIDOPA/LEVODOPA 25/100 MG CR TABLET 1 TABLET PO (21:39)
[2024-05-11] VITALS (9 sets, daily range): BP systolic 116–146; BP diastolic 50–73; PULSE 18–75; RESP 16–18; TEMP 36.2–36.8; O2SAT 92–98
[2024-05-11] MEDS: ALBUTEROL SULFATE NEB 1.25 MG/3 ML INH INHALATION ×4 (00:42→19:08)
[2024-05-11] MEDS: VITAMIN B COMPLEX CAPSULE 1 CAP PO (09:34)
[2024-05-11] MEDS: MICONAZOLE NITRATE 2% CREAM 30 GM TUBE 1 APPLIC TOPICAL ×2 (09:34→20:33)
[2024-05-11] MEDS: CHOLECALCIFEROL 1,000 UNITS TABLET 1000 UNITS PO (09:35)
[2024-05-11] MEDS: amLODIPine BESYLATE 5 MG TABLET PO (09:35)
[2024-05-11] MEDS: ATORVASTATIN 40 MG TABLET PO (09:35)
[2024-05-11] MEDS: SODIUM BICARBONATE TAB 650 MG TABLET PO ×2 (09:35→18:01)
[2024-05-11] MEDS: FINASTERIDE 5 MG TABLET PO (09:35)
[2024-05-11] MEDS: CARBIDOPA/LEVODOPA 25/100 MG TABLET 3 TABLET PO ×3 (09:35→18:01)
[2024-05-11] MEDS: ACIDOPHILUS/BULGARICUS CHEWABLE TABLET 1 TABLET PO (09:35)
[2024-05-11] MEDS: FERROUS SULFATE 325 MG TABLET DR PO ×2 (12:37→18:01)
[2024-05-11 13:50] LABS: Hematocrit 27.7 % (37.0-46.0); Hemoglobin 8.4 g/dL (12.4-15.3); Mean Corpuscular HGB Conc 30.3 g/dL (32-36); Mean Corpuscular Hemoglobin 27.8 pg (27.0-31.0); Mean Corpuscular Volume 91.7 fL (78.0-102.0); Mean Platelet Volume 11.3 fl (8.7-11.0); Platelet Count Result 175 K/mm3 (150-420); Red Blood Count 3.02 M/mm3 (4.70-6.10); Red Cell Distribution Width 16.9 % (11.6-14.4); White Blood Count 8.7 K/mm3 (4.8-10.8)
[2024-05-11 13:58] LABS: Anion Gap 7 mmol/L (4-12); Blood Urea Nitrogen 50 mg/dL (7-18); Calcium 8.5 mg/dL (8.5-10.1); Carbon Dioxide 29 mmol/L (21-32); Chloride 105 mmol/L (98-108); Estimated CRCL calculation 20 ml/min; Estimated Glomerular Filt Rate 21; Glucose 128 mg/dL (70-99); Osmolality Calculated 307 mOsm/kg (285-295); Potassium 4.4 mmol/L (3.5-5.1); Sodium 141 mmol/L (136-145)
[2024-05-11] MEDS: TAMSULOSIN HCL 0.4 MG CAPSULE PO (20:33)
[2024-05-11] MEDS: DONEPEZIL HCL 5 MG TABLET PO (20:33)
[2024-05-11] MEDS: MELATONIN 5 MG TABLET 10 MG PO (20:33)
[2024-05-11] MEDS: CARBIDOPA/LEVODOPA 25/100 MG CR TABLET 1 TABLET PO (21:59)
[2024-05-12 00:15] VITALS: PULSE 63; RESP 16; O2SAT 96
[2024-05-12] MEDS: ALBUTEROL SULFATE NEB 1.25 MG/3 ML INH INHALATION ×4 (00:18→18:39)
[2024-05-12 05:42] VITALS: PULSE 66; RESP 16; O2SAT 96
[2024-05-12 06:00] VITALS: PULSE 70; RESP 16; O2SAT 96
[2024-05-12 08:00] VITALS: BP 138/74; PULSE 88; RESP 20; TEMP 36.6; O2SAT 97
[2024-05-12] MEDS: ATORVASTATIN 40 MG TABLET PO (09:48)
[2024-05-12] MEDS: CHOLECALCIFEROL 1,000 UNITS TABLET 1000 UNITS PO (09:49)
[2024-05-12] MEDS: CARBIDOPA/LEVODOPA 25/100 MG TABLET 3 TABLET PO ×3 (09:49→17:24)
[2024-05-12] MEDS: amLODIPine BESYLATE 5 MG TABLET PO (09:49)
[2024-05-12] MEDS: FINASTERIDE 5 MG TABLET PO (09:49)
[2024-05-12] MEDS: ACIDOPHILUS/BULGARICUS CHEWABLE TABLET 1 TABLET PO (09:49)
[2024-05-12] MEDS: SODIUM BICARBONATE TAB 650 MG TABLET PO ×2 (09:50→17:24)
[2024-05-12] MEDS: MICONAZOLE NITRATE 2% CREAM 30 GM TUBE 1 APPLIC TOPICAL ×2 (09:50→20:36)
[2024-05-12] MEDS: FERROUS SULFATE 325 MG TABLET DR PO ×2 (13:10→17:24)
[2024-05-12] MEDS: MAG HYDROX/AL HYDROX/SIMETH 30 ML UDC PO (15:22)
[2024-05-12 16:00] VITALS: BP 126/73; PULSE 64; RESP 17; TEMP 36.2; O2SAT 95
[2024-05-12] MEDS: TAMSULOSIN HCL 0.4 MG CAPSULE PO (20:36)
[2024-05-12] MEDS: DONEPEZIL HCL 5 MG TABLET PO (20:36)
[2024-05-12] MEDS: MELATONIN 5 MG TABLET 10 MG PO (20:36)
[2024-05-12] MEDS: CARBIDOPA/LEVODOPA 25/100 MG CR TABLET 1 TABLET PO (21:54)
[2024-05-13] VITALS (10 sets, daily range): BP systolic 118–149; BP diastolic 56–64; PULSE 54–78; RESP 16–22; TEMP 36.2–36.5; O2SAT 91–98
[2024-05-13] MEDS: ALBUTEROL SULFATE NEB 1.25 MG/3 ML INH INHALATION ×4 (05:44→22:35)
[2024-05-13] MEDS: SODIUM BICARBONATE TAB 650 MG TABLET PO ×2 (08:39→17:00)
[2024-05-13] MEDS: CARBIDOPA/LEVODOPA 25/100 MG TABLET 3 TABLET PO ×3 (08:39→18:15)
[2024-05-13] MEDS: ACIDOPHILUS/BULGARICUS CHEWABLE TABLET 1 TABLET PO (08:40)
[2024-05-13] MEDS: MICONAZOLE NITRATE 2% CREAM 30 GM TUBE 1 APPLIC TOPICAL ×2 (08:40→20:21)
[2024-05-13] MEDS: VITAMIN B COMPLEX CAPSULE 1 CAP PO (08:40)
[2024-05-13] MEDS: CHOLECALCIFEROL 1,000 UNITS TABLET 1000 UNITS PO (08:40)
[2024-05-13] MEDS: ACETAMINOPHEN 325 MG TABLET 650 MG PO ×2 (08:40→22:33)
[2024-05-13] MEDS: ATORVASTATIN 40 MG TABLET PO (08:40)
[2024-05-13] MEDS: amLODIPine BESYLATE 5 MG TABLET PO (08:40)
[2024-05-13] MEDS: FINASTERIDE 5 MG TABLET PO (08:40)
[2024-05-13] MEDS: FERROUS SULFATE 325 MG TABLET DR PO ×2 (11:26→20:09)
[2024-05-13] MEDS: TAMSULOSIN HCL 0.4 MG CAPSULE PO (20:09)
[2024-05-13] MEDS: DONEPEZIL HCL 5 MG TABLET PO (20:09)
[2024-05-13] MEDS: MELATONIN 5 MG TABLET 10 MG PO (20:09)
[2024-05-13] MEDS: CARBIDOPA/LEVODOPA 25/100 MG CR TABLET 1 TABLET PO (22:33)
[2024-05-14] VITALS (12 sets, daily range): BP systolic 122–146; BP diastolic 59–62; PULSE 62–78; RESP 16–20; TEMP 36.4–36.6; O2SAT 90–99
[2024-05-14] MEDS: ALBUTEROL SULFATE NEB 1.25 MG/3 ML INH INHALATION ×4 (05:42→23:42)
[2024-05-14] MEDS: CARBIDOPA/LEVODOPA 25/100 MG TABLET 3 TABLET PO ×3 (08:45→18:18)
[2024-05-14] MEDS: FINASTERIDE 5 MG TABLET PO (08:45)
[2024-05-14] MEDS: amLODIPine BESYLATE 5 MG TABLET PO (08:45)
[2024-05-14] MEDS: SODIUM BICARBONATE TAB 650 MG TABLET PO ×2 (09:15→18:18)
[2024-05-14] MEDS: ATORVASTATIN 40 MG TABLET PO (09:15)
[2024-05-14] MEDS: CHOLECALCIFEROL 1,000 UNITS TABLET 1000 UNITS PO (09:15)
[2024-05-14] MEDS: ACIDOPHILUS/BULGARICUS CHEWABLE TABLET 1 TABLET PO (09:15)
--- NOTE | 2024-05-14 09:46 | P.PNIM_ITS ---
Progress Note: A&P Assessment and Plan (1) Physical deconditioning: Code(s): R53.81 - Other malaise Status: Acute Assessment and Plan: 05/08/24: * PT and OT ordered * Case management following 05/14/24: * no change to current treatment plan (2) Acute on chronic diastolic heart failure: Code(s): I50.33 - Acute on chronic diastolic (congestive) heart failure Status: Acute Assessment and Plan: 05/08/24: * CHF with preserved EF * Was given a dose of Lasix yesterday and placed on 1.5 L fluid restriction * last echo was reviewed and showed a normal LV systolic function with estimated EF of 60-65%, moderate pulmonary hypertension, [id number] mitral valve regurgitation and moderate to severe tricuspid valve regurgitation 05/14/24: * lungs course today, with use of accessory muscles, 2+ pitting edema bilateral lower extremites * CXR showing showing bilateral basal pneumonia with right pleura effusion * Will get respiratory panel * IV Lasix 40 mg ordered * WBC 6.6, will treat like fluid overload versus pneumonia considering WBC is normal and he is afebrile with more CHF symptoms, also patient finished course of Levaquin for UTI a few days ago * Labs ordered for tomorrow (3) UTI (urinary tract infection): Code(s): N39.0 - Urinary tract infection, site not specified Status: Chronic Assessment and Plan: 05/08/24: * urine culture showing Pseudomonas aeruginosa * continue Levaquin 05/14/24: * patient finished course of Levaquin * Will discontinue catheter today and give him a voiding trial * continue tamsulosin and finasteride (4) TACHO (acute kidney injury): Code(s): N17.9 - Acute kidney failure, unspecified Status: Acute Assessment and Plan: 05/08/24: * creatinine 3.04 * baseline creatinine between 2 and 3 * lisinopril on hold 05/14/24: * last set of labs on 05/11/2024 show a creatinine of 2.9 * patient is back to his baseline * lisinopril was restarted (5) Hypertension: Qualifiers: Hypertension type: essential hypertension Qualified Code(s): I10 - Essential (primary) hypertension Code(s): I10 - Essential (primary) hypertension Status: Chronic Assessment and Plan: 05/08/24: * blood pressure ranging 97/43 to 136/59 * continue amlodipine * will hold lisinopril 05/14/24: * no change to current treatment plan Time Spent With Patient Time with patient: 25 - 35 minutes Subjective Date/time seen: 05/14/24 09:46 Interval history: interval history: This is an 84-year-old male who presented to hospital for swing bed program. He was recently admitted at [facility] with GI bleeding and TACHO superimposed on chronic kidney disease. He was also evaluated for aspiration pneumonia and had a modified barium swallow study and patient was ordered a regular level 7 diet with thin liquid. He was not in any acute respiratory distress on admission however he did receive 1 dose of Lasix on 04/27 but the may held it due to worsening renal function. Nephrology was also on board. His hypoxia resolved and he was treated for aspiration pneumonia. He was also placed on Levaquin for UTI. 05/08/2024: Patient is alert to voice and oriented x3 however he is very sleepy during the time of my examination. Patient denies any fever, chills, nausea, vomiting, diarrhea, abdominal pain, chest pain, shortness a breath. Labs today show as hemoglobin 7.9, platelet count 149, creatinine 3.04 which is his baseline, EGFR 20. Nursing
--- NOTE | 2024-05-14 09:46 | PM.IMPN ---
Progress Note: A&P Assessment and Plan (1) Physical deconditioning: Code(s): R53.81 - Other malaise Status: Acute Assessment and Plan: 05/08/24: PT and OT ordered Case management following 05/14/24: no change to current treatment plan (2) Acute on chronic diastolic heart failure: Code(s): I50.33 - Acute on chronic diastolic (congestive) heart failure Status: Acute Assessment and Plan: 05/08/24: CHF with preserved EF Was given a dose of Lasix yesterday and placed on 1.5 L fluid restriction last echo was reviewed and showed a normal LV systolic function with estimated EF of 60-65%, moderate pulmonary hypertension, [id number] mitral valve regurgitation and moderate to severe tricuspid valve regurgitation 05/14/24: lungs course today, with use of accessory muscles, 2+ pitting edema bilateral lower extremites CXR showing showing bilateral basal pneumonia with right pleura effusion Will get respiratory panel IV Lasix 40 mg ordered WBC 6.6, will treat like fluid overload versus pneumonia considering WBC is normal and he is afebrile with more CHF symptoms, also patient finished course of Levaquin for UTI a few days ago Labs ordered for tomorrow (3) UTI (urinary tract infection): Code(s): N39.0 - Urinary tract infection, site not specified Status: Chronic Assessment and Plan: 05/08/24: urine culture showing Pseudomonas aeruginosa continue Levaquin 05/14/24: patient finished course of Levaquin Will discontinue catheter today and give him a voiding trial continue tamsulosin and finasteride (4) TACHO (acute kidney injury): Code(s): N17.9 - Acute kidney failure, unspecified Status: Acute Assessment and Plan: 05/08/24: creatinine 3.04 baseline creatinine between 2 and 3 lisinopril on hold 05/14/24: last set of labs on 05/11/2024 show a creatinine of 2.9 patient is back to his baseline lisinopril was restarted (5) Hypertension: Qualifiers: Hypertension type: essential hypertension Qualified Code(s): I10 - Essential (primary) hypertension Code(s): I10 - Essential (primary) hypertension Status: Chronic Assessment and Plan: 05/08/24: blood pressure ranging 97/43 to 136/59 continue amlodipine will hold lisinopril 05/14/24: no change to current treatment plan Time Spent With Patient Time with patient: 25 - 35 minutes Subjective Date/time seen: 05/14/24 09:46 Interval history: interval history: This is an 84-year-old male who presented to hospital for swing bed program. He was recently admitted at [facility] with GI bleeding and TACHO superimposed on chronic kidney disease. He was also evaluated for aspiration pneumonia and had a modified barium swallow study and patient was ordered a regular level 7 diet with thin liquid. He was not in any acute respiratory distress on admission however he did receive 1 dose of Lasix on 04/27 but the february held it due to worsening renal function. Nephrology was also on board. His hypoxia resolved and he was treated for aspiration pneumonia. He was also placed on Levaquin for UTI. 05/08/2024: Patient is alert to voice and oriented x3 however he is very sleepy during the time of my examination. Patient denies any fever, chills, nausea, vomiting, diarrhea, abdominal pain, chest pain, shortness a breath. Labs today show as hemoglobin 7.9, platelet count 149, creatinine 3.04 which is his baseline, EGFR 20. Nursing reported that he was complaining of abdominal pain earlier this morning and they did a bladder scan which showed greater than 700ml of urine. They changed out his Todd catheter however not much urine output was obtained. They went ahead and rescanned is bladder and it was showing only 20-30 ml in the bladder. During the time of my exam he did not have any abdominal pain to palpation and I also did a bladder scan which only showe
[2024-05-14] MEDS: MICONAZOLE NITRATE 2% CREAM 30 GM TUBE 1 APPLIC TOPICAL ×2 (09:59→20:16)
[2024-05-14] MEDS: FERROUS SULFATE 325 MG TABLET DR PO ×2 (11:17→18:18)
[2024-05-14 15:39] LABS: Basophils Absolute Auto 0.04 K/mm3 (0.00-0.10); Basophils Percent Auto 0.6 % (0.0-1.0); Eosinophils Absolute Auto 0.35 K/mm3 (0.02-0.50); Eosinophils Percent Auto 5.3 % (1.0-6.0); Hematocrit 25.8 % (37.0-46.0); Hemoglobin 7.8 g/dL (12.4-15.3); Immature Granulocyte Absolute 0.02 K/mm3 (0.00-0.00); Immature Granulocyte Percent A 0.3 % (0.0-0.0); Lymphocytes Absolute Auto 0.32 K/mm3 (1.10-4.50); Lymphocytes Percent Auto 4.9 % (18.0-42.0); Mean Corpuscular HGB Conc 30.2 g/dL (32-36); Mean Corpuscular Hemoglobin 27.5 pg (27.0-31.0); Mean Corpuscular Volume 90.8 fL (78.0-102.0); Mean Platelet Volume 10.2 fl (8.7-11.0); Monocytes Absolute Auto 0.54 K/mm3 (0.10-0.90); Monocytes Percent Auto 8.2 % (2.0-11.0); Neutrophils Absolute Auto 5.28 K/mm3 (1.70-7.20); Neutrophils Percent Auto 80.7 % (50.0-70.0); Platelet Count Result 169 K/mm3 (150-420); Red Blood Count 2.84 M/mm3 (4.70-6.10); Red Cell Distribution Width 16.9 % (11.6-14.4); White Blood Count 6.6 K/mm3 (4.8-10.8)
[2024-05-14 16:02] LABS: Albumin Level 2.8 g/dL (3.4-5.0); Alkaline Phosphatase 66 U/L (46-116); Anion Gap 7 mmol/L (4-12); Bilirubin,Total 0.7 mg/dL (0.00-1.00); Blood Urea Nitrogen 47 mg/dL (7-18); Calcium 8.6 mg/dL (8.5-10.1); Carbon Dioxide 28 mmol/L (21-32); Chloride 106 mmol/L (98-108); Estimated CRCL calculation 18 ml/min; Estimated Glomerular Filt Rate 21; Glucose 116 mg/dL (70-99); Osmolality Calculated 305 mOsm/kg (285-295); Potassium 4.4 mmol/L (3.5-5.1); Sodium 141 mmol/L (136-145); Total Protein 6.5 g/dL (6.4-8.2)
[2024-05-14 16:15] LABS: Aspartate Amino Transferase 11 U/L (15-37)
[2024-05-14 16:16] LABS: Alanine Aminotransferase < 6 U/L (16-63)
[2024-05-14] MEDS: FUROSEMIDE INJ 40 MG/4 ML VIAL IV PUSH ×2 (16:35→20:15)
[2024-05-14] MEDS: TAMSULOSIN HCL 0.4 MG CAPSULE PO (20:16)
[2024-05-14] MEDS: MELATONIN 5 MG TABLET 10 MG PO (20:16)
[2024-05-14] MEDS: DONEPEZIL HCL 5 MG TABLET PO (20:16)
[2024-05-14] MEDS: ACETAMINOPHEN 325 MG TABLET 650 MG PO (23:42)
[2024-05-14] MEDS: CARBIDOPA/LEVODOPA 25/100 MG CR TABLET 1 TABLET PO (23:42)
[2024-05-15] VITALS (9 sets, daily range): BP systolic 132–142; BP diastolic 51–71; PULSE 52–75; RESP 16–20; TEMP 36.4–36.8; O2SAT 91–100
[2024-05-15] MEDS: ALBUTEROL SULFATE NEB 1.25 MG/3 ML INH INHALATION ×3 (05:39→16:26)
[2024-05-15 05:40] LABS: Basophils Absolute Auto 0.04 K/mm3 (0.00-0.10); Basophils Percent Auto 0.5 % (0.0-1.0); Eosinophils Absolute Auto 0.29 K/mm3 (0.02-0.50); Hemoglobin 7.8 g/dL (12.4-15.3); Immature Granulocyte Absolute 0.04 K/mm3 (0.00-0.00); Immature Granulocyte Percent A 0.5 % (0.0-0.0); Lymphocytes Absolute Auto 0.35 K/mm3 (1.10-4.50); Lymphocytes Percent Auto 4.8 % (18.0-42.0); Mean Corpuscular Hemoglobin 27.5 pg (27.0-31.0); Mean Corpuscular Volume 91.5 fL (78.0-102.0); Mean Platelet Volume 11.5 fl (8.7-11.0); Monocytes Absolute Auto 0.66 K/mm3 (0.10-0.90); Monocytes Percent Auto 9.1 % (2.0-11.0); Neutrophils Percent Auto 81.1 % (50.0-70.0); Platelet Count Result 180 K/mm3 (150-420); Red Blood Count 2.84 M/mm3 (4.70-6.10); Red Cell Distribution Width 16.7 % (11.6-14.4); White Blood Count 7.3 K/mm3 (4.8-10.8)
[2024-05-15 05:56] LABS: Albumin Level 2.7 g/dL (3.4-5.0); Alkaline Phosphatase 66 U/L (46-116); Anion Gap 5 mmol/L (4-12); Aspartate Amino Transferase < 10 U/L (15-37); Bilirubin,Total 0.6 mg/dL (0.00-1.00); Blood Urea Nitrogen 43 mg/dL (7-18); Calcium 8.6 mg/dL (8.5-10.1); Carbon Dioxide 30 mmol/L (21-32); Chloride 107 mmol/L (98-108); Estimated CRCL calculation 17 ml/min; Estimated Glomerular Filt Rate 21; Glucose 97 mg/dL (70-99); Osmolality Calculated 304 mOsm/kg (285-295); Potassium 4.1 mmol/L (3.5-5.1); Sodium 142 mmol/L (136-145); Total Protein 6.4 g/dL (6.4-8.2)
[2024-05-15 06:25] LABS: Alanine Aminotransferase 8 U/L (16-63)
[2024-05-15] MEDS: SODIUM BICARBONATE TAB 650 MG TABLET PO ×2 (08:00→17:29)
[2024-05-15] MEDS: CARBIDOPA/LEVODOPA 25/100 MG TABLET 3 TABLET PO ×3 (08:00→17:29)
[2024-05-15] MEDS: ACIDOPHILUS/BULGARICUS CHEWABLE TABLET 1 TABLET PO (09:40)
[2024-05-15] MEDS: MICONAZOLE NITRATE 2% CREAM 30 GM TUBE 1 APPLIC TOPICAL ×2 (09:40→21:50)
[2024-05-15] MEDS: CHOLECALCIFEROL 1,000 UNITS TABLET 1000 UNITS PO (09:40)
[2024-05-15] MEDS: amLODIPine BESYLATE 5 MG TABLET PO (09:40)
[2024-05-15] MEDS: FINASTERIDE 5 MG TABLET PO (09:40)
[2024-05-15] MEDS: VITAMIN B COMPLEX CAPSULE 1 CAP PO (09:40)
[2024-05-15] MEDS: ATORVASTATIN 40 MG TABLET PO (09:40)
[2024-05-15] MEDS: FERROUS SULFATE 325 MG TABLET DR PO ×2 (11:35→19:49)
--- NOTE | 2024-05-15 14:30 | PM.EVENT ---
Event Note Event Note Event Note: Patient feeling better today reports improvement in breathing following Lasix. Plan for patient to discharge home 05/17 can transition to PO lasix at discharge.
[2024-05-15] MEDS: TAMSULOSIN HCL 0.4 MG CAPSULE PO (21:50)
[2024-05-15] MEDS: DONEPEZIL HCL 5 MG TABLET PO (21:50)
[2024-05-15] MEDS: MELATONIN 5 MG TABLET 10 MG PO (21:50)
[2024-05-15] MEDS: CARBIDOPA/LEVODOPA 25/100 MG CR TABLET 1 TABLET PO (21:50)
[2024-05-16] VITALS (9 sets, daily range): BP systolic 134–148; BP diastolic 57–69; PULSE 49–72; RESP 16–22; TEMP 36.2–36.6; O2SAT 92–99
[2024-05-16] MEDS: ALBUTEROL SULFATE NEB 1.25 MG/3 ML INH INHALATION ×4 (00:38→16:55)
[2024-05-16] MEDS: CARBIDOPA/LEVODOPA 25/100 MG TABLET 3 TABLET PO ×3 (08:00→17:06)
[2024-05-16] MEDS: SODIUM BICARBONATE TAB 650 MG TABLET PO ×2 (09:00→17:07)
[2024-05-16] MEDS: CHOLECALCIFEROL 1,000 UNITS TABLET 1000 UNITS PO (09:14)
[2024-05-16] MEDS: ATORVASTATIN 40 MG TABLET PO (09:14)
[2024-05-16] MEDS: ACETAMINOPHEN 325 MG TABLET 650 MG PO (09:14)
[2024-05-16] MEDS: ACIDOPHILUS/BULGARICUS CHEWABLE TABLET 1 TABLET PO (09:15)
[2024-05-16] MEDS: FINASTERIDE 5 MG TABLET PO (09:15)
[2024-05-16] MEDS: MICONAZOLE NITRATE 2% CREAM 30 GM TUBE 1 APPLIC TOPICAL ×2 (09:15→21:56)
[2024-05-16] MEDS: amLODIPine BESYLATE 5 MG TABLET PO (09:15)
[2024-05-16] MEDS: FERROUS SULFATE 325 MG TABLET DR PO ×2 (11:38→18:31)
--- NOTE | 2024-05-16 12:15 | P.PNCROSS_ITS ---
Event Note Event Note Event Note: patient is still coughing and not feeling well reviewed chest xray from yesterd ay went ahead and add Azithromycin on patient for the next 4 days
--- NOTE | 2024-05-16 12:15 | PM.EVENT ---
Event Note Event Note Event Note: patient is still coughing and not feeling well reviewed chest xray from yesterday went ahead and add Azithromycin on patient for the next 4 days
[2024-05-16] MEDS: AZITHROMYCIN 250 MG TABLET 500 MG PO (13:10)
[2024-05-16] MEDS: TAMSULOSIN HCL 0.4 MG CAPSULE PO (21:56)
[2024-05-16] MEDS: DONEPEZIL HCL 5 MG TABLET PO (21:56)
[2024-05-16] MEDS: CARBIDOPA/LEVODOPA 25/100 MG CR TABLET 1 TABLET PO (21:56)
[2024-05-16] MEDS: MELATONIN 5 MG TABLET 10 MG PO (21:56)
[2024-05-17] VITALS: BP 139/66; PULSE 55; RESP 16; TEMP 36.7; O2SAT 92
[2024-05-17] MEDS: ALBUTEROL SULFATE NEB 1.25 MG/3 ML INH INHALATION ×2 (00:30→05:45)
--- NOTE | 2024-05-17 05:28 | PC.NURSE ---
Pt catheter removed 05/17/2024 @ 510. Tip of catheter intact upon removal. Patient tolerated well.
[2024-05-17 05:46] VITALS: PULSE 69; RESP 16; O2SAT 90
[2024-05-17 05:57] VITALS: PULSE 66; RESP 16; O2SAT 96
[2024-05-17 07:30] VITALS: BP 135/68; PULSE 57; RESP 18; TEMP 36.9; O2SAT 91
--- NOTE | 2024-05-17 07:34 | PM.DS ---
DS: Admitting Diagnosis Discharge Date 05/17/2024 Admitting Diagnosis Parkinson, WEakness, UTI, Pneumonia, Pleural Effusion DS: Discharge Diagnosis Discharge Diagnosis (1) Pneumonia: Code(s): J18.9 - Pneumonia, unspecified organism Status: Acute Assessment and Plan: Zithromax for 3 days (2) Acute on chronic diastolic heart failure: Code(s): I50.33 - Acute on chronic diastolic (congestive) heart failure Status: Acute Assessment and Plan: continue home medication (3) Acute hypoxemic respiratory failure: Code(s): J96.01 - Acute respiratory failure with hypoxia Status: Acute (4) TACHO (acute kidney injury): Code(s): N17.9 - Acute kidney failure, unspecified Status: Acute (5) Parkinson disease: Qualifiers: Dyskinesia presence: without dyskinesia Fluctuating manifestations: without fluctuating manifestations Qualified Code(s): G20.A1 - Parkinson's disease without dyskinesia, without mention of fluctuations Code(s): G20 - Parkinson's disease Status: Chronic (6) Hypertension: Qualifiers: Hypertension type: essential hypertension Qualified Code(s): I10 - Essential (primary) hypertension Code(s): I10 - Essential (primary) hypertension Status: Chronic (7) Diabetes mellitus: Qualifiers: Diabetes mellitus complication status: without complication Diabetes mellitus half-way insulin use: without half-way use Diabetes mellitus type: type 2 Qualified Code(s): E11.9 - Type 2 diabetes mellitus without complications Code(s): E11.9 - Type 2 diabetes mellitus without complications Status: Chronic DS: Summary Hospital Course Reason for hospitalization: Pnemonia, CHF, Hypoxia, Hypertension Hospital Course: This is a 84 year old male that was admitted to the hospital after a prolonged hospital stay at [place] in which he came to [facility] for physical therapy and possible some blood if indicated. Mr. Funez is being treated for a UTI with Pseudomonas as well with a GI bleed that family has decided against surgical intervention. While here patient has remained stable with no indication for blood. He has worked with physical therapy and he is resting well. At this time We will discharge patient back to the [place] [facility] on oral antibiotics and he will go to group home where he will participated with Physical therapy. He will follow up with Primary care provider as a outpatient . Time Spent with Patient Time attestation: Total time spent providing and/or coordinating discharge services: Exam Narrative: General: In no acute distress, well nourished Cardiac: Normal S1 and S2. No murmur, gallops or friction rubs, peripheral pulses intact. Respiratory: Lungs course bilaterally with expiratory wheezing Gastrointestinal: soft, non-distended, non-tender, normoactive bowel sounds. :Todd catheter in place draining clear yellow urine Extremities: moves all extremities well Neuro: Alert to voice and oriented x3 Discharge Plan Discharge Attending physician on discharge: To Chang Consulting providers: Ravindra Calzada; Tracee Nuñez; Pam Cook; Bill Rogers Discharging Clinician: Ravindra Calzada Anticipated Discharge Date/Time: 05/17/24 07:11 Patient Disposition: Home Health Service Activity: may shower and as tolerated Discharge Instructions: Per Care Coordination: [facility] will follow you at discharge for group home, PT, and OT. They will plan to see you on Monday, May 17, and will call and give you an approximate time. Patient Instructions: Antibiotic Form, Azithromycin (By mouth), Urinary Tract Infection in Men (DC), Parkinson Disease (DC), Chronic Kidney Disease Diet (DC), Fall Prevention for Older Adults (DC), Weakness (DC) Stand Alone Forms: General Discharge Information Follow-up/Referrals: Vesna Tirado
[2024-05-17] MEDS: CHOLECALCIFEROL 1,000 UNITS TABLET 1000 UNITS PO (09:19)
[2024-05-17] MEDS: ATORVASTATIN 40 MG TABLET PO (09:19)
[2024-05-17] MEDS: VITAMIN B COMPLEX CAPSULE 1 CAP PO (09:19)
[2024-05-17] MEDS: FINASTERIDE 5 MG TABLET PO (09:20)
[2024-05-17] MEDS: SODIUM BICARBONATE TAB 650 MG TABLET PO (09:20)
[2024-05-17] MEDS: amLODIPine BESYLATE 5 MG TABLET PO (09:20)
[2024-05-17] MEDS: MICONAZOLE NITRATE 2% CREAM 30 GM TUBE 1 APPLIC TOPICAL (09:20)
[2024-05-17] MEDS: ACIDOPHILUS/BULGARICUS CHEWABLE TABLET 1 TABLET PO (09:20)
[2024-05-17] MEDS: CARBIDOPA/LEVODOPA 25/100 MG TABLET 3 TABLET PO (09:24)
--- NOTE | 2024-05-17 10:45 | PC.NURSE ---
Patient discharging home today. IV site removed, tip intact, dressing applied to site. All belongings gathered together and sent home with patient. All discharge instructions and education reviewed with patient and family. Both parties state understanding. Patient has yet to void after cather discontinued. Bladder scan showed 22ml at most. Family instucted to ensure patient voids by 1400. If he has not contact his primary MD or take patient to ER. No further questions at this time. Patient transferred from recliner to wheelchair with 1x assist and walker. This nurse accompanied patient to front door via wheelchair. Transferred from wheelchair to car with 1 assist and walker. Left via private vehicle with son and grandaughter.
--- NOTE | 2024-05-27 09:28 | PC.NURSE ---
Discharge call back completed, doing well at home, only fall x1 when he got up unassisted, no questions regarding dc instructions
== END 2024-05-17 10:45 | disposition home health service (06) | DRG 947 ==
PROVIDERS: Nurse Practitioner Acute Care; Admitting Provider Internal Medicine; PCP Family Medicine; Visit Provider Nurse Practitioner Family
DX: R53.81 Other malaise (principal); I50.33 Acute on chronic diastolic (congestive) heart failure; J18.9 Pneumonia, unspecified organism; N39.0 Urinary tract infection, site not specified; I13.0 Hypertensive heart and chronic kidney disease with heart failure and stage 1 through stage 4 chronic kidney disease, or unspecified chronic kidney disease; N17.9 Acute kidney failure, unspecified; I48.20 Chronic atrial fibrillation, unspecified; N25.81 Secondary hyperparathyroidism of renal origin; N18.9 Chronic kidney disease, unspecified; I48.0 Paroxysmal atrial fibrillation; E11.22 Type 2 diabetes mellitus with diabetic chronic kidney disease; D63.1 Anemia in chronic kidney disease; D50.9 Iron deficiency anemia, unspecified; N40.0 Benign prostatic hyperplasia without lower urinary tract symptoms; K57.30 Diverticulosis of large intestine without perforation or abscess without bleeding; M19.90 Unspecified osteoarthritis, unspecified site; G20.A1 Parkinson's disease without dyskinesia, without mention of fluctuations; F02.80 Dementia in other diseases classified elsewhere, unspecified severity, without behavioral disturbance, psychotic disturbance, mood disturbance, and anxiety; Z96.652 Presence of left artificial knee joint; I25.2 Old myocardial infarction; Z86.73 Personal history of transient ischemic attack (TIA), and cerebral infarction without residual deficits; Z86.718 Personal history of other venous thrombosis and embolism; Z86.010 Personal history of colon polyps; Z87.891 Personal history of nicotine dependence; Z79.01 Long term (current) use of anticoagulants
CPT/HCPCS: 36415; 71045; 80048; 80053; 85025; 85027; 92507; 92523; 94640; 97110; 97161; 97166; 97530; 97535; A9270; J1940; Q5105

== ENCOUNTER 2024-05-23 17:26 | Emergency (ER) | payer MEDICARE, SELFPAY ==
--- NOTE | ~2024-05-23 | XR_ITS ---
XR pelvis 1-2V 05/23/2024 18:13 Indication: Pelvic pain after fall Procedure: AP pelvis Comparison: No prior studies for comparison. Findings: Pelvic rings are intact. There is mild osteoarthritis of the hips. There is lower lumbar sp ondylosis. There is extensive atherosclerosis. Impression: 1: No acute fracture. Reviewed, dictated and finalized at location B. Impression: 1: No acute fracture.
--- NOTE | ~2024-05-23 | CT_ITS ---
EXAMINATION: CT cervical spine wo con DATE: 05/23/2024 17:57 INDICATION: Anticoagulation. Head injury. Status post fall. TECHNIQUE: Computed tomography (CT) of the cervical spine was performed without intravenous contrast. The dose-length product was 507 mGy-cm. Automated exposure control and iterative reconstruction tech nique were employed. COMPARISON: None FINDINGS: There is degenerative disc disease at multiple levels most advanced at C5-6 and C6-7. Crani overtebral junction is normal. Odontoid process is normal. Prominent bridging osteophytes ventrally a nd dorsally at multiple levels. There is carotid atherosclerosis. There are bilateral pleural effusio ns. There is moderate multilevel facet hypertrophy. No evidence for perched facet. Craniovertebral ju nction is normal. IMPRESSION: 1. No acute abnormality of the cervical spine. 2: Moderate cervical spondylosis. Reviewed, dictated and finalized at location B.
--- NOTE | ~2024-05-23 | CT_ITS ---
EXAMINATION: CT brain wo con DATE: 05/23/2024 17:57 INDICATION: head injury, anticoagulation . TECHNIQUE: Computed tomography (CT) of the head was performed without intravenous contrast. The mA wa s adjusted according to patient size. Iterative reconstruction technique was employed. The dose-lengt h product was 605.33 mGy-cm. COMPARISON: 04/27/2024, 04/23/2024. FINDINGS: No acute intracranial hemorrhage or extra-axial fluid collection. No hydrocephalus, mass, or herniation. No acute ischemic infarct. Unremarkable dural venous sinus attenuation. No acute osseous abnormality. Small posterior scalp contusion. Minimal left mastoid fluid, the remaining aerated spaces are clear. Moderate atrophy and chronic white matter change. Atherosclerotic intracranial calcification. Bilater al lens replacements. 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 IMPRESSION: No acute intracranial process. Reviewed, dictated and finalized at location K.
--- NOTE | ~2024-05-23 | XR_ITS ---
EXAMINATION: XR chest 1V portable Exam Date/Time: 05/23/2024 18:05 CDT HISTORY: fall Comparison: 05/14/2024. RESULT: Lines, tubes, and devices: None. Lungs and pleura: Moderate diffuse ground glass opacity in the right lung. Improved aeration of the left lung base Moderate right costophrenic angle blunting. Minimal left costophrenic angle blunting. Cardiomediastinal silhouette: Stable. Other: No acute osseous or upper abdominal finding. IMPRESSION: Increasing right pulmonary opacities, may represent edema, infection, or aspiration. Moderate right p leural effusion. Trace left pleural effusion. Reviewed, dictated and finalized at location K. IMPRESSION: Increasing right pulmonary opacities, may represent edema, infection, or aspira tion. Moderate right pleural effusion. Trace left pleural effusion.
[2024-05-23 17:30] VITALS: BP 156/74; PULSE 56; RESP 24; TEMP 36.4; O2SAT 95
--- NOTE | 2024-05-23 17:48 | ED.FALL ---
HPI - Fall General Chief Complaint: Fall Stated Complaint: fall Time Seen by Provider: 05/23/24 17:36 Source: patient, family and EMS Mode of arrival: EMS Limitations: dementia History of Present Illness HPI Narrative: This is an 84-year-old male that presents to the emergency department after a fall today with head injury. Patient recently discharged from the hospital. Is home with home health, and PT/OT. He had just finished his PT this afternoon. He tried to get up on his own out of his chair and fell backwards and hit his head. He did not lose consciousness. Patient has no complaints currently. He is on anticoagulation. Unsure last tetanus vaccination. Noted to be wheezing. Related Data Home Medications Medication Instructions Recorded Confirmed acetaminophen 325 mg tablet (Mapap 650 mg PO PRN PRN pain or fever 11/14/19 05/21/24 (acetaminophen)) finasteride 5 mg tablet 5 mg PO DAILY 03/08/21 05/21/24 sodium bicarbonate 650 mg tablet 650 mg PO BIDWMEAL 03/12/23 05/21/24 vitamin B complex (B 1 tablet PO EVERY OTHER DAY 07/12/23 05/21/24 Complex-Vitamin B12 tablet) aspirin 81 mg tablet,delayed 81 mg PO DAILY 09/13/23 05/21/24 release (Adult Low Dose Aspirin) cholecalciferol (vitamin D3) 25 25 mcg PO DAILY 09/13/23 05/21/24 mcg (1,000 unit) capsule ferrous sulfate 324 mg (65 mg 324 mg PO BID 09/13/23 05/21/24 iron) tablet,delayed release fluticasone propionate 50 2 spray intranasal DAILY PRN 09/13/23 05/21/24 mcg/actuation nasal Allergy Symptoms spray,suspension (Flonase Allergy Relief) lactobacillus combination no.9 4 4,000 mmu cells PO DAILY 09/13/23 05/21/24 billion cell capsule (Adult 50 Plus Probiotic) melatonin 5 mg capsule 10 mg PO QHS 09/13/23 05/21/24 apixaban 2.5 mg tablet (Eliquis) 2.5 mg PO BID 12/04/23 05/21/24 epoetin ren-epbx 20,000 unit/mL 20,000 unit subcut .EVERY 2 WEEKS 04/26/24 05/21/24 injection solution Allergies Allergy/AdvReac Type Severity Reaction Status Date / Time No Known Allergies Allergy Verified 05/21/24 13:57 Review of Systems Review of Systems: ROS unobtainable: Yes unobtainable due to medical condition [facility] Past Medical History Medical History Anemia Benign prostatic hyperplasia 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yroidism, not elsewhere classified Syncope due to orthostatic hypotension Transient ischemic attack Type 2 diabetes mellitus 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 Cox. Three polyps the mid ascending colon, 4 polyps in the rectum Internal hemorrhoids, diverticulosis History of inferior vena caval filter placement History of left knee replacement (09/2013) History of tonsillectomy Family History Family History Father Cerebrovascular accident Sibling Cerebrovascular accident Mother Heart attack Social History Social History Social History: Surrogate medical decision maker: Grecia Carrera, spouse. Code status: Full code. Smoking packs per day: 2 Smoking cigarettes per day: 40.0 Years smoked: 36 Smoking pack-years: 72.00 Smoking status: Never smoker Tobacco type: cigarettes Second hand tobacco smoke exposure: No Smoking end date: 08/18/87 Additional smoking assessment
[2024-05-23 17:59] VITALS: PULSE 56; PULSE 66; RESP 20; RESP 23; O2SAT 96
[2024-05-23] MEDS: IPRATROPIUM 0.5 MG/ALBUTEROL SULFATE 2.5 MG AMPUL.NEB 3 ML INHALATION (17:59)
[2024-05-23 18:00] VITALS: PULSE 54; RESP 26; O2SAT 95
[2024-05-23 18:29] VITALS: PULSE 59; RESP 20
[2024-05-23] MEDS: TETANUS,DIPHTHERIA,AC PERTUSSIS ADULT (0.5 ML) BOOSTRIX IM (18:47)
--- NOTE | 2024-05-23 18:59 | PC.NURSE ---
c-collar removed at this time. ok per provider
[2024-05-23] MEDS: AMOXICILLIN/CLAVULANATE K 875-125 MG TAB 1 TABLET PO (19:45)
[2024-05-23 19:47] VITALS: BP 119/76; PULSE 48; RESP 21; O2SAT 97
[2024-05-23 20:02] VITALS: BP 122/61; PULSE 63; RESP 23; O2SAT 94
== END 2024-05-23 20:24 | disposition home or self-care (01) ==
PROVIDERS: Emergency Provider Physician Assistant; PCP Family Medicine
DX: S01.01XA Laceration without foreign body of scalp, initial encounter (principal); J18.9 Pneumonia, unspecified organism; Z23 Encounter for immunization; F03.90 Unspecified dementia, unspecified severity, without behavioral disturbance, psychotic disturbance, mood disturbance, and anxiety; G20.A1 Parkinson's disease without dyskinesia, without mention of fluctuations; I25.2 Old myocardial infarction; I10 Essential (primary) hypertension; I48.0 Paroxysmal atrial fibrillation; M19.90 Unspecified osteoarthritis, unspecified site; N25.81 Secondary hyperparathyroidism of renal origin; E11.9 Type 2 diabetes mellitus without complications; N40.1 Benign prostatic hyperplasia with lower urinary tract symptoms; R33.8 Other retention of urine; Z98.42 Cataract extraction status, left eye; Z98.41 Cataract extraction status, right eye; Z96.652 Presence of left artificial knee joint; Z86.2 Personal history of diseases of the blood and blood-forming organs and certain disorders involving the immune mechanism; Z86.16 Personal history of COVID-19; Z86.718 Personal history of other venous thrombosis and embolism; Z86.73 Personal history of transient ischemic attack (TIA), and cerebral infarction without residual deficits; Z87.891 Personal history of nicotine dependence; Z79.01 Long term (current) use of anticoagulants; Z79.82 Long term (current) use of aspirin; Z79.899 Other long term (current) drug therapy; M47.812 Spondylosis without myelopathy or radiculopathy, cervical region; W18.39XA Other fall on same level, initial encounter
CPT/HCPCS: 12002; 70450; 71045; 72125; 72170; 90471; 90715; 94640; 94664; 99284; A9270

== ENCOUNTER 2024-06-04 12:39 | Outpatient (CLI) | payer MEDICARE, SELFPAY ==
[2024-06-04 14:38] LABS: Alkaline Phosphatase 77 U/L (38-126); Anion Gap 12 mmol/L (4-12); Aspartate Amino Transferase 32 U/L (17-59); Bilirubin,Total 0.9 mg/dL (0.2-1.3); Blood Urea Nitrogen 55 mg/dL (9-20); Calcium 9.2 mg/dL (8.4-10.2); Carbon Dioxide 31 mmol/L (22-30); Chloride 100 mmol/L (98-107); Estimated Glomerular Filt Rate 21; Glucose 97 mg/dL (65-110); Potassium 4.5 mmol/L (3.4-5.0); Sodium 143 mmol/L (137-145)
[2024-06-04 15:06] LABS: Alanine Aminotransferase < 6 U/L (6-50)
== END 2024-06-04 12:40 | disposition home or self-care (01) ==
PROVIDERS: PCP Family Medicine; Visit Provider Family Medicine
DX: I10 Essential (primary) hypertension (principal)
CPT/HCPCS: 36415; 80053

== ENCOUNTER 2024-06-27 11:52 | Outpatient (CLI) | payer MEDICARE, SELFPAY ==
[2024-06-27 12:25] LABS: Hematocrit 30.9 % (42.0-52.0); Mean Corpuscular HGB Conc 29.1 g/dl (32-36); Mean Corpuscular Hemoglobin 27.4 pg (26-34); Mean Corpuscular Volume 94.2 fl (80-100); Mean Platelet Volume 11.3 fl (7.4-10.4); Platelet Count Result 183 k/mm3 (150-375); Red Blood Count 3.28 M/mm3 (4.6-6.20); Red Cell Distribution Width 19.5 % (11.5-14.5); White Blood Count 8.8 K/mm3 (4.5-10.0)
[2024-06-27 12:50] LABS: Anion Gap 12 mmol/L (4-12); Blood Urea Nitrogen 73 mg/dL (9-20); Calcium 9.1 mg/dL (8.4-10.2); Carbon Dioxide 29 mmol/L (22-30); Chloride 99 mmol/L (98-107); Estimated Glomerular Filt Rate 20; Glucose 143 mg/dL (65-110); Phosphorus 5.1 mg/dL (2.5-4.5); Potassium 4.9 mmol/L (3.4-5.0); Sodium 140 mmol/L (137-145)
[2024-06-27 13:37] LABS: Vitamin D 25 Hydroxy 49.8 ng/mL
[2024-06-27 13:51] LABS: Creatinine Urine 44.9 mg/dL; Total Protein Urine Random 71 mg/dL; Ur Ttl Prot Creatinine Ratio 1.58 mg/mg (0-0.20)
== END 2024-06-27 11:53 | disposition home or self-care (01) ==
LOC: ANHLAB 11:53
PROVIDERS: PCP Family Medicine; Visit Provider Internal Medicine Nephrology
DX: N18.4 Chronic kidney disease, stage 4 (severe) (principal); E21.1 Secondary hyperparathyroidism, not elsewhere classified
CPT/HCPCS: 36415; 80069; 82306; 82570; 83970; 84156; 85027

== ENCOUNTER 2024-07-05 12:33 | Emergency (ER) | payer MEDICARE, SELFPAY ==
--- NOTE | 2024-07-05 12:36 | ED.GENADULT ---
HPI - General Adult General Chief complaint: Extremity Injury, Lower Stated complaint: Infected Toe Left Foot Time Seen by Provider: 07/05/24 12:47 Source: patient, RN notes reviewed and old records reviewed Mode of arrival: ambulatory Limitations: no limitations History of Present Illness HPI narrative: 84-year-old male is brought in by his son with an infected left great toe that started Monday, 3 days ago. Son reports that it started as a small blister on his toe, he popped it, been up applying peroxide and antibiotic ointment Patient with significant past medical history to include type 2 diabetes, chronic kidney disease, Parkinson's, dementia Son reports that he is having trouble walking with the pain in his foot Area appears to be cellulitic with possible necrotic area Significant tenderness to the toe, medial aspect of the entire foot with mild swelling Onset (ago): day(s) (3) Related Data Home Medications Medication Instructions Recorded Confirmed acetaminophen 325 mg tablet (Mapap 650 mg PO PRN PRN pain or fever 11/14/19 07/05/24 (acetaminophen)) finasteride 5 mg tablet 5 mg PO DAILY 03/08/21 07/05/24 sodium bicarbonate 650 mg tablet 650 mg PO BIDWMEAL 03/12/23 07/05/24 vitamin B complex (B 1 tablet PO EVERY OTHER DAY 07/12/23 07/05/24 Complex-Vitamin B12 tablet) aspirin 81 mg tablet,delayed 81 mg PO DAILY 09/13/23 07/05/24 release (Adult Low Dose Aspirin) cholecalciferol (vitamin D3) 25 25 mcg PO DAILY 09/13/23 07/05/24 mcg (1,000 unit) capsule ferrous sulfate 324 mg (65 mg 324 mg PO BID 09/13/23 07/05/24 iron) tablet,delayed release fluticasone propionate 50 2 spray intranasal DAILY PRN 09/13/23 07/05/24 mcg/actuation nasal Allergy Symptoms spray,suspension (Flonase Allergy Relief) lactobacillus combination no.9 4 4,000 mmu cells PO DAILY 09/13/23 07/05/24 billion cell capsule (Adult 50 Plus Probiotic) melatonin 5 mg capsule 10 mg PO QHS 09/13/23 07/05/24 apixaban 2.5 mg tablet (Eliquis) 2.5 mg PO BID 12/04/23 07/05/24 epoetin ren-epbx 20,000 unit/mL 20,000 unit subcut .EVERY 2 WEEKS 04/26/24 07/05/24 injection solution cephalexin 250 mg capsule 250 mg PO DAILY 07/05/24 07/05/24 Allergies Allergy/AdvReac Type Severity Reaction Status Date / Time No Known Allergies Allergy Verified 07/05/24 12:40 Review of Systems Review of Systems: All systems reviewed & are unremarkable except as noted in HPI and below Constitutional: Constitutional: Reports no additional constitutional complaints Eyes: Eyes: Reports no additional eye complaints ENT: Reports system reviewed and no additional complaints, except as documented Cardiovascular: Cardiovascular: Reports no additional cardiovascular complaints, Denies chest pain and Denies dyspnea Respiratory: Respiratory: Reports no additional respiratory complaints, Denies chest congestion, Denies cough and Denies dyspnea Gastrointestinal: Gastrointestinal: Reports no additional gastrointestinal complaints, Denies abdominal pain, Denies nausea and Denies vomiting Musculoskeletal: Musculoskeletal: Reports as per HPI Integumentary/Breasts: Skin/Breast: Reports as per HPI Neurologic: Reports system reviewed and no additional complaints, except as documented Psychiatric: Psychiatric: Reports no additional psychiatric complaints Allergic/Immunologic: Allergic/Immunologic: Reports no additional allergic/immunologic complaints 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
[2024-07-05 12:46] VITALS: BP 146/63; PULSE 52; RESP 16; TEMP 36.2; O2SAT 98
== END 2024-07-05 13:12 | disposition short-term general hospital (02) ==
PROVIDERS: Emergency Provider Nurse Practitioner; PCP Family Medicine
DX: L08.9 Local infection of the skin and subcutaneous tissue, unspecified (principal); Z87.891 Personal history of nicotine dependence; N40.0 Benign prostatic hyperplasia without lower urinary tract symptoms; I12.9 Hypertensive chronic kidney disease with stage 1 through stage 4 chronic kidney disease, or unspecified chronic kidney disease; E11.22 Type 2 diabetes mellitus with diabetic chronic kidney disease; N18.9 Chronic kidney disease, unspecified; G20.A1 Parkinson's disease without dyskinesia, without mention of fluctuations; F02.80 Dementia in other diseases classified elsewhere, unspecified severity, without behavioral disturbance, psychotic disturbance, mood disturbance, and anxiety; I48.0 Paroxysmal atrial fibrillation; I25.2 Old myocardial infarction; Z86.718 Personal history of other venous thrombosis and embolism; Z86.73 Personal history of transient ischemic attack (TIA), and cerebral infarction without residual deficits
CPT/HCPCS: 99215; G0463

== ENCOUNTER 2024-07-05 13:38 | Emergency (ER) | payer MEDICARE, SELFPAY ==
[2024-07-05] VITALS (13 sets, daily range): BP systolic 143–157; BP diastolic 56–68; PULSE 48–60; RESP 18–31; TEMP 36.3–36.4; O2SAT 95–98
--- NOTE | ~2024-07-05 | US_ITS ---
EXAMINATION: US venous doppler [facility] DATE: 07/05/2024 20:49 INDICATION: Left lower limb pain. TECHNIQUE: Grayscale ultrasound images without and with compression and Doppler ultrasound images of the left lower extremity veins were obtained. COMPARISON: Ultrasound 11/21/2019 FINDINGS: The visualized portions of left common femoral vein, profunda (deep) femoral vein, femoral vein, popl iteal vein, peroneal veins, posterior tibial veins, and greater saphenous vein outflow are patent. IMPRESSION: 1. No deep venous thrombosis. Reviewed, dictated and finalized at location A.
--- NOTE | ~2024-07-05 | XR_ITS ---
EXAMINATION: XR toe 1st LT min 2V DATE: 07/05/2024 19:54 INDICATION: Left great toe pain. TECHNIQUE: 2 views of left great toe were obtained. COMPARISON: None. FINDINGS: Alignment is normal. No fracture. There is severe osteoarthritis of first metatarsophalange al joint and mild osteoarthritis of first interphalangeal joint. IMPRESSION: 1. Polyarticular osteoarthritis. Reviewed, dictated and finalized at location A.
--- NOTE | 2024-07-05 18:35 | PC.NURSE ---
Pt had saturated his depends and had small BM. Cleaned up and placed in dry gown and new depends. Pt denies any other complaints other than his left great toe which is reddened, swollen, and had purulent drainage around nail bed. Send here from urgent care to rule out more invasive infection. Family at bedside reports pt stays in afib and typically runs low, this is his baseline. Pt normally ambulatory with walker and lives at home.
--- NOTE | 2024-07-05 19:21 | ED.WOUNDLAC ---
HPI - Wound/Laceration General Chief Complaint: Wound/Laceration Stated Complaint: L toe pain Time Seen by Provider: 07/05/24 18:18 Source: patient and family Mode of arrival: ambulatory Limitations: dementia History of Present Illness HPI narrative: Patient presents with complaint of pain of his left great toe. This has been present for 3 days and the family has noticed increased redness. There was also a hemorrhagic blister. they were clean with peroxide and Polysporin. They note that patient had not complained of any pain and seemed to be able walk it just fine although he states he experiences pain with walking and describes it as a throbbing sensation. No known trauma. This has never happened before although he does have chronic issues with his feet in sees his promotional representative Dr. Knott. He was recently seen by his promotional representative who is managing a bunion on his right foot. Podiatry is also worse multiple for clipping his toenails regularly. This has never happened before. He has a history of diabetes mellitus not currently insulin any other medications for this. He has a history of CHF for which he is on 40 mg Lasix. Related Data Home Medications Medication Instructions Recorded Confirmed acetaminophen 325 mg tablet (Mapap 650 mg PO PRN PRN pain or fever 11/14/19 07/05/24 (acetaminophen)) finasteride 5 mg tablet 5 mg PO DAILY 03/08/21 07/05/24 sodium bicarbonate 650 mg tablet 650 mg PO BIDWMEAL 03/12/23 07/05/24 vitamin B complex (B 1 tablet PO EVERY OTHER DAY 07/12/23 07/05/24 Complex-Vitamin B12 tablet) aspirin 81 mg tablet,delayed 81 mg PO DAILY 09/13/23 07/05/24 release (Adult Low Dose Aspirin) cholecalciferol (vitamin D3) 25 25 mcg PO DAILY 09/13/23 07/05/24 mcg (1,000 unit) capsule ferrous sulfate 324 mg (65 mg 324 mg PO BID 09/13/23 07/05/24 iron) tablet,delayed release fluticasone propionate 50 2 spray intranasal DAILY PRN 09/13/23 07/05/24 mcg/actuation nasal Allergy Symptoms spray,suspension (Flonase Allergy Relief) lactobacillus combination no.9 4 4,000 mmu cells PO DAILY 09/13/23 07/05/24 billion cell capsule (Adult 50 Plus Probiotic) melatonin 5 mg capsule 10 mg PO QHS 09/13/23 07/05/24 apixaban 2.5 mg tablet (Eliquis) 2.5 mg PO BID 12/04/23 07/05/24 epoetin ren-epbx 20,000 unit/mL 20,000 unit subcut .EVERY 2 WEEKS 04/26/24 07/05/24 injection solution cephalexin 250 mg capsule 250 mg PO DAILY 07/05/24 07/05/24 Allergies Allergy/AdvReac Type Severity Reaction Status Date / Time No Known Allergies Allergy Verified 07/05/24 12:40 [facility] Past Medical History Medical History Anemia Benign prostatic hyperplasia 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yroidism, not elsewhere classified Syncope due to orthostatic hypotension Transient ischemic attack Type 2 diabetes mellitus 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 Cox. Three polyps the mid ascending colon, 4 polyps in the rectum Internal hemorrhoids, diverticulosis History of inferior vena caval filter placement History of left knee replacement (09/2013) History of tonsillectomy Family History Family History Father Cerebrovascular accident Sibling Cerebrovascular accident Mother Heart attack Social History Social History (Reviewed
[2024-07-05 19:52] LABS: Basophils Absolute Auto 0.1 K/mm3 (0.0-0.1); Basophils Percent Auto 0.9 % (0.2-1.2); Eosinophils Absolute Auto 1.4 K/mm3 (0-0.3); Eosinophils Percent Auto 17.9 % (0-4.4); Hematocrit 29.9 % (42.0-52.0); Hemoglobin 8.9 g/dL (14.0-18.0); Immature Granulocyte Absolute 0.02 K/mm3 (0.00-0.031); Immature Granulocyte Percent A 0.3 % (0-0.5); Lymphocytes Absolute Auto 0.51 K/mm3 (0.9-3.2); Lymphocytes Percent Auto 6.5 % (18.3-44.2); Mean Corpuscular HGB Conc 29.8 g/dl (32-36); Mean Corpuscular Hemoglobin 27.6 pg (26-34); Mean Corpuscular Volume 92.6 fl (80-100); Mean Platelet Volume 10.8 fl (7.4-10.4); Monocytes Absolute Auto 0.7 K/mm3 (0.1-0.6); Monocytes Percent Auto 8.3 % (2.6-8.5); Neutrophils Absolute Auto 5.2 K/mm3 (1.3-6.7); Neutrophils Percent Auto 66.1 % (45.5-73.1); Platelet Count Result 182 k/mm3 (150-375); Red Blood Count 3.23 M/mm3 (4.6-6.20); Red Cell Distribution Width 19.7 % (11.5-14.5); White Blood Count 7.8 K/mm3 (4.5-10.0)
[2024-07-05 20:02] LABS: INR 1.5; Prothrombin Time 18.9 Seconds (11.1-14.7)
[2024-07-05 20:03] LABS: Partial Thromboplastin Time 39.1 Seconds (22.3-36.8); Uric Acid 10.7 mg/dL (3.5-8.5)
[2024-07-05 20:05] LABS: Anion Gap 11 mmol/L (4-12); Blood Urea Nitrogen 73 mg/dL (9-20); Carbon Dioxide 28 mmol/L (22-30); Chloride 101 mmol/L (98-107); Estimated CRCL calculation 18 ml/min; Estimated Glomerular Filt Rate 22; Glucose 123 mg/dL (65-110); Potassium 4.1 mmol/L (3.4-5.0); Sodium 140 mmol/L (137-145)
[2024-07-05] MEDS: ACETAMINOPHEN 325 MG TABLET 650 MG PO (20:11)
[2024-07-05 20:12] LABS: NT Pro B Type Natriuretic Pept 15200 pg/mL (19.9-100)
[2024-07-05 20:22] LABS: Platelet Estimate Adequate (Adequate); Schistocytes None Seen
[2024-07-05 20:23] LABS: Anisocytosis 2+; Hypochromasia 1+
[2024-07-05 20:24] LABS: D Dimer 1.33 ug/mL (<0.48)
--- NOTE | 2024-07-05 20:34 | PC.NURSE ---
2030-PATIENT INCONTINENT OF LARGE AMOUNT OF URINE. BUTTOCKS AND GENITAL AREA APPEARS REDDENED. MALE PURWICK APPLIED. COMPLETE LINEN CHANGE DONE. CONFIRMED MEDICATION ORDER WITH ERP.
[2024-07-05] MEDS: COLCHICINE 0.6 MG TABLET 1.2 MG PO (21:14)
[2024-07-05] MEDS: HYDROcodone/acetaminophen (*CRX) 5-325 MG TABLET 1 TAB PO (21:14)
== END 2024-07-05 22:10 | disposition home or self-care (01) ==
PROVIDERS: Emergency Provider Student in an Organized Health Care Education/Training Program; PCP Family Medicine
DX: S90.422A Blister (nonthermal), left great toe, initial encounter (principal); M19.072 Primary osteoarthritis, left ankle and foot; M79.675 Pain in left toe(s); I13.0 Hypertensive heart and chronic kidney disease with heart failure and stage 1 through stage 4 chronic kidney disease, or unspecified chronic kidney disease; I50.9 Heart failure, unspecified; Z79.01 Long term (current) use of anticoagulants; Z79.82 Long term (current) use of aspirin; Z86.73 Personal history of transient ischemic attack (TIA), and cerebral infarction without residual deficits; Z86.718 Personal history of other venous thrombosis and embolism; G20.A1 Parkinson's disease without dyskinesia, without mention of fluctuations; F02.80 Dementia in other diseases classified elsewhere, unspecified severity, without behavioral disturbance, psychotic disturbance, mood disturbance, and anxiety; I48.0 Paroxysmal atrial fibrillation; Z96.652 Presence of left artificial knee joint; Z87.891 Personal history of nicotine dependence; E11.22 Type 2 diabetes mellitus with diabetic chronic kidney disease; N18.9 Chronic kidney disease, unspecified
CPT/HCPCS: 36415; 73660; 80048; 83880; 84550; 85025; 85380; 85610; 85730; 93971; 99284; A9270

== ENCOUNTER 2024-09-06 16:59 | Inpatient (IN) | payer MEDICARE, SELFPAY ==
[2024-09-06] VITALS (9 sets, daily range): BP systolic 115–159; BP diastolic 50–79; PULSE 0–123; RESP 0–22; TEMP 36.1–36.4; O2SAT 87–99; BMI 30.1; BMI 26.3
--- NOTE | 2024-09-06 17:01 | ECG_ITS ---
Test Date: 2024-09-06 17:03:22 Measurements Intervals [place] Rate: 129 P: 0 NV: 0 QRS: 106 QRSD: 165 T: -46 QT: 318 QTc: 467 Interpretive Statements WIDE COMPLEX TACHYCARDIA, CONSIDER SUPRAVENTRICULAR TACHYCARDIA RIGHT AXIS DEVIATION LEFT BUNDLE BRANCH BLOCK BASELINE ARTIFACT- I, II, III ABNORMAL ECG Compared to ECG 04/26/2024 14:41:11 WIDE COMPLEX TACHYCARDIA NOW PRESENT Right-axis deviation now present Left bundle-branch block now present Electronically Signed On 09-06-2024 18:28:50 [employer]AD[employer] COUNSEL[employer] by Jose Ivey D.O.
--- NOTE | 2024-09-06 17:11 | ED_ITS ---
HPI - CPR General Chief Complaint: Cardiac Arrest/CPR Stated Complaint: cardiac arrest Source: family Mode of arrival: other (Family) Limitations: clinical condition History of Present Illness HPI narrative: Patient brought in by private vehicle unresponsive. Found to be pulseless in the vehicle. Immediately brought to resuscitation [place]. Family reports he there in the car on the way to dinner when he started shaking and then became unresponsive Related Data Home Medications Medication Instructions Recorded Confirmed acetaminophen 325 mg tablet (Mapap 650 mg PO PRN PRN pain or fever 11/14/19 08/26/24 (acetaminophen)) finasteride 5 mg tablet 5 mg PO DAILY 03/08/21 08/26/24 sodium bicarbonate 650 mg tablet 650 mg PO BIDWMEAL 03/12/23 08/26/24 vitamin B complex (B 1 tablet PO EVERY OTHER DAY 07/12/23 08/26/24 Complex-Vitamin B12 tablet) aspirin 81 mg tablet,delayed 81 mg PO DAILY 09/13/23 08/26/24 release (Adult Low Dose Aspirin) cholecalciferol (vitamin D3) 25 25 mcg PO DAILY 09/13/23 08/26/24 mcg (1,000 unit) capsule ferrous sulfate 324 mg (65 mg 324 mg PO BID 09/13/23 08/26/24 iron) tablet,delayed release fluticasone propionate 50 2 spray intranasal DAILY PRN 09/13/23 08/26/24 mcg/actuation nasal Allergy Symptoms spray,suspension (Flonase Allergy Relief) lactobacillus combination no.9 4 4,000 mmu cells PO DAILY 09/13/23 08/26/24 billion cell capsule (Adult 50 Plus Probiotic) melatonin 5 mg capsule 10 mg PO QHS 09/13/23 08/26/24 apixaban 2.5 mg tablet (Eliquis) 2.5 mg PO BID 12/04/23 08/26/24 epoetin ren-epbx 20,000 unit/mL 20,000 unit subcut .EVERY 2 WEEKS 04/26/24 08/26/24 injection solution cephalexin 250 mg capsule 250 mg PO DAILY 07/05/24 08/26/24 Allergies Allergy/AdvReac Type Severity Reaction Status Date / Time No Known Allergies Allergy Verified 08/29/24 13:29 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 COVID-19 (~05/2023) Dementia Diastolic dysfunction Diverticulitis (~05/2023) Heart attack History of deep venous thrombosis (DVT) of distal vein of right lower extremity History of TIAs Hypertension MCI (mild cognitive impairment) Osteoarthritis Parkinson disease Paroxysmal atrial fibrillation (~05/2023) Pseudomonas urinary tract infection (~02/2023) Secondary hyperparathyroidism, not elsewhere classified Syncope due to orthostatic hypotension Transient ischemic attack Type 2 diabetes mellitus 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 Cox. Three polyps the mid ascending colon, 4 polyps in the rectum Internal hemorrhoids, diverticulosis History of inferior vena caval filter placement History of left knee replacement (09/2013) History of tonsillectomy Family History Family History Father Cerebrovascular accident Sibling Cerebrovascular accident Mother Heart attack Social History Social History Social History: Surrogate medical decision maker: Grecia Debi, spouse. Code status: Full code. Smoking packs per day: 2 Smoking cigarettes per day: 40.0 Years smoked: 36 Smoking pack-years: 72.00 Smoking status: Never smoker Tobacco type: cigarettes Second hand tobacco smoke exposure: No Smoking end date: 08/18/87 Additional smoking assessment comments: Quit 1986. Alcohol intake: never Substance use: never Substance use type: does not use Do You Feel Safe in your Home?: Yes Lack of Transportation: No Lack of Food: Never True Current Housing: I Have Housing Concerned About Future Housing: No Difficulty Paying Gas/Electric Bills: No Difficulty Paying for Meds: No Currently Unemployed: No Education: Bachelor's Degree Difficulty w/ Childcare or Family Care: No Living arrangements: with family Additional living arrangements comments: He lives with his , Grecia, in [place]. They have been for 63 years. They have 1 son. 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 Spiritual care concerns: No Agree to blood products: Yes Exam Narrative: Constitutional: Unresponsive Head: Atraumatic, no deformities. Eyes: Pupils 4 mm, round, and reactive Neck: Supple, no tracheal deviation, no JVD. ENMT: Mucous membranes moist Cardiovascular: Pulseless Respiratory: Apneic Gastrointestinal: Abdomen was soft nondistended Genitourinary: Deferred Musculoskeletal: Normal muscle tone and bulk. No obvious deformities Skin: No rashes. Neurological: Unresponsive Mental Status: Unresponsive Course Vital Signs Vital signs: Vital Signs Temperature 36.3 C L 09/06/24 17:03 Pulse Rate 0 L 09/06/24 17:03 Respiratory Rate 0 L 09/06/24 17:03 Temperature 36.3 C L 09/06/24 17:03 Pulse Rate 0 L 09/06/24 17: Respiratory Rate 0 L 09/06/24 17:03 MDM - Cardiac Arrest/CPR MDM Narrative Medical decision making narrative: Patient brought to resuscitation [place] medially from the vehicle. Unknown exactly how long the potential down time was but family estimate at least 10-15 minutes of him being unresponsive. Initially we started CPR and gave a dose of epinephrine in standard ACLS protocol. Family then arrived and reported he is DNR DNI. wanted to see him before they stop CPR and when we did stop CPR after giving a dose of epinephrine, patient did have ROSC. Clinically still unresponsive. Discussed with and son that at this point we would need to intubate him if they would like to pursue aggressive care however they do not want that, they agree that he is DNI DNR and did not want any further aggressive care for him. IV established and patient given 4 mg morphine due to having some Guppy breathing. EKG obtained at 5:03 p.m. shows atrial flutter with RVR rate of 129. No obvious STEMI noted. Patient will be admitted to hospital for comfort care. Comfort care measures ordered by myself. Spoke with hospitalist. Discharge Plan Discharge Clinical Impression: Cardiac arrest Patient Disposition: Still a Patient Condition: Terminal Prescriptions: No Action cephalexin 250 mg capsule 250 mg PO DAILY acetaminophen [Mapap (acetaminophen)] 325 mg tablet 650 mg PO PRN PRN (Reason: pain or fever) donepezil [Aricept] 10 mg tablet 5 mg PO QHS Qty: 90 1RF Rx Instructions: Take 5 mg in the morning carbidopa-levodopa 25-100 mg tablet 3 tablet PO TID Qty: 270 6RF Rx Instructions: Pt takes at 8am, 1pm, 6pm carbidopa-levodopa 50-200 mg tablet extended release 1 tablet PO QHS Qty: 90 6RF Rx Instructions: Takes at 2230 finasteride 5 mg tablet 5 mg PO DAILY vitamin B complex [B Complex-Vitamin B12] Tablet 1 tablet PO EVERY OTHER DAY Rx Instructions: 1000 mcg fluticasone propionate [Flonase Allergy Relief] 50 mcg/actuation spray,suspension 2 spray intranasal DAILY PRN (Reason: Allergy Symptoms) Rx Instructions: administer into each nostril Adult 50 Plus Probiotic 4 billion cell capsule 4,000 mmu cells PO DAILY Rx Instructions: administer with a meal aspirin [Adult Low Dose Aspirin] 81 mg tablet,delayed release (DR/EC) 81 mg PO DAILY melatonin 5 mg capsule 10 mg PO QHS cholecalciferol (vitamin D3) 25 mcg (1,000 unit) capsule 25 mcg PO DAILY Eliquis 2.5 mg tablet 2.5 mg PO BID Hold Instructions: HOLD - Resume when okay with Dr Magana sodium bicarbonate 650 mg tablet 650 mg PO BIDWMEAL Hold Instructions: HOLD - resume when okay with the provider epoetin ren-epbx 20,000 unit/mL Solution 20,000 unit SUBCUT .EVERY 2 WEEKS atorvastatin 40 mg Tablet 40 mg PO DAILY Qty: 30 0RF amlodipine 5 mg tablet 5 mg PO DAILY Qty: 30 1RF Rx Instructions: Hold if Systolic BP<110 tamsulosin 0.4 mg capsule 0.4 mg PO HS Qty: 90 1RF ferrous sulfate 324 mg (65 mg iron) tablet,delayed release (DR/EC) 324 mg PO BID lisinopril 20 mg tablet 20 mg PO DAILY Qty: 90 1RF Rx Instructions: ON HOLD albuterol sulfate 90 mcg/actuation HFA aerosol inhaler 2 puff inhalation QID PRN (Reason: shortness of breath or wheezing) Qty: 8.5 1RF furosemide 40 mg tablet 40 mg PO DAILY Qty: 90 1RF Follow-up/Referrals: Vesna Tirado MD [Primary Care Provider] - Time of Disposition: 18:02
--- NOTE | 2024-09-06 17:11 | PC.NURSE ---
Comfort measures established at this time.
[2024-09-06] MEDS: MORPHINE SULFATE (*CRX) 4 MG/ML INJ IV PUSH ×2 (17:14→18:05)
[2024-09-06 17:46] LABS: Glucose Point of Care 185 mg/dl (65-105)
[2024-09-06] MEDS: MORPHINE SULFATE (*CRX) 2 MG/ML INJ IV PUSH ×4 (18:04→22:58)
--- NOTE | 2024-09-06 18:36 | PC.NURSE ---
Family at bedside, aware pt will be admitted for comfort care. Pt has not made any purposeful movement, O2 4L/NC, yanker used to suction secretions in back of throat
--- NOTE | 2024-09-06 19:17 | ADMGEN ---
This patient, Chris Carrera, was admitted to [facility] Surg Room 310-01. Patient/family oriented to hospital policies and general routines including ID bracelet, bed and alarms, visiting hours, pain management, procedures, bathroom and other care routines, personal items, smoking policy, room service/diet, and visiting hours. Information on how to activate the Rapid Response Team has been discussed. Patient/Family are encouraged to report perceived risks to care and to ask questions if they do not understand what they are told or what they should do.
--- NOTE | 2024-09-06 19:50 | P.HP_ITS ---
H&P: HPI History of Present Illness Date/Time: 09/06/24 19:30 Chief Complaint: Unresponsive. Narrative: This is an 84-year-old male with Parkinson's disease, dementia, atrial fibrillation on chronic anticoagulation, hypertension, diastolic dysfunction, chronic bacteriuria on suppressive therapy, diet-controlled type 2 diabetes mellitus, benign prostatic hyperplasia, and other comorbidities who presented to the emergency department via private vehicle after he became unresponsive. The patient's and children provide the following history. He has good and bad days and it is not unusual for him to sleep most of the day. Today was 1 of those days and his encouraged him to get out of bed and they decided to go out to dinner as a family. While in the car he made a strange noise began to shake, and went unresponsive. They were not far from the hospital and they drove him here immediately. Upon arrival to the ED he was pulseless, apneic, and cyanotic. Family indicates that he may have been down for upwards of 10 minutes. He was removed from the car and resuscitative measures were undertaken immediately. Following 1 dose of epinephrine and CPR there was return of spontaneous circulation (atrial flutter with rate of 129). and son were brought into the room and they indicated the patient wished to be a DNR/DNI and they did not want further resuscitative measures nor did they want the patient intubated. He is being admitted for comfort measures. Review of Systems Review of Systems: Unable to obtain given clinical condition. 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 COVID-19 Dementia Diastolic dysfunction Diverticulitis Heart attack History of deep venous thrombosis (DVT) of distal vein of right lower extremity History of TIAs Hypertension Osteoarthritis Parkinson disease Paroxysmal atrial fibrillation Pseudomonas urinary tract infection Secondary hyperparathyroidism, not elsewhere classified Syncope due to orthostatic hypotension Transient ischemic attack Type 2 diabetes mellitus 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 Cox. Three polyps the mid ascending colon, 4 polyps in the rectum Internal hemorrhoids, diverticulosis History of inferior vena caval filter placement History of left knee replacement (09/2013) History of tonsillectomy Family History Family History Father Cerebrovascular accident Sibling Cerebrovascular accident Mother Heart attack Social History Social History Social History: Surrogate medical decision maker: Grecia Carrera, spouse. Code status: Full code. Smoking packs per day: 2 Smoking cigarettes per day: 40.0 Years smoked: 36 Smoking pack-years: 72.00 Smoking status: Never smoker Second hand tobacco smoke exposure: No Additional smoking assessment comments: Quit 1986. Alcohol intake: unknown Substance use: never Substance use type: does not use Do You Feel Safe in your Home?: Yes Lack of Transportation: YES Lack of Food: Never True Current Housing: I Have Housing Concerned About Future Housing: No Difficulty Paying Gas/Electric Bills: No Difficulty Paying for Meds: No Currently Unemployed: No Education: Decline to Answer Difficulty w/ Childcare or Family Care: No Living arrangements: with family Additional living arrangements comments: He lives with his , Grecia, in [facility]. They have been for 63 years. They have 1 son. 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 Spiritual care concerns: No Agree to blood products: Yes Meds Home Medications and Allergies Home Medications Medication Instructions Recorded Confirmed Type acetaminophen 325 mg tablet (Mapap 650 mg PO PRN PRN pain or fever 11/14/19 08/26/24 History (acetaminophen)) finasteride 5 mg tablet 5 mg PO DAILY 03/08/21 08/26/24 History sodium bicarbonate 650 mg tablet 650 mg PO BIDWMEAL 03/12/23 08/26/24 History vitamin B complex (B 1 tablet PO EVERY OTHER DAY 07/12/23 08/26/24 History Complex-Vitamin B12 tablet) tamsulosin 0.4 mg capsule 0.4 mg PO HS #90 caps 07/24/23 08/26/24 Rx aspirin 81 mg tablet,delayed 81 mg PO DAILY 09/13/23 08/26/24 History release (Adult Low Dose Aspirin) cholecalciferol (vitamin D3) 25 25 mcg PO DAILY 09/13/23 08/26/24 History mcg (1,000 unit) capsule ferrous sulfate 324 mg (65 mg 324 mg PO BID 09/13/23 08/26/24 History iron) tablet,delayed release fluticasone propionate 50 2 spray intranasal DAILY PRN 09/13/23 08/26/24 History mcg/actuation nasal Allergy Symptoms spray,suspension (Flonase Allergy Relief) lactobacillus combination no.9 4 4,000 mmu cells PO DAILY 09/13/23 08/26/24 History billion cell capsule (Adult 50 Plus Probiotic) melatonin 5 mg capsule 10 mg PO QHS 09/13/23 08/26/24 History apixaban 2.5 mg tablet (Eliquis) 2.5 mg PO BID 12/04/23 08/26/24 History lisinopril 20 mg tablet 20 mg PO DAILY #90 tabs 01/22/24 08/26/24 Rx epoetin ren-epbx 20,000 unit/mL 20,000 unit subcut .EVERY 2 WEEKS 04/26/24 08/26/24 History injection solution amlodipine 5 mg tablet 5 mg PO DAILY #30 tabs 05/02/24 08/26/24 Rx atorvastatin 40 mg tablet 40 mg PO DAILY #30 tabs 05/02/24 08/26/24 Rx albuterol sulfate 90 mcg/actuation 2 puff inhalation QID PRN 06/05/24 08/26/24 Rx aerosol inhaler shortness of breath or wheezing #8.5 grams furosemide 40 mg tablet 40 mg PO DAILY #90 tabs 06/27/24 08/26/24 Rx cephalexin 250 mg capsule 250 mg PO DAILY 07/05/24 08/26/24 History carbidopa 25 mg-levodopa 100 mg 3 tablet PO TID #270 tabs 08/29/24 08/29/24 Rx tablet carbidopa ER 50 mg-levodopa 200 mg 1 tablet PO QHS #90 tabs 08/29/24 08/29/24 Rx tablet,extended release donepezil 10 mg tablet (Aricept) 5 mg PO QHS #90 tabs 08/29/24 08/29/24 Rx Allergies Allergy/AdvReac Type Severity Reaction Status Date / Time No Known Allergies Allergy Verified 08/29/24 13:29 Vital Signs Vital Signs - 24 hr 09/06/24 17:03 09/06/24 17:36 09/06/24 17:03 Temperature 97.4 F L 97.6 F Pulse Rate 0 L 64 123 H Respiratory Rate 0 L 21 H 14 Blood Pressure 117/65 159/74 H Pulse Oximetry 98 96 09/06/24 17:15 09/06/24 17:30 09/06/24 18:00 Temperature 97.5 F L 97.4 F L Pulse Rate 76 70 72 Respiratory Rate 16 16 16 Blood Pressure 151/79 H 117/65 127/76 Pulse Oximetry 96 88 L 99 09/06/24 18:30 09/06/24 18:50 09/06/24 19:23 Temperature 97.4 F L 97.4 F L 97.0 F L Pulse Rate 65 65 68 Respiratory Rate 18 14 22 H Blood Pressure 115/50 L 123/65 130/73 Pulse Oximetry 87 L 95 97 Exam 2 Narrative: General: Acutely ill-appearing gentleman, unresponsive in bed. Weight: 80.8 kg. BMI: 26.3. HEENT: Normocephalic, atraumatic. Pupils are 3 mm and sluggishly reactive. Sclera anicteric. Tacky mucous membranes. Neck: Supple. No JVD. Respiratory: Respirations are nonlabored. Upper airway sounds transmitted equally anteriorly and at the flanks. Cardiovascular: Irregularly regular rate rhythm. Gastrointestinal: Abdomen is soft, nontender, and nondistended with positive bowel sounds. Skin: Warm and dry. Generalized pallor. Extremities: No cyanosis, clubbing, or significant edema. Peripheral pulses are palpable. Neurological: Unresponsive. He does not withdrawal to pain. No corneal reflex. Psychiatric: Unable to assess. Assessment and Plan Assessment and plan (1) Cardiac arrest: Code(s): I46.9 - Cardiac arrest, cause unspecified Status: Acute (2) Parkinson disease: Qualifiers: Dyskinesia presence: without dyskinesia Fluctuating manifestations: without fluctuating manifestations Qualified Code(s): G20.A1 - Parkinson's disease without dyskinesia, without mention of fluctuations Code(s): G20 - Parkinson's disease Status: Chronic (3) Comfort measures only status: Code(s): Z51.5 - Encounter for palliative care Status: Acute Plan The patient presented to the emergency department after he went unresponsive on the way to dinner as detailed in HPI. Labs, imaging, EKG, and all reports were personally reviewed. He was apneic, pulseless, and cyanotic on arrival. There was return of spontaneous circulation with brief CPR and 1 round of epinephrine. Remembers did not wish to pursue any further treatment or aggressive measures given the patient's wish to be a DNR/DNI. He remains unresponsive at this time. He is being admitted for comfort measures. I did discuss with the family that if he survives overnight that hospice may be appropriate tomorrow. Findings and treatment plan were discussed with the patient's family. Questions were solicited and answered to satisfaction. The patient's medical management will be taken over by the hospitalist team in a.m. Quality If No VTE Prophylaxis Answer both mechanical and pharmacologic: Reason no mechanical VTE proph: low risk/not indicated Reason no pharmacologic proph: low risk/not indicated The patient has been admitted under observation status. Hospitalist MIPS Advance Care Plan I have confirmed that the patient's Advanced Care Plan is present, code status is documented, or surrogate decision maker is listed in patient medical record.: Yes Medication Reconciliation I have utilized all available resources to obtain, update and review the patients current medications (includes all prescriptions, OTC, herbals, cannabis, and nutritional supplements).: Yes
[2024-09-06] MEDS: LORazepam INJ (*CRX) 2 MG/ML VIAL IV PUSH ×2 (20:24→22:58)
[2024-09-06] MEDS: SCOPOLAMINE 1 MG PATCH 1 PATCH TRANSDERM (21:31)
[2024-09-07] MEDS: MORPHINE SULFATE (*CRX) 2 MG/ML INJ IV PUSH ×2 (05:57→09:13)
[2024-09-07] MEDS: LORazepam INJ (*CRX) 2 MG/ML VIAL IV PUSH ×2 (05:57→09:13)
[2024-09-07 09:40] VITALS: O2SAT 83
[2024-09-07 09:43] VITALS: TEMP 36.1
--- NOTE | 2024-09-07 10:38 | PM.IMPN ---
Progress Note: A&P Assessment and Plan (1) Cardiac arrest: Code(s): I46.9 - Cardiac arrest, cause unspecified Status: Acute (2) Parkinson disease: Qualifiers: Dyskinesia presence: without dyskinesia Fluctuating manifestations: without fluctuating manifestations Qualified Code(s): G20.A1 - Parkinson's disease without dyskinesia, without mention of fluctuations Code(s): G20 - Parkinson's disease Status: Chronic (3) Comfort measures only status: Code(s): Z51.5 - Encounter for palliative care Status: Acute Plan The patient presented to the emergency department after he went unresponsive on the way to dinner as detailed in HPI. Labs, imaging, EKG, and all reports were personally reviewed. He was apneic, pulseless, and cyanotic on arrival. There was return of spontaneous circulation with brief CPR and 1 round of epinephrine. Remembers did not wish to pursue any further treatment or aggressive measures given the patient's wish to be a DNR/DNI. He remains unresponsive at this time. He is being admitted for comfort measures. Currently admitted under hospice. Subjective Date/time seen: 09/07/24 10:38 Interval history: This is an 84-year-old male with Parkinson's disease, dementia, atrial fibrillation on chronic anticoagulation, hypertension, diastolic dysfunction, chronic bacteriuria on suppressive therapy, diet-controlled type 2 diabetes mellitus, benign prostatic hyperplasia, and other comorbidities who presented to the emergency department via private vehicle after he became unresponsive. The patient's and children provide the following history. He has good and bad days and it is not unusual for him to sleep most of the day. Today was 1 of those days and his encouraged him to get out of bed and they decided to go out to dinner as a family. While in the car he made a strange noise began to shake, and went unresponsive. They were not far from the hospital and they drove him here immediately. Upon arrival to the ED he was pulseless, apneic, and cyanotic. Family indicates that he may have been down for upwards of 10 minutes. He was removed from the car and resuscitative measures were undertaken immediately. Following 1 dose of epinephrine and CPR there was return of spontaneous circulation (atrial flutter with rate of 129). and son were brought into the room and they indicated the patient wished to be a DNR/DNI and they did not want further resuscitative measures nor did they want the patient intubated. He is being admitted for comfort measures. 09/07: discussed with the patient and his son. Wants to continue the comfort measures. Agrees to consult hospice.Currently admitted under hospice. Review of Systems Review of Systems: Unable to obtain given clinical condition. Exam Narrative: General: Acutely ill-appearing gentleman, unresponsive in bed. Weight: 80.8 kg. BMI: 26.3. HEENT: Normocephalic, atraumatic. Pupils are 3 mm and sluggishly reactive. Sclera anicteric. Tacky mucous membranes. Neck: Supple. No JVD. Respiratory: Respirations are nonlabored. Upper airway sounds transmitted equally anteriorly and at the flanks. Cardiovascular: Irregularly regular rate rhythm. Gastrointestinal: Abdomen is soft, nontender, and nondistended with positive bowel sounds. Skin: Warm and dry. Generalized pallor. Extremities: No cyanosis, clubbing, or significant edema. Peripheral pulses are palpable. Neurological: Unresponsive. He does not withdrawal to pain. No corneal reflex. Psychiatric: Unable to assess. Objective Data Vital Signs Vital Signs: Vital Signs - 24 hr 09/06/24 17:03 09/06/24 17:36 09/06/24 17:03 Temperature 97.4 F L 97.6 F Pulse Rate 0 L 64 123 H Respiratory Rate 0 L 21 H 14 Blood Pressure 117/65 159/74 H Pulse Oximetry 98 96 Oxygen Delivery Oxygen Flow Rate 09/06/24 17:15 09/06/24 17:30 09/06/24 18:00 Temperature 97.5 F L 97.4 F L Pulse Rate 76 70 72 Respiratory Rate 16 16 16 Blood Pressure 151/79 H 117/65 127/76 Pulse Oximetry 96 88 L 99 Oxygen Delivery Oxygen Flow Rate 09/06/24 18:30 09/06/24 18:50 09/06/24 19:23 Temperature 97.4 F L 97.4 F L 97.0 F L Pulse Rate 65 65 68 Respiratory Rate 18 14 22 H Blood Pressure 115/50 L 123/65 130/73 Pulse Oximetry 87 L 95 97 Oxygen Delivery Oxygen Flow Rate 09/06/24 20:00 09/07/24 10:14 Temperature Pulse Rate 68 Respiratory Rate 22 H Blood Pressure Pulse Oximetry 97 Oxygen Delivery Nasal Cannula Nasal Cannula Oxygen Flow Rate 4 3 Intake/Output Intake/Output: Intake & Output 09/04/24 09/05/24 09/06/24 09/07/24 23:59 23:59 23:59 23:59 Intake Total 0 Balance 0 Meds/Results Medications: Active Medications Generic Name Dose Route Start Last Admin Trade Name Freq PRN Reason Stop Dose Admin Lorazepam 2 mg 09/06/24 17:48 09/07/24 09:13 Lorazepam Inj (*Crx) 2 Mg/Ml Vial IV PUSH 2 mg Q2H PRN Administration Anxiety/Comfort Morphine Sulfate 2 mg 09/06/24 17:48 09/07/24 09:13 Morphine Sulfate (*Crx) 2 Mg/Ml Inj IV PUSH 2 mg Q30M PRN Administration COMFORT Labs Labs: Laboratory Results - last 24 hr 09/06/24 17:31 POC Capillary Glucose 185 H Hospitalist MIPS Advance Care Plan I have confirmed that the patient's Advanced Care Plan is present, code status is documented, or surrogate decision maker is listed in patient medical record.: Yes Medication Reconciliation I have utilized all available resources to obtain, update and review the patients current medications (includes all prescriptions, OTC, herbals, cannabis, and nutritional supplements).: Yes
[2024-09-07 13:30] VITALS: BP 123/58; PULSE 62; RESP 24; TEMP 36.9; O2SAT 81
--- NOTE | 2024-09-07 13:31 | P.HP_ITS ---
H&P: HPI History of Present Illness Date/Time: 09/07/24 13:31 Chief Complaint: uncontrolled dyspnea Narrative: 84-year-old gentleman was riding in the car with his while going out to dinner. During the ride he became unresponsive in begin generalized tonic clonic shaking. His sitter driving to the restaurant his family drove him to the emergency department where he was brought to the resuscitation [place] mmediately. CPR was initiated in a dose of epinephrine was given. The ask emergency department personnel to stop CPR because Mr. Tomás uBsh head indicated he did not CPR or resuscitation. He had return of spontaneous circulation with CPR was discontinued. They did not want intubation because of his previously expressed wishes and opted for comfort care. Overnight he received morphine intermittently for dyspnea. Today the opted for inpatient hospice service for comfort care. Between hydromorphone injections he is experiencing tachypnea. He is rattling with respirations. Is not awakened or interact family since his cardiac arrest. He continues to have intermittent clonic movements in his left upper extremity. Prior to his cardiac arrest he was confused with poor short-term memory but ambulatory and days. Current PPS is 10. 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 COVID-19 Dementia Diastolic dysfunction Diverticulitis Heart attack History of deep venous thrombosis (DVT) of distal vein of right lower extremity History of TIAs Hypertension Osteoarthritis Parkinson disease Paroxysmal atrial fibrillation Pseudomonas urinary tract infection Secondary hyperparathyroidism, not elsewhere classified Syncope due to orthostatic hypotension Transient ischemic attack Type 2 diabetes mellitus 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 Cox. Three polyps the mid ascending colon, 4 polyps in the rectum Internal hemorrhoids, diverticulosis History of inferior vena caval filter placement History of left knee replacement (09/2013) History of tonsillectomy Family History Family History Father Cerebrovascular accident Sibling Cerebrovascular accident Mother Heart attack Social History Social History (Updated 09/07/24 @ 13:45 by Donnie Morales MD) Social History: Surrogate medical decision maker: Grecia Carrera, spouse. Code status: DNR. Smoking packs per day: 2 Smoking cigarettes per day: 40.0 Years smoked: 36 Smoking pack-years: 72.00 Smoking status: Former smoker Additional smoking assessment comments: Quit 1986. Alcohol intake: unknown Substance use: never Substance use type: does not use Do You Feel Safe in your Home?: Yes Lack of Transportation: YES Lack of Food: Never True Current Housing: I Have Housing Concerned About Future Housing: No Difficulty Paying Gas/Electric Bills: No Difficulty Paying for Meds: No Currently Unemployed: No Education: Decline to Answer Difficulty w/ Childcare or Family Care: No Living arrangements: with family Additional living arrangements comments: He lives with his , Grecia, in [place]. They have been for 63 years. They have 1 son. 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 Spiritual care concerns: No Agree to blood products: Yes Meds Home Medications and Allergies Home Medications Medication Instructions Recorded Confirmed Type acetaminophen 325 mg tablet (Mapap 650 mg PO PRN PRN pain or fever 11/14/19 08/26/24 History (acetaminophen)) finasteride 5 mg tablet 5 mg PO DAILY 03/08/21 08/26/24 History sodium bicarbonate 650 mg tablet 650 mg PO BIDWMEAL 03/12/23 08/26/24 History vitamin B complex (B 1 tablet PO EVERY OTHER DAY 07/12/23 08/26/24 History Complex-Vitamin B12 tablet) tamsulosin 0.4 mg capsule 0.4 mg PO HS #90 caps 07/24/23 08/26/24 Rx aspirin 81 mg tablet,delayed 81 mg PO DAILY 09/13/23 08/26/24 History release (Adult Low Dose Aspirin) cholecalciferol (vitamin D3) 25 25 mcg PO DAILY 09/13/23 08/26/24 History mcg (1,000 unit) capsule ferrous sulfate 324 mg (65 mg 324 mg PO BID 09/13/23 08/26/24 History iron) tablet,delayed release fluticasone propionate 50 2 spray intranasal DAILY PRN 09/13/23 08/26/24 History mcg/actuation nasal Allergy Symptoms spray,suspension (Flonase Allergy Relief) lactobacillus combination no.9 4 4,000 mmu cells PO DAILY 09/13/23 08/26/24 History billion cell capsule (Adult 50 Plus Probiotic) melatonin 5 mg capsule 10 mg PO QHS 09/13/23 08/26/24 History apixaban 2.5 mg tablet (Eliquis) 2.5 mg PO BID 12/04/23 08/26/24 History lisinopril 20 mg tablet 20 mg PO DAILY #90 tabs 01/22/24 08/26/24 Rx epoetin ren-epbx 20,000 unit/mL 20,000 unit subcut .EVERY 2 WEEKS 04/26/24 08/26/24 History injection solution amlodipine 5 mg tablet 5 mg PO DAILY #30 tabs 05/02/24 08/26/24 Rx atorvastatin 40 mg tablet 40 mg PO DAILY #30 tabs 05/02/24 08/26/24 Rx albuterol sulfate 90 mcg/actuation 2 puff inhalation QID PRN 06/05/24 08/26/24 Rx aerosol inhaler shortness of breath or wheezing #8.5 grams furosemide 40 mg tablet 40 mg PO DAILY #90 tabs 06/27/24 08/26/24 Rx cephalexin 250 mg capsule 250 mg PO DAILY 07/05/24 08/26/24 History carbidopa 25 mg-levodopa 100 mg 3 tablet PO TID #270 tabs 08/29/24 08/29/24 Rx tablet carbidopa ER 50 mg-levodopa 200 mg 1 tablet PO QHS #90 tabs 08/29/24 08/29/24 Rx tablet,extended release donepezil 10 mg tablet (Aricept) 5 mg PO QHS #90 tabs 08/29/24 08/29/24 Rx Allergies Allergy/AdvReac Type Severity Reaction Status Date / Time No Known Allergies Allergy Verified 08/29/24 13:29 Vital Signs Vital Signs - 24 hr 09/06/24 17:03 09/06/24 17:36 09/06/24 17:03 Temperature 97.4 F L 97.6 F Pulse Rate 0 L 64 123 H Respiratory Rate 0 L 21 H 14 Blood Pressure 117/65 159/74 H Pulse Oximetry 98 96 Oxygen Delivery Oxygen Flow Rate 09/06/24 17:15 09/06/24 17:30 09/06/24 18:00 Temperature 97.5 F L 97.4 F L Pulse Rate 76 70 72 Respiratory Rate 16 16 16 Blood Pressure 151/79 H 117/65 127/76 Pulse Oximetry 96 88 L 99 Oxygen Delivery Oxygen Flow Rate 09/06/24 18:30 09/06/24 18:50 09/06/24 19:23 Temperature 97.4 F L 97.4 F L 97.0 F L Pulse Rate 65 65 68 Respiratory Rate 18 14 22 H Blood Pressure 115/50 L 123/65 130/73 Pulse Oximetry 87 L 95 97 Oxygen Delivery Oxygen Flow Rate 09/06/24 20:00 09/07/24 10:14 Temperature Pulse Rate 68 Respiratory Rate 22 H Blood Pressure Pulse Oximetry 97 Oxygen Delivery Nasal Cannula Nasal Cannula Oxygen Flow Rate 4 3 Exam Narrative: HEENT: Pharyngeal mucosa pink and dry. NECK: No JVD. CHEST: Mildly tachypneic. Coarse crackles throughout. HEART: NL S1/S2, regular, no murmur. ABDOMEN: BS hypoactive, soft, nontender, no mass, no bruits EXTREMITIES: No cyanosis, edema, or clubbing NEUROLOGIC: CN intact and symmetric to inspection. Intermittent tonic-clonic movements of LUE. MUSCULOSKELETAL: No gross deformity to visual inspection. PSYCH: Unresponsive to verbal or tactile stimuli. Assessment and Plan Assessment and plan (1) Hospice care: Code(s): Z51.5 - Encounter for palliative care Status: Acute Assessment and Plan: * Meet inpatient hospice criteria due to required continuous IV hydromorphone for control of dyspnea as well as scheduled IV levetiracetam for control of focal seizures. * P.r.n. palliative regimen ordered. * 09/07/2024 Discussed care prognosis with his spouse, son, and granddaughter side. (2) Cardiac arrest: Code(s): I46.9 - Cardiac arrest, cause unspecified Status: Acute Assessment and Plan: * ROSC after epinephrine and CPR. (3) Congestive heart failure: Code(s): I50.9 - Heart failure, unspecified Status: Acute Assessment and Plan: * Chronic diastolic. (4) Acute hypoxic respiratory failure: Code(s): J96.01 - Acute respiratory failure with hypoxia Status: Acute Assessment and Plan: * Likely related to aspiration, chf secondary to cardiac arrest. 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 insulin use: without care home use Diabetes mellitus complication status: without complica tion Qualified Code(s): E11.9 - Type 2 diabetes mellitus without complications Code(s): E11.9 - Type 2 diabetes mellitus without complications Status: Chronic (10) BPH (benign prostatic hyperplasia): Qualifiers: Lower urinary tract symptom detail: urinary retention Lower urinary tract symptom presence: symptoms present Qualified Code(s): N40.1 - Benign prostatic hyperplasia with lower urinary tract symptoms; R33.8 - Other retention of urine Code(s): N40.0 - Benign prostatic hyperplasia without lower urinary tract symptoms Status: Acute (11) Anemia in chronic kidney disease: Code(s): N18.9 - Chronic kidney disease, unspecified; D63.1 - Anemia in chronic kidney disease Status: Acute (12) Paroxysmal atrial fibrillation: Code(s): I48.0 - Paroxysmal atrial fibrillation Status: Acute (13) Dementia: Qualifiers: Dementia type: unspecified type Dementia severity: unspecified severity Dementia behavioral or psychological symptom: without behavioral, psychotic, or mood disturbance or anxiety Qualified Code(s): F03.90 - Unspecified dementia, unspecified severity, without behavioral disturbance, psychotic disturbance, mood disturbance, and anxiety Code(s): F03.90 - Unspecified dementia, unspecified severity, without behavioral disturbance, psychotic disturbance, mood disturbance, and anxiety Status: Acute (14) Chronic kidney disease, stage 4 (severe): Code(s): N18.4 - Chronic kidney disease, stage 4 (severe) Status: Chronic
--- NOTE | 2024-09-07 14:36 | PC.NURSE ---
On 09/07/24, the DAIRY ASSOCIATE, Janice, provided care and completed [facility] documentation on this patient. I have reviewed the DAIRY ASSOCIATE's documentation and agree with the findings.
== END 2024-09-07 14:40 | disposition hospice, inpatient (51) | DRG 297 ==
LOC: ANHED 18:02 → ANH3MEDSUR 19:07
PROVIDERS: Admitting Provider General Practice; Emergency Provider Emergency Medicine; PCP Family Medicine; Visit Provider General Practice
DX: I46.9 Cardiac arrest, cause unspecified (principal); N25.81 Secondary hyperparathyroidism of renal origin; G20.A1 Parkinson's disease without dyskinesia, without mention of fluctuations; F03.90 Unspecified dementia, unspecified severity, without behavioral disturbance, psychotic disturbance, mood disturbance, and anxiety; Z51.5 Encounter for palliative care; D64.9 Anemia, unspecified; N40.0 Benign prostatic hyperplasia without lower urinary tract symptoms; I48.0 Paroxysmal atrial fibrillation; E11.9 Type 2 diabetes mellitus without complications; I10 Essential (primary) hypertension; M19.90 Unspecified osteoarthritis, unspecified site; Z96.652 Presence of left artificial knee joint; Z66 Do not resuscitate; Z86.16 Personal history of COVID-19; Z86.718 Personal history of other venous thrombosis and embolism; Z86.73 Personal history of transient ischemic attack (TIA), and cerebral infarction without residual deficits; Z98.42 Cataract extraction status, left eye; Z98.41 Cataract extraction status, right eye
CPT/HCPCS: 36415; 82948; 92950; 93005; 96374; 96375; 96376; 99285; A9270; G0378; J2060; J2270

== ENCOUNTER 2024-09-07 14:54 | HOS | payer OTHER, MEDICARE, SELFPAY ==
--- NOTE | 2024-09-07 11:32 | HP_ITS ---
This report was moved to the correct visit on 09/10/2024. The original report was signed by Donnie Morales MD on 09/07/24 2627. H&P: HPI History of Present Illness Date/Time: 09/07/24 13:31 Chief Complaint: uncontrolled dyspnea Narrative: 84-year-old gentleman was riding in the car with his while going out to dinner. During the ride he became unresponsive in begin generalized tonic clonic shaking. His sitter driving to the restaurant his family drove him to the emergency department where he was brought to the resuscitation [place] immediately. CPR was initiated in a dose of epinephrine was given. The ask emergency department personnel to stop CPR because Mr. Tomás Bush head indicated he did not CPR or resuscitation. He had return of spontaneous circulation with CPR was discontinued. They did not want intubation because of his previously expressed wishes and opted for comfort care. Overnight he received morphine intermittently for dyspnea. Today the opted for inpatient hospice service for comfort care. Between hydromorphone injections he is experiencing tachypnea. He is rattling with respirations. Is not awakened or interact family since his cardiac arrest. He continues to have intermittent clonic movements in his left upper extremity. Prior to his cardiac arrest he was confused with poor short-term memory but ambulatory and days. Current PPS is 10. 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 COVID-19 Dementia Diastolic dysfunction Diverticulitis Heart attack History of deep venous thrombosis (DVT) of distal vein of right lower extremity History of TIAs Hypertension Osteoarthritis Parkinson disease Paroxysmal atrial fibrillation Pseudomonas urinary tract infection Secondary hyperparathyroidism, not elsewhere classified Syncope due to orthostatic hypotension Transient ischemic attack Type 2 diabetes mellitus 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 Cox. Three polyps the mid ascending colon, 4 polyps in the rectum Internal hemorrhoids, diverticulosis History of inferior vena caval filter placement History of left knee replacement (09/2013) History of tonsillectomy Family History Family History Father Cerebrovascular accident Sibling Cerebrovascular accident Mother Heart attack Social History Social History (Updated 09/07/24 @ 13:45 by Donnie Morales MD) Social History: Surrogate medical decision maker: Grecia Carrera, spouse. Code status: DNR. Smoking packs per day: 2 Smoking cigarettes per day: 40.0 Years smoked: 36 Smoking pack-years: 72.00 Smoking status: Former smoker Additional smoking assessment comments: Quit 1986. Alcohol intake: unknown Substance use: never Substance use type: does not use Do You Feel Safe in your Home?: Yes Lack of Transportation: YES Lack of Food: Never True Current Housing: I Have Housing Concerned About Future Housing: No Difficulty Paying Gas/Electric Bills: No Difficulty Paying for Meds: No Currently Unemployed: No Education: Decline to Answer Difficulty w/ Childcare or Family Care: No Living arrangements: with family Additional living arrangements comments: He lives with his , Grecia, in [place]. They have been for 63 years. They have 1 son. 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 Spiritual care concerns: No Agree to blood products: Yes Meds Home Medications and Allergies Home Medications Medication Instructions Recorded Confirmed Type acetaminophen 325 mg tablet (Mapap 650 mg PO PRN PRN pain or fever 11/14/19 08/26/24 History (acetaminophen)) finasteride 5 mg tablet 5 mg PO DAILY 03/08/21 08/26/24 History sodium bicarbonate 650 mg tablet 650 mg PO BIDWMEAL 03/12/23 08/26/24 History vitamin B complex (B 1 tablet PO EVERY OTHER DAY 07/12/23 08/26/24 History Complex-Vitamin B12 tablet) tamsulosin 0.4 mg capsule 0.4 mg PO HS #90 caps 07/24/23 08/26/24 Rx aspirin 81 mg tablet,delayed 81 mg PO DAILY 09/13/23 08/26/24 History release (Adult Low Dose Aspirin) cholecalciferol (vitamin D3) 25 25 mcg PO DAILY 09/13/23 08/26/24 History mcg (1,000 unit) capsule ferrous sulfate 324 mg (65 mg 324 mg PO BID 09/13/23 08/26/24 History iron) tablet,delayed release fluticasone propionate 50 2 spray intranasal DAILY PRN 09/13/23 08/26/24 History mcg/actuation nasal Allergy Symptoms spray,suspension (Flonase Allergy Relief) lactobacillus combination no.9 4 4,000 mmu cells PO DAILY 09/13/23 08/26/24 History billion cell capsule (Adult 50 Plus Probiotic) melatonin 5 mg capsule 10 mg PO QHS 09/13/23 08/26/24 History apixaban 2.5 mg tablet (Eliquis) 2.5 mg PO BID 12/04/23 08/26/24 History lisinopril 20 mg tablet 20 mg PO DAILY #90 tabs 01/22/24 08/26/24 Rx epoetin ren-epbx 20,000 unit/mL 20,000 unit subcut .EVERY 2 WEEKS 04/26/24 08/26/24 History injection solution amlodipine 5 mg tablet 5 mg PO DAILY #30 tabs 05/02/24 08/26/24 Rx atorvastatin 40 mg tablet 40 mg PO DAILY #30 tabs 05/02/24 08/26/24 Rx albuterol sulfate 90 mcg/actuation 2 puff inhalation QID PRN 06/05/24 08/26/24 Rx aerosol inhaler shortness of breath or wheezing #8.5 grams furosemide 40 mg tablet 40 mg PO DAILY #90 tabs 06/27/24 08/26/24 Rx cephalexin 250 mg capsule 250 mg PO DAILY 07/05/24 08/26/24 History carbidopa 25 mg-levodopa 100 mg 3 tablet PO TID #270 tabs 08/29/24 08/29/24 Rx tablet carbidopa ER 50 mg-levodopa 200 mg 1 tablet PO QHS #90 tabs 08/29/24 08/29/24 Rx tablet,extended release donepezil 10 mg tablet (Aricept) 5 mg PO QHS #90 tabs 08/29/24 08/29/24 Rx Allergies Allergy/AdvReac Type Severity Reaction Status Date / Time No Known Allergies Allergy Verified 08/29/24 13:29 Vital Signs Vital Signs - 24 hr 09/06/24 17:03 09/06/24 17:36 09/06/24 17:03 Temperature 97.4 F L 97.6 F Pulse Rate 0 L 64 123 H Respiratory Rate 0 L 21 H 14 Blood Pressure 117/65 159/74 H Pulse Oximetry 98 96 Oxygen Delivery Oxygen Flow Rate 09/06/24 17:15 09/06/24 17:30 09/06/24 18:00 Temperature 97.5 F L 97.4 F L Pulse Rate 76 70 72 Respiratory Rate 16 16 16 Blood Pressure 151/79 H 117/65 127/76 Pulse Oximetry 96 88 L 99 Oxygen Delivery Oxygen Flow Rate 09/06/24 18:30 09/06/24 18:50 09/06/24 19:23 Temperature 97.4 F L 97.4 F L 97.0 F L Pulse Rate 65 65 68 Respiratory Rate 18 14 22 H Blood Pressure 115/50 L 123/65 130/73 Pulse Oximetry 87 L 95 97 Oxygen Delivery Oxygen Flow Rate 09/06/24 20:00 09/07/24 10:14 Temperature Pulse Rate 68 Respiratory Rate 22 H Blood Pressure Pulse Oximetry 97 Oxygen Delivery Nasal Cannula Nasal Cannula Oxygen Flow Rate 4 3 Exam Narrative: HEENT: Pharyngeal mucosa pink and dry. NECK: No JVD. CHEST: Mildly tachypneic. Coarse crackles throughout. HEART: NL S1/S2, regular, no murmur. ABDOMEN: BS hypoactive, soft, nontender, no mass, no bruits EXTREMITIES: No cyanosis, edema, or clubbing NEUROLOGIC: CN intact and symmetric to inspection. Intermittent tonic-clonic movements of LUE. MUSCULOSKELETAL: No gross deformity to visual inspection. PSYCH: Unresponsive to verbal or tactile stimuli. Assessment and Plan Assessment and plan (1) Hospice care: Code(s): Z51.5 - Encounter for palliative care Status: Acute Assessment and Plan: * Meet inpatient hospice criteria due to required continuous IV hydromorphone for control of dyspnea as well as scheduled IV levetiracetam for control of focal seizures. * P.r.n. palliative regimen ordered. * 09/07/2024 Discussed care prognosis with his spouse, son, and granddaughter side. (2) Cardiac arrest: Code(s): I46.9 - Cardiac arrest, cause unspecified Status: Acute Assessment and Plan: * ROSC after epinephrine and CPR. (3) Congestive heart failure: Code(s): I50.9 - Heart failure, unspecified Status: Acute Assessment and Plan: * Chronic diastolic. (4) Acute hypoxic respiratory failure: Code(s): J96.01 - Acute respiratory failure with hypoxia Status: Acute Assessment and Plan: * Likely related to aspiration, chf secondary to cardiac arrest. 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 (7) Parkinson disease: Qualifiers: Dyskinesia presence: without dyskinesia Fluctuating manifestations: without fluctuating manifestations Qualified Code(s): G20.A1 - Parkinson's disease without dyskinesia, without mention of fluctuations Code(s): G20 - Parkinson's disease Status: Chronic (8) Hypertension: Qualifiers: Hypertension type: essential hypertension Qualified Code(s): I10 - Essential (primary) hypertension Code(s): I10 - Essential (primary) hypertension Status: Chronic (9) Diabetes mellitus: Qualifiers: Diabetes mellitus type: type 2 Diabetes mellitus terminal press operator insulin use: without terminal press operator use Diabetes mellitus complication status: without complication Qualified Code(s): E11.9 - Type 2 diabetes mellitus without complications Code(s): E11.9 - Type 2 diabetes mellitus without complications Status: Chronic (10) BPH (benign prostatic hyperplasia): Qualifiers: Lower urinary tract symptom detail: urinary retention Lower urinary tract symptom presence: symptoms present Qualified Code(s): N40.1 - Benign prostatic hyperplasia with lower urinary tract symptoms; R33.8 - Other retention of urine Code(s): N40.0 - Benign prostatic hyperplasia without lower urinary tract symptoms Status: Acute (11) Anemia in chronic kidney disease: Code(s): N18.9 - Chronic kidney disease, unspecified; D63.1 - Anemia in chronic kidney disease Status: Acute (12) Paroxysmal atrial fibrillation: Code(s): I48.0 - Paroxysmal atrial fibrillation Status: Acute (13) Dementia: Qualifiers: Dementia type: unspecified type Dementia severity: unspecified severity Dementia behavioral or psychological symptom: without behavioral, psychotic, or mood disturbance or anxiety Qualified Code(s): F03.90 - Unspecified dementia, unspecified severity, without behavioral disturbance, psychotic disturbance, mood disturbance, and anxiety Code(s): F03.90 - Unspecified dementia, unspecified severity, without behavioral disturbance, psychotic disturbance, mood disturbance, and anxiety Status: Acute (14) Chronic kidney disease, stage 4 (severe): Code(s): N18.4 - Chronic kidney disease, stage 4 (severe) Status: Chronic This report may have been done utilizing a voice recognition system. Attempts have been made to correct errors. However, there may be uncorrected grammatical, spelling, and recognition errors present. Report Initialized date/time: Donnie Morales MD 09/07/24 / 1333 Electronically signed by: Donnie Morales MD 09/07/24 [id number] [facility]
[2024-09-07 14:57] VITALS: BMI 26.3
[2024-09-07 15:38] VITALS: PULSE 64; RESP 24
[2024-09-07] MEDS: HYDROmorphone HCL/PF (*CRX) 50 MG in SODIUM CHLORIDE 0.9% IV 95 ML IV CONT (15:38)
[2024-09-07] MEDS: levETIRAcetam 500MG/NACL 100ML 500 MG/100 ML BAG 400 MG IVPB (18:03)
[2024-09-07 18:34] VITALS: O2SAT 83
[2024-09-07 20:00] VITALS: BP 114/62; PULSE 76; RESP 22; TEMP 37.4; O2SAT 89
--- NOTE | 2024-09-08 09:16 | P.DN_ITS ---
Discharge Summary Date and Time Date of : 09/08/24 Time of : 01:05 Provider Pronounced By: 2 RNs Name of First RN That Pronounced: January Cayden Name of Second RN That Pronounced: Sidney Doran Probable Cause of Probable Cause of : acute hypoxic respiratory failure due to cardiac arrest due to congestive heart failure Summary Hospital Course: Admitted to inpatient hospice service. Medications titrated to comfort. Mr. Carrera peacefully. Additional Data Confirmation of as documented by pronouncing clinician: Pupillary Reflex, Palpable Pulses, Response to Stimuli, Heart Tones and Breath Sounds Name of Provider Notified: denis renteria Time Provider Notified: 01:27 Utility Mechanic Supervisor Notified: Yes Date [facility] Notified of : 09/08/24 Time [facility] Notified of : 01:15
== END 2024-09-08 01:05 | disposition expired | DRG 951 ==
LOC: ANH3MEDSUR 09-08 01:18
PROVIDERS: Admitting Provider Internal Medicine; PCP Family Medicine; Visit Provider Internal Medicine
DX: Z51.5 Encounter for palliative care (principal); J96.01 Acute respiratory failure with hypoxia; I13.0 Hypertensive heart and chronic kidney disease with heart failure and stage 1 through stage 4 chronic kidney disease, or unspecified chronic kidney disease; I46.9 Cardiac arrest, cause unspecified; I50.9 Heart failure, unspecified; I48.0 Paroxysmal atrial fibrillation; D63.1 Anemia in chronic kidney disease; E11.9 Type 2 diabetes mellitus without complications; E11.22 Type 2 diabetes mellitus with diabetic chronic kidney disease; N40.0 Benign prostatic hyperplasia without lower urinary tract symptoms; R56.9 Unspecified convulsions; G20.A1 Parkinson's disease without dyskinesia, without mention of fluctuations; F02.80 Dementia in other diseases classified elsewhere, unspecified severity, without behavioral disturbance, psychotic disturbance, mood disturbance, and anxiety; Z86.73 Personal history of transient ischemic attack (TIA), and cerebral infarction without residual deficits
CPT/HCPCS: A9270; J1171; J1953